=== PATIENT | male | born 1950 | race Caucasian/White ===

== ENCOUNTER → 2016-08-18 | Outpatient (CLI) | payer BC ==
[~2016-08-18] MED LIST: ALFU10TA30 PO; AMLO-110 PO; ASPI-232 PO; ATOR-24 PO; CHOL100027 PO; DILT180C70 PO; EXEN1INJ4 SQ; HMLI SC; HYDR12.524 PO; INSDGI SC; INSPMPNVLG; LINA1TAB PO; MAGN500T15 PO; SPIR25TA PO; TEST5GEL TOP; VENL75CA PO
[2016-08-18 09:36] LABS: BASO % 0.3 %; BASO ABS # 0.02 K/uL (0-0.2); COMPLETE YES; EOS % 4.9 %; IG% 0.1 %; LYMPH % 25.9 %; LYMPH ABS # 1.85 K/uL (1.2-3.4); MEAN CELL VOLUME 86.6 fL (80-100); MEAN CORPUSCULAR HEMOGLOBIN 30.3 pg (25-34); MEAN PLATELET VOLUME 10.4 fL (7.4-10.4); MONO % 7.7 %; NEUT % 61.1 %; PLATELET COUNT 243 K/uL (130-400); RED BLOOD COUNT 4.62 M/uL (4.7-6.1); WHITE BLOOD COUNT 7.13 K/uL (4.8-10.8)
[2016-08-18 09:42] LABS: ALT/SGPT 45 U/L (12-78); AST/SGOT 26 U/L (15-37); BLOOD UREA NITROGEN 22 mg/dl (7-18); BUN/CREATININE RATIO 14.5 (10-20); CALCIUM 8.8 mg/dl (8.5-10.1); CARBON DIOXIDE 27 mmol/L (21-32); CHLORIDE 107 mmol/L (98-107); GLUCOSE 175 mg/dl (70-99); POTASSIUM 4.7 mmol/L (3.5-5.1); SODIUM 140 mmol/L (136-145)
[2016-08-18 09:49] LABS: CHOLESTEROL 121 mg/dl (0-200); HDL CHOLESTEROL 40 mg/dl; LDL CHOLESTEROL CALCULATED 63 mg/dl; TRIGLYCERIDES 92 mg/dl (0-150); VERY LOW DENSITY LIPOPROT CALC 18 mg/dl
[2016-08-18 10:33] LABS: ESTIMATED AVERAGE GLUCOSE 163 mg/dl; HA1C FLAG Normal (Normal)
== END | disposition home or self-care (01) ==
LOC: C.LAB 07:17
DX: E11.9 Type 2 diabetes mellitus without complications (principal); E29.1 Testicular hypofunction; E78.5 Hyperlipidemia, unspecified; I10 Essential (primary) hypertension

== ENCOUNTER → 2016-09-25 | Outpatient (CLI) | payer BC ==
[~2016-09-25] MED LIST changes: +ALFU10TA2 PO; -ALFU10TA30 PO
[2016-09-25 09:35] LABS: BASO % 0.4 %; BASO ABS # 0.03 K/uL (0-0.2); COMPLETE YES; EOS % 4.1 %; HEMATOCRIT 42.9 % (42-52); IG% 0.1 %; LYMPH % 27.5 %; LYMPH ABS # 2.01 K/uL (1.2-3.4); MEAN CELL VOLUME 86.8 fL (80-100); MEAN CORPUSCULAR HEMOGLOBIN 30.4 pg (25-34); MEAN PLATELET VOLUME 10.1 fL (7.4-10.4); MONO % 8.6 %; NEUT % 59.3 %; PLATELET COUNT 269 K/uL (130-400); RED BLOOD COUNT 4.94 M/uL (4.7-6.1)
[2016-09-25 10:00] LABS: BLOOD UREA NITROGEN 24 mg/dl (7-18); CARBON DIOXIDE 25 mmol/L (21-32); CHLORIDE 105 mmol/L (98-107); GLUCOSE 181 mg/dl (70-99); MAGNESIUM 2.1 mg/dl (1.8-2.4); POTASSIUM 4.5 mmol/L (3.5-5.1); SODIUM 138 mmol/L (136-145)
[2016-09-25 10:14] LABS: CALCIUM 9.1 mg/dl (8.5-10.1)
[2016-09-25 10:28] LABS: ESTIMATED AVERAGE GLUCOSE 163 mg/dl; HA1C FLAG Normal (Normal)
== END | disposition home or self-care (01) ==
LOC: C.LAB 07:48
DX: I10 Essential (primary) hypertension (principal)

== ENCOUNTER → 2016-09-28 | Outpatient (CLI) | payer BC ==
--- NOTE | 2016-09-28 15:50 | DIAGNOSTIC IMAGING REPORT ---
MRI OF THE BRAIN WITHOUT CONTRAST CLINICAL HISTORY: Headache, transient ischemic attack, balance difficulty, loss of motor function. Blurred vision. COMPARISON STUDY: MRI the brain dated 04/02/2015 FINDINGS: Sagittal T1, axial diffusion, proton density and T2 weighted axial, coronal FLAIR, and axial T1-weighted images were acquired. No intra or extra-axial mass lesions are visualized Axial diffusion-weighted images reveal no evidence of acute or subacute infarction. There is no evidence of ventricular dilatation. Proton density T2-weighted and FLAIR images reveal scattered foci of increased T2 signal within the white matter, likely on a small vessel basis. The findings remain similar to the preceding examination. There are no abnormal flow voids. IMPRESSION: 1. No acute intracranial findings, and no significant change from the prior March 2015 study 2. No evidence of acute or subacute infarction 3. No evidence of intracranial mass on this noncontrast study 4. Scattered foci of increased T2 signal within the white matter, likely on a small vessel basis Electronically signed by: Jaguar Kwon M.D. 09/28/2016 3:48 PM Dictated Date/Time: 09/28/2016 3:46 PM
== END ==
LOC: C.MRI 15:01
DX: G45.9 Transient cerebral ischemic attack, unspecified (principal); G44.52 New daily persistent headache (NDPH); R26.2 Difficulty in walking, not elsewhere classified

== ENCOUNTER → 2016-10-01 | Outpatient (CLI) | payer BC ==
--- NOTE | 2016-10-01 14:30 | DIAGNOSTIC IMAGING REPORT ---
BILATERAL CAROTID DOPPLER STUDY HISTORY: Headache. Balance difficulty. Loss of motor function. Blurred vision. COMPARISON: None. TECHNIQUE: Real-time, grayscale, and color Doppler sonography of the carotid arteries was performed. Imaging reviewed in the transverse and longitudinal planes. All measurements were calculated based on NASCET criteria. FINDINGS: Antegrade flow is seen in the bilateral vertebral arteries. The brachial pressures are hemodynamically similar. Mild calcified plaque within the bilateral carotid bifurcations. The peak systolic velocity within the right ICA is 64 cm/s. The right systolic ratio is 0.9. The peak systolic velocity within the left ICA is 95 cm/s. The left systolic ratio is 1. IMPRESSION: No hemodynamically significant stenosis seen within the carotid arteries. Electronically signed by: Paxton Cruz M.D. 10/01/2016 2:29 PM Dictated Date/Time: 10/01/2016 2:27 PM
--- NOTE | 2016-10-01 18:24 | ECHOCARDIOGRAM REPORT ---
*NOTICE TO RECEIVING LIBERTARIAN AGENCY This information is strictly Confidential and protected under [place] law. [place] law prohibits you from making any further disclosure of this information unless further disclosure is expressly permitted by the written consent of the person to whom it pertains or is authorized by law. A general authorization for the release of medical or other information is not sufficient for this purpose. Hospital accepts no responsibility if the information is made available to any other person, INCLUDING THE PATIENT. Interpretation Summary * Name: RICK OCHOA Study Date: 10/01/2016 01:13 PM BP: 167/71 mmHg * Patient Location: [facility] HR: 61 * : 1950 (M/d/yyyy) Gender: Male Height: 74 in * Age: 66 yrs Ethnicity: CA Weight: 220 lb * Ordering Physician: ZAINAB ACEVES JR., DO * Performed By: Rae Doty RCS * * Reason For Study: TIA * BSA: 2.3 m2 * -- Conclusions -- * There is mild concentric left ventricular hypertrophy. * Left ventricular systolic function is normal. * Grade I diastolic dysfunction, (abnormal relaxation pattern). * The left atrium is mildly dilated. * Injection of contrast documented no interatrial shunt. * Right ventricular systolic pressure is elevated at 30-40mmHg. * Moderate aortic root dilatation. Procedure Details * A complete two-dimensional transthoracic echocardiogram was performed (2D, M-mode, Doppler and color flow Doppler). * A saline contrast injection was performed to assess for cardiac shunting. * The injection was performed through an intravenous line in the left arm. * The attending nurse who injected the saline contrast was NAEL MERRITT [facility], RN. * A total of 20 cc of agitated saline was given. Left Ventricle * The left ventricle is normal in size. * There is mild concentric left ventricular hypertrophy. * Ejection Fraction = 55-60%. * Left ventricular systolic function is normal. * Grade I diastolic dysfunction, (abnormal relaxation pattern). Right Ventricle * The right ventricle is normal in size and function. Atria * The left atrium is mildly dilated. * Right atrial size is normal. * Injection of contrast documented no interatrial shunt. Mitral Valve * The mitral valve anatomy is normal. * There is trace mitral regurgitation. Tricuspid Valve * The tricuspid valve is not well visualized, but is grossly normal. * Significant tricuspid regurgitation is absent. * Right ventricular systolic pressure is elevated at 30-40mmHg. Aortic Valve * The aortic valve is normal in structure and function. * No hemodynamically significant valvular aortic stenosis. * There is no significant aortic regurgitation. Great Vessels * Moderate aortic root dilatation. Pericardium/Pleural * There is no pericardial effusion. MMode 2D Measurements and Calculations IVSd 1.5 cm IVSs 1.8 cm LVIDd 4.6 cm LVIDs 3.2 cm LVPWd 1.5 cm LVPWs 1.6 cm IVS/LVPW 1.0 FS 30.2 % EDV(Teich) 96.0 ml ESV(Teich) 40.8 ml EF(Teich) 57.5 % EDV(cubed) 95.7 ml ESV(cubed) 32.6 ml EF(cubed) 65.9 % % IVS thick 17.9 % % LVPW thick 5.5 % LV mass(C)d 292.2 grams LV mass(C)dI 129.1 grams/m\S\2 LV mass(C)s 215.1 grams LV mass(C)sI 95.0 grams/m\S\2 SV(Teich) 55.3 ml SI(Teich) 24.4 ml/m\S\2 SV(cubed) 63.1 ml SI(cubed) 27.9 ml/m\S\2 Ao root diam 5.0 cm Ao root area 19.3 cm\S\2 ACS 1.9 cm LA dimension 4.2 cm LA/Ao 0.84 LVOT diam 2.1 cm LVOT area 3.3 cm\S\2 LVAd ap4 44.1 cm\S\2 LVLd ap4 8.9 cm EDV(MOD-sp4) 174.8 ml EDV(sp4-el) 185.2 ml LVAs ap4 23.1 cm\S\2 LVLs ap4 7.4 cm ESV(MOD-sp4) 59.6 ml ESV(sp4-el) 61.5 ml EF(MOD-sp4) 65.9 % EF(sp4-el) 66.8 % LVAd ap2 38.7 cm\S\2 LVLd ap2 8.6 cm EDV(MOD-sp2) 144.2 ml EDV(sp2-el) 148.3 ml LVAs ap2 23.2 cm\S\2 LVLs ap2 7.1 cm ESV(MOD-sp2) 65.8 ml ESV(sp2-el) 64.5 ml EF(MOD-sp2) 54.4 % EF(sp2-el) 56.5 % LVLd %diff -3.50 % EDV(MOD-bp) 160.9 ml LVLs %diff -3.94 % ESV(MOD-bp) 61.9 ml EF(MOD-bp) 61.5 % SV(MOD-sp4) 115.2 ml SI(MOD-sp4) 50.9 ml/m\S\2 SV(MOD-sp2) 78.4 ml SI(MOD-sp2) 34.6 ml/m\S\2 SV(MOD-bp) 99.0 ml SI(MOD-bp) 43.8 ml/m\S\2 SV(sp4-el) 123.7 ml SI(sp4-el) 54.7 ml/m\S\2 SV(sp2-el) 83.8 ml SI(sp2-el) 37.0 ml/m\S\2 Doppler Measurements and Calculations MV E max brittnee 58.8 cm/sec MV A max brittnee 79.3 cm/sec MV E/A 0.74 MV P1/2t max brittnee 78.6 cm/sec MV P1/2t 68.6 msec MVA(P1/2t) 3.2 cm\S\2 MV dec slope 335.4 cm/sec\S\2 MV dec time 0.23 sec Ao V2 max 133.9 cm/sec Ao max PG 7.2 mmHg Ao max PG (full) 5.5 mmHg ABHAY(V,A) 1.6 cm\S\2 ABHAY(V,D) 1.6 cm\S\2 LV V1 max PG 1.7 mmHg LV V1 max 64.8 cm/sec PA V2 max 108.3 cm/sec PA max PG 4.7 mmHg TR max brittnee 250.4 cm/sec
== END | disposition home or self-care (01) ==
LOC: C.CPL 12:32
DX: G45.9 Transient cerebral ischemic attack, unspecified (principal)

== ENCOUNTER → 2016-10-22 | Outpatient (CLI) | payer BC ==
[~2016-10-22] MED LIST changes: -ALFU10TA2 PO; +ALFU10TA30 PO
[2016-10-22 12:27] LABS: MEAN CELL VOLUME 87.2 fL (80-100); MEAN CORPUSCULAR HEMOGLOBIN 30.4 pg (25-34); MEAN CORPUSCULAR HGB CONC 34.9 g/dl (32-36); MEAN PLATELET VOLUME 10.5 fL (7.4-10.4); PLATELET COUNT 284 K/uL (130-400); RED BLOOD COUNT 4.93 M/uL (4.7-6.1); WHITE BLOOD COUNT 7.35 K/uL (4.8-10.8)
[2016-10-22 12:41] LABS: URINE APPEARANCE CLEAR (CLEAR); URINE BILIRUBIN NEG (NEG); URINE COLOR YELLOW; URINE NITRITE NEG (NEG); URINE PH 5.5 (4.5-7.5); URINE SPECIFIC GRAVITY 1.019 (1.000-1.030); UROBILINOGEN NEG (NEG)
[2016-10-22 12:54] LABS: MANUAL MICROSCOPIC REQUIRED? NO; REVIEW REQ? NO
[2016-10-22 12:56] LABS: ALT/SGPT 45 U/L (12-78); AST/SGOT 31 U/L (15-37); BLOOD UREA NITROGEN 27 mg/dl (7-18); CARBON DIOXIDE 23 mmol/L (21-32); CHLORIDE 102 mmol/L (98-107); GLUCOSE 255 mg/dl (70-99); POTASSIUM 4.5 mmol/L (3.5-5.1); SODIUM 135 mmol/L (136-145)
[2016-10-22 12:58] LABS: CALCIUM 9.1 mg/dl (8.5-10.1)
[2016-10-22 13:01] LABS: ALB/GLOB RATIO 1.1 (0.9-2); ALKALINE PHOSPHATASE 80 U/L (45-117)
[2016-10-22 13:17] LABS: URINE PROTIEN/CREAT RATIO 1.2 (0-0.2); URINE TOTAL PROTEIN 211.2 mg/dl (0-11.9)
== END | disposition home or self-care (01) ==
LOC: C.LAB 10:13
PROVIDERS: ATTEND Internal Medicine Nephrology
DX: I12.9 Hypertensive chronic kidney disease with stage 1 through stage 4 chronic kidney disease, or unspecified chronic kidney disease (principal); N18.3 Chronic kidney disease, stage 3 (moderate); E11.22 Type 2 diabetes mellitus with diabetic chronic kidney disease; R80.9 Proteinuria, unspecified; E55.9 Vitamin D deficiency, unspecified

== ENCOUNTER 2016-10-29 20:01 | Emergency (ER) | payer BC ==
[~2016-10-29] VITALS: Ht 188 cm; Wt 98.1 kg
[~2016-10-29 20:01] MED LIST changes: +ALFU10TA2 PO; -ALFU10TA30 PO; -AMLO-110 PO; -HYDR12.524 PO; -INSPMPNVLG; -LINA1TAB PO
[2016-10-29 20:03] VITALS: TEMP 36.9; Ht 188 cm; Wt 98.1 kg
[2016-10-29] MEDS ORDERED: INSPMPNVLG (20:47)
[2016-10-29] MEDS ORDERED: AMLO-110 PO (20:47)
[2016-10-29] MEDS ORDERED: HYDR12.524 PO (20:47)
[2016-10-29] MEDS ORDERED: LINA1TAB PO (20:47)
[2016-10-29] MEDS ORDERED: ASPIRIN 81 MG CHEW PO STA (21:01)
[2016-10-29 21:08] VITALS: O2SAT 96
[2016-10-29 21:10] LABS: BASO % 0.4 %; BASO ABS # 0.04 K/uL (0-0.2); COMPLETE YES; EOS % 3.9 %; HEMATOCRIT 42.2 % (42-52); IG% 0.3 %; LYMPH % 31.2 %; LYMPH ABS # 3.22 K/uL (1.2-3.4); MEAN CELL VOLUME 86.5 fL (80-100); MEAN CORPUSCULAR HEMOGLOBIN 30.3 pg (25-34); MEAN CORPUSCULAR HGB CONC 35.1 g/dl (32-36); MEAN PLATELET VOLUME 10.2 fL (7.4-10.4); MONO % 6.7 %; NEUT % 57.5 %; PLATELET COUNT 270 K/uL (130-400); RED BLOOD COUNT 4.88 M/uL (4.7-6.1); WHITE BLOOD COUNT 10.32 K/uL (4.8-10.8)
[2016-10-29 21:18] LABS: ALT/SGPT 45 U/L (12-78); BLOOD UREA NITROGEN 29 mg/dl (7-18); BUN/CREATININE RATIO 15.3 (10-20); CARBON DIOXIDE 24 mmol/L (21-32); CHLORIDE 105 mmol/L (98-107); GLUCOSE 140 mg/dl (70-99); POTASSIUM 5.3 mmol/L (3.5-5.1); SODIUM 137 mmol/L (136-145)
--- NOTE | 2016-10-29 21:20 | DIAGNOSTIC IMAGING REPORT ---
CHEST ONE VIEW PORTABLE CLINICAL HISTORY: CHEST PAIN dyspnea COMPARISON STUDY: 05/13/2010 FINDINGS: The bones soft tissues and hemidiaphragms are normal. The cardiomediastinal silhouette is normal. The lungs are clear. The pulmonary vasculature is normal. IMPRESSION: Negative chest. Electronically signed by: Sim Rodriguez M.D. 10/29/2016 9:19 PM Dictated Date/Time: 10/29/2016 9:17 PM
[2016-10-29 21:23] LABS: ALKALINE PHOSPHATASE 83 U/L (45-117); AST/SGOT 30 U/L (15-37); CKMB/CK RATIO 1.1 (0-3.0)
[2016-10-29 21:32] LABS: ISTAT CREATININE 1.9 mg/dl (0.6-1.3); ISTAT HEMOGLOBIN 14.3 g/dl (14.0-18.0); ISTAT IONIZED CALCIUM 1.18 mmol/l (1.12-1.32)
[2016-10-29 22:00] LABS: CALCIUM 8.9 mg/dl (8.5-10.1)
[2016-10-29] MEDS ORDERED: OPTIRAY 320 IV PRN (22:00)
--- NOTE | 2016-10-29 22:21 | DIAGNOSTIC IMAGING REPORT ---
Study: CT chest combination angiogram HISTORY: Dissection. Chest pain. FINDINGS: Lungs are clear. Thoracic aorta is normal. Pulmonary vasculature enhances appropriately. IMPRESSION: Normal study Electronically signed by: Sim Rodriguez M.D. 10/29/2016 10:20 PM Dictated Date/Time: 10/29/2016 10:15 PM
[2016-10-29] MEDS ORDERED: SODIUM CHLORIDE 0.9% 1000ML 1,000 ML IV STA (22:50)
[2016-10-29] MEDS ORDERED: NITROGLYCERIN 0.4 MG SL PER TAB CHARGE SL PRN (23:15)
[2016-10-29] MEDS ORDERED: ALUMINUM/MAGNESIUM/SIMETH (MAALOX MAX) 30 ML UDC PO PRN (23:15)
[2016-10-29] MEDS ORDERED: POLYETHYLENE (MIRALAX) 17 GM PACK PO PRN (23:15)
[2016-10-29] MEDS ORDERED: MoRPHine SULFATE 2 MG/ML CARP IV PRN (23:15)
[2016-10-29] MEDS ORDERED: ZOLPIDEM TARTRATE 5 MG TAB PO PRN (23:15)
[2016-10-29] MEDS ORDERED: ACETAMINOPHEN 325 MG TAB PO PRN (23:15)
[2016-10-29] MEDS ORDERED: MAGNESIUM HYDROXIDE SUSP 30 ML UDC PO PRN (23:15)
[2016-10-29] MEDS ORDERED: ONDANSETRON INJ 2 MG/ML 2 ML VIAL IV PRN (23:15)
--- NOTE | 2016-10-29 23:43 | EMERGENCY ROOM VISIT NOTE ---
History Report prepared by Lacey: Francine Carrasco Under the Supervision of: Dr. Huan Molina M.D. First contact with patient: 20:25 Chief Complaint: CHEST PAIN Stated Complaint: CHEST PAIN, PRESSURE, SOB Nursing Triage Summary: see triage note History of Present Illness The patient is a 66 year old male who presents to the Emergency Room with complaints of worsening chest pain starting 5 days ago. He describes his pain as a pressure. He also has a pain in his left chest. The pain worsens with activity. It is relieved by rest. He also reports feeling SOB and tired constantly. His throat feels coarse. He has a history of smoking, but quit 13 years ago. He has a history of diabetes. He had an echo 1 week ago which found he had a dilated aorta. He has an appointment with cardiothoracic surgery next week. He has had a stress test in the past around 10 years ago. He denies any history of cardiac catheterization. He takes 2 baby aspirin a day. He is not on any other blood thinners. Source of History: patient Onset: 5 days ago Position: chest Quality: pressure Timing: worsening Modifying Factors (Worsening): other (activity) Modifying Factors (Relieving): rest Associated Symptoms: + sorethroat, + SOB, + fatigue Review of Systems See HPI for pertinent positives & negatives. A total of 10 systems reviewed and were otherwise negative. Past Medical & Surgical Medical Problems: (1) Chest pain (2) CHRONIC KIDNEY DISEASE, UNSPECIFIED (3) DEPRESSIVE DISORDER NEC (4) DIAB W NEURO MANIFEST, TYPE II OR UNSPEC TYPE, UNCONTROLLED (5) DIAB W RENAL MANIFEST, TYPE II OR UNSPEC TYPE, UNCONTROLLED (6) DYSMETABOLIC SYNDROME X (7) ESOPHAGEAL REFLUX (8) GOUT NOS (9) HYPERTENSION NOS (10) OSTEOARTHROS NOS-ANKLE Family History Cancer Social History Smoking Status: Never Smoker Alcohol Use: occasionally Marital Status: Occupation Status: employed Current/Historical Medications Scheduled Alfuzosin Hcl (Uroxatral), 10 MG PO DAILY Amlodipine (Norvasc), 5 MG PO DAILY Aspirin (Aspir-81), 162 MG PO DAILY Atorvastatin (Lipitor), 40 MG PO DAILY Diltiazem Hcl (Diltiazem Hcl), 180 MG PO QPM Hydrochlorothiazide (Microzide), 25 MG PO DAILY Insulin Aspart (novoLOG INSULIN PUMP ), 1 EA N/A UD Linagliptin (Tradjenta), 1 TAB PO DAILY Magnesium (Magnesium), 500 MG PO DAILY Spironolactone (Aldactone), 37.5 MG PO BID Allergies Coded Allergies: No Known Allergies (Verified , 09/18/14) Physical Exam Vital Signs Date Time Temp Pulse Resp B/P (MAP) Pulse Ox O2 Delivery O2 Flow Rate FiO2 10/30/16 02:20 57 10/30/16 02:05 54 94 10/30/16 02:03 153/63 10/30/16 01:35 56 15 97 10/30/16 01:33 63 16 151/70 97 Room Air 10/30/16 01:13 58 10/30/16 00:33 155/65 10/30/16 00:30 59 96 10/30/16 00:00 65 16 95 10/29/16 23:44 163/69 10/29/16 23:30 61 12 10/29/16 23:26 61 18 143/70 95 Room Air 10/29/16 22:41 62 20 10/29/16 22:38 146/64 10/29/16 21:36 66 14 10/29/16 21:31 72 17 10/29/16 21:26 65 15 10/29/16 21:21 67 25 10/29/16 21:16 70 19 10/29/16 21:11 66 18 10/29/16 21:08 96 Room Air 10/29/16 21:06 67 16 10/29/16 21:01 66 20 10/29/16 20:56 76 24 10/29/16 20:51 68 15 10/29/16 20:46 65 22 10/29/16 20:46 62 10/29/16 20:41 63 24 10/29/16 20:39 96 Room Air 10/29/16 20:03 36.9 80 16 142/80 96 Room Air Physical Exam GENERAL: Patient is a healthy-appearing well-nourished HEAD: Normocephalic atraumatic EYES: Ocular movements intact pupils equal and react to light OROPHARYNX mucous membranes are moist no exudates present no erythema or edema present NECK: Supple no nuchal rigidity CHEST: Good equal expansion LUNGS: Clear and equal to auscultation CARDIAC: Normal S1 and S2 ABDOMEN: Soft nontender no guarding BACK: No CVA tenderness EXTREMITIES: No pain upon palpation normal muscle strength in all groups no clubbing cyanosis or edema NEURO: Patient is following commands is answering questions appropriately. Alert and oriented x3 Cranial Nerves 2-12 grossly intact Medical Decision & Procedures ER Provider Diagnostic Interpretation: X-ray results as stated below per interpretation by me and the radiologist. Radiology results as stated below per my review and radiologist interpretation: CHEST ONE VIEW PORTABLE CLINICAL HISTORY: CHEST PAIN dyspnea COMPARISON STUDY: 05/13/2010 FINDINGS: The bones soft tissues and hemidiaphragms are normal. The cardiomediastinal silhouette is normal. The lungs are clear. The pulmonary vasculature is normal. IMPRESSION: Negative chest. Electronically signed by: Sim Rodriguez M.D. 10/29/2016 9:19 PM Dictated Date/Time: 10/29/2016 9:17 PM Study: CT chest combination angiogram HISTORY: Dissection. Chest pain. FINDINGS: Lungs are clear. Thoracic aorta is normal. Pulmonary vasculature enhances appropriately. IMPRESSION: Normal study Electronically signed by: Sim Rodriguez M.D. 10/29/2016 10:20 PM Dictated Date/Time: 10/29/2016 10:15 PM Laboratory Results 10/29/16 20:30 Red Blood Count 4.88, Mean Corpuscular Volume 86.5, Mean Corpuscular Hemoglobin 30.3, Mean Corpuscular Hemoglobin Concent 35.1, Mean Platelet Volume 10.2, Neutrophils (%) (Auto) 57.5, Lymphocytes (%) (Auto) 31.2, Monocytes (%) (Auto) 6.7, Eosinophils (%) (Auto) 3.9, Basophils (%) (Auto) 0.4, Neutrophils # (Auto) 5.94, Lymphocytes # (Auto) 3.22, Monocytes # (Auto) 0.69, Eosinophils # (Auto) 0.40, Basophils # (Auto) 0.04 10/29/16 20:30 Test 10/29/16 20:30 10/29/16 21:14 10/30/16 00:07 White Blood Count 10.32 K/uL (4.8-10.8) Red Blood Count 4.88 M/uL (4.7-6.1) Hemoglobin 14.8 g/dL (14.0-18.0) Hematocrit 42.2 % (42-52) Mean Corpuscular Volume 86.5 fL (80-100) Mean Corpuscular Hemoglobin 30.3 pg (25-34) Mean Corpuscular Hemoglobin Concent 35.1 g/dl (32-36) Platelet Count 270 K/uL (130-400) Mean Platelet Volume 10.2 fL (7.4-10.4) Neutrophils (%) (Auto) 57.5 % Lymphocytes (%) (Auto) 31.2 % Monocytes (%) (Auto) 6.7 % Eosinophils (%) (Auto) 3.9 % Basophils (%) (Auto) 0.4 % Neutrophils # (Auto) 5.94 K/uL (1.4-6.5) Lymphocytes # (Auto) 3.22 K/uL (1.2-3.4) Monocytes # (Auto) 0.69 K/uL (0.11-0.59) Eosinophils # (Auto) 0.40 K/uL (0-0.5) Basophils # (Auto) 0.04 K/uL (0-0.2) RDW Standard Deviation 40.6 fL (36.4-46.3) RDW Coefficient of Variation 12.7 % (11.5-14.5) Immature Granulocyte % (Auto) 0.3 % Immature Granulocyte # (Auto) 0.03 K/uL (0.00-0.02) Est Creatinine Clear Calc Drug Dose 45.1 ml/min Estimated GFR () 41.9 Estimated GFR (Non- 36.2 BUN/Creatinine Ratio 15.3 (10-20) Calcium Level 8.9 mg/dl (8.5-10.1) Total Bilirubin 0.3 mg/dl (0.2-1) Direct Bilirubin < 0.1 mg/dl (0-0.2) Aspartate Amino Transf (AST/SGOT) 30 U/L (15-37) Alanine Aminotransferase (ALT/SGPT) 45 U/L (12-78) Alkaline Phosphatase 83 U/L (45-117) Total Creatine Kinase 198 U/L (39-308) Creatine Kinase MB 2.2 ng/ml (0.5-3.6) Creatine Kinase MB Ratio 1.1 (0-3.0) Troponin I < 0.015 ng/ml (0-0.045) Total Protein 7.5 gm/dl (6.4-8.2) Albumin 3.8 gm/dl (3.4-5.0) Lipase 295 U/L (73-393) Bedside Hemoglobin 14.3 g/dl (14.0-18.0) Bedside Hematocrit 42 % (42-52) Bedside Sodium 136 mEq/L (135-144) Bedside Potassium 5.4 mEq/L (3.3-5.0) Bedside Chloride 101 mEq/L (101-112) Bedside Total CO2 24 mEq/l (24-31) Anion Gap 17.0 mmol/L (16-25) Bedside Blood Urea Nitrogen 34 mg/dl (7-18) Bedside Creatinine 1.9 mg/dl (0.6-1.3) Bedside Glucose (other) 146 mg/dl (70-99) Bedside Ionized Calcium (Scarlett) 1.18 mmol/l (1.12-1.32) Bedside Glucose 169 mg/dl (70-99) Labs reviewed by ED physician. Medications Administered Medications (Trade) Dose Ordered Sig/Alba Route Start Time Stop Time Status Last Admin Dose Admin Aspirin (Aspirin Chew) 324 mg NOW STAT PO 10/29/16 21:01 10/29/16 21:03 DC 10/29/16 21:13 324 MG Sodium Chloride 1,000 ml @ 999 mls/hr Q1H1M STAT IV 10/29/16 22:50 10/29/16 23:50 DC 10/29/16 22:58 999 MLS/HR Morphine Sulfate (MoRPHine SULFATE INJ) 8 mg NOW STAT IV 10/30/16 01:38 10/30/16 01:39 DC 10/30/16 01:55 8 MG Ondansetron HCl (Zofran Inj) 4 mg NOW STAT IV 10/30/16 01:38 10/30/16 01:39 DC 10/30/16 01:56 4 MG ECG Indication: chest pain Rate (beats per minute): 61 Rhythm: normal sinus Findings: no acute ischemic change, no ectopy ED Course 2048: Past medical records reviewed. The patient was evaluated in room A10. A complete history and physical examination was performed. 2100: Aspirin 324 mg PO. 2250: NSS 1000 ml @ 999 mls/hr IV. 2300: Upon reexamination the patient is resting comfortably. I discussed results and treatment plan with the patient. He verbalizes agreement and understanding. The patient will be evaluated for further management. 2331: I discussed the patient's case with Dr. Paul, [facility] Hospitalist service, he has agreed to evaluate the patient for further management and care. Medical Decision Differential diagnosis: Etiologies such as cardiac ischemia, aortic dissection, pulmonary embolism, pneumonia, pneumothorax, musculoskeletal, infections, pericarditis, myocarditis , esophageal rupture, gastrointestinal, as well as others were entertained. This is a 66-year-old male who presents emergency department complaining of chest pain. I will note that the patient recently had an echo which was concerning for a dilated aortic root. He was given aspirin in the emergency department. His a normal EKG as well as CK-MB troponin fraction. The patient is a smoker and is also a diabetic. I believe based on these findings at the patient should at least be admitted for observation. I did discuss the case with the hospitalist and discussed the case with cardiology felt that the patient needed be transferred to [place]. For this reason I did discuss this with the patient. He'll be transferred via ALS. Patient remained pain-free in the emergency department. Consults Time Called: [id number] Consulting Physician[facility] Returned Call: [phone] I discussed the patient's case with him, he has agreed to evaluate the patient for further management and care. Impression Primary Impression: Chest pain Scribe Attestation The scribe's documentation has been prepared under my direction and personally reviewed by me in its entirety. I confirm that the note above accurately reflects all work, treatment, procedures, and medical decision making performed by me. Departure Information Dispostion Being Evaluated By Hospitalist Referrals Edwin Kohli Jr,D.O. (PCP) Patient Instructions My [facility] Health Problem Qualifiers Primary Impression: Chest pain Chest pain type: unspecified Qualified Codes: R07.9 - Chest pain, unspecified
[2016-10-29] MEDS ORDERED: IV FLUIDS COMPLETED PRN (23:45)
[2016-10-30] MEDS ORDERED: ONDANSETRON INJ 2 MG/ML 2 ML VIAL IV STA (01:38)
[2016-10-30] MEDS ORDERED: MoRPHine SULFATE 10 MG/ML CARP/VIAL IV STA (01:38)
[2016-10-30] MEDS ORDERED: DEXTROSE 50% 50 ML SYR IV PRN (02:30)
[2016-10-30] MEDS ORDERED: GLUCAGON FOR INJ 1 MG VIAL SQ PRN (02:30)
[2016-10-30] MEDS ORDERED: GLUCOSE 10 TABS/TUBE PO PRN (02:30)
[2016-10-30] MEDS ORDERED: GLUCOSE 40% GEL 15 GM TUBE PO PRN (02:30)
[2016-10-30] MEDS ORDERED: INSULIN ASPART 100 UNITS/ML VIAL SC PRN (05:45)
[2016-10-30] MEDS ORDERED: HEPARIN SOD 5000 UNIT/0.5 ML CARP SQ SCH (06:00)
[2016-10-30] MEDS ORDERED: NovoLOG INSULIN PUMP SCH (07:00)
--- NOTE | 2016-10-30 07:26 | EMERGENCY ROOM VISIT NOTE ---
ED Visit Note 07:22 the patient was reevaluated. He has minimal to no pain. He is awaiting transfer to [place].
[2016-10-30 07:35] LABS: PROTHROMBIN TIME (PATIENT) 10.8 SECONDS (9.0-12.0)
[2016-10-30 07:46] VITALS: BP 170/73; PULSE 54; O2SAT 97
[2016-10-30] MEDS ORDERED: ASPIRIN 81 MG ECTAB PO SCH (09:00)
[2016-10-30] MEDS ORDERED: SPIRONOLACTONE 25 MG TAB PO SCH (09:00)
[2016-10-30] MEDS ORDERED: MAGNESIUM OXIDE 400 MG TAB PO SCH (09:00)
[2016-10-30] MEDS ORDERED: HYDROCHLOROTHIAZIDE 25 MG PO SCH (09:00)
[2016-10-30] MEDS ORDERED: ALFUZosin TAB 10 MG TAB PO SCH (09:00)
[2016-10-30] MEDS ORDERED: AMLODIPINE BESYLATE 5 MG TAB PO SCH (09:00)
[2016-10-30] MEDS ORDERED: ATORVASTATIN 40 MG TAB PO SCH (09:00)
[2016-10-30] MEDS ORDERED: DILTIAZEM HCL (TIAzac) 180 MG CAPCR PO SCH (21:00)
== END 2016-10-30 07:48 | disposition short-term general hospital (02) ==
LOC: C.EDB 20:01 → ENRESERV 23:17 → CANRESERV 23:17 → CANBEDREQ 10-30 00:30 → C.EDA 10-30 07:48
DX: R07.9 Chest pain, unspecified (principal); I12.9 Hypertensive chronic kidney disease with stage 1 through stage 4 chronic kidney disease, or unspecified chronic kidney disease; E11.22 Type 2 diabetes mellitus with diabetic chronic kidney disease; N18.9 Chronic kidney disease, unspecified; F32.9 Major depressive disorder, single episode, unspecified; E88.81 Metabolic syndrome and other insulin resistance; K21.9 Gastro-esophageal reflux disease without esophagitis; M10.9 Gout, unspecified; M19.079 Primary osteoarthritis, unspecified ankle and foot; Z79.82 Long term (current) use of aspirin; Z79.4 Long term (current) use of insulin; Z87.891 Personal history of nicotine dependence

== ENCOUNTER → 2017-03-04 | Outpatient (CLI) | payer BC ==
[~2017-03-04] MED LIST changes: -ALFU10TA2 PO; +ALFU10TA30 PO; +AMLO-110 PO; -CHOL100027 PO; -EXEN1INJ4 SQ; -HMLI SC; +HYDR12.524 PO; -INSDGI SC; +INSPMPNVLG; +LINA1TAB PO; -TEST5GEL TOP; -VENL75CA PO
[2017-03-04 10:19] LABS: HEMATOCRIT 44.8 % (42-52); MEAN CELL VOLUME 85.2 fL (80-100); MEAN CORPUSCULAR HEMOGLOBIN 29.5 pg (25-34); MEAN CORPUSCULAR HGB CONC 34.6 g/dl (32-36); MEAN PLATELET VOLUME 10.4 fL (7.4-10.4); PLATELET COUNT 228 K/uL (130-400); RED BLOOD COUNT 5.26 M/uL (4.7-6.1); URINE APPEARANCE CLEAR (CLEAR); URINE BILIRUBIN NEG (NEG); URINE COLOR DK YELLOW; URINE NITRITE NEG (NEG); URINE SPECIFIC GRAVITY 1.023 (1.000-1.030); UROBILINOGEN NEG (NEG); WHITE BLOOD COUNT 6.36 K/uL (4.8-10.8)
[2017-03-04 10:20] LABS: MANUAL MICROSCOPIC REQUIRED? NO; REVIEW REQ? NO
[2017-03-04 10:26] LABS: ALT/SGPT 45 U/L (12-78); AST/SGOT 31 U/L (15-37); BLOOD UREA NITROGEN 24 mg/dl (7-18); BUN/CREATININE RATIO 18.7 (10-20); CALCIUM 9.1 mg/dl (8.5-10.1); CARBON DIOXIDE 28 mmol/L (21-32); CHLORIDE 103 mmol/L (98-107); GLUCOSE 132 mg/dl (70-99); POTASSIUM 4.2 mmol/L (3.5-5.1); SODIUM 138 mmol/L (136-145)
[2017-03-04 10:29] LABS: ALB/GLOB RATIO 0.9 (0.9-2); ALKALINE PHOSPHATASE 99 U/L (45-117)
[2017-03-04 10:41] LABS: URINE PROTIEN/CREAT RATIO 1.8 (0-0.2); URINE TOTAL PROTEIN 273.7 mg/dl (0-11.9)
== END | disposition home or self-care (01) ==
LOC: C.LAB1850 09:13
PROVIDERS: ATTEND Internal Medicine Nephrology
DX: N18.3 Chronic kidney disease, stage 3 (moderate) (principal); I12.9 Hypertensive chronic kidney disease with stage 1 through stage 4 chronic kidney disease, or unspecified chronic kidney disease; R80.9 Proteinuria, unspecified; E55.9 Vitamin D deficiency, unspecified

== ENCOUNTER → 2017-05-05 | Outpatient (CLI) | payer BC ==
[~2017-05-05] MED LIST changes: +ALFU10TA2 PO; -ALFU10TA30 PO
[2017-05-05 09:52] LABS: BLOOD UREA NITROGEN 20 mg/dl (7-18); BUN/CREATININE RATIO 13.2 (10-20); CALCIUM 8.9 mg/dl (8.5-10.1); CARBON DIOXIDE 28 mmol/L (21-32); CHLORIDE 102 mmol/L (98-107); CREATININE 1.49 mg/dl (0.60-1.40); GLUCOSE 199 mg/dl (70-99); MAGNESIUM 2.1 mg/dl (1.8-2.4); POTASSIUM 4.4 mmol/L (3.5-5.1); SODIUM 137 mmol/L (136-145)
[2017-05-05 09:53] LABS: PHOSPHORUS 2.7 mg/dl (2.5-4.9)
== END | disposition home or self-care (01) ==
LOC: C.LAB1850 08:33
PROVIDERS: ATTEND Internal Medicine Nephrology
DX: I12.9 Hypertensive chronic kidney disease with stage 1 through stage 4 chronic kidney disease, or unspecified chronic kidney disease (principal); N18.3 Chronic kidney disease, stage 3 (moderate); R80.9 Proteinuria, unspecified; E55.9 Vitamin D deficiency, unspecified

== ENCOUNTER → 2017-05-11 | Outpatient (CLI) | payer BC | END | disposition home or self-care (01) | LOC: C.MAMM 12:40 | DX: M85.88 Other specified disorders of bone density and structure, other site (principal); M85.852 Other specified disorders of bone density and structure, left thigh; M85.851 Other specified disorders of bone density and structure, right thigh ==

== ENCOUNTER → 2017-05-26 | Outpatient (CLI) | payer BC ==
[~2017-05-26] MED LIST changes: -AMLO-110 PO; +AMLO5TAB3 PO
--- NOTE | 2017-05-26 09:44 | DIAGNOSTIC IMAGING REPORT ---
MRI OF THE RIGHT KNEE CLINICAL HISTORY: Medial right knee pain. COMPARISON STUDY: No priors. TECHNIQUE: MRI of the right knee was performed utilizing proton density, T1, and T2-weighted sequences in the axial, sagittal, coronal planes. IV contrast was not administered for this examination. Note that interpretation is suboptimal without plain film correlate. FINDINGS: Menisci: The medial and lateral menisci are intact. Ligaments: The anterior and posterior cruciate ligaments are intact. The medial and lateral collateral ligaments are within normal limits. Extensor mechanism: The extensor mechanism is intact. Hoffa's fat pad is normal in appearance. Articular cartilage and bone: There is less than 50% thinning of the articular cartilage along the lateral patellar facet. There is also mildly of the articular cartilage in the femoral trochlea with mild reactive marrow edema. The articular cartilage is intact within the medial and lateral compartments. There is no evidence of fracture. Joint effusion: None Soft tissues: The musculature surrounding the knee joint is normal in bulk and signal intensity. IMPRESSION: 1. There is no evidence of meniscal or ligamentous injury in the right knee. 2. Mild arthritic change is present at the patellofemoral articulation as above. Electronically signed by: Alfred Aranda M.D. 05/26/2017 9:43 AM Dictated Date/Time: 05/26/2017 9:30 AM
== END | disposition home or self-care (01) ==
LOC: C.MRIBC 08:46
PROVIDERS: ATTEND Orthopaedic Surgery
DX: M25.561 Pain in right knee (principal)

== ENCOUNTER → 2017-05-27 | Outpatient (CLI) | payer BC ==
--- NOTE | 2017-05-27 15:24 | DIAGNOSTIC IMAGING REPORT ---
CHEST 2 VIEWS ROUTINE CLINICAL HISTORY: COUGH dyspnea COMPARISON STUDY: 10/29/2016 FINDINGS: The bones soft tissues and hemidiaphragms are normal. The cardiomediastinal silhouette is normal. The lungs are clear. The pulmonary vasculature is normal. IMPRESSION: Negative chest. The above report was generated using voice recognition software. It may contain grammatical, syntax or spelling errors. Electronically signed by: Sim Rodriguez M.D. 05/27/2017 3:22 PM Dictated Date/Time: 05/27/2017 3:22 PM
== END | disposition home or self-care (01) ==
LOC: C.RADBC 14:48
DX: R05 Cough (principal); R06.00 Dyspnea, unspecified

== ENCOUNTER → 2017-09-06 | Outpatient (CLI) | payer BC ==
[~2017-09-06] MED LIST changes: +AMLO-110 PO; -AMLO5TAB3 PO
[2017-09-06 10:16] LABS: BASO % 0.5 %; BASO ABS # 0.03 K/uL (0-0.2); EOS % 5.2 %; EOS ABS # 0.34 K/uL (0-0.5); HEMATOCRIT 44.2 % (42-52); HEMOGLOBIN 15.4 g/dL (14.0-18.0); IG# 0.02 K/uL (0.00-0.02); LYMPH % 27.5 %; LYMPH ABS # 1.81 K/uL (1.2-3.4); MEAN CELL VOLUME 84.4 fL (80-100); MEAN CORPUSCULAR HEMOGLOBIN 29.4 pg (25-34); MEAN CORPUSCULAR HGB CONC 34.8 g/dl (32-36); MEAN PLATELET VOLUME 10.4 fL (7.4-10.4); MONO % 7.1 %; MONO ABS # 0.47 K/uL (0.11-0.59); NEUT % 59.4 %; NEUT ABS # 3.92 K/uL (1.4-6.5); PLATELET COUNT 233 K/uL (130-400); RED CELL DISTRIBUTION WIDTH CV 13.3 % (11.5-14.5); RED CELL DISTRIBUTION WIDTH SD 40.4 fL (36.4-46.3); WHITE BLOOD COUNT 6.59 K/uL (4.8-10.8)
== END | disposition home or self-care (01) ==
LOC: C.LAB 09:48
DX: E11.9 Type 2 diabetes mellitus without complications (principal); E78.5 Hyperlipidemia, unspecified; G47.00 Insomnia, unspecified; G62.9 Polyneuropathy, unspecified

== ENCOUNTER 2018-06-10 14:57 | Inpatient (IN) ==
--- NOTE | 2018-06-10 15:36 | Emergency Department Note ---
History of Present Illness General Chief complaint: Infection Stated complaint: L FOOT INFECTION, REFERRED BY DR. KOHLI Time Seen by Provider: 06/10/18 15:26 History of Present Illness Maximum Pain Intensity: 7 This is a 68-year-old male that presents to the emergency department with a history of type 2 diabetes with chronic foot ulcer with complaints of "left foot infection, referred by Dr. Kohli". The patient notes that he has neuropathy and has difficulty feeling pain in the left foot but notes that yesterday and today began with redness on the top of the left foot just proximal to the toes that is now progressing with pain up to the left anterior redmond. He notes that he saw Dr. Kohli and they are concerned about infection therefore recommended referral to the emergency department. Patient presents with a wound culture from the wound which was sent to our lab. He rates the overall pain that is radiating up his leg at this time currently as a 7/10. He does note chills. No fever subjectively. He denies any allergies to antibiotics or being on antibiotics recently. He notes that his sugars have been high for the past few days. He notes he is on an insulin pump. Home Medications Home Medications Medication Instructions Recorded Confirmed Type alfuzosin 10 mg PO DAILY 02/15/18 06/10/18 History aspirin [Aspir-Low] 81 mg PO DAILY 02/15/18 06/10/18 History atorvastatin 80 mg PO DAILY 02/15/18 06/10/18 History chlorthalidone 25 mg PO DAILY 02/15/18 06/10/18 History insulin aspart U-100 See Label Instructions .ROUTE 02/15/18 06/10/18 History .COMPLEX linagliptin 5 mg PO DAILY 02/15/18 06/10/18 History metoprolol succinate 25 mg PO DAILY 02/15/18 06/10/18 History nifedipine 60 mg PO BID 02/15/18 06/10/18 History pantoprazole 40 mg PO DAILY 02/15/18 06/10/18 History venlafaxine 75 mg PO DAILY 02/15/18 06/10/18 History ergocalciferol (vitamin D2) 50,000 unit PO WK 06/10/18 06/10/18 History [Vitamin D2] naproxen sodium [Aleve] 440 mg PO BID PRN 06/10/18 06/10/18 History ranitidine HCl [Zantac] 150 mg PO BID 06/10/18 06/10/18 History Allergies Allergy/AdvReac Type Severity Reaction Status Date / Time lisinopril AdvReac Cough Verified 06/10/18 16:24 losartan AdvReac Cough Verified 06/10/18 16:24 Past Med/Surg History Medical History Chest pain Ascending aorta enlargement Hyperlipidemia Hypertension IDDM (insulin dependent diabetes mellitus) Neuropathy MARIYA on CPAP Osteoporosis Surgical History S/P foot surgery, left Family History Other Cancer Heart disease Social History Current Living Situation: Spouse Other Information That Helps Us Care for You: No Feels Safe at Home: Yes Safety Concerns: Feels Safe At This Time Smoking Status: Former smoker Do You Dip or Chew Tobacco: No Smoking End Date: 2001 Hx Alcohol Use: Yes Alcohol type: beer Alcohol Intake Frequency: holidays/ special occasions only Hx Substance Use: No Beliefs That Will Affect Care: Shinto Shinto Beliefs: Protestant Preferred Language: Slovenian Communication Ability: Effective Structural Manager Required: No Review of Systems A total of 10 systems reviewed and were otherwise negative Physical Exam Vital Signs Vital Signs - 24 hr 06/10/18 15:04 06/10/18 16:39 06/10/18 17:42 Temperature 37 C Temperature Source Oral Sepsis Recent Fever Within 48 Hours Yes Sepsis New/Unexplained Change in Mental Status No Sepsis Action Taken by Nursing No Action Required Pulse Rate 95 H Pulse Rate [Finger] 89 88 Pulse Rhythm Regular Pulse Strength Normal Respiratory Rate 20 17 17 Respiratory Effort / Characteristics Non-Labored Spontaneous Respiratory Depth Normal Respiratory Pattern Regular Blood Pressure 144/81 H Blood Pressure [Right Arm] 145/80 H 165/68 H Blood Pressure Mean 102 Blood Pressure Mean [Right Arm] 101 100 Blood Pressure Position Sitting Pulse Oximetry 98 97 99 Oxygen Delivery Method Room Air Room Air Room Air 06/10/18 19:27 06/10/18 19:52 06/10/18 20:41 Temperature Temperature Source Sepsis Recent Fever Within 48 Hours Sepsis New/Unexplained Change in Mental Status Sepsis Action Taken by Nursing Pulse Rate 85 Pulse Rate [Finger] Pulse Rhythm Pulse Strength Respiratory Rate 17 17 Respiratory Effort / Characteristics Non-Labored Spontaneous Respiratory Depth Normal Respiratory Pattern Blood Pressure 142/70 H Blood Pressure [Right Arm] 157/63 H Blood Pressure Mean Blood Pressure Mean [Right Arm] 94 Blood Pressure Position Pulse Oximetry 97 99 Oxygen Delivery Method Room Air Room Air 06/10/18 21:14 06/10/18 21:33 06/11/18 00:35 Temperature 37.0 C 36.7 C Temperature Source Oral Oral Sepsis Recent Fever Within 48 Hours Sepsis New/Unexplained Change in Mental Status Sepsis Action Taken by Nursing Pulse Rate Pulse Rate [Finger] 74 69 Pulse Rhythm Pulse Strength Respiratory Rate 21 20 Respiratory Effort / Characteristics Respiratory Depth Respiratory Pattern Blood Pressure Blood Pressure [Right Arm] 137/63 122/55 L Blood Pressure Mean Blood Pressure Mean [Right Arm] 87 77 Blood Pressure Position Pulse Oximetry 96 95 Oxygen Delivery Method Room Air Room Air Room Air VITAL SIGNS - Vital signs and nursing notes were reviewed. Hypertensive and slightly tachycardic. GENERAL -68-year-old male appearing his stated age who is in no acute distress. Communicates well with provider and answers questions appropriately. SKIN -the plantar aspect of the patient's left foot between the first and second MTP joint elicits a deep ulceration. On the superior aspect of the foot overlying the MTP joints there is erythema that is progressing up the foot. Patient is tender in the foot up into the anterior redmond region. No lymphangitic streaking at this time. HEAD - NC/AT. EYES - PERRL with EOMI bilaterally. Sclera anicteric. EARS - No deformities of external structures noted on gross examination bilaterally. NOSE - Midline and without cyanosis. No epistaxis or purulent drainage noted. MOUTH/OROPHARYNX - Without perioral cyanosis. NECK - Neck with FROM. No nuchal rigidity. LUNGS - Chest wall symmetric without accessory muscle use, intercostals retractions, or central cyanosis. Normal vesicular breath sounds CTA B/L. No wheezes, rales, or rhonchi appreciated. CARDIAC - RRR with S1/S2. No murmur, rubs, or gallops appreciated. EXTREMITIES - No clubbing or peripheral cyanosis. No pretibial edema present. Skin changes as above. Full range of motion of the left lower extremity noted. +5/5 strength noted in UE/LE bilaterally. NEUROLOGIC - Cranial nerves II through XII grossly intact. PSYCH - A&Ox3 and cooperates fully with examiner. Pt is very pleasant and interacts well with examiner. Course Administered Medications Sodium Chloride (Nss 1000ml) 1,000 mls @ 125 mls/hr IV .Q8H CHELLY Stop: 06/11/18 13:44 Last Admin: 06/10/18 21:51 Dose: 125 mls/hr Insulin Aspart (Novolog Flexpen) 0 units SC ACHS CHELLY Stop: 07/10/18 21:59 Last Admin: 06/10/18 22:35 Dose: Not Given Nifedipine (Procardia Xl) 60 mg PO BID CHELLY Stop: 07/10/18 22:14 Last Admin: 06/10/18 22:40 Dose: Not Given Ranitidine HCl (Zantac) 150 mg PO BID CHELLY Stop: 07/10/18 21:32 Last Admin: 06/10/18 22:35 Dose: Not Given Discontinued Medications Acetaminophen (Tylenol) Confirm Administered Dose 1,000 mg .ROUTE .STK-MED ONE Stop: 06/10/18 20:34 Last Admin: 06/10/18 20:35 Dose: 1,000 mg Ceftriaxone Sodium (Rocephin) 1,000 mg in 50 mls @ 100 mls/hr IV NOW STA Stop: 06/10/18 17:59 Last Infusion: 06/10/18 18:09 Dose: 0 mls/hr Admin: 06/10/18 17:38 Dose: 100 mls/hr Vancomycin HCl 1,750 mg/ (Sodium Chloride) 535 mls @ 200 mls/hr IV NOW ONE Stop: 06/10/18 20:40 Last Infusion: 06/10/18 21:17 Dose: 0 mls/hr Admin: 06/10/18 18:17 Dose: 200 mls/hr Morphine Sulfate (Morphine Sulfate) 4 mg IV NOW STA Stop: 06/10/18 17:21 Last Admin: 06/10/18 17:38 Dose: 4 mg Ondansetron HCl (Zofran) 4 mg IV NOW STA Stop: 06/10/18 17:21 Last Admin: 06/10/18 17:37 Dose: 4 mg Medical Decision Making Laboratory Data Result diagrams: 06/10/18 16:10 06/10/18 16:10 Lab Results 06/10/18 06/10/18 06/10/18 Range/Units 16:10 16:10 16:10 WBC 14.61 H (4.8-10.8) K/uL RBC 4.77 (4.7-6.1) M/uL Hgb 14.1 (14.0-18.0) g/dL Hct 40.9 L (42-52) % MCV 85.7 (80-100) fL MCH 29.6 (25-34) pg MCHC 34.5 (32-36) g/dL RDW Std Deviation 41.4 (36.4-46.3) fL RDW Coeff of Kyle 13.1 (11.5-14.5) % Plt Count 268 (130-400) K/uL MPV 9.8 (7.4-10.4) fL Immature Gran % (Auto) 0.3 % Neut % (Auto) 79.8 % Lymph % (Auto) 11.6 % [place] % (Auto) 7.6 % Eos % (Auto) 0.6 % Baso % (Auto) 0.1 % Immature Gran # (Auto) 0.04 H (0.00-0.02) K/uL Neut # (Auto) 11.66 H (1.4-6.5) K/uL Lymph # (Auto) 1.69 (1.2-3.4) K/uL [place] # (Auto) 1.11 H (0.11-0.59) K/uL Eos # (Auto) 0.09 (0-0.5) K/uL Baso # (Auto) 0.02 (0-0.2) K/uL PT (9.0-12.0) Seconds INR (0.9-1.1) Sodium 131 L (136-145) mmol/L Potassium 3.6 (3.5-5.1) mmol/L Chloride 101 (98-107) mmol/L Carbon Dioxide 25 (21-32) mmol/L Anion Gap 5.0 (3-11) BUN 26 H (7-18) mg/dl Creatinine 1.82 H (0.6-1.4) mg/dl Est Cr Clr Drug Dosing 44.7 ml/min Est GFR ( Amer) 43.6 Est GFR (Non-Af Amer) 37.6 BUN/Creatinine Ratio 14.2 (10-20) Glucose 102 H (70-99) mg/dl POC Glucose (70-99) Calcium 8.6 (8.5-10.1) mg/dl Total Bilirubin 1.0 (0.2-1) mg/dl AST 20 (15-37) U/L ALT 26 (12-78) U/L Alkaline Phosphatase 77 (45-117) U/L Total Protein 8.3 H (6.4-8.2) gm/dl Albumin 3.5 (3.4-5.0) gm/dl Globulin 4.8 H (2.5-4.0) gm/dl Albumin/Globulin Ratio 0.7 L (0.9-2) Hepatitis C Ab Screen Neg (Neg) 06/10/18 06/10/18 06/10/18 Range/Units 16:10 16:14 21:56 WBC (4.8-10.8) K/uL RBC (4.7-6.1) M/uL Hgb (14.0-18.0) g/dL Hct (42-52) % MCV (80-100) fL MCH (25-34) pg MCHC (32-36) g/dL RDW Std Deviation (36.4-46.3) fL RDW Coeff of Kyle (11.5-14.5) % Plt Count (130-400) K/uL MPV (7.4-10.4) fL Immature Gran % (Auto) % Neut % (Auto) % Lymph % (Auto) % [place] % (Auto) % Eos % (Auto) % Baso % (Auto) % Immature Gran # (Auto) (0.00-0.02) K/uL Neut # (Auto) (1.4-6.5) K/uL Lymph # (Auto) (1.2-3.4) K/uL [place] # (Auto) (0.11-0.59) K/uL Eos # (Auto) (0-0.5) K/uL Baso # (Auto) (0-0.2) K/uL PT 10.7 (9.0-12.0) Seconds INR 1.1 (0.9-1.1) Sodium (136-145) mmol/L Potassium (3.5-5.1) mmol/L Chloride (98-107) mmol/L Carbon Dioxide (21-32) mmol/L Anion Gap (3-11) BUN (7-18) mg/dl Creatinine (0.6-1.4) mg/dl Est Cr Clr Drug Dosing ml/min Est GFR ( Amer) Est GFR (Non-Af Amer) BUN/Creatinine Ratio (10-20) Glucose (70-99) mg/dl POC Glucose 102 H 144 H (70-99) Calcium (8.5-10.1) mg/dl Total Bilirubin (0.2-1) mg/dl AST (15-37) U/L ALT (12-78) U/L Alkaline Phosphatase (45-117) U/L Total Protein (6.4-8.2) gm/dl Albumin (3.4-5.0) gm/dl Globulin (2.5-4.0) gm/dl Albumin/Globulin Ratio (0.9-2) Hepatitis C Ab Screen (Neg) Imaging Data Radiologist's Impression: LEFT FOOT 3 VIEWS CLINICAL HISTORY: Left foot wound. Cellulitis. FINDINGS: 3 views of the left foot are compared to study dated 04/09/2015. The skeletal structures are osteopenic. No fracture is identified. There is chronic posttraumatic deformity of the distal second metatarsal with a small screw in the metatarsal head. There has been fusion at the first metatarsophalangeal joint. The orthopedic hardware appears intact. There is no bony erosion or periostitis. An os naviculari is incidentally noted. Mild degenerative change is noted in the midfoot. There are large dorsal and plantar calcaneal enthesophyte. Degenerative spurring is noted along the dorsal aspect of the tarsal bones. Soft tissue edema is present throughout the foot. There is atherosclerotic calcification of the regional arteries. No radiodense foreign body is identified. IMPRESSION: 1. Soft tissue edema with no acute bony abnormality identified. 2. Osteopenia with postoperative and degenerative change as above. 3. Large heel spurs. Electronically signed by: Alfred Aranda M.D. 06/10/2018 4:10 PM [facility] Narrative Patient was seen and evaluated as above in room B12. Review was performed of nursing notes and vital signs. After obtaining a thorough history and physical examination the above work up was performed. He presents to us today referred by family doctor over concern for cellulitis of a foot ulcer on the left foot. Patient is nontoxic on examination and yield stable vital signs. X-ray was obtained. Results as above. There is erythema on the top of the patient's left foot that is extending towards the ankle. Given his diabetic state, as well as rapid progression of the erythema do believe that inpatient management is warranted for the cellulitis. I did discuss the patient's GFR as well as comorbid disease with the pharmacist team, and at this time vancomycin and Rocephin will be provided. The first dose of vancomycin will be 20 mg/kg. 1 g of Rocephin will be provided. I did discuss this with the hospitalist, Dr. Paul. He will evaluate the patient for further evaluation and management. Patient CBC does reveal leukocytosis of 14.61, no significant anemia. No evidence of liver failure. Sodium 131. Creatinine 1.82 with BUN at 26 with a drug dosing creatinine clearance of 44.7. Blood and wound culture pending. Case was discussed with the attending physician. In the evaluation and treatment of this patient the following differential diagnoses were entertained: Cellulitis, sepsis, abscess, chronic wound, among others. Impression & Plan Cellulitis, Foot ulcer, left Discharge Plan Visit Data *Final* Discharge Date/Time: 06/10/18 20:41 Chief Complaint: Infection Stated Complaint: L FOOT INFECTION, REFERRED BY DR. KOHLI ED Provider: Dustin Washington ED Midlevel Provider: Behzad Sommer Discharge Problem: Cellulitis, Foot ulcer, left Patient Disposition: Admitted As Inpatient Condition: Good Discharge Instructions Interventions: ED Discharge Assessment Last Done: 06/10/18 20:41
--- NOTE | 2018-06-10 16:12 | XRay Report ---
LEFT FOOT 3 VIEWS CLINICAL HISTORY: Left foot wound. Cellulitis. FINDINGS: 3 views of the left foot are compared to study dated 04/09/2015. The skeletal structures ar e osteopenic. No fracture is identified. There is chronic posttraumatic deformity of the distal secon d metatarsal with a small screw in the metatarsal head. There has been fusion at the first metatarsop halangeal joint. The orthopedic hardware appears intact. There is no bony erosion or periostitis. An os naviculari is incidentally noted. Mild degenerative change is noted in the midfoot. There are larg e dorsal and plantar calcaneal enthesophyte. Degenerative spurring is noted along the dorsal aspect o f the tarsal bones. Soft tissue edema is present throughout the foot. There is atherosclerotic calcif ication of the regional arteries. No radiodense foreign body is identified. IMPRESSION: 1. Soft tissue edema with no acute bony abnormality identified. 2. Osteopenia with postoperative and degenerative change as above. 3. Large heel spurs. Electronically signed by: Alfred Aranda M.D. 06/10/2018 4:10 PM
[2018-06-10 16:34] LABS: Basophils # (auto) 0.02 K/uL (0-0.2); Basophils % (auto) 0.1 %; Eosinophils # (auto) 0.09 K/uL (0-0.5); Eosinophils % (auto) 0.6 %; Hematocrit (blood only) 40.9 % (42-52); Hemoglobin 14.1 g/dL (14.0-18.0); Immature Granulocytes # (auto) 0.04 K/uL (0.00-0.02); Immature Granulocytes % (auto) 0.3 %; Lymphocytes # (auto) 1.69 K/uL (1.2-3.4); Lymphocytes % (auto) 11.6 %; Mean Corpuscular Hgb Conc 34.5 g/dL (32-36); Mean Corpuscular Volume 85.7 fL (80-100); Mean Platelet Volume 9.8 fL (7.4-10.4); Monocytes # (auto) 1.11 K/uL (0.11-0.59); Monocytes % (auto) 7.6 %; Neutrophils # (auto) 11.66 K/uL (1.4-6.5); Neutrophils % (auto) 79.8 %; Platelet Count 268 K/uL (130-400); RDW Coefficient of Variation 13.1 % (11.5-14.5); RDW Standard Deviation 41.4 fL (36.4-46.3); Red Blood Count 4.77 M/uL (4.7-6.1); White Blood Count 14.61 K/uL (4.8-10.8)
[2018-06-10 16:52] LABS: Albumin Level 3.5 gm/dl (3.4-5.0); BUN Creatinine Ratio 14.2 (10-20); Calcium 8.6 mg/dl (8.5-10.1); Creatinine Clr Calc Pharmacy 44.7 ml/min; Est GFR (African American) 43.6; Est GFR (Non-African American) 37.6; Potassium 3.6 mmol/L (3.5-5.1)
[2018-06-10 16:55] LABS: Albumin Globulin Ratio 0.7 (0.9-2); Globulin 4.8 gm/dl (2.5-4.0); Total Protein 8.3 gm/dl (6.4-8.2)
[2018-06-10] MEDS ORDERED: ONDANSETRON INJ 2 MG/ML 2 ML VIAL IV STA (17:20)
[2018-06-10] MEDS ORDERED: MoRPHine SULFATE 4 MG/ML 1 ML CARP\\VIAL IV STA (17:20)
[2018-06-10] MEDS ORDERED: VANCOMYCIN HCL 1,600 MG in SODIUM CHLORIDE 0.9% 500 ML IV ONE (17:30)
[2018-06-10] MEDS ORDERED: VANCOMYCIN CONSULT ACTIVE PRN ×2 (17:30→21:33)
[2018-06-10] MEDS ORDERED: cefTRIAXone SODIUM 1,000 MG/50 ML BAG IV STA (17:30)
[2018-06-10] MEDS ORDERED: VANCOMYCIN HCL 1,500 MG in SODIUM CHLORIDE 0.9% 500 ML IV ONE (17:45)
[2018-06-10] MEDS ORDERED: VANCOMYCIN HCL 1,750 MG in SODIUM CHLORIDE 0.9% 500 ML IV ONE (18:00)
--- NOTE | 2018-06-10 20:20 | History & Physical Report ---
Date of Service June 10, 2018 History of Present Illness Chief Complaint: Cellulitis Primary Care Provider: Edwin Kohli Jr, DO Allergies Allergy/AdvReac Type Severity Reaction Status Date / Time lisinopril AdvReac Cough Verified 06/10/18 16:24 losartan AdvReac Cough Verified 06/10/18 16:24 Home Medications Home Medications Medication Instructions Recorded Confirmed Type alfuzosin 10 mg PO DAILY 02/15/18 06/10/18 History aspirin [Aspir-Low] 81 mg PO DAILY 02/15/18 06/10/18 History atorvastatin 80 mg PO DAILY 02/15/18 06/10/18 History chlorthalidone 25 mg PO DAILY 02/15/18 06/10/18 History insulin aspart U-100 See Label Instructions .ROUTE 02/15/18 06/10/18 History .COMPLEX linagliptin 5 mg PO DAILY 02/15/18 06/10/18 History metoprolol succinate 25 mg PO DAILY 02/15/18 06/10/18 History nifedipine 60 mg PO BID 02/15/18 06/10/18 History pantoprazole 40 mg PO DAILY 02/15/18 06/10/18 History venlafaxine 75 mg PO DAILY 02/15/18 06/10/18 History ergocalciferol (vitamin D2) 50,000 unit PO WK 06/10/18 06/10/18 History [Vitamin D2] naproxen sodium [Aleve] 440 mg PO BID PRN 06/10/18 06/10/18 History ranitidine HCl [Zantac] 150 mg PO BID 06/10/18 06/10/18 History Past Med/Surg History Medical History Chest pain Ascending aorta enlargement Hyperlipidemia Hypertension IDDM (insulin dependent diabetes mellitus) Neuropathy MARIYA on CPAP Osteoporosis Surgical History S/P foot surgery, left Family History Other Cancer Heart disease Social History Current Living Situation: Alone Feels Safe at Home: Yes Smoking Status: Former smoker Hx Alcohol Use: Yes Alcohol type: beer Alcohol Intake Frequency: holidays/ special occasions only Hx Substance Use: No Beliefs That Will Affect Care: None Preferred Language: Palestinian Physical Exam 2 Vital Signs (Past 24 Hours): Last Vital Signs Temp 37 C 06/10/18 15:04 Pulse 88 06/10/18 17:42 Resp 17 06/10/18 19:27 BP 157/63 H 06/10/18 19:52 Pulse Ox 97 06/10/18 19:27
[2018-06-10] MEDS ORDERED: ACETAMINOPHEN 500 MG TAB ONE (20:33)
[2018-06-10] MEDS ORDERED: POLYETHYLENE (MIRALAX) 17 GM PACK PO PRN (21:33)
[2018-06-10] MEDS ORDERED: MAGNESIUM HYDROXIDE SUSP 30 ML UDC PO PRN (21:33)
[2018-06-10] MEDS ORDERED: VANCOMYCIN HCL 1,000 MG in SODIUM CHLORIDE 0.9% 250 ML IV SCH (21:33)
[2018-06-10] MEDS: SODIUM CHLORIDE 0.9% 1000ML 1,000 ML IV SCH (21:51)
[2018-06-10] MEDS: NIFEdipine EXTENDED REL 30 MG TABCR PO SCH ×2 (22:30→22:40)
[2018-06-10] MEDS: INSULIN ASPART 100 UNITS/ML 3 ML PEN SC SCH (22:35)
[2018-06-10 23:31] LABS: INR 1.1 (0.9-1.1); Prothrombin Time 10.7 Seconds (9.0-12.0)
--- NOTE | 2018-06-11 03:28 | History & Physical Report ---
Date of Service June 11, 2018 Assessment & Plan (1) Cellulitis: Pt is a 68yo M who presents from PCPs office for evaluation of acute changes to chronic diabetic ulcer. Increased redness, tenderness in past two days. Some chills, afebrile. Cellulitis/Diabetic foot ulcer -Ceftriaxone -IVF NS @125 -Awaiting blood cx -Foot xray did not indicate osteomyelitis -wound care consulted -Monitor CBC. WBC mildly elevated at 14 on admission T2DM -pt may use own insulin pump -hold linagliptin -Await HbA1c -Asa 81 daily CKD stage III -Baseline Cr 1.5-1.6 -Cr o/a of 1.82 -IVF as above -avoid nephrotoxins HTN -Hold chlorthalidone -Metoprolol 25 -Nifedipine 60 BID HLD -atorvastatin 80 Hyponatremia -Mild, continue to monitor -IVF as above BPH -continue alfluzosin MARIYA -May need to order CPAP at night Non-Obstructive CAD -Investigated 2016/2017 -ASA 81, statin, BP control GERD -Ranitidine, pantoprazole DVTP: heparin tid Code: full Dispo: inpatient monitoring of wound. (2) Foot ulcer, left: (3) Hypertension: (4) Hyperlipidemia: (5) Diabetes: (6) Obstructive sleep apnea: (7) CKD (chronic kidney disease) stage 3, GFR 30-59 ml/min: (8) BPH (benign prostatic hyperplasia): (9) GERD (gastroesophageal reflux disease): History of Present Illness Chief Complaint: Cellulitis Primary Care Provider: Edwin Kohli Jr, DO Patient is a 68yo M who presents from his PCP's office with concerns of worsening left foot infection. Patient has a known, chronic diabetic foot ulcer on his left foot and notes in the past few days it has been more painful, tender to touch, and is experiencing some redness up his foot into his lower [place]. He has been experiencing some chills without subjective fever, and moderate pain. He has had no recent antibiotic use. Saw PCP today who recommended he present to hospital for evaluation. 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 Allergies Allergy/AdvReac Type Severity Reaction Status Date / Time lisinopril AdvReac Cough Verified 06/10/18 16:24 losartan AdvReac Cough Verified 06/10/18 16:24 Home Medications Home Medications Medication Instructions Recorded Confirmed Type alfuzosin 10 mg PO DAILY 02/15/18 06/10/18 History aspirin [Aspir-Low] 81 mg PO DAILY 02/15/18 06/10/18 History atorvastatin 80 mg PO DAILY 02/15/18 06/10/18 History chlorthalidone 25 mg PO DAILY 02/15/18 06/10/18 History insulin aspart U-100 See Label Instructions .ROUTE 02/15/18 06/10/18 History .COMPLEX linagliptin 5 mg PO DAILY 02/15/18 06/10/18 History metoprolol succinate 25 mg PO DAILY 02/15/18 06/10/18 History nifedipine 60 mg PO BID 02/15/18 06/10/18 History pantoprazole 40 mg PO DAILY 02/15/18 06/10/18 History venlafaxine 75 mg PO DAILY 02/15/18 06/10/18 History ergocalciferol (vitamin D2) 50,000 unit PO WK 06/10/18 06/10/18 History [Vitamin D2] naproxen sodium [Aleve] 440 mg PO BID PRN 06/10/18 06/10/18 History ranitidine HCl [Zantac] 150 mg PO BID 06/10/18 06/10/18 History ceftriaxone 2 gm IV DAILY 40 Days #40 ea 06/19/18 Rx hydrocodone-acetaminophen [[place]] 1 tab PO Q6 PRN #30 tab 06/19/18 Rx metronidazole [Flagyl] 500 mg PO Q8H 40 Days #120 tab 06/19/18 Rx Past Med/Surg History Medical History Chest pain Ascending aorta enlargement CAD (coronary artery disease) non-obstructive Difficult intubation Grade 3 view with Mac 4 blade GERD (gastroesophageal reflux disease) Controlled with medication Hyperlipidemia Hypertension IDDM (insulin dependent diabetes mellitus) Neuropathy MARIYA on CPAP Osteoporosis Surgical History History of laparoscopic cholecystectomy 06/12/18 S/P excision of lipoma S/P foot surgery, left with LMA #5 S/P inguinal hernia repair R at age 6 years of age Family History Other Cancer Heart disease Social History Current Living Situation: Spouse Other Information That Helps Us Care for You: No Feels Safe at Home: Yes Safety Concerns: Feels Safe At This Time Smoking Status: Former smoker (Quit 16-17 years ago) Do You Dip or Chew Tobacco : No Smoking End Date: 2001 Hx Alcohol Use: Yes Alcohol type: beer Alcohol Intake Frequency: holidays/ special occasions only Hx Substance Use: No Beliefs That Will Affect Care: Mormonism Mormonism Beliefs: Zoroastrian Preferred Language: [place] Review of Systems All systems reviewed & are unremarkable except as noted in HPI & below Constitutional: + chills; no fever and no sweats Respiratory: no cough and no dyspnea Cardiovascular: no chest pain and no radiating jaw, neck or arm pain Musculoskeletal: as per Subjective / HPI and + joint pain Integumentary: + skin ulcer and + change in skin color Neurologic: + numbness (peripheral neuropathy) Physical Exam 2 Vital Signs (Past 24 Hours): Last Vital Signs Temp 36.7 C 06/11/18 00:35 Pulse 69 06/11/18 00:35 Resp 20 06/11/18 00:35 BP 122/55 L 06/11/18 00:35 Pulse Ox 95 06/11/18 00:35 Constitutional: WD/WN, vitals as above average body habitus Eyes: PERRL, conjunctivae normal, anicteric sclerae ENMT: external ear and nose normal, oropharynx normal Neck: normal visual inspection Respiratory: normal respiratory effort, lungs clear to auscultation Cardiovascular: Rate/Rhythm: regular rate and regular rhythm Heart Sounds: normal S1 and normal S2; no murmur Gastrointestinal (Abdomen): normal bowel sounds, soft, nontender, no hepatosplenomegaly Musculoskeletal: no cyanosis or clubbing, extremities motor strength 5/5 Skin: + ulcer L foot: deep ulceration on base of foot between 1/2nd MTP joints. Dorsal erythema which creeps close to ankle. +tenderness to palpation. Neurologic: PERRL, EOMI, accommodation nl, no face palsy, no dysarthria Psychiatric: A+Ox3, euthymic affect Results & Data Laboratory Results 06/10/18 06/10/18 06/10/18 Range/Units 21:56 16:14 16:10 WBC (4.8-10.8) K/uL RBC (4.7-6.1) M/uL Hgb (14.0-18.0) g/dL Hct (42-52) % MCV (80-100) fL MCH (25-34) pg MCHC (32-36) g/dL RDW Std Deviation (36.4-46.3) fL RDW Coeff of Kyle (11.5-14.5) % Plt Count (130-400) K/uL MPV (7.4-10.4) fL Immature Gran % (Auto) % Neut % (Auto) % Lymph % (Auto) % [place] % (Auto) % Eos % (Auto) % Baso % (Auto) % Immature Gran # (Auto) (0.00-0.02) K/uL Neut # (Auto) (1.4-6.5) K/uL Lymph # (Auto) (1.2-3.4) K/uL [place] # (Auto) (0.11-0.59) K/uL Eos # (Auto) (0-0.5) K/uL Baso # (Auto) (0-0.2) K/uL PT 10.7 (9.0-12.0) Seconds INR 1.1 (0.9-1.1) Sodium (136-145) mmol/L Potassium (3.5-5.1) mmol/L Chloride (98-107) mmol/L Carbon Dioxide (21-32) mmol/L Anion Gap (3-11) BUN (7-18) mg/dl Creatinine (0.6-1.4) mg/dl Est Cr Clr Drug Dosing ml/min Est GFR ( Amer) Est GFR (Non-Af Amer) BUN/Creatinine Ratio (10-20) Glucose (70-99) mg/dl POC Glucose 144 H 102 H (70-99) Calcium (8.5-10.1) mg/dl Total Bilirubin (0.2-1) mg/dl AST (15-37) U/L ALT (12-78) U/L Alkaline Phosphatase (45-117) U/L Total Protein (6.4-8.2) gm/dl Albumin (3.4-5.0) gm/dl Globulin (2.5-4.0) gm/dl Albumin/Globulin Ratio (0.9-2) Hepatitis C Ab Screen (Neg) 06/10/18 06/10/18 06/10/18 Range/Units 16:10 16:10 16:10 WBC 14.61 H (4.8-10.8) K/uL RBC 4.77 (4.7-6.1) M/uL Hgb 14.1 (14.0-18.0) g/dL Hct 40.9 L (42-52) % MCV 85.7 (80-100) fL MCH 29.6 (25-34) pg MCHC 34.5 (32-36) g/dL RDW Std Deviation 41.4 (36.4-46.3) fL RDW Coeff of Kyle 13.1 (11.5-14.5) % Plt Count 268 (130-400) K/uL MPV 9.8 (7.4-10.4) fL Immature Gran % (Auto) 0.3 % Neut % (Auto) 79.8 % Lymph % (Auto) 11.6 % [place] % (Auto) 7.6 % Eos % (Auto) 0.6 % Baso % (Auto) 0.1 % Immature Gran # (Auto) 0.04 H (0.00-0.02) K/uL Neut # (Auto) 11.66 H (1.4-6.5) K/uL Lymph # (Auto) 1.69 (1.2-3.4) K/uL [place] # (Auto) 1.11 H (0.11-0.59) K/uL Eos # (Auto) 0.09 (0-0.5) K/uL Baso # (Auto) 0.02 (0-0.2) K/uL PT (9.0-12.0) Seconds INR (0.9-1.1) Sodium 131 L (136-145) mmol/L Potassium 3.6 (3.5-5.1) mmol/L Chloride 101 (98-107) mmol/L Carbon Dioxide 25 (21-32) mmol/L Anion Gap 5.0 (3-11) BUN 26 H (7-18) mg/dl Creatinine 1.82 H (0.6-1.4) mg/dl Est Cr Clr Drug Dosing 44.7 ml/min Est GFR ( Amer) 43.6 Est GFR (Non-Af Amer) 37.6 BUN/Creatinine Ratio 14.2 (10-20) Glucose 102 H (70-99) mg/dl POC Glucose (70-99) Calcium 8.6 (8.5-10.1) mg/dl Total Bilirubin 1.0 (0.2-1) mg/dl AST 20 (15-37) U/L ALT 26 (12-78) U/L Alkaline Phosphatase 77 (45-117) U/L Total Protein 8.3 H (6.4-8.2) gm/dl Albumin 3.5 (3.4-5.0) gm/dl Globulin 4.8 H (2.5-4.0) gm/dl Albumin/Globulin Ratio 0.7 L (0.9-2) Hepatitis C Ab Screen Neg (Neg) Diagnostic Findings LEFT FOOT 3 VIEWS CLINICAL HISTORY: Left foot wound. Cellulitis. FINDINGS: 3 views of the left foot are compared to study dated 04/09/2015. The skeletal structures are osteopenic. No fracture is identified. There is chronic posttraumatic deformity of the distal second metatarsal with a small screw in the metatarsal head. There has been fusion at the first metatarsophalangeal joint. The orthopedic hardware appears intact. There is no bony erosion or periostitis. An os naviculari is incidentally noted. Mild degenerative change is noted in the midfoot. There are large dorsal and plantar calcaneal enthesophyte. Degenerative spurring is noted along the dorsal aspect of the tarsal bones. Soft tissue edema is present throughout the foot. There is atherosclerotic calcification of the regional arteries. No radiodense foreign body is identified. IMPRESSION: 1. Soft tissue edema with no acute bony abnormality identified. 2. Osteopenia with postoperative and degenerative change as above. 3. Large heel spurs. Medications Administered Current Inpatient Medications Acetaminophen (Tylenol) 650 mg PO Q4H PRN PRN Reason: pain/fever Stop: 07/10/18 21:32 Al Hydrox/Mg Hydrox/Simethicone (Maalox) 30 ml PO Q6H PRN PRN Reason: Dyspepsia Stop: 07/10/18 21:32 Alfuzosin HCl (Uroxatral) 10 mg PO DAILY [facility] Stop: 07/11/18 08:59 Aspirin (Ecotrin Ectab) 81 mg PO DAILY [facility] Stop: 07/11/18 08:59 Atorvastatin Calcium (Lipitor) 80 mg PO DAILY [facility] Stop: 07/11/18 08:59 Heparin Sodium (Porcine) (Heparin Sodium (Porcine)) 5,000 units SQ Q8 [facility] Stop: 07/11/18 05:59 Ceftriaxone Sodium 1,000 mg/ (Dextrose) 50 mls @ 100 mls/hr IV Q24H [facility] Stop: 06/21/18 17:59 Sodium Chloride (Nss 1000ml) 1,000 mls @ 125 mls/hr IV .Q8H [facility] Stop: 06/11/18 13:44 Last Admin: 06/10/18 21:51 Dose: 125 mls/hr Insulin Aspart (Novolog Flexpen) 0 units SC ACHS [facility] Stop: 07/10/18 21:59 Last Admin: 06/10/18 22:35 Dose: Not Given Magnesium Hydroxide (Milk Of Magnesia) 30 ml PO Q6H PRN PRN Reason: Constipation Stop: 07/10/18 21:32 Metoprolol Succinate (Toprol Xl) 25 mg PO DAILY [facility] Stop: 07/11/18 08:59 Miscellaneous Information (Consult) 1 ea N/A UD PRN PRN Reason: Consult Stop: 07/10/18 21:32 Nifedipine (Procardia Xl) 60 mg PO BID [facility] Stop: 07/10/18 22:14 Last Admin: 06/10/18 22:40 Dose: Not Given Ondansetron HCl (Zofran) 4 mg IV Q6H PRN PRN Reason: Nausea Stop: 07/10/18 21:32 Pantoprazole Sodium (Protonix) 40 mg PO DAILY [facility] Stop: 07/11/18 08:59 Polyethylene Glycol (Miralax Powder Packet) 17 gm PO DAILY PRN PRN Reason: Constipation Stop: 07/10/18 21:32 Ranitidine HCl (Zantac) 150 mg PO BID [facility] Stop: 07/10/18 21:32 Last Admin: 06/10/18 22:35 Dose: Not Given Venlafaxine HCl (Effexor Extended Release) 75 mg PO DAILY [facility] Stop: 07/11/18 08:59 Zolpidem Tartrate (Ambien) 5 mg PO HS PRN PRN Reason: Sleep Stop: 07/10/18 21:32 Code Status & VTE Plan Code Status Full VTE Prophylaxis Plan VTE Prophylaxis will be ordered: Yes Supervising Physician Co-Signing Physician Notes patient seen and examined, chart reviewed, case discussed with Dr Curtis and I agree with her assessment and plan as above. Resident Activity Tracking Resident Involvement: Resident Care Provided Care Provided: Adult [facility] Medicine _ (1) Diabetes Chronic kidney disease stage: Diabetes mellitus complication detail: with unspecified neuropathy Diabetes mellitus complication status: with neurologic complications Diabetes mellitus mcc insulin use: with shipping hand use Diabetes mellitus macular edema: Diabetes mellitus type: type 2 Diabetic retinopathy severity: Laterality: Proliferative retinopathy type: Qualified Code(s): E11.40 - Type 2 diabetes mellitus with diabetic neuropathy, unspecified; Z79.4 - steamfitter (current) use of insulin (2) Cellulitis Laterality: Site of cellulitis: Site of cellulitis of extremity: Site of cellulitis of trunk: (3) Hyperlipidemia Hyperlipidemia type: unspecified Qualified Code(s): E78.5 - Hyperlipidemia, unspecified (4) Foot ulcer, left Non-pressure ulcer stage: (5) Hypertension Hypertension type: essential hypertension Qualified Code(s): I10 - Essential (primary) hypertension
[2018-06-11] MEDS: SODIUM CHLORIDE 0.9% 1000ML 1,000 ML IV SCH (06:04)
[2018-06-11] MEDS: HEPARIN SOD 5,000 UNIT/0.5 ML VIAL SQ SCH ×3 (06:06→20:36)
[2018-06-11 07:50] LABS: Basophils # (auto) 0.02 K/uL (0-0.2); Basophils % (auto) 0.2 %; Eosinophils # (auto) 0.22 K/uL (0-0.5); Eosinophils % (auto) 1.7 %; Hematocrit (blood only) 39.9 % (42-52); Hemoglobin 13.1 g/dL (14.0-18.0); Immature Granulocytes # (auto) 0.04 K/uL (0.00-0.02); Immature Granulocytes % (auto) 0.3 %; Lymphocytes # (auto) 1.35 K/uL (1.2-3.4); Lymphocytes % (auto) 10.2 %; Mean Corpuscular Hgb Conc 32.8 g/dL (32-36); Mean Corpuscular Volume 86.9 fL (80-100); Mean Platelet Volume 9.8 fL (7.4-10.4); Monocytes % (auto) 9.9 %; Neutrophils # (auto) 10.25 K/uL (1.4-6.5); Neutrophils % (auto) 77.7 %; Platelet Count 248 K/uL (130-400); RDW Coefficient of Variation 13.2 % (11.5-14.5); RDW Standard Deviation 42.3 fL (36.4-46.3); Red Blood Count 4.59 M/uL (4.7-6.1); White Blood Count 13.18 K/uL (4.8-10.8)
[2018-06-11 08:16] LABS: BUN Creatinine Ratio 12.4 (10-20); Calcium 7.9 mg/dl (8.5-10.1); Creatinine Clr Calc Pharmacy 50.2 ml/min; Est GFR (African American) 50.2; Est GFR (Non-African American) 43.3; Magnesium 2.1 mg/dl (1.8-2.4); Potassium 3.6 mmol/L (3.5-5.1)
[2018-06-11 08:41] LABS: Estimated Average Glucose 169 mg/dl
[2018-06-11] MEDS: INSULIN ASPART 100 UNITS/ML 3 ML PEN SC SCH ×4 (09:09→20:33)
[2018-06-11] MEDS: ASPIRIN 81 MG ECTAB PO SCH (09:10)
[2018-06-11] MEDS: VENLAFAXINE HCL XR 75 MG CAPXR PO SCH (09:11)
[2018-06-11] MEDS: ATORVASTATIN 40 MG TAB PO SCH (09:11)
[2018-06-11] MEDS: NIFEdipine EXTENDED REL 30 MG TABCR PO SCH ×2 (09:11→19:23)
[2018-06-11] MEDS: METOPROLOL SUCC 25MG EXT REL TAB PO SCH (09:12)
[2018-06-11] MEDS: ALFUZOSIN HCL 10 MG TAB PO SCH (09:12)
[2018-06-11] MEDS: PANTOprazole 40 MG TAB PO SCH (09:12)
[2018-06-11] MEDS: ONDANSETRON INJ 2 MG/ML 2 ML VIAL IV PRN ×3 (10:22→23:55)
[2018-06-11] MEDS: VANCOMYCIN HCL 1,250 MG in SODIUM CHLORIDE 0.9% 250 ML IV SCH (11:08)
[2018-06-11] MEDS: ACETAMINOPHEN 325 MG TAB PO PRN ×2 (11:17→19:25)
--- NOTE | 2018-06-11 15:53 | Pharmacy Report ---
Pharmacy Abx Initial Consult - Date of Service June 11, 2018 - Pharmacy Dosing Scope Date of Consult: 06/11/18 Consultation requested by: Dr. Paul Pharmacy is consulted to initiate Vancomycin IV dosing therapy, order appropriate labs and adjust drug dose/frequency. - Subjective The patient is a 68 year old M admitted on 06/10/18 20:14. - Objective Height: 6 ft 2 in Weight: 80.2 kg Vital Signs (Past 12hrs): Vital Signs Temp Pulse Resp BP BP Pulse Ox 06/11/18 15:02 36.8 C 67 18 114/57 L 95 06/11/18 12:46 37.0 C 06/11/18 11:15 39.7 C H 06/11/18 07:20 37.1 C 75 20 120/65 98 Lab Results (24hrs): Laboratory Tests (24 Hours) 06/11/18 06/11/18 06/11/18 14:17 14:17 07:26 WBC Neut # (Auto) ESR 69 H Creatinine 1.62 H Est Cr Clr Drug Dosing 50.2 C-Reactive Protein 15.40 H 06/11/18 06/10/18 06/10/18 07:26 16:10 16:10 WBC 13.18 H 14.61 H Neut # (Auto) 10.25 H 11.66 H ESR Creatinine 1.82 H Est Cr Clr Drug Dosing 44.7 C-Reactive Protein Micro Results: 06/10/18 14:00 Gram Stain - Final Foot,Left 06/10/18 16:20 Blood Culture - Pending Blood 06/10/18 16:10 Blood Culture - Pending Blood - Assessment & Plan Assessment * 68 year old M with chronic diabetic foot ulcer which has now worsened. Patient with Cellulitis of L foot. * Patient has history of CKD - baseline Scr 1.5-1.6 Plan Vancomycin for treatment of Cellulitis Vancomycin IV * Estimated PK Parameters: Vd 0.7 L/kg, Yordan 0.046 hr-1, t1/2 15 hr * Loading dose: 1750 mg (22 mg/kg) given last evening. * Maintenance dose: 1250 mg IV (15 mg/kg) every 18 hours * Goal trough level for Cellulitis: 12 to 20 mcg/mL * Trough Vanco level ordered for 06/12 before dose at 23:00. * Currently Scr = 1.62, Crcl = 50.2 * Trough level ordered before the 3rd maintenance dose due to possibility of drug accumulation in this patient with chronic kidney disease. Pharmacy will continue to follow and will adjust dose/frequency as necessary. Thank you.
[2018-06-11] MEDS ORDERED: NITROGLYCERIN SL 0.4 MG/TAB TAB SL STA (16:08)
[2018-06-11] MEDS ORDERED: MoRPHine SULFATE 2 MG/ML CARP IV STA (16:22)
[2018-06-11] MEDS ORDERED: MoRPHine SULFATE 2 MG/ML CARP ONE (16:25)
[2018-06-11] MEDS: ALUMINUM/MAGNESIUM SUSP 30 ML UDC PO PRN ×2 (16:27→22:15)
--- NOTE | 2018-06-11 16:33 | XRay Report ---
KUB CLINICAL HISTORY: abdominal pain/ distended COMPARISON STUDY: CT of the abdomen and pelvis April 08, 2009. FINDINGS: The bowel gas pattern is within normal limits. No dilated loops of bowel are identified. IMPRESSION: No evidence for a bowel obstruction. Electronically signed by: Amol Grossman M.D. 06/11/2018 4:31 PM
[2018-06-11 16:50] LABS: Troponin I < 0.015 ng/ml (0-0.045)
[2018-06-11] MEDS ORDERED: PANTOprazole 40 MG TAB PO ONE (17:00)
[2018-06-11] MEDS ORDERED: MoRPHine SULFATE 4 MG/ML 1 ML CARP\\VIAL IV STA ×2 (17:23→22:20)
[2018-06-11] MEDS ORDERED: NITROGLYCERIN 2% OINTMENT 30GM TUBE EXT ONE (17:45)
[2018-06-11] MEDS: cefTRIAXone SODIUM 1,000 MG in DEXTROSE 5% 50 ML IV SCH (17:54)
[2018-06-11] MEDS ORDERED: SODIUM CHLORIDE 0.9% 1000ML 1,000 ML IV SCH (18:00)
[2018-06-11] MEDS: ZOLPIDEM TARTRATE 5 MG TAB PO PRN (19:25)
[2018-06-11] MEDS ORDERED: LORazepam 0.5 MG TAB PO ONE (21:00)
[2018-06-12] MEDS ORDERED: OPTIRAY 320 125ml IV PRN (00:05)
[2018-06-12] MEDS ORDERED: ALUMINUM/MAGNESIUM SUSP 18 ML, LIDOCAINE HCL VISCOUS 2% 6 ML, BARCODE IDENTIFIER 1 EA PO ONE (02:54)
[2018-06-12] MEDS ORDERED: GI Cocktail Single dose PO ONE (03:00)
--- NOTE | 2018-06-12 03:06 | Family Medicine Progress Note ---
Date of Service June 12, 2018 Subjective Sylvester Trinidad has been complaining of chest discomfort/pain during the evening of 06/11/2018. He has nitroglycerin patch on left arm but this did not provide relief. He was also given Morphine 2mg x 1 which slightly improved discomfort but experienced one episode of vomiting. EKG and tele showing normal rhythm with ocassional PVC. No ST changes identified. Troponin of 0.005. Called at 0230 by RN as the patient had continued chest discomfort. Patient seen by Dr. Delma Mccann and Dr. Lianna Canales Patient reported history of GERD and described discomfort as dull and aching. States that he can't sleep. Exam: Afebrile. mild acute distress. Cardio: RRR, no murmur, normal S1 and S2 Abdomen: soft, nttp, bowel sounds present. CTA completed showing cholelithiasis with stranding suggesting cholecystitis. Plan: History and physical more consistent with GI discomfort Will order RUQ US to eval for cholecystitis GI cocktail LFT in AM Vistaril to assist with sleep. Physical Exam 2 Vital Signs (Past 24 Hours): Last Vital Signs Temp 36.9 C 06/11/18 23:15 Pulse 83 06/11/18 23:15 Resp 20 06/11/18 23:15 BP 143/65 H 06/11/18 23:15 Pulse Ox 94 06/11/18 23:15
[2018-06-12] MEDS: VANCOMYCIN HCL 1,250 MG in SODIUM CHLORIDE 0.9% 250 ML IV SCH (04:25)
[2018-06-12 05:56] LABS: Basophils # (auto) 0.01 K/uL (0-0.2); Basophils % (auto) 0.1 %; Eosinophils # (auto) 0.01 K/uL (0-0.5); Eosinophils % (auto) 0.1 %; Hemoglobin 13.4 g/dL (14.0-18.0); Immature Granulocytes # (auto) 0.07 K/uL (0.00-0.02); Immature Granulocytes % (auto) 0.4 %; Lymphocytes # (auto) 0.86 K/uL (1.2-3.4); Lymphocytes % (auto) 4.3 %; Mean Corpuscular Hgb Conc 34.4 g/dL (32-36); Mean Corpuscular Volume 85.5 fL (80-100); Mean Platelet Volume 9.9 fL (7.4-10.4); Monocytes # (auto) 1.43 K/uL (0.11-0.59); Monocytes % (auto) 7.2 %; Neutrophils # (auto) 17.44 K/uL (1.4-6.5); Neutrophils % (auto) 87.9 %; Platelet Count 246 K/uL (130-400); RDW Coefficient of Variation 12.7 % (11.5-14.5); RDW Standard Deviation 40.1 fL (36.4-46.3); Red Blood Count 4.56 M/uL (4.7-6.1); White Blood Count 19.82 K/uL (4.8-10.8)
[2018-06-12] MEDS: HEPARIN SOD 5,000 UNIT/0.5 ML VIAL SQ SCH ×3 (05:57→21:08)
[2018-06-12] MEDS: ACETAMINOPHEN 325 MG TAB PO PRN ×2 (06:21→21:13)
[2018-06-12 06:28] LABS: Blood Urea Nitrogen 20 mg/dl (7-18); Carbon Dioxide 24 mmol/L (21-32); Chloride 101 mmol/L (98-107); Est GFR (African American) 54.6; Est GFR (Non-African American) 47.1; Potassium 3.8 mmol/L (3.5-5.1); Sodium 133 mmol/L (136-145)
[2018-06-12 06:29] LABS: Alanine Aminotransferase 22 U/L (12-78); Aspartate Aminotransferase 22 U/L (15-37); Calcium 8.2 mg/dl (8.5-10.1); Creatinine Clr Calc Pharmacy 55.2 ml/min; Glucose 257 mg/dl (70-99)
[2018-06-12 06:34] LABS: Alkaline Phosphatase 77 U/L (45-117); Bilirubin Direct 0.2 mg/dl (0-0.2); Bilirubin,Total 0.7 mg/dl (0.2-1); Total Protein 7.9 gm/dl (6.4-8.2); Troponin I < 0.015 ng/ml (0-0.045)
--- NOTE | 2018-06-12 07:41 | CT Scan Report ---
CHEST CTA for AORTIC DISSECTION CT DOSE: 553.77 mGy.cm HISTORY: Atypical chest pain, evaluate ascending thoracic enlargement TECHNIQUE: Multiaxial CT images of the chest were performed both before and after the intravenous adm inistration of contrast to evaluate the aorta. Maximal intensity projection images were also obtained . A dose lowering technique was utilized adhering to the principles of ALARA. COMPARISON STUDY: Chest CTA 02/15/2018. FINDINGS: Motion artifact results in suboptimal evaluation of the ascending thoracic aorta. However, the aorta appears to be normal in caliber measuring 3.6 cm in diameter at the level of the main pulmo nary artery. No evidence for dissection within the thoracic aorta. The heart is top normal in size. T he central pulmonary arteries appear patent. The esophagus demonstrates mild wall thickening. No medi astinal or hilar lymphadenopathy. No pleural or pericardial effusions. There is an 11 mm cystic focus within the body of the pancreas. The visualized spleen and right adrenal gland are unremarkable. Nor mal liver. The gallbladder is distended and there is mild pericholecystic inflammatory change. Small gallstone at the neck of the gallbladder measuring 9 mm. These findings are concerning for a cholecys titis. However, this is similar to the prior study and therefore may represent a chronic rather than acute process. Small fat-containing lesion within the left adrenal gland. No fractures within the vis ualized osseous structures. The central airways are patent. The lungs are clear. IMPRESSION: 1. The aorta is normal in caliber measuring 3.6 cm in diameter. No evidence for an aortic dissection. 2. The central pulmonary arteries are patent. 3. Distended gallbladder with mild adjacent inflammatory change and a small gallstone. This could rep resent cholecystitis. However, this is similar to the prior study and therefore may represent a chron ic rather than acute process. Clinical correlation recommended. 4. Mild diffuse esophageal wall thickening. This likely represents a mild esophagitis. 5. These findings were called/faxed to the emergency Department following dictation. Electronically signed by: Paxton Cruz M.D. 06/12/2018 7:40 AM
--- NOTE | 2018-06-12 07:46 | Ultrasound Report ---
ABDOMINAL ULTRASOUND, RIGHT UPPER QUADRANT HISTORY: distended gallbladder noted on CTA chest. COMPARISON: Chest CTA 06/12/2017. Abdominal ultrasound 02/15/2018. FINDINGS: Pancreas: The pancreatic head and tail are obscured by overlying bowel gas. The remaining portions of the pancreas are within normal limits. Liver: Unremarkable. Gallbladder: The gallbladder is distended. Small amount of sludge and a few small stones at the neck of the gallbladder area mild gallbladder wall thickening measuring up to 4 mm. There may be trace spencer ma within the gallbladder wall. Patient was administered pain medication prior to examination. Theref ore, a sonographic Zavala's sign was unable to be evaluated. CBD: 7 mm in diameter. This is likely within the range normal limits given the patient's age. Right kidney: No hydronephrosis. Subcentimeter cyst within the lower pole. IMPRESSION: Distended gallbladder with a small of sludge and small stones at the neck. There is mild gallbladder wall thickening. Therefore, clinical correlation recommended to assess for acute cholecystitis. Electronically signed by: Paxton Cruz M.D. 06/12/2018 7:44 AM
--- NOTE | 2018-06-12 08:02 | Hospitalist Progress Note ---
Date of Service June 11, 2018 Assessment & Plan (1) Cellulitis: Pt is a 68yo M who presents from PCPs office for evaluation of acute changes to chronic diabetic ulcer. Increased redness, tenderness in past two days. Some chills, afebrile. Abdominal pain/chest pain transfer to unit. EKG and trop are negative. Doubt cardiac cause as pain is constant. Inflammatory markers are positive. May consider abd. ultrasound. IVF ordered for renal protection, patient will receive CTA of chest to check for Thoracic aorta aneurysm. Cellulitis/Diabetic foot ulcer -Ceftriaxone -IVF NS @125 -Awaiting blood cx -Foot xray did not indicate osteomyelitis -wound care consulted -Monitor CBC. WBC mildly elevated at 14 on admission T2DM -pt may use own insulin pump -hold linagliptin -Await HbA1c -Asa 81 daily CKD stage III -Baseline Cr 1.5-1.6 -Creatinine is at 1.8 -IVF are resumed. -avoid nephrotoxins HTN -Hold chlorthalidone -Metoprolol 25 -Nifedipine 60 BID HLD -atorvastatin 80 Hyponatremia -Mild, continue to monitor -IVF as above BPH -continue alfluzosin MARIYA -May need to order CPAP at night Non-Obstructive CAD -Investigated 2016/2017 -ASA 81, statin, BP control GERD -Ranitidine, pantoprazole DVTP: heparin tid Code: full Dispo: inpatient monitoring of wound. Spent 80 minutes in management of patient. 14:00 to 14:25 16:00:16:15 16:28: 16:43 17:10:17:25 18:10to 18:20 (2) Foot ulcer, left: (3) Hypertension: (4) Hyperlipidemia: (5) Diabetes: (6) Obstructive sleep apnea: (7) CKD (chronic kidney disease) stage 3, GFR 30-59 ml/min: (8) BPH (benign prostatic hyperplasia): (9) GERD (gastroesophageal reflux disease): Subjective Patient was seen for his left foot cellulitis. However in the afternoon, patient began having abdominal pain which was generalized.It began about 14:00. He did have a benign exam. Given that patient patient had history of GERD, ordered zantac IV. 2 hours later patient did not feel improvement and began having chest pain. It was pressure like in nature. Patient states that this pain is chronic. Ordered morphine, nitro, EKG and trop. Patient reported mild improvement from morphine. Given that patient has not improved from PPI, zantac, doubt esophageal spasm. Ordered CTA of chest due to his Thoracic aorta aneurysm. Signed out to the night team. Upgraded patient to tele. Ordered IVF for renal protection. Physical Exam 2 Vital Signs (Past 24 Hours): Last Vital Signs Temp 36.8 C 06/11/18 15:02 Pulse 67 06/11/18 15:02 Resp 18 06/11/18 15:02 BP 114/57 06/11/18 15:02 Pulse Ox 95 06/11/18 15:02 Physical Exam: Constitutional: WD/WN, vitals as above average body habitus, patient appears to be in moderate distress Eyes: PERRL, conjunctivae normal, anicteric sclerae ENMT: external ear and nose normal, oropharynx normal Neck: normal visual inspection Respiratory: normal respiratory effort, lungs clear to auscultation Cardiovascular: Rate/Rhythm: regular rate and regular rhythm Heart Sounds: normal S1 and normal S2; no murmur Gastrointestinal (Abdomen): normal bowel sounds, soft, nontender to deep and superficial palpation, no hepatosplenomegaly Musculoskeletal: no cyanosis or clubbing, extremities motor strength 5/5 Skin: + ulcer L foot: deep ulceration on base of foot between 1/2nd MTP joints. Dorsal erythema which creeps close to ankle. +tenderness to palpation. Neurologic: PERRL, EOMI, accommodation nl, no face palsy, no dysarthria Psychiatric: A+Ox3, euthymic affect _ (1) Cellulitis Laterality: Site of cellulitis: Site of cellulitis of extremity: Site of cellulitis of trunk: (2) Foot ulcer, left Non-pressure ulcer stage: (3) Hypertension Hypertension type: essential hypertension Qualified Code(s): I10 - Essential (primary) hypertension (4) Hyperlipidemia Hyperlipidemia type: unspecified Qualified Code(s): E78.5 - Hyperlipidemia, unspecified (5) Diabetes Diabetes mellitus type: type 2 Diabetes mellitus mcfp insulin use: with mcfp use Diabetes mellitus complication status: with neurologic complications Diabetes mellitus complication detail: with unspecified neuropathy Diabetic retinopathy severity: Proliferative retinopathy type: Diabetes mellitus macular edema: Laterality: Chronic kidney disease stage: Qualified Code(s): E11.40 - Type 2 diabetes mellitus with diabetic neuropathy , unspecified; Z79.4 - care home (current) use of insulin
[2018-06-12] MEDS ORDERED: MoRPHine SULFATE 4 MG/ML 1 ML CARP\\VIAL IV PRN ×2 (08:27)
[2018-06-12] MEDS ORDERED: MoRPHine SULFATE 2 MG/ML CARP IV PRN (08:27)
--- NOTE | 2018-06-12 08:36 | Hospitalist Progress Note ---
Date of Service June 12, 2018 Assessment & Plan (1) Cellulitis: Pt is a 68yo M who presents from PCPs office for evaluation of acute changes to chronic diabetic ulcer. Increased redness, tenderness in past two days. Some chills, afebrile. Acute Necrotic cholecystitis CTA of chest showed possible cholecystsis. RUQ U/S confirmed this. Surgery consulted and found to have necrosis of gallbladder Patient had cholecystectomy. Pain is now resolved. Cellulitis/Diabetic foot ulcer -Ceftriaxone -IVF NS @125 -Awaiting blood cx -Foot xray did not indicate osteomyelitis -wound care consulted -Awaiting MRI T2DM -pt may use own insulin pump -hold linagliptin -Await HbA1c -Asa 81 daily Due to surgery, patient had 16 units of lantus subq which is half of his requirements. will monitor CKD stage III -Baseline Cr 1.5-1.6 -Creatinine is at 1.52 -avoid nephrotoxins HTN -Hold chlorthalidone -Metoprolol 25 -Nifedipine 60 BID HLD -atorvastatin 80 Hyponatremia -Mild, continue to monitor level at 133 BPH -continue alfluzosin MARIYA -May need to order CPAP at night Non-Obstructive CAD -Investigated 2016/2017 -ASA 81, statin, BP control GERD -Ranitidine, pantoprazole DVTP: heparin tid Code: full Dispo: inpatient monitoring of wound. Spent 45 minutes in management of patient. (2) Foot ulcer, left: (3) Hypertension: (4) Hyperlipidemia: (5) Diabetes: (6) Obstructive sleep apnea: (7) CKD (chronic kidney disease) stage 3, GFR 30-59 ml/min: (8) BPH (benign prostatic hyperplasia): (9) GERD (gastroesophageal reflux disease): Subjective This morning I received signout by the night provider. CTA was negative but abdominal ultrasound showed possible cholecystitis. I discussed case with Dr. Bray, patient will be seen. 68 yo male reports stating that his abdominal pain has not changed, but today, he is having difficulty breathing. Patient was then seen after the surgery, and patient reports having no abdominal pain. And is breathing well. Physical Exam 2 Vital Signs (Past 24 Hours): Last Vital Signs Temp 36.5 C 06/12/18 04:08 Pulse 85 06/12/18 04:08 Resp 18 06/12/18 04:08 BP 147/68 H 06/12/18 04:08 Pulse Ox 95 01/20/19 04:08 Physical Exam: After surgery Constitutional: WD/WN, vitals as above average body habitus, patient in NAD, Eyes: PERRL, conjunctivae normal, anicteric sclerae ENMT: external ear and nose normal, oropharynx normal Neck: normal visual inspection Respiratory: normal respiratory effort, lungs clear to auscultation Cardiovascular: Rate/Rhythm: regular rate and regular rhythm Heart Sounds: normal S1 and normal S2; no murmur Gastrointestinal (Abdomen): normal bowel sounds, soft, nontender to deep and superficial palpation, no hepatosplenomegaly Musculoskeletal: no cyanosis or clubbing, extremities motor strength 5/5 Skin: + ulcer L foot: deep ulceration on base of foot between 05/25 MTP joints. Dorsal erythema which creeps close to ankle. +tenderness to palpation. Neurologic: PERRL, EOMI, accommodation nl, no face palsy, no dysarthria Psychiatric: A+Ox3, euthymic affect _ (1) Diabetes Chronic kidney disease stage: Diabetes mellitus complication detail: with unspecified neuropathy Diabetes mellitus complication status: with neurologic complications Diabetes mellitus senior living insulin use: with senior living use Diabetes mellitus macular edema: Diabetes mellitus type: type 2 Diabetic retinopathy severity: Laterality: Proliferative retinopathy type: Qualified Code(s): E11.40 - Type 2 diabetes mellitus with diabetic neuropathy, unspecified; Z79.4 - halfway (current) use of insulin (2) Cellulitis Laterality: Site of cellulitis: Site of cellulitis of extremity: Site of cellulitis of trunk: (3) Hyperlipidemia Hyperlipidemia type: unspecified Qualified Code(s): E78.5 - Hyperlipidemia, unspecified (4) Foot ulcer, left Non-pressure ulcer stage: (5) Hypertension Hypertension type: essential hypertension Qualified Code(s): I10 - Essential (primary) hypertension
[2018-06-12] MEDS ORDERED: DEXTROSE 50% 50 ML SYRINGE IV PRN (08:41)
[2018-06-12] MEDS ORDERED: GLUCAGON FOR INJ 1 MG VIAL SQ PRN (08:41)
[2018-06-12] MEDS ORDERED: GLUCOSE 40% GEL 15 GM TUBE PO PRN (08:41)
[2018-06-12] MEDS ORDERED: CARBOHYDRATES FOR HYPOGLYCEMIA PO PRN (08:41)
[2018-06-12] MEDS ORDERED: GLUCOSE 10 TABS/TUBE PO PRN (08:41)
[2018-06-12] MEDS ORDERED: INSULIN GLARGINE SOLOSTAR 100 UNITS/ML 3 ML PEN SC ONE (08:45)
--- NOTE | 2018-06-12 08:50 | Anesthesiology Consultation ---
Date of Service June 12, 2018 Assessment & Plan (1) Encounter for pre-operative examination: Chart Review Chart Review: Acceptable Risk for Surgery and Patient NOT seen in Pre Admission Testing Consults Requested none ASA [id number] Proposed Anesthesia Anesthesia Type: General Risk / Benefits Reviewed With: PT / POA / Parent / Guardian, Accepts Plan and Informed Consent Obtained NPO Date Last Intake of Fluids: 06/12/09 Time Last Intake of Fluids: 04:00 Date Last Intake of Solids: 06/11/18 Time Last Intake of Solids: 08:00 History Surgery Operation Date: 06/12/18 09:30 Proposed Procedures p Laparoscopic Cholecystectomy - Edwin Bray MD, FACS Height/Weight Height: 1.88 m Weight: 98.5 kg Allergies Allergy/AdvReac Type Severity Reaction Status Date / Time lisinopril AdvReac Cough Verified 06/10/18 16:24 losartan AdvReac Cough Verified 06/10/18 16:24 Medications Home Medications Medication Instructions Recorded Confirmed Last Taken alfuzosin 10 mg PO DAILY 02/15/18 06/10/18 02/14/18 aspirin [Aspir-Low] 81 mg PO DAILY 02/15/18 06/10/18 02/14/18 atorvastatin 80 mg PO DAILY 02/15/18 06/10/18 02/14/18 chlorthalidone 25 mg PO DAILY 02/15/18 06/10/18 02/14/18 insulin aspart U-100 See Label Instructions .ROUTE 02/15/18 06/10/18 02/15/18 .COMPLEX CURRENT linagliptin 5 mg PO DAILY 02/15/18 06/10/18 02/14/18 metoprolol succinate 25 mg PO DAILY 02/15/18 06/10/18 02/14/18 nifedipine 60 mg PO BID 02/15/18 06/10/18 02/14/18 pantoprazole 40 mg PO DAILY 02/15/18 06/10/18 02/14/18 venlafaxine 75 mg PO DAILY 02/15/18 06/10/18 02/14/18 ergocalciferol (vitamin D2) 50,000 unit PO WK 06/10/18 06/10/18 Unknown [Vitamin D2] naproxen sodium [Aleve] 440 mg PO BID PRN 06/10/18 06/10/18 06/09/18 ranitidine HCl [Zantac] 150 mg PO BID 06/10/18 06/10/18 Unknown Active Medications Generic Name Dose Route Start Last Admin Trade Name Freq PRN Reason Stop Dose Admin Acetaminophen 650 mg 06/10/18 21:33 06/12/18 06:21 Tylenol PO 07/10/18 21:32 650 mg Q4H PRN Administration pain/fever Al Hydrox/Mg Hydrox/Simethicone 30 ml 06/10/18 21:33 06/11/18 22:15 Maalox PO 07/10/18 21:32 30 ml Q6H PRN Administration Dyspepsia Alfuzosin HCl 10 mg 06/11/18 09:00 06/11/18 09:12 Uroxatral PO 07/11/18 08:59 10 mg DAILY CHELLY Administration Aspirin 81 mg 06/11/18 09:00 06/11/18 09:10 Ecotrin Ectab PO 07/11/18 08:59 81 mg DAILY CHELLY Administration Atorvastatin Calcium 80 mg 06/11/18 09:00 06/11/18 09:11 Lipitor PO 07/11/18 08:59 80 mg DAILY CHELLY Administration Heparin Sodium (Porcine) 5,000 units 06/11/18 06:00 06/12/18 05:57 Heparin Sodium (Porcine) SQ 07/11/18 05:59 Not Given Q8 CHELLY Ceftriaxone Sodium 1,000 mg/ 50 mls @ 100 mls/hr 06/11/18 18:00 06/11/18 19: 15 Dextrose IV 06/21/18 17:59 Infused Q24H CHELLY Infusion Vancomycin HCl 1,250 mg/ 275 mls @ 125 mls/hr 06/11/18 11:00 06/12/18 06:20 Sodium Chloride IV 06/18/18 10:59 Infused Q18H CHELLY Infusion Protocol Insulin Aspart 0 units 06/10/18 22:00 06/12/18 09:08 Novolog Flexpen SC 07/10/18 21:59 Not Given ACHS CHELLY Ioversol 119 ml 06/12/18 00:05 06/12/18 00:06 Optiray 320 125ml IV 06/16/18 00:04 119 ml ONCE PRN Administration Interaction Checking Metoprolol Succinate 25 mg 06/11/18 09:00 06/12/18 09:05 Toprol Xl PO 07/11/18 08:59 25 mg DAILY CHELLY Administration Nifedipine 60 mg 06/10/18 22:15 06/11/18 19:23 Procardia Xl PO 07/10/18 22:14 60 mg BID CHELLY Administration Ondansetron HCl 4 mg 06/10/18 21:33 06/11/18 23:55 Zofran IV 07/10/18 21:32 4 mg Q6H PRN Administration Nausea Pantoprazole Sodium 40 mg 06/11/18 09:00 06/11/18 09:12 Protonix PO 07/11/18 08:59 40 mg DAILY CHELLY Administration Ranitidine HCl 150 mg 06/10/18 21:33 06/11/18 19:23 Zantac PO 07/10/18 21:32 150 mg BID CHELLY Administration Venlafaxine HCl 75 mg 06/11/18 09:00 06/11/18 09:11 Effexor Extended Release PO 07/11/18 08:59 75 mg DAILY CHELLY Administration Zolpidem Tartrate 5 mg 06/10/18 21:33 06/11/18 19:25 Ambien PO 07/10/18 21:32 5 mg HS PRN Administration Sleep Beta Daniel Beta Daniel Taken Within 24 Hours: Yes Past Medical History Medical History Chest pain CAD (coronary artery disease) non-obstructive GERD (gastroesophageal reflux disease) Controlled with medication Ascending aorta enlargement Hyperlipidemia Hypertension IDDM (insulin dependent diabetes mellitus) Neuropathy MARIYA on CPAP Osteoporosis Pt c/o CP/RUQ pain. EKG wnl, troponin negative x 2, chest CTA to r/o aortic dissection was done and was negative (aortal was normal in size at 3.6cm). Per hospitalist team, chest pain is not cardiac related. Currently denies having any CP, GERD symptoms. Has some SOB due to inability to take deep breath with RUQ pain. Has had some n/v. Past Family History Family History Other Cancer Heart disease Past Surgical History Surgical History S/P excision of lipoma S/P inguinal hernia repair R at age 6 years of age S/P foot surgery, left 2011-[place] with LMA #5 Past Anesthesia History No Hx of Anesthesia Complications and No Family Hx of Anesthesia Complications History of PONV No Motion Sickness Screening History of Motion Sickness: No Social History Smoking Status: Former smoker (Quit 16-17 years ago) Do You Dip or Chew Tobacco: No Smoking End Date: 2001 Hx Alcohol Use: Yes Alcohol type: beer alcohol intake frequency: holidays/special occasions only Alcohol Intake Frequency Comment: 1 drink Hx Substance Use: No Exercise / Class Metabolic Activity II 4-5 Yardwork/Stairs/Walk up hill Physical Exam Vital Signs Last Vital Signs Temp 36.5 C 06/12/18 08:40 Pulse 90 06/12/18 08:40 Resp 18 06/12/18 08:40 BP 147/65 H 06/12/18 08:40 Pulse Ox 96 06/12/18 08:40 ENMT Mouth: + chipped teeth; no TMJ abnormality and no TMJ clicking Thyromental Distance: > or= 3.5 Finger Breadths Mallampati Class: III Mouth / Teeth: 2 1. Chipped 2. MIssing 3. Cracked Neck normal visual inspection; neck extension not limited Respiratory Auscultation: lungs clear to auscultation bilaterally Cardiovascular Rate/Rhythm: regular rate and regular rhythm Psychiatric Orientation: alert and oriented x 3 Testing Electrocardiogram Date: 06/11/18 Findings: + NSR @ (74) Sinus rhythm with 1st degree A-V block with Blocked Premature atrial complexes Nonspecific T wave abnormality Abnormal ECG When compared with ECG of 11-JUN-2018 16:20, (unconfirmed) Premature atrial complexes are now Present QT has shortened Echocardiogram Date: 10/01/16 EF: 55-60% LV Function: normal Other Findings: + LVH (mild CLVH) and + diastolic dysfunction (gr I) -- Conclusions -- There is mild concentric left ventricular hypertrophy. Left ventricular systolic function is normal. Grade I diastolic dysfunction, (abnormal relaxation pattern). The left atrium is mildly dilated. Injection of contrast documented no interatrial shunt. Right ventricular systolic pressure is elevated at 30-40mmHg. Moderate aortic root dilatation. Laboratory Results 06/12/18 05:32 06/12/18 05:32 PT 10.7 Seconds (9.0-12.0) 06/10/18 16:10 INR 1.1 (0.9-1.1) 06/10/18 16:10 Hemoglobin A1c 7.5 % (4.5-5.6) H 06/11/18 07:26 06/10/18 14:00 Gram Stain - Final Foot,Left Aerobic and Anaerobic Culture - Preliminary Staphylococcus aureus 06/10/18 16:10 Blood Culture - Preliminary Blood No growth to date. 06/10/18 16:20 Blood Culture - Preliminary Blood No growth to date. 06/12/18 07:24 POC Glucose 252 H troponin negative x 2 (<0.015)
--- NOTE | 2018-06-12 08:51 | Surgery Consultation ---
Date of Consultation June 12, 2018 Assessment & Plan (1) Acute cholecystitis: 68-year-old male with RUQ abdominal pain- RUQ U/S distended GB, small sludge, small stones at BG neck. WBC elevated 19.82. LFTs within normal limits. Possible acute cholecystitis Recommend Laparoscopic Cholecystectomy, Possible Open Cholecystectomy with Dr. Bray in OR today. Patient NPO since last evening. SQ Heparin held- refused 6AM dose. Risks of procedure reviewed with patient. OR team notified. pt seen, examined- agree with above note for laparoscopic cholecystectomy, possible open operation Dr Bray History of Present Illness Reason for Consultation: ?Acute Cholecystitis Requesting Physician: Dr. Mcgowan Attending Physician: Braden Mcgowan History of Present Illness Mr. Trinidad is a 68-year-old male with PMH significant for GERD, Type 2 DM who was admitted 2 days ago formanagement of chronic left foot ulcer. Yesterday afternoon patient developed chest pressure and right upper quadrant pain. Cardiac workup included CTA of chest which revealed that the aorta is normal in caliber measuring 3.6 cm in diameter. No evidence for an aortic dissection. The central pulmonary arteries are patent. In addition, the gallbladder was distended with mild adjacent inflammatory change and a small gallstone. This could represent cholecystitis. Mild esophagitis. Patient was also provided with IV Zantac with no relief of pain. Patient reports that he did have similar episode of right upper quadrant abdominal pain back in January. He denies previous issues with abdominal pain. He denies postprandial pain. He reports a previous hernia repair- believes it was an inguinal hernia. Surgery was when he was very young. He follows with Cardiology for mild dilatation of ascending thoracic aorta. Denies pulmonary issues. RUQ Ultrasound shows distended GB, small sludge, small stones at gb neck. mild thickening. WBC elevated at 19.82 Total Bili 0.7; AST 22; ALT 22; Alk Phos 77 Allergies Allergy/AdvReac Type Severity Reaction Status Date / Time lisinopril AdvReac Cough Verified 06/10/18 16:24 losartan AdvReac Cough Verified 06/10/18 16:24 Home Medications Home Medications Medication Instructions Recorded Confirmed Type alfuzosin 10 mg PO DAILY 02/15/18 06/10/18 History aspirin [Aspir-Low] 81 mg PO DAILY 02/15/18 06/10/18 History atorvastatin 80 mg PO DAILY 02/15/18 06/10/18 History chlorthalidone 25 mg PO DAILY 02/15/18 06/10/18 History insulin aspart U-100 See Label Instructions .ROUTE 02/15/18 06/10/18 History .COMPLEX linagliptin 5 mg PO DAILY 02/15/18 06/10/18 History metoprolol succinate 25 mg PO DAILY 02/15/18 06/10/18 History nifedipine 60 mg PO BID 02/15/18 06/10/18 History pantoprazole 40 mg PO DAILY 02/15/18 06/10/18 History venlafaxine 75 mg PO DAILY 02/15/18 06/10/18 History ergocalciferol (vitamin D2) 50,000 unit PO WK 06/10/18 06/10/18 History [Vitamin D2] naproxen sodium [Aleve] 440 mg PO BID PRN 06/10/18 06/10/18 History ranitidine HCl [Zantac] 150 mg PO BID 06/10/18 06/10/18 History Patient History Medical History Chest pain CAD (coronary artery disease) non-obstructive Ascending aorta enlargement Hyperlipidemia Hypertension IDDM (insulin dependent diabetes mellitus) Neuropathy MARIYA on CPAP Osteoporosis Surgical History S/P foot surgery, left 2010- with LMA #5 Family History Other Cancer Heart disease Social History Current Living Situation: Spouse Other Information That Helps Us Care for You: No Feels Safe at Home: Yes Safety Concerns: Feels Safe At This Time Smoking Status: Former smoker Do You Dip or Chew Tobacco: No Smoking End Date: 2001 Hx Alcohol Use: Yes Alcohol type: beer Alcohol Intake Frequency: holidays/ special occasions only Hx Substance Use: No Beliefs That Will Affect Care: Latter-Day Latter-Day Beliefs: Jain Preferred Language: Setswana Communication Ability: Effective Steel Finisher Required: No Physical Exam 2 Vital Signs (Past 24 Hours): Last Vital Signs Temp 36.5 C 06/12/18 08:40 Pulse 90 06/12/18 08:40 Resp 18 06/12/18 08:40 BP 147/65 H 06/12/18 08:40 Pulse Ox 96 06/12/18 08:40 Eyes: + anicteric sclerae Gastrointestinal (Abdomen): Percussion/Palpation: + abdomen tender (right upper quadrant. )
[2018-06-12] MEDS ORDERED: BUPIVACAINE 0.5 % 5 MG/1 ML MPF 30ML VIAL ONE (08:56)
[2018-06-12] MEDS ORDERED: NEOSTIGMINE METHYLSULFATE 5 MG/5 ML SYR ONE (08:57)
[2018-06-12] MEDS ORDERED: MIDAZOLAM HCL 1 MG/ML 2ML VIAL ONE (08:57)
[2018-06-12] MEDS ORDERED: ONDANSETRON INJ 2 MG/ML 2 ML VIAL ONE (08:57)
[2018-06-12] MEDS ORDERED: SUCCINYLCHOLINE CHLORIDE 20 MG/ML 10 ML VIAL ONE (08:57)
[2018-06-12] MEDS ORDERED: PHENYLEPHRINE HCL 10 MG/ML VIAL ONE (08:57)
[2018-06-12] MEDS ORDERED: DEXAMETHASONE SOD INJ 4 MG/ML VIAL ONE (08:57)
[2018-06-12] MEDS ORDERED: PROPOFOL IV EMULSION 10 MG/ML 20 ML VIAL IV ONE (08:57)
[2018-06-12] MEDS ORDERED: LIDOCAINE HCL 2% 2 ML VIAL/AMP(20MG/ML) INFIL ONE (08:57)
[2018-06-12] MEDS ORDERED: fentaNYL citrate 100 MCG/2 ML VIAL ONE (08:57)
[2018-06-12] MEDS ORDERED: ePHEDrine sulfate 50 MG/ML AMP ONE (08:57)
[2018-06-12] MEDS ORDERED: GLYCOPYRROLATE 0.2 MG/ML VIAL ONE (08:57)
[2018-06-12] MEDS ORDERED: ATROPINE SULFATE 0.1 MG/ML 10ML SYR IV PRN (08:59)
[2018-06-12] MEDS ORDERED: ePHEDrine sulfate 50 MG/ML AMP IV PRN (08:59)
[2018-06-12] MEDS ORDERED: ONDANSETRON INJ 2 MG/ML 2 ML VIAL IV PRN ×2 (08:59→11:02)
[2018-06-12] MEDS ORDERED: HYDROmorphone INJ 1 MG/ML SYRINGE IV PRN (08:59)
[2018-06-12] MEDS ORDERED: fentaNYL citrate 100 MCG/2 ML VIAL IV PRN (08:59)
[2018-06-12] MEDS ORDERED: PHENYLEPHRINE 100MCG/ML 5ML SYR IV PRN (08:59)
[2018-06-12] MEDS ORDERED: PROMETHAZINE HCL 12.5 MG in SODIUM CHLORIDE 0.9% 50 ML IV PRN ×2 (08:59→11:02)
[2018-06-12] MEDS ORDERED: ROCURONIUM BROMIDE 10 MG/ML 5 ML VIAL ONE ×2 (09:01)
[2018-06-12] MEDS: METOPROLOL SUCC 25MG EXT REL TAB PO SCH (09:05)
[2018-06-12] MEDS: INSULIN ASPART 100 UNITS/ML 3 ML PEN SC SCH ×4 (09:08→20:36)
[2018-06-12] MEDS ORDERED: cefOXitin 2,000 MG in DEXTROSE 5% 50 ML IV ONE (09:20)
--- NOTE | 2018-06-12 10:34 | Operative Report ---
Post Operative Report Pre & Post Diagnosis Operation Date: 06/12/18 09:30 Pre-Op Diagnosis: Acute Cholecystitis Post-Op Diagnosis: Acute Cholecystitis same w/ adhesions and chronic cholecystitis Procedure Operation Date: 06/12/18 09:30 Actual Procedures p Laparoscopic Cholecystectomy(Not Applicable) - Edwin Bray MD, FACS same w/ lysis of adhesions Surgeon Edwin Bray MD, FACS Calender Wind Up Helper Cira Keith Estimated Blood Loss 30 Findings Consistent with Post-Op Diagnosis Specimens gallbladder Description of Procedure see dictated note I attest to the content of the Intraoperative Record and any orders documented therein. Any exceptions are noted below.
[2018-06-12] MEDS ORDERED: ACETAMINOPHEN 1,000 MG/100 ML VIAL IV ONE (11:00)
[2018-06-12] MEDS ORDERED: HYDROCODONE/ACETAMOPHEN 5/325MG TAB PO PRN ×2 (11:02)
--- NOTE | 2018-06-12 11:27 | Operative Report ---
DATE OF OPERATION: 06/12/2018 NAME OF OPERATION: Laparoscopic cholecystectomy with lysis of adhesions. PREOPERATIVE DIAGNOSIS: Acute cholecystitis. POSTOPERATIVE DIAGNOSIS: Same with chronic cholecystitis and adhesions. STAFF SURGEON: Edwin Bray MD MEDICAL INSTRUMENT TECHNICIAN: Brigette Keith PA-C DESCRIPTION OF PROCEDURE: The patient was brought in the operating room and placed on the operating table in supine position. His abdomen was prepped and draped in the usual fashion. Pneumatic stockings, orogastric tube were placed. As a note, my licensed sales assistant helped throughout the entire case with prepping, draping, removal of the gallbladder, and closure of the wounds. Initially all skin was anesthetized using 0.5% plain Marcaine. Incision was made above the umbilicus, carrying dissection down to the fascia, placing a Veress needle producing pneumoperitoneum. An 11-mm port was placed. Under visualization, three 5-mm ports were placed, 1 cephalad and 2 laterally. The omentum and surrounding tissue were very adherent to the gallbladder indicating chronic adhesions. These were taken down. The gallbladder was extremely distended. It was aspirated of bile which was clear, indicating hydrops. Dissection was carried out at the julieta hepatis indicating severe inflammation. The cystic duct and cystic artery were both identified and clipped and transected. The gallbladder was then dissected away from the liver bed. There was severe inflammation with some bleeding, but this was controlled, mostly just in the liver bed. The gallbladder was placed in an Endobag and then the area irrigated. A 15 round Hira-Concepcion drain placed through the lateral 5 mm port site into the subhepatic space, secured to the skin using 3-0 nylon suture. I had to enlarge the skin and fascial incisions to remove the gallbladder which was very large. It was removed through the umbilical site. The umbilical fascia was then closed using interrupted 0 PDS suture, then the skin at the umbilicus closed using 4-0 nylon sutures, other sites closed using subcuticular 4-0 Monocryl with Dermabond. The patient was transferred to recovery area in stable condition. My licensed sales assistant helped with prepping, draping, removal of the gallbladder, and closure of the wounds. I attest to the content of the Intraoperative Record and any orders documented therein. Any exception s are noted below.
--- NOTE | 2018-06-12 11:36 | Anesthesiology Progress Note ---
Date of Service June 12, 2018 Anesthesia Post Procedure Vital Signs Vital Signs: Temp Pulse Pulse Resp BP BP Pulse Ox 06/12/18 11:30 80 15 153/70 H 93 06/12/18 11:20 81 17 154/72 H 92 06/12/18 11:10 82 18 144/70 H 92 06/12/18 11:00 37.1 C 83 16 153/87 H 91 06/12/18 10:53 37.1 C 83 16 142/71 H 93 06/12/18 08:40 36.5 C 90 18 147/65 H 96 06/12/18 04:08 36.5 C 85 18 147/68 H 95 06/11/18 23:15 36.9 C 83 20 143/65 H 94 06/11/18 18:50 36.9 C 84 22 160/72 H 96 06/11/18 18:03 36.8 C 67 16 161/71 H 95 06/11/18 15:02 36.8 C 67 18 114/57 L 95 06/11/18 12:46 37.0 C Pain Intensity Left Foot: Pain Intensity: 3 Right Upper Abdomen: Pain Intensity: 0 Notes Mental Status: alert / awake / arousable Patient Amnestic to Procedure: Yes Nausea / Vomiting: adequately controlled Pain: adequately controlled Airway Patency, RR, SpO2: stable & adequate BP & HR: stable & adequate Hydration State: stable & adequate Anesthetic Complications: no major complications apparent Notes: Awake, doing well, B. No complaints, VSS. Still requiring O2 to maintain O2 sat >94%. Pt will go back to his room with supplemental O2.
[2018-06-12] MEDS: ATORVASTATIN 40 MG TAB PO SCH (14:56)
[2018-06-12] MEDS: VENLAFAXINE HCL XR 75 MG CAPXR PO SCH (14:57)
[2018-06-12] MEDS: SODIUM CHLORIDE 0.9% 1000ML 1,000 ML IV SCH (14:57)
[2018-06-12] MEDS: NIFEdipine EXTENDED REL 30 MG TABCR PO SCH ×2 (14:57→20:04)
[2018-06-12] MEDS: ASPIRIN 81 MG ECTAB PO SCH (14:57)
[2018-06-12] MEDS: ALFUZOSIN HCL 10 MG TAB PO SCH (14:57)
[2018-06-12] MEDS: PANTOprazole 40 MG TAB PO SCH (14:58)
[2018-06-12] MEDS: cefOXitin 2,000 MG in DEXTROSE 5% 50 ML IV SCH (17:19)
[2018-06-12] MEDS: cefTRIAXone SODIUM 1,000 MG in DEXTROSE 5% 50 ML IV SCH (18:02)
[2018-06-12] MEDS: ZOLPIDEM TARTRATE 5 MG TAB PO PRN (21:13)
[2018-06-12] MEDS ORDERED: VANCOMYCIN TROUGH ONE (22:30)
[2018-06-13] MEDS ORDERED: VANCOMYCIN HCL 1,750 MG in SODIUM CHLORIDE 0.9% 500 ML IV ONE (00:15)
[2018-06-13] MEDS ORDERED: VANCOMYCIN HCL 1,250 MG in SODIUM CHLORIDE 0.9% 250 ML IV SCH (00:15)
[2018-06-13] MEDS: cefOXitin 2,000 MG in DEXTROSE 5% 50 ML IV SCH ×3 (03:02→18:11)
[2018-06-13] MEDS: SODIUM CHLORIDE 0.9% 1000ML 1,000 ML IV SCH ×2 (04:52→18:10)
[2018-06-13] MEDS: HEPARIN SOD 5,000 UNIT/0.5 ML VIAL SQ SCH ×3 (06:17→20:54)
[2018-06-13 06:52] LABS: Basophils # (auto) 0.03 K/uL (0-0.2); Basophils % (auto) 0.2 %; Eosinophils # (auto) 0.31 K/uL (0-0.5); Hematocrit (blood only) 38.5 % (42-52); Immature Granulocytes # (auto) 0.05 K/uL (0.00-0.02); Immature Granulocytes % (auto) 0.3 %; Lymphocytes # (auto) 1.61 K/uL (1.2-3.4); Lymphocytes % (auto) 10.2 %; Mean Corpuscular Hgb Conc 33.8 g/dL (32-36); Mean Corpuscular Volume 86.9 fL (80-100); Mean Platelet Volume 9.6 fL (7.4-10.4); Monocytes # (auto) 1.01 K/uL (0.11-0.59); Monocytes % (auto) 6.4 %; Neutrophils % (auto) 80.9 %; Platelet Count 269 K/uL (130-400); RDW Standard Deviation 41.6 fL (36.4-46.3); Red Blood Count 4.43 M/uL (4.7-6.1); White Blood Count 15.71 K/uL (4.8-10.8)
[2018-06-13 07:29] LABS: Albumin Globulin Ratio 0.5 (0.9-2); Albumin Level 2.5 gm/dl (3.4-5.0); BUN Creatinine Ratio 11.3 (10-20); Bilirubin Direct 0.2 mg/dl (0-0.2); Bilirubin,Total 0.7 mg/dl (0.2-1); Calcium 7.5 mg/dl (8.5-10.1); Creatinine Clr Calc Pharmacy 54.5 ml/min; Est GFR (African American) 48.7; Globulin 4.9 gm/dl (2.5-4.0); Magnesium 2.2 mg/dl (1.8-2.4); Phosphorus 1.9 mg/dl (2.5-4.9); Potassium 3.1 mmol/L (3.5-5.1); Total Protein 7.4 gm/dl (6.4-8.2)
--- NOTE | 2018-06-13 08:33 | Anesthesiology Progress Note ---
Date of Service June 13, 2018 Anesthesia Post Procedure Vital Signs Vital Signs: Temp Pulse Pulse Resp BP BP Pulse Ox 06/13/18 07:26 36.8 C 85 19 139/61 91 06/13/18 04:50 36.7 C 79 22 137/68 90 06/12/18 23:01 37.2 C 85 20 144/72 H 94 06/12/18 19:44 37.4 C 86 16 167/71 H 92 06/12/18 15:27 36.3 C L 89 16 157/70 H 92 06/12/18 13:00 88 16 162/62 H 96 06/12/18 12:00 36.8 C 90 16 154/68 H 93 06/12/18 11:42 36.5 C 90 18 147/65 H 96 06/12/18 11:40 37 C 79 19 152/72 H 93 06/12/18 11:30 36.9 C 82 16 167/64 H 94 06/12/18 11:20 81 17 154/72 H 92 06/12/18 11:10 82 18 144/70 H 92 06/12/18 11:00 37.1 C 83 16 153/87 H 91 06/12/18 10:53 37.1 C 83 16 142/71 H 93 06/12/18 08:40 36.5 C 90 18 147/65 H 96 Pain Intensity Right Upper Abdomen: Pain Intensity: 0 Notes Mental Status: alert / awake / arousable and participated in evaluation Patient Amnestic to Procedure: Yes Nausea / Vomiting: adequately controlled Pain: adequately controlled Airway Patency, RR, SpO2: stable & adequate BP & HR: stable & adequate Hydration State: stable & adequate Anesthetic Complications: no major complications apparent and Pt Satisfied with anesthetic care
--- NOTE | 2018-06-13 08:39 | Magnetic Resonance Report ---
MR foot LT w/o con CLINICAL HISTORY: 68 years-old Male presenting with left cellulitis, ulcer on the plantar aspect of t he left foot between the first and second toes, marker placed, also for 2 1/2 months, history of diab etes, history of foot surgery 4-5 years ago. TECHNIQUE: Multisequence, multiplanar MR imaging of the left foot was performed without the use of in travenous contrast. IV contrast: None. COMPARISON: Plain radiographs from 06/10/2018. FINDINGS: Localizer images: Susceptibility artifact in the region of the first metatarsal head. Extensive susceptibility artifact in the region of the plate and screw fixation for the first metatar lisandro arthrodesis. Additional surgical screw in the head of the second metatarsal results in a signific antly lesser degree of susceptibility artifact. Artifact limits evaluation of these regions. A marker is in place over the plantar aspect of the second metatarsal head. There is a skin defect co nsistent with ulcer. There is significant infiltration of the soft tissues surrounding the second met atarsophalangeal joint. A fluid collection is noted along the dorsal aspect of the joint, which may c ontain a debris. Additional fluid collections noted along the plantar aspect of the second metatarsal head. These collections may either be in continuity with the second MTP joint representing synovial outpouchings or separate periarticular collections. No significant abnormal bone marrow signal intens ity is evident in the second metatarsal head or proximal phalanx of the second toe. The operative site at the first metatarsophalangeal joint is grossly unremarkable allowing for signif icant limitations in evaluation. Nonspecific diffuse subcutaneous edema along the dorsum of the midfo ot and forefoot. Tendinous structures are grossly intact. IMPRESSION: 1. Ulceration along the plantar aspect of the second metatarsal head with significant inflammatory c hange surrounding the second MTP joint. Either periarticular fluid collections versus synovial outpou chings of the second metatarsal joint. These findings raise concern for septic arthritis of the secon d MTP joint. No abnormal bone marrow signal intensity to suggest osteomyelitis at this time. 2. Significant limitations in image quality due to susceptibility artifact arising from hardware iam ry at the first MTP joint arthrodesis. Electronically signed by: Humberto Sainz M.D. 06/13/2018 8:36 AM
[2018-06-13] MEDS: INSULIN ASPART 100 UNITS/ML 3 ML PEN SC SCH ×4 (08:42→20:54)
[2018-06-13] MEDS: NIFEdipine EXTENDED REL 30 MG TABCR PO SCH ×2 (08:42→20:00)
[2018-06-13] MEDS: ATORVASTATIN 40 MG TAB PO SCH (08:43)
[2018-06-13] MEDS: METOPROLOL SUCC 25MG EXT REL TAB PO SCH (08:43)
[2018-06-13] MEDS: PANTOprazole 40 MG TAB PO SCH (08:43)
[2018-06-13] MEDS: ALFUZOSIN HCL 10 MG TAB PO SCH (08:43)
[2018-06-13] MEDS: ASPIRIN 81 MG ECTAB PO SCH (08:43)
[2018-06-13] MEDS: VENLAFAXINE HCL XR 75 MG CAPXR PO SCH (08:43)
[2018-06-13] MEDS: ACETAMINOPHEN 325 MG TAB PO PRN (08:57)
--- NOTE | 2018-06-13 10:27 | Progress Note ---
Date of Service June 13, 2018 Assessment & Plan (1) Acute cholecystitis: cont IV atbx, diet as tolerated, encourage walking reg floor if ok with med team Subjective awake, alert vitals stable Physical Exam 2 Vital Signs (Past 24 Hours): Last Vital Signs Temp 36.8 C 06/13/18 07:26 Pulse 85 06/13/18 07:26 Resp 19 06/13/18 07:26 BP 139/61 06/13/18 07:26 Pulse Ox 91 06/13/18 07:26 tracy castillo
--- NOTE | 2018-06-13 10:48 | Hospitalist Progress Note ---
Date of Service June 13, 2018 Assessment & Plan (1) Acute cholecystitis: CTA of chest showed possible cholecystsis. RUQ U/S confirmed this. s/p cholecystectomy with lysis of adhesions on 06/12 tolerated well, pain is controlled tolerating liquid diet, + flatus transfer to medical floor Dr. Bray following, discussed case with him today no fever, WBC 15k, continue Cefoxotin (2) Cellulitis: -Foot xray did not indicate osteomyelitis wound culture grew MSSA continue Vancomycin foot looks good, less redness, no pain, no warmth MRI today shows possible septic arthrtis of 2nd MTP joint no evidence of osteomyelitis will ask orthopedic surgery to evaluate (3) Foot ulcer, left: see above (4) Hypertension: HTN -Hold chlorthalidone -Metoprolol 25 -Nifedipine 60 BID (5) Hyperlipidemia: HLD -atorvastatin 80 (6) Diabetes: T2DM -pt may use own insulin pump -hold linagliptin -Await HbA1c -Asa 81 daily monitor for hypoglycemia (7) Obstructive sleep apnea: (8) CKD (chronic kidney disease) stage 3, GFR 30-59 ml/min: CKD stage III -Baseline Cr 1.5-1.6 -Creatinine is at baseline (9) BPH (benign prostatic hyperplasia): (10) GERD (gastroesophageal reflux disease): PPI (11) CAD (coronary artery disease): Non-Obstructive CAD -Investigated -ASA 81, statin, BP control (12) Hypokalemia: 3.1 this morning, PO replacement ordered, repeat BMP tomorrow Subjective patient feeling well, abdominal pain is moderate, but much better than prior to surgery no fever, no nausea, tolerating clear liquids + flatus, no BM at this time breathing is stable left foot, redness down considerably, pain is better reviewed labs, K low at 3.1, will replace PO okay with transfer to medical floor Review of Systems All systems reviewed & are unremarkable except as noted in HPI & below Physical Exam 2 Vital Signs (Past 24 Hours): Last Vital Signs Temp 36.8 C 06/13/18 07:26 Pulse 85 06/13/18 07:26 Resp 19 06/13/18 07:26 BP 139/61 06/13/18 07:26 Pulse Ox 91 06/13/18 07:26 Constitutional: WD/WN, vitals as above Eyes: PERRL, conjunctivae normal, anicteric sclerae ENMT: external ear and nose normal, oropharynx normal Neck: trachea midline, no thyromegaly Respiratory: normal respiratory effort, lungs clear to auscultation Cardiovascular: RRR, no murmur, no edema Gastrointestinal (Abdomen): Inspection/Auscultation: abdomen normal to inspection and normal bowel sounds; abdomen not distended Percussion/ Palpation: + abdomen tender (RUQ, mild to moderate) and abdomen soft; no guarding Musculoskeletal: no cyanosis or clubbing, extremities motor strength 5/5 Skin: plantar wound, approximately 1cm, with some clear discharge, minimal surrounding erythema, skin is not hot or tender Neurologic: patellar DTR's 2+ bilat, sensation intact and PERRL, EOMI, accommodation nl, no face palsy, no dysarthria Psychiatric: A+Ox3, euthymic affect Lymphatic: no cervical or axillary lymphadenopathy Results & Data Laboratory Results Laboratory Results - last 24 hr 06/12/18 06/12/18 06/12/18 11:02 16:35 20:24 WBC RBC Hgb Hct MCV MCH MCHC RDW Std Deviation RDW Coeff of Kyle Plt Count MPV Immature Gran % (Auto) Neut % (Auto) Lymph % (Auto) [place] % (Auto) Eos % (Auto) Baso % (Auto) Immature Gran # (Auto) Neut # (Auto) Lymph # (Auto) [place] # (Auto) Eos # (Auto) Baso # (Auto) Sodium Potassium Chloride Carbon Dioxide Anion Gap BUN Creatinine Est Cr Clr Drug Dosing Est GFR ( Amer) Est GFR (Non-Af Amer) BUN/Creatinine Ratio Glucose POC Glucose 162 H 176 H 192 H Calcium Phosphorus Magnesium Total Bilirubin Direct Bilirubin AST ALT Alkaline Phosphatase Total Protein Albumin Globulin Albumin/Globulin Ratio Vancomycin Trough 06/12/18 06/13/18 06/13/18 22:36 06:21 06:21 WBC 15.71 H RBC 4.43 L Hgb 13.0 L Hct 38.5 L MCV 86.9 MCH 29.3 MCHC 33.8 RDW Std Deviation 41.6 RDW Coeff of Kyle 13.0 Plt Count 269 MPV 9.6 Immature Gran % (Auto) 0.3 Neut % (Auto) 80.9 Lymph % (Auto) 10.2 [place] % (Auto) 6.4 Eos % (Auto) 2.0 Baso % (Auto) 0.2 Immature Gran # (Auto) 0.05 H Neut # (Auto) 12.70 H Lymph # (Auto) 1.61 [place] # (Auto) 1.01 H Eos # (Auto) 0.31 Baso # (Auto) 0.03 Sodium 136 Potassium 3.1 L D Chloride 101 Carbon Dioxide 25 Anion Gap 9.0 BUN 19 H Creatinine 1.66 H Est Cr Clr Drug Dosing 54.5 Est GFR ( Amer) 48.7 Est GFR (Non-Af Amer) 42.0 BUN/Creatinine Ratio 11.3 Glucose 103 H POC Glucose Calcium 7.5 L Phosphorus 1.9 L Magnesium 2.2 Total Bilirubin 0.7 Direct Bilirubin 0.2 AST 36 ALT 37 Alkaline Phosphatase 68 Total Protein 7.4 Albumin 2.5 L Globulin 4.9 H Albumin/Globulin Ratio 0.5 L Vancomycin Trough 6.2 06/13/18 07:18 WBC RBC Hgb Hct MCV MCH MCHC RDW Std Deviation RDW Coeff of Kyle Plt Count MPV Immature Gran % (Auto) Neut % (Auto) Lymph % (Auto) [place] % (Auto) Eos % (Auto) Baso % (Auto) Immature Gran # (Auto) Neut # (Auto) Lymph # (Auto) [place] # (Auto) Eos # (Auto) Baso # (Auto) Sodium Potassium Chloride Carbon Dioxide Anion Gap BUN Creatinine Est Cr Clr Drug Dosing Est GFR ( Amer) Est GFR (Non-Af Amer) BUN/Creatinine Ratio Glucose POC Glucose 120 H Calcium Phosphorus Magnesium Total Bilirubin Direct Bilirubin AST ALT Alkaline Phosphatase Total Protein Albumin Globulin Albumin/Globulin Ratio Vancomycin Trough Medications Administered Current Inpatient Medications Acetaminophen (Tylenol) 650 mg PO Q4H PRN PRN Reason: pain/fever Stop: 07/10/18 21:32 Last Admin: 06/13/18 08:57 Dose: 650 mg Hydrocodone Bitart/Acetaminophen ([place] 5/325) 1 tab PO 3XDQ4 PRN PRN Reason: Pain Stop: 06/26/18 11:01 Hydrocodone Bitart/Acetaminophen ([place] 5/325) 2 tab PO 3XDQ4 PRN PRN Reason: Pain Stop: 06/26/18 11:01 Last Admin: 06/12/18 17:20 Dose: 2 tab Al Hydrox/Mg Hydrox/Simethicone (Maalox) 30 ml PO Q6H PRN PRN Reason: Dyspepsia Stop: 07/10/18 21:32 Last Admin: 06/11/18 22:15 Dose: 30 ml Alfuzosin HCl (Uroxatral) 10 mg PO DAILY [facility] Stop: 07/11/18 08:59 Last Admin: 06/13/18 08:43 Dose: 10 mg Aspirin (Ecotrin Ectab) 81 mg PO DAILY [facility] Stop: 07/11/18 08:59 Last Admin: 06/13/18 08:43 Dose: 81 mg Atorvastatin Calcium (Lipitor) 80 mg PO DAILY [facility] Stop: 07/11/18 08:59 Last Admin: 06/13/18 08:43 Dose: 80 mg Dextrose (Dextrose 50%) 25 - 50 ml IV UD PRN; Protocol PRN Reason: Hypoglycemia Protocol Stop: 07/12/18 08:40 Glucagon (Glucagen) 1 mg SQ UD PRN; Protocol PRN Reason: Hypoglycemia Protocol Stop: 07/12/18 08:40 Glucose (Glucose 40%) 15 - 30 gm PO UD PRN; Protocol PRN Reason: Hypoglycemia Protocol Stop: 07/12/18 08:40 Glucose (Dex4 Glucose) 4 - 8 tabs PO UD PRN; Protocol PRN Reason: Hypoglycemia Protocol Stop: 07/12/18 08:40 Heparin Sodium (Porcine) (Heparin Sodium (Porcine)) 5,000 units SQ Q8 [facility] Stop: 07/11/18 05:59 Last Admin: 06/13/18 06:17 Dose: 5,000 units Ceftriaxone Sodium 1,000 mg/ (Dextrose) 50 mls @ 100 mls/hr IV Q24H [facility] Stop: 06/21/18 17:59 Last Infusion: 06/12/18 19:10 Dose: Infused Cefoxitin Sodium 2,000 mg/ (Dextrose) 60 mls @ 100 mls/hr IV Q8H [facility] Stop: 06/22/18 17:59 Last Infusion: 06/13/18 03:38 Dose: Infused Sodium Chloride (Nss 1000ml) 1,000 mls @ 80 mls/hr IV .[id number] [facility] Stop: 07/12/18 11:59 Last Infusion: 06/13/18 06:29 Dose: 80 mls/hr Promethazine HCl 12.5 mg/ (Sodium Chloride) 50.5 mls @ 204 mls/hr IV Q6H PRN PRN Reason: Nausea And Vomiting Stop: 07/12/18 11:01 Vancomycin HCl 1,500 mg/ (Sodium Chloride) 530 mls @ 200 mls/hr IV Q12H [facility]; Protocol Stop: 06/20/18 17:59 Insulin Aspart (Novolog Flexpen) 0 units SC ACHS [facility] Stop: 07/10/18 21:59 Last Admin: 06/13/18 08:42 Dose: Not Given Magnesium Hydroxide (Milk Of Magnesia) 30 ml PO Q6H PRN PRN Reason: Constipation Stop: 07/10/18 21:32 Metoprolol Succinate (Toprol Xl) 25 mg PO DAILY [facility] Stop: 07/11/18 08:59 Last Admin: 06/13/18 08:43 Dose: 25 mg Miscellaneous (Carbohydrates For Hypoglycemia) 15 - 30 gm PO UD PRN PRN Reason: Hypoglycemia Treatment Stop: 07/12/18 08:40 Miscellaneous Information (Consult) 1 ea N/A UD PRN PRN Reason: Consult Stop: 07/10/18 21:32 Morphine Sulfate (Morphine Sulfate) 2 mg IV Q3H PRN PRN Reason: MODERATE Pain (Scale 4,5,6) Stop: 06/26/18 08:26 Morphine Sulfate (Morphine Sulfate) 3 mg IV Q3H PRN PRN Reason: SEVERE Pain (Scale 7,8,9,10) Stop: 06/26/18 08:26 Morphine Sulfate (Morphine Sulfate) 1 mg IV Q3H PRN PRN Reason: MILD Pain (Scale 1,2,3) Stop: 06/26/18 08:26 Nifedipine (Procardia Xl) 60 mg PO BID [facility] Stop: 07/10/18 22:14 Last Admin: 06/13/18 08:42 Dose: 60 mg Ondansetron HCl (Zofran) 4 mg IV 4XDQ4H PRN PRN Reason: Nausea Stop: 07/12/18 11:01 Pantoprazole Sodium (Protonix) 40 mg PO DAILY [facility] Stop: 07/11/18 08:59 Last Admin: 06/13/18 08:43 Dose: 40 mg Polyethylene Glycol (Miralax Powder Packet) 17 gm PO DAILY PRN PRN Reason: Constipation Stop: 07/10/18 21:32 Potassium Chloride (Klor-Con M20) 20 meq PO BID [facility] Stop: 07/13/18 10:44 Ranitidine HCl (Zantac) 150 mg PO BID [facility] Stop: 07/10/18 21:32 Last Admin: 06/13/18 08:43 Dose: 150 mg Venlafaxine HCl (Effexor Extended Release) 75 mg PO DAILY [facility] Stop: 07/11/18 08:59 Last Admin: 06/13/18 08:43 Dose: 75 mg Zolpidem Tartrate (Ambien) 5 mg PO HS PRN PRN Reason: Sleep Stop: 07/10/18 21:32 Last Admin: 06/12/18 21:13 Dose: 5 mg _ (1) Diabetes Chronic kidney disease stage: Diabetes mellitus complication detail: with unspecified neuropathy Diabetes mellitus complication status: with neurologic complications Diabetes mellitus salvage determiner insulin use: with fpc use Diabetes mellitus macular edema: Diabetes mellitus type: type 2 Diabetic retinopathy severity: Laterality: Proliferative retinopathy type: Qualified Code(s): E11.40 - Type 2 diabetes mellitus with diabetic neuropathy, unspecified; Z79.4 - [facility] (current) use of insulin (2) Cellulitis Laterality: Site of cellulitis: Site of cellulitis of extremity: Site of cellulitis of trunk: (3) Hyperlipidemia Hyperlipidemia type: unspecified Qualified Code(s): E78.5 - Hyperlipidemia, unspecified (4) Foot ulcer, left Non-pressure ulcer stage: (5) Hypertension Hypertension type: essential hypertension Qualified Code(s): I10 - Essential (primary) hypertension
[2018-06-13] MEDS: VANCOMYCIN HCL 1,500 MG in SODIUM CHLORIDE 0.9% 500 ML IV SCH (12:19)
[2018-06-13] MEDS: POTASSIUM CHLORIDE 20 MEQ TABCR PO SCH ×2 (13:12→20:01)
--- NOTE | 2018-06-13 14:15 | Pharmacy Report ---
Pharmacy Abx Dose Short Note - Date of Service June 13, 2018 - Assessment & Plan Assessment * 68 yo M with diabetic foot ulcer, question of septic joint (osteomyelitis ruled out by MRI), and acute necrotic cholecystitis s/p cholecystectomy, POD 1 * Patient was on ceftriaxone and vancomycin for foot/joint infection. Cefoxitin added yesterday by surgery for cholecystitis. * SCr stable and at/near baseline * Foot culture with MSSA Vancomycin * Goal trough 15-20 mcg/mL * Level of 6.2 mcg/mL is significantly subtherapeutic. This was obtained prior to the 4th dose of 1250 mg IV q18h * Will increase vancomycin dose and shorten interval between doses * Will obtain early trough to ensure the increase in dose was not too aggressive Plan * Increase vancomycin to 1500 mg IV q12h * Trough 06/13 @ 2330 Pharmacy will continue to follow and will adjust dose/frequency as necessary. Thank you.
[2018-06-13] MEDS ORDERED: VANCOMYCIN TROUGH ONE (23:30)
[2018-06-14] MEDS: VANCOMYCIN HCL 1,500 MG in SODIUM CHLORIDE 0.9% 500 ML IV SCH ×2 (00:39→11:39)
[2018-06-14] MEDS: cefOXitin 2,000 MG in DEXTROSE 5% 50 ML IV SCH ×2 (03:21→10:50)
[2018-06-14] MEDS: HEPARIN SOD 5,000 UNIT/0.5 ML VIAL SQ SCH ×3 (05:13→21:00)
[2018-06-14] MEDS: SODIUM CHLORIDE 0.9% 1000ML 1,000 ML IV SCH ×2 (05:38→20:00)
[2018-06-14 08:38] LABS: Basophils # (auto) 0.03 K/uL (0-0.2); Basophils % (auto) 0.3 %; Eosinophils # (auto) 0.37 K/uL (0-0.5); Eosinophils % (auto) 3.2 %; Hematocrit (blood only) 38.3 % (42-52); Hemoglobin 13.1 g/dL (14.0-18.0); Immature Granulocytes # (auto) 0.03 K/uL (0.00-0.02); Immature Granulocytes % (auto) 0.3 %; Lymphocytes # (auto) 1.58 K/uL (1.2-3.4); Lymphocytes % (auto) 13.7 %; Mean Corpuscular Hgb Conc 34.2 g/dL (32-36); Mean Corpuscular Volume 85.3 fL (80-100); Mean Platelet Volume 8.9 fL (7.4-10.4); Monocytes # (auto) 0.83 K/uL (0.11-0.59); Monocytes % (auto) 7.2 %; Neutrophils # (auto) 8.68 K/uL (1.4-6.5); Neutrophils % (auto) 75.3 %; Platelet Count 282 K/uL (130-400); RDW Coefficient of Variation 12.8 % (11.5-14.5); RDW Standard Deviation 40.1 fL (36.4-46.3); Red Blood Count 4.49 M/uL (4.7-6.1); White Blood Count 11.52 K/uL (4.8-10.8)
[2018-06-14 08:57] LABS: BUN Creatinine Ratio 11.3 (10-20); Calcium 7.9 mg/dl (8.5-10.1); Creatinine Clr Calc Pharmacy 60.8 ml/min; Est GFR (African American) 55.5; Est GFR (Non-African American) 47.9; Potassium 3.4 mmol/L (3.5-5.1)
[2018-06-14] MEDS: ASPIRIN 81 MG ECTAB PO SCH (09:06)
[2018-06-14] MEDS: ALFUZOSIN HCL 10 MG TAB PO SCH (09:06)
[2018-06-14] MEDS: METOPROLOL SUCC 25MG EXT REL TAB PO SCH (09:07)
[2018-06-14] MEDS: ATORVASTATIN 40 MG TAB PO SCH (09:07)
[2018-06-14] MEDS: VENLAFAXINE HCL XR 75 MG CAPXR PO SCH (09:07)
[2018-06-14] MEDS: POTASSIUM CHLORIDE 20 MEQ TABCR PO SCH ×2 (09:07→21:00)
[2018-06-14] MEDS: NIFEdipine EXTENDED REL 30 MG TABCR PO SCH ×2 (09:08→21:00)
[2018-06-14] MEDS: PANTOprazole 40 MG TAB PO SCH (09:08)
[2018-06-14] MEDS: INSULIN ASPART 100 UNITS/ML 3 ML PEN SC SCH ×4 (09:09→21:07)
[2018-06-14] MEDS ORDERED: BISACODYL 10 MG SUPP PR ONE (10:00)
--- NOTE | 2018-06-14 14:25 | Progress Note ---
Date of Service June 14, 2018 Assessment & Plan (1) Acute cholecystitis: mild ileus not unexpected- cont Iv atbx to cover gb 2-3 days then just for Foot, leave drain for now Subjective overall stable- no emesis Physical Exam 2 Vital Signs (Past 24 Hours): Last Vital Signs Temp 36.2 C L 06/14/18 08:00 Pulse 83 06/14/18 07:02 Resp 17 06/14/18 07:02 BP 138/66 06/14/18 07:02 Pulse Ox 91 06/14/18 08:00 abd- mild distention
[2018-06-14] MEDS ORDERED: INSULIN ASPART 100 UNITS/ML VIAL SC PRN (14:48)
--- NOTE | 2018-06-14 15:01 | Hospitalist Progress Note ---
Date of Service June 14, 2018 Assessment & Plan (1) Acute cholecystitis: CTA of chest showed possible cholecystsis. RUQ U/S confirmed this. s/p cholecystectomy with lysis of adhesions on 06/12 tolerated well, pain is controlled tolerating regular diet, + flatus, feels like he could have a BM soon Dr. Bray following, discussed case with him today no fever, WBC 11k, change antibiotics to Rocephin and Flagyl (2) Cellulitis: -Foot xray did not indicate osteomyelitis wound culture grew MSSA change Vanco to Rocephin foot looks good, less redness, no pain, no warmth MRI 06/13 shows possible septic arthrtis of 2nd MTP joint no evidence of osteomyelitis will ask orthopedic surgery to evaluate, he request Dr. Alfaro who has operated on him before (3) Foot ulcer, left: see above (4) Hypertension: HTN -Metoprolol 25 -Nifedipine 60 BID (5) Hyperlipidemia: HLD -atorvastatin 80 (6) Diabetes: T2DM -pt may use own insulin pump -hold linagliptin -Asa 81 daily monitor for hypoglycemia (7) Obstructive sleep apnea: (8) CKD (chronic kidney disease) stage 3, GFR 30-59 ml/min: CKD stage III -Baseline Cr 1.5-1.6 -Creatinine is at baseline, 1.49 today (9) BPH (benign prostatic hyperplasia): (10) GERD (gastroesophageal reflux disease): PPI (11) CAD (coronary artery disease): Non-Obstructive CAD -Investigated -ASA 81, statin, BP control (12) Hypokalemia: 3.4 this morning, continue PO replacement, repeat BMP tomorrow Subjective patient doing well from surgical perspective tolerating diet, + flatus, pain well controlled still with redness over right foot, specifically over 2nd MTP joint, 2nd digit swollen minimal tenderness but he has neuropathy reviewed labs, WBC 11k, Hb stable at 13 BMP normal updated at the bedside discussed results of MRI foot, that we will ask Dr. Alfaro to evaluate Review of Systems All systems reviewed & are unremarkable except as noted in HPI & below Gastrointestinal: + abdominal pain (mild, RUQ) and + constipation (+ flatus); no nausea and no vomiting Musculoskeletal: + swelling (left 2nd toe) Physical Exam 2 Vital Signs (Past 24 Hours): Last Vital Signs Temp 36.2 C L 06/14/18 08:00 Pulse 83 06/14/18 07:02 Resp 17 06/14/18 07:02 BP 138/66 06/14/18 07:02 Pulse Ox 91 06/14/18 08:00 Constitutional: WD/WN, vitals as above Eyes: PERRL, conjunctivae normal, anicteric sclerae ENMT: external ear and nose normal, oropharynx normal Neck: trachea midline, no thyromegaly Respiratory: normal respiratory effort, lungs clear to auscultation Cardiovascular: RRR, no murmur, no edema Gastrointestinal (Abdomen): Inspection/Auscultation: abdomen normal to inspection and normal bowel sounds; abdomen not distended Percussion/ Palpation: + abdomen tender (RUQ, mild) and abdomen soft; no guarding Musculoskeletal: no cyanosis or clubbing, extremities motor strength 5/5 Skin: + rash (erythema around left 2nd toe and plantar surface, open wound) Neurologic: patellar DTR's 2+ bilat, sensation intact and PERRL, EOMI, accommodation nl, no face palsy, no dysarthria Psychiatric: A+Ox3, euthymic affect Lymphatic: no cervical or axillary lymphadenopathy Results & Data Laboratory Results Laboratory Results - last 24 hr 06/13/18 06/13/18 06/13/18 17:04 20:52 23:35 WBC RBC Hgb Hct MCV MCH MCHC RDW Std Deviation RDW Coeff of Kyle Plt Count MPV Immature Gran % (Auto) Neut % (Auto) Lymph % (Auto) [place] % (Auto) Eos % (Auto) Baso % (Auto) Immature Gran # (Auto) Neut # (Auto) Lymph # (Auto) [place] # (Auto) Eos # (Auto) Baso # (Auto) Sodium Potassium Chloride Carbon Dioxide Anion Gap BUN Creatinine Est Cr Clr Drug Dosing Est GFR ( Amer) Est GFR (Non-Af Amer) BUN/Creatinine Ratio Glucose POC Glucose 113 H 136 H Calcium Vancomycin Trough 14.0 06/14/18 06/14/18 06/14/18 08:11 08:26 08:26 WBC 11.52 H RBC 4.49 L Hgb 13.1 L Hct 38.3 L MCV 85.3 MCH 29.2 MCHC 34.2 RDW Std Deviation 40.1 RDW Coeff of Kyle 12.8 Plt Count 282 MPV 8.9 Immature Gran % (Auto) 0.3 Neut % (Auto) 75.3 Lymph % (Auto) 13.7 [place] % (Auto) 7.2 Eos % (Auto) 3.2 Baso % (Auto) 0.3 Immature Gran # (Auto) 0.03 H Neut # (Auto) 8.68 H Lymph # (Auto) 1.58 [place] # (Auto) 0.83 H Eos # (Auto) 0.37 Baso # (Auto) 0.03 Sodium 137 Potassium 3.4 L Chloride 103 Carbon Dioxide 23 Anion Gap 10.0 BUN 17 Creatinine 1.49 H Est Cr Clr Drug Dosing 60.8 Est GFR ( Amer) 55.5 Est GFR (Non-Af Amer) 47.9 BUN/Creatinine Ratio 11.3 Glucose 104 H POC Glucose 97 Calcium 7.9 L Vancomycin Trough 06/14/18 12:21 WBC RBC Hgb Hct MCV MCH MCHC RDW Std Deviation RDW Coeff of Kyle Plt Count MPV Immature Gran % (Auto) Neut % (Auto) Lymph % (Auto) [place] % (Auto) Eos % (Auto) Baso % (Auto) Immature Gran # (Auto) Neut # (Auto) Lymph # (Auto) [place] # (Auto) Eos # (Auto) Baso # (Auto) Sodium Potassium Chloride Carbon Dioxide Anion Gap BUN Creatinine Est Cr Clr Drug Dosing Est GFR ( Amer) Est GFR (Non-Af Amer) BUN/Creatinine Ratio Glucose POC Glucose 207 H Calcium Vancomycin Trough Medications Administered Current Inpatient Medications Acetaminophen (Tylenol) 650 mg PO Q4H PRN PRN Reason: pain/fever Stop: 07/10/18 21:32 Last Admin: 06/13/18 08:57 Dose: 650 mg Hydrocodone Bitart/Acetaminophen ([place] 5/325) 1 tab PO 3XDQ4 PRN PRN Reason: Pain Stop: 06/26/18 11:01 Last Admin: 06/13/18 15:39 Dose: 1 tab Hydrocodone Bitart/Acetaminophen ([place] 5/325) 2 tab PO 3XDQ4 PRN PRN Reason: Pain Stop: 06/26/18 11:01 Last Admin: 06/12/18 17:20 Dose: 2 tab Al Hydrox/Mg Hydrox/Simethicone (Maalox) 30 ml PO Q6H PRN PRN Reason: Dyspepsia Stop: 07/10/18 21:32 Last Admin: 06/11/18 22:15 Dose: 30 ml Alfuzosin HCl (Uroxatral) 10 mg PO DAILY [facility] Stop: 07/11/18 08:59 Last Admin: 06/14/18 09:06 Dose: 10 mg Aspirin (Ecotrin Ectab) 81 mg PO DAILY [facility] Stop: 07/11/18 08:59 Last Admin: 06/14/18 09:06 Dose: 81 mg Atorvastatin Calcium (Lipitor) 80 mg PO DAILY [facility] Stop: 07/11/18 08:59 Last Admin: 06/14/18 09:07 Dose: 80 mg Dextrose (Dextrose 50%) 25 - 50 ml IV UD PRN; Protocol PRN Reason: Hypoglycemia Protocol Stop: 07/12/18 08:40 Glucagon (Glucagen) 1 mg SQ UD PRN; Protocol PRN Reason: Hypoglycemia Protocol Stop: 07/12/18 08:40 Glucose (Glucose 40%) 15 - 30 gm PO UD PRN; Protocol PRN Reason: Hypoglycemia Protocol Stop: 07/12/18 08:40 Glucose (Dex4 Glucose) 4 - 8 tabs PO UD PRN; Protocol PRN Reason: Hypoglycemia Protocol Stop: 07/12/18 08:40 Heparin Sodium (Porcine) (Heparin Sodium (Porcine)) 5,000 units SQ Q8 [facility] Stop: 07/11/18 05:59 Last Admin: 06/14/18 13:29 Dose: 5,000 units Sodium Chloride (Nss 1000ml) 1,000 mls @ 80 mls/hr IV .[id number] [facility] Stop: 07/12/18 11:59 Last Infusion: 06/14/18 13:35 Dose: 80 mls/hr Promethazine HCl 12.5 mg/ (Sodium Chloride) 50.5 mls @ 204 mls/hr IV Q6H PRN PRN Reason: Nausea And Vomiting Stop: 07/12/18 11:01 Ceftriaxone Sodium 2,000 mg/ (Dextrose) 70 mls @ 140 mls/hr IV Q24H [facility] Stop: 06/24/18 17:59 Metronidazole (Flagyl) 500 mg in 100 mls @ 100 mls/hr IV Q8H [facility] Stop: 06/24/18 15:59 Insulin Aspart (Novolog Flexpen) 0 units SC ACHS [facility] Stop: 07/10/18 21:59 Last Admin: 06/14/18 13:27 Dose: Not Given Insulin Aspart (Novolog Insulin Pump) 1 ea N/A ACHS [facility]; Protocol Stop: 07/14/18 16:29 Insulin Aspart (Novolog Aspart) 0 units SC PRN PRN PRN Reason: REFILL Stop: 07/14/18 14:47 Magnesium Hydroxide (Milk Of Magnesia) 30 ml PO Q6H PRN PRN Reason: Constipation Stop: 07/10/18 21:32 Last Admin: 06/13/18 18:34 Dose: 30 ml Metoprolol Succinate (Toprol Xl) 25 mg PO DAILY [facility] Stop: 07/11/18 08:59 Last Admin: 06/14/18 09:07 Dose: 25 mg Miscellaneous (Carbohydrates For Hypoglycemia) 15 - 30 gm PO UD PRN PRN Reason: Hypoglycemia Treatment Stop: 07/12/18 08:40 Morphine Sulfate (Morphine Sulfate) 2 mg IV Q3H PRN PRN Reason: MODERATE Pain (Scale 4,5,6) Stop: 06/26/18 08:26 Morphine Sulfate (Morphine Sulfate) 3 mg IV Q3H PRN PRN Reason: SEVERE Pain (Scale 7,8,9,10) Stop: 06/26/18 08:26 Morphine Sulfate (Morphine Sulfate) 1 mg IV Q3H PRN PRN Reason: MILD Pain (Scale 1,2,3) Stop: 06/26/18 08:26 Nifedipine (Procardia Xl) 60 mg PO BID [facility] Stop: 07/10/18 22:14 Last Admin: 06/14/18 09:08 Dose: 60 mg Ondansetron HCl (Zofran) 4 mg IV 4XDQ4H PRN PRN Reason: Nausea Stop: 07/12/18 11:01 Pantoprazole Sodium (Protonix) 40 mg PO DAILY [facility] Stop: 07/11/18 08:59 Last Admin: 06/14/18 09:08 Dose: 40 mg Polyethylene Glycol (Miralax Powder Packet) 17 gm PO DAILY PRN PRN Reason: Constipation Stop: 07/10/18 21:32 Last Admin: 06/14/18 13:42 Dose: 17 gm Potassium Chloride (Klor-Con M20) 20 meq PO BID [facility] Stop: 07/13/18 10:44 Last Admin: 06/14/18 09:07 Dose: 20 meq Ranitidine HCl (Zantac) 150 mg PO BID [facility] Stop: 07/10/18 21:32 Last Admin: 06/14/18 09:07 Dose: 150 mg Venlafaxine HCl (Effexor Extended Release) 75 mg PO DAILY [facility] Stop: 07/11/18 08:59 Last Admin: 06/14/18 09:07 Dose: 75 mg Zolpidem Tartrate (Ambien) 5 mg PO HS PRN PRN Reason: Sleep Stop: 07/10/18 21:32 Last Admin: 06/12/18 21:13 Dose: 5 mg _ (1) Diabetes Chronic kidney disease stage: Diabetes mellitus complication detail: with unspecified neuropathy Diabetes mellitus complication status: with neurologic complications Diabetes mellitus terminal press operator insulin use: with terminal press operator use Diabetes mellitus macular edema: Diabetes mellitus type: type 2 Diabetic retinopathy severity: Laterality: Proliferative retinopathy type: Qualified Code(s): E11.40 - Type 2 diabetes mellitus with diabetic neuropathy, unspecified; Z79.4 - halfway (current) use of insulin (2) Cellulitis Laterality: Site of cellulitis: Site of cellulitis of extremity: Site of cellulitis of trunk: (3) Hyperlipidemia Hyperlipidemia type: unspecified Qualified Code(s): E78.5 - Hyperlipidemia, unspecified (4) Foot ulcer, left Non-pressure ulcer stage: (5) Hypertension Hypertension type: essential hypertension Qualified Code(s): I10 - Essential (primary) hypertension
[2018-06-14] MEDS: metroNIDAZOLE 500 MG/100 ML BAG IV SCH (16:30)
[2018-06-14] MEDS: cefTRIAXone SODIUM 2,000 MG in DEXTROSE 5% 50 ML IV SCH (18:09)
[2018-06-14] MEDS: NovoLOG INSULIN PUMP SCH ×2 (18:51→21:07)
--- NOTE | 2018-06-14 20:32 | History & Physical Report ---
Date of Service June 14, 2018 History of Present Illness Chief Complaint: left foot cellulitis/septic arthritis Primary Care Provider: Edwin Kohli Jr, DO Allergies Allergy/AdvReac Type Severity Reaction Status Date / Time lisinopril AdvReac Cough Verified 06/10/18 16:24 losartan AdvReac Cough Verified 06/10/18 16:24 Home Medications Home Medications Medication Instructions Recorded Confirmed Type alfuzosin 10 mg PO DAILY 02/15/18 06/10/18 History aspirin [Aspir-Low] 81 mg PO DAILY 02/15/18 06/10/18 History atorvastatin 80 mg PO DAILY 02/15/18 06/10/18 History chlorthalidone 25 mg PO DAILY 02/15/18 06/10/18 History insulin aspart U-100 See Label Instructions .ROUTE 02/15/18 06/10/18 History .COMPLEX linagliptin 5 mg PO DAILY 02/15/18 06/10/18 History metoprolol succinate 25 mg PO DAILY 02/15/18 06/10/18 History nifedipine 60 mg PO BID 02/15/18 06/10/18 History pantoprazole 40 mg PO DAILY 02/15/18 06/10/18 History venlafaxine 75 mg PO DAILY 02/15/18 06/10/18 History ergocalciferol (vitamin D2) 50,000 unit PO WK 06/10/18 06/10/18 History [Vitamin D2] naproxen sodium [Aleve] 440 mg PO BID PRN 06/10/18 06/10/18 History ranitidine HCl [Zantac] 150 mg PO BID 06/10/18 06/10/18 History Past Med/Surg History Medical History Chest pain CAD (coronary artery disease) non-obstructive GERD (gastroesophageal reflux disease) Controlled with medication Ascending aorta enlargement Hyperlipidemia Hypertension IDDM (insulin dependent diabetes mellitus) Neuropathy MARIYA on CPAP Osteoporosis Surgical History S/P excision of lipoma S/P inguinal hernia repair R at age 6 years of age S/P foot surgery, left with LMA #5 Family History Other Cancer Heart disease Social History Current Living Situation: Spouse Other Information That Helps Us Care for You: No Feels Safe at Home: Yes Safety Concerns: Feels Safe At This Time Smoking Status: Former smoker (Quit 16-17 years ago) Do You Dip or Chew Tobacco : No Smoking End Date: 2001 Hx Alcohol Use: Yes Alcohol type: beer Alcohol Intake Frequency: holidays/ special occasions only Hx Substance Use: No Beliefs That Will Affect Care: Tenriism Tenriism Beliefs: Episcopalian Preferred Language: Romansh Communication Ability: Effective Curriculum Counselor Required: No Physical Exam 2 Vital Signs (Past 24 Hours): Last Vital Signs Temp 37.2 C 06/14/18 15:13 Pulse 84 06/14/18 15:13 Resp 16 06/14/18 15:13 BP 138/53 L 06/14/18 15:13 Pulse Ox 92 06/14/18 15:13 Code Status & VTE Plan VTE Prophylaxis Plan VTE Prophylaxis will be ordered: Yes
--- NOTE | 2018-06-14 20:36 | Orthopedic Consultation ---
Date of Consultation June 14, 2018 Assessment & Plan (1) Cellulitis of foot: The patient will likely require GER and I+D of 2nd MT, will discuss case with Dr Alfaro team for further recommendations/treatments/definitive care. Continue IV abx per medical team, NWB LLE, ICE/elevation, NPO after midnight, hold anticoagulation. Thank you for the consultation. History of Present Illness Reason for Consultation: Left foot cellulites/septic arthritis. Attending Physician: Sean Jernigan DO History of Present Illness The patient is a 68 year old male with PMH DM type 2, diabetic foot ulcer, neuropathy, CKD III, HTN, BPH, MARIYA, HLD, CAD, GERD with c/o worsening left foot cellulites. Patient reports ongoing redness to his left foot x 2 months with increased redness and swelling this past week which prompted visit to [facility] ED. He was admitted for further inpatient evaluation/treatment. 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 Denies pain, admits to fevers and chills intermittantly. Denies N/V/CP/SOB. Has history of prior left foot surgery with Dr. Alfaro in July 2010, procedures listed below. 1. Left first MTP fusion. 2. Second DuVriesarthroplasty. 3. Second Alyssa osteotomy of the second metatarsal. 4. Secondcapsulotomy of the MTP. 5. Second flexor tenotomy Allergies Allergy/AdvReac Type Severity Reaction Status Date / Time lisinopril AdvReac Cough Verified 06/10/18 16:24 losartan AdvReac Cough Verified 06/10/18 16:24 Home Medications Home Medications Medication Instructions Recorded Confirmed Type alfuzosin 10 mg PO DAILY 02/15/18 06/10/18 History aspirin [Aspir-Low] 81 mg PO DAILY 02/15/18 06/10/18 History atorvastatin 80 mg PO DAILY 02/15/18 06/10/18 History chlorthalidone 25 mg PO DAILY 02/15/18 06/10/18 History insulin aspart U-100 See Label Instructions .ROUTE 02/15/18 06/10/18 History .COMPLEX linagliptin 5 mg PO DAILY 02/15/18 06/10/18 History metoprolol succinate 25 mg PO DAILY 02/15/18 06/10/18 History nifedipine 60 mg PO BID 02/15/18 06/10/18 History pantoprazole 40 mg PO DAILY 02/15/18 06/10/18 History venlafaxine 75 mg PO DAILY 02/15/18 06/10/18 History ergocalciferol (vitamin D2) 50,000 unit PO WK 06/10/18 06/10/18 History [Vitamin D2] naproxen sodium [Aleve] 440 mg PO BID PRN 06/10/18 06/10/18 History ranitidine HCl [Zantac] 150 mg PO BID 06/10/18 06/10/18 History Patient History Medical History Chest pain CAD (coronary artery disease) non-obstructive GERD (gastroesophageal reflux disease) Controlled with medication Ascending aorta enlargement Hyperlipidemia Hypertension IDDM (insulin dependent diabetes mellitus) Neuropathy MARIYA on CPAP Osteoporosis Surgical History S/P excision of lipoma S/P inguinal hernia repair R at age 6 years of age S/P foot surgery, left with LMA #5 Family History Other Cancer Heart disease Social History Current Living Situation: Spouse Other Information That Helps Us Care for You: No Feels Safe at Home: Yes Safety Concerns: Feels Safe At This Time Smoking Status: Former smoker (Quit 16-17 years ago) Do You Dip or Chew Tobacco : No Smoking End Date: 2001 Hx Alcohol Use: Yes Alcohol type: beer Alcohol Intake Frequency: holidays/ special occasions only Hx Substance Use: No Beliefs That Will Affect Care: Hinduism Hinduism Beliefs: Restorationism Preferred Language: Telugu Communication Ability: Effective Lumber Bearer Required: No Review of Systems Constitutional: as per Subjective / HPI Physical Exam 2 Vital Signs (Past 24 Hours): Last Vital Signs Temp 37.2 C 06/14/18 15:13 Pulse 84 06/14/18 15:13 Resp 16 06/14/18 15:13 BP 138/53 L 06/14/18 15:13 Pulse Ox 92 06/14/18 15:13 Physical Exam: LLE NVSI +EHL/FHL/TA/GS Sensation decreased grossly, baseline, +2 DP pulse, compartments soft NT, 1x2cm planter ucler overlying 2nd MTP without drainage. dorsal foot +edema and errythema 10x7.5cm. Skin is CDI. Erythema and edema extends into the 2nd digit. surgical scars CDI. Results & Data Diagnostic Findings MR foot LT w/o con CLINICAL HISTORY: 68 years-old Male presenting with left cellulitis, ulcer on the plantar aspect of the left foot between the first and second toes, marker placed, also for 2 1/2 months, history of diabetes, history of foot surgery 4-5 years ago. TECHNIQUE: Multisequence, multiplanar MR imaging of the left foot was performed without the use of intravenous contrast. IV contrast: None. COMPARISON: Plain radiographs from 06/10/2018. FINDINGS: Localizer images: Susceptibility artifact in the region of the first metatarsal head. Extensive susceptibility artifact in the region of the plate and screw fixation for the first metatarsal arthrodesis. Additional surgical screw in the head of the second metatarsal results in a significantly lesser degree of susceptibility artifact. Artifact limits evaluation of these regions. A marker is in place over the plantar aspect of the second metatarsal head. There is a skin defect consistent with ulcer. There is significant infiltration of the soft tissues surrounding the second metatarsophalangeal joint. A fluid collection is noted along the dorsal aspect of the joint, which may contain a debris. Additional fluid collections noted along the plantar aspect of the second metatarsal head. These collections may either be in continuity with the second MTP joint representing synovial outpouchings or separate periarticular collections. No significant abnormal bone marrow signal intensity is evident in the second metatarsal head or proximal phalanx of the second toe. The operative site at the first metatarsophalangeal joint is grossly unremarkable allowing for significant limitations in evaluation. Nonspecific diffuse subcutaneous edema along the dorsum of the midfoot and forefoot. Tendinous structures are grossly intact. IMPRESSION: 1. Ulceration along the plantar aspect of the second metatarsal head with significant inflammatory change surrounding the second MTP joint. Either periarticular fluid collections versus synovial outpouchings of the second metatarsal joint. These findings raise concern for septic arthritis of the second MTP joint. No abnormal bone marrow signal intensity to suggest osteomyelitis at this time. 2. Significant limitations in image quality due to susceptibility artifact arising from hardware primarily at the first MTP joint arthrodesis. LEFT FOOT 3 VIEWS CLINICAL HISTORY: Left foot wound. Cellulitis. FINDINGS: 3 views of the left foot are compared to study dated 04/09/2015. The skeletal structures are osteopenic. No fracture is identified. There is chronic posttraumatic deformity of the distal second metatarsal with a small screw in the metatarsal head. There has been fusion at the first metatarsophalangeal joint. The orthopedic hardware appears intact. There is no bony erosion or periostitis. An os naviculari is incidentally noted. Mild degenerative change is noted in the midfoot. There are large dorsal and plantar calcaneal enthesophyte. Degenerative spurring is noted along the dorsal aspect of the tarsal bones. Soft tissue edema is present throughout the foot. There is atherosclerotic calcification of the regional arteries. No radiodense foreign body is identified. IMPRESSION: 1. Soft tissue edema with no acute bony abnormality identified. 2. Osteopenia with postoperative and degenerative change as above. 3. Large heel spurs.
[2018-06-15] MEDS: metroNIDAZOLE 500 MG/100 ML BAG IV SCH ×3 (00:39→15:42)
[2018-06-15] MEDS: HEPARIN SOD 5,000 UNIT/0.5 ML VIAL SQ SCH ×4 (03:25→21:55)
--- NOTE | 2018-06-15 06:39 | Progress Note ---
Date of Service June 15, 2018 Assessment & Plan (1) Acute cholecystitis: will d/c drain tomorrow am if same output follow while here office next week Subjective vitals stable serous drainage/ sl sang for foot sx today Physical Exam 2 Vital Signs (Past 24 Hours): Last Vital Signs Temp 37.5 C 06/14/18 22:57 Pulse 78 06/14/18 22:57 Resp 16 06/14/18 22:57 BP 144/64 H 06/14/18 22:57 Pulse Ox 91 06/14/18 22:57 no acute chgs
[2018-06-15 07:25] LABS: Basophils # (auto) 0.04 K/uL (0-0.2); Basophils % (auto) 0.4 %; Eosinophils # (auto) 0.45 K/uL (0-0.5); Eosinophils % (auto) 4.2 %; Hematocrit (blood only) 36.1 % (42-52); Hemoglobin 12.5 g/dL (14.0-18.0); Immature Granulocytes # (auto) 0.03 K/uL (0.00-0.02); Immature Granulocytes % (auto) 0.3 %; Lymphocytes # (auto) 1.69 K/uL (1.2-3.4); Lymphocytes % (auto) 15.8 %; Mean Corpuscular Hgb Conc 34.6 g/dL (32-36); Mean Corpuscular Volume 84.7 fL (80-100); Mean Platelet Volume 8.8 fL (7.4-10.4); Monocytes # (auto) 0.74 K/uL (0.11-0.59); Monocytes % (auto) 6.9 %; Neutrophils # (auto) 7.76 K/uL (1.4-6.5); Neutrophils % (auto) 72.4 %; Platelet Count 286 K/uL (130-400); RDW Coefficient of Variation 12.8 % (11.5-14.5); Red Blood Count 4.26 M/uL (4.7-6.1); White Blood Count 10.71 K/uL (4.8-10.8)
[2018-06-15 07:56] LABS: BUN Creatinine Ratio 11.2 (10-20); Calcium 8.1 mg/dl (8.5-10.1); Creatinine Clr Calc Pharmacy 65.1 ml/min; Est GFR (African American) 60.4; Est GFR (Non-African American) 52.1; Potassium 3.3 mmol/L (3.5-5.1)
[2018-06-15] MEDS: INSULIN ASPART 100 UNITS/ML 3 ML PEN SC SCH ×4 (08:40→20:59)
[2018-06-15] MEDS: NovoLOG INSULIN PUMP SCH ×4 (08:40→21:00)
[2018-06-15] MEDS: ALFUZOSIN HCL 10 MG TAB PO SCH (08:45)
[2018-06-15] MEDS: ATORVASTATIN 40 MG TAB PO SCH (08:45)
[2018-06-15] MEDS: PANTOprazole 40 MG TAB PO SCH (08:45)
[2018-06-15] MEDS: POTASSIUM CHLORIDE 20 MEQ TABCR PO SCH ×2 (08:45→20:56)
[2018-06-15] MEDS: VENLAFAXINE HCL XR 75 MG CAPXR PO SCH (08:45)
[2018-06-15] MEDS: ASPIRIN 81 MG ECTAB PO SCH (08:45)
[2018-06-15] MEDS: NIFEdipine EXTENDED REL 30 MG TABCR PO SCH ×2 (08:45→20:57)
[2018-06-15] MEDS: METOPROLOL SUCC 25MG EXT REL TAB PO SCH (08:45)
[2018-06-15] MEDS: SODIUM CHLORIDE 0.9% 1000ML 1,000 ML IV SCH ×2 (09:10→15:41)
--- NOTE | 2018-06-15 15:07 | Hospitalist Progress Note ---
Date of Service June 15, 2018 Assessment & Plan (1) Acute cholecystitis: acute cholecystitis with chronic cholecystitis, POA CTA of chest showed possible cholecystsis. RUQ U/S confirmed this. s/p cholecystectomy with lysis of adhesions on 06/12 tolerated well, pain is controlled tolerating regular diet, + flatus Dr. Bray following, discussed case with him today, stable for discharge for general surgery perspective no fever, WBC 7k, change antibiotics to Rocephin and Flagyl (2) Cellulitis: -Foot xray did not indicate osteomyelitis wound culture grew MSSA change Vanco to Rocephin foot looks good, less redness, no pain, no warmth MRI 06/13 shows possible septic arthrtis of 2nd MTP joint no evidence of osteomyelitis ortho to take to OR today for washout of joint (3) Foot ulcer, left: see above (4) Hypertension: HTN -Metoprolol 25 -Nifedipine 60 BID (5) Hyperlipidemia: HLD -atorvastatin 80 (6) Diabetes: T2DM -pt may use own insulin pump -hold linagliptin -Asa 81 daily monitor for hypoglycemia with being NPO today (7) Obstructive sleep apnea: stable on CPAP (8) CKD (chronic kidney disease) stage 3, GFR 30-59 ml/min: CKD stage III -Baseline Cr 1.5-1.6 -Creatinine stable (9) BPH (benign prostatic hyperplasia): (10) GERD (gastroesophageal reflux disease): PPI (11) CAD (coronary artery disease): Non-Obstructive CAD -Investigated -ASA 81, statin, BP control (12) Hypokalemia: 3.3 this morning, continue PO replacement, repeat BMP tomorrow Subjective patient feeling well, no abdominal pain today, no nausea says he is hungry but understands he cannot eat due to OR this afternoon + flatus no pain in left foot appreciate orthopedic consultation and plan reviewed labs, stable discussed with Dr. Bray, from his perspective he could be discharged Review of Systems All systems reviewed & are unremarkable except as noted in HPI & below Physical Exam 2 Vital Signs (Past 24 Hours): Last Vital Signs Temp 36.8 C 06/15/18 07:24 Pulse 76 06/15/18 07:24 Resp 18 06/15/18 07:24 BP 151/68 H 06/15/18 07:24 Pulse Ox 92 06/15/18 07:24 Constitutional: WD/WN, vitals as above Eyes: PERRL, conjunctivae normal, anicteric sclerae ENMT: external ear and nose normal, oropharynx normal Neck: trachea midline, no thyromegaly Respiratory: normal respiratory effort, lungs clear to auscultation Cardiovascular: RRR, no murmur, no edema Gastrointestinal (Abdomen): Inspection/Auscultation: abdomen normal to inspection and normal bowel sounds; abdomen not distended Percussion/ Palpation: abdomen soft; no guarding Musculoskeletal: no cyanosis or clubbing, extremities motor strength 5/5 Skin: + rash (erythema around left 2nd toe and plantar surface, open wound) Neurologic: patellar DTR's 2+ bilat, sensation intact and PERRL, EOMI, accommodation nl, no face palsy, no dysarthria Psychiatric: A+Ox3, euthymic affect Lymphatic: no cervical or axillary lymphadenopathy Results & Data Laboratory Results Laboratory Results - last 24 hr 06/14/18 06/14/18 06/15/18 16:57 20:34 07:10 WBC 10.71 RBC 4.26 L Hgb 12.5 L Hct 36.1 L MCV 84.7 MCH 29.3 MCHC 34.6 RDW Std Deviation 39.0 RDW Coeff of Kyle 12.8 Plt Count 286 MPV 8.8 Immature Gran % (Auto) 0.3 Neut % (Auto) 72.4 Lymph % (Auto) 15.8 Donley % (Auto) 6.9 Eos % (Auto) 4.2 Baso % (Auto) 0.4 Immature Gran # (Auto) 0.03 H Neut # (Auto) 7.76 H Lymph # (Auto) 1.69 Donley # (Auto) 0.74 H Eos # (Auto) 0.45 Baso # (Auto) 0.04 Sodium Potassium Chloride Carbon Dioxide Anion Gap BUN Creatinine Est Cr Clr Drug Dosing Est GFR ( Amer) Est GFR (Non-Af Amer) BUN/Creatinine Ratio Glucose POC Glucose 132 H 112 H Calcium 06/15/18 06/15/18 06/15/18 07:10 08:11 12:20 WBC RBC Hgb Hct MCV MCH MCHC RDW Std Deviation RDW Coeff of Kyle Plt Count MPV Immature Gran % (Auto) Neut % (Auto) Lymph % (Auto) Donley % (Auto) Eos % (Auto) Baso % (Auto) Immature Gran # (Auto) Neut # (Auto) Lymph # (Auto) Donley # (Auto) Eos # (Auto) Baso # (Auto) Sodium 137 Potassium 3.3 L Chloride 106 Carbon Dioxide 21 Anion Gap 10.0 BUN 16 Creatinine 1.39 Est Cr Clr Drug Dosing 65.1 Est GFR ( Amer) 60.4 Est GFR (Non-Af Amer) 52.1 BUN/Creatinine Ratio 11.2 Glucose 102 H POC Glucose 108 H 121 H Calcium 8.1 L Medications Administered Current Inpatient Medications Acetaminophen (Tylenol) 650 mg PO Q4H PRN PRN Reason: pain/fever Stop: 07/10/18 21:32 Last Admin: 06/13/18 08:57 Dose: 650 mg Hydrocodone Bitart/Acetaminophen ([place] 5/325) 1 tab PO 3XDQ4 PRN PRN Reason: Pain Stop: 06/26/18 11:01 Last Admin: 06/13/18 15:39 Dose: 1 tab Hydrocodone Bitart/Acetaminophen ([place] 5/325) 2 tab PO 3XDQ4 PRN PRN Reason: Pain Stop: 06/26/18 11:01 Last Admin: 06/12/18 17:20 Dose: 2 tab Al Hydrox/Mg Hydrox/Simethicone (Maalox) 30 ml PO Q6H PRN PRN Reason: Dyspepsia Stop: 07/10/18 21:32 Last Admin: 06/11/18 22:15 Dose: 30 ml Alfuzosin HCl (Uroxatral) 10 mg PO DAILY [facility] Stop: 07/11/18 08:59 Last Admin: 06/15/18 08:45 Dose: 10 mg Aspirin (Ecotrin Ectab) 81 mg PO DAILY [facility] Stop: 07/11/18 08:59 Last Admin: 06/15/18 08:45 Dose: 81 mg Atorvastatin Calcium (Lipitor) 80 mg PO DAILY [facility] Stop: 07/11/18 08:59 Last Admin: 06/15/18 08:45 Dose: 80 mg Dextrose (Dextrose 50%) 25 - 50 ml IV UD PRN; Protocol PRN Reason: Hypoglycemia Protocol Stop: 07/12/18 08:40 Glucagon (Glucagen) 1 mg SQ UD PRN; Protocol PRN Reason: Hypoglycemia Protocol Stop: 07/12/18 08:40 Glucose (Glucose 40%) 15 - 30 gm PO UD PRN; Protocol PRN Reason: Hypoglycemia Protocol Stop: 07/12/18 08:40 Glucose (Dex4 Glucose) 4 - 8 tabs PO UD PRN; Protocol PRN Reason: Hypoglycemia Protocol Stop: 07/12/18 08:40 Heparin Sodium (Porcine) (Heparin Sodium (Porcine)) 5,000 units SQ Q8 [facility] Stop: 07/11/18 05:59 Last Admin: 06/15/18 13:54 Dose: 5,000 units Sodium Chloride (Nss 1000ml) 1,000 mls @ 80 mls/hr IV .[id number] [facility] Stop: 07/12/18 11:59 Last Admin: 06/15/18 09:10 Dose: 80 mls/hr Promethazine HCl 12.5 mg/ (Sodium Chloride) 50.5 mls @ 204 mls/hr IV Q6H PRN PRN Reason: Nausea And Vomiting Stop: 07/12/18 11:01 Ceftriaxone Sodium 2,000 mg/ (Dextrose) 70 mls @ 140 mls/hr IV Q24H [facility] Stop: 06/24/18 17:59 Last Infusion: 06/14/18 18:50 Dose: Infused Metronidazole (Flagyl) 500 mg in 100 mls @ 100 mls/hr IV Q8H [facility] Stop: 06/24/18 15:59 Last Infusion: 06/15/18 08:41 Dose: 100 mls/hr Insulin Aspart (Novolog Flexpen) 0 units SC [facility] Stop: 07/10/18 21:59 Last Admin: 06/15/18 13:01 Dose: Not Given Insulin Aspart (Novolog Insulin Pump) 1 ea N/A [facility]; Protocol Stop: 07/14/18 16:29 Last Admin: 06/15/18 13:02 Dose: 1 ea Insulin Aspart (Novolog Aspart) 0 units SC PRN PRN PRN Reason: REFILL Stop: 07/14/18 14:47 Magnesium Hydroxide (Milk Of Magnesia) 30 ml PO Q6H PRN PRN Reason: Constipation Stop: 07/10/18 21:32 Last Admin: 06/13/18 18:34 Dose: 30 ml Metoprolol Succinate (Toprol Xl) 25 mg PO DAILY [facility] Stop: 07/11/18 08:59 Last Admin: 06/15/18 08:45 Dose: 25 mg Miscellaneous (Carbohydrates For Hypoglycemia) 15 - 30 gm PO UD PRN PRN Reason: Hypoglycemia Treatment Stop: 07/12/18 08:40 Morphine Sulfate (Morphine Sulfate) 2 mg IV Q3H PRN PRN Reason: MODERATE Pain (Scale 4,5,6) Stop: 06/26/18 08:26 Morphine Sulfate (Morphine Sulfate) 3 mg IV Q3H PRN PRN Reason: SEVERE Pain (Scale 7,8,9,10) Stop: 06/26/18 08:26 Morphine Sulfate (Morphine Sulfate) 1 mg IV Q3H PRN PRN Reason: MILD Pain (Scale 1,2,3) Stop: 06/26/18 08:26 Nifedipine (Procardia Xl) 60 mg PO BID [facility] Stop: 07/10/18 22:14 Last Admin: 06/15/18 08:45 Dose: 60 mg Ondansetron HCl (Zofran) 4 mg IV 4XDQ4H PRN PRN Reason: Nausea Stop: 07/12/18 11:01 Pantoprazole Sodium (Protonix) 40 mg PO DAILY [facility] Stop: 07/11/18 08:59 Last Admin: 06/15/18 08:45 Dose: 40 mg Polyethylene Glycol (Miralax Powder Packet) 17 gm PO DAILY PRN PRN Reason: Constipation Stop: 07/10/18 21:32 Last Admin: 06/14/18 13:42 Dose: 17 gm Potassium Chloride (Klor-Con M20) 20 meq PO BID [facility] Stop: 07/13/18 10:44 Last Admin: 06/15/18 08:45 Dose: 20 meq Ranitidine HCl (Zantac) 150 mg PO BID [facility] Stop: 07/10/18 21:32 Last Admin: 06/15/18 08:45 Dose: 150 mg Venlafaxine HCl (Effexor Extended Release) 75 mg PO DAILY [facility] Stop: 07/11/18 08:59 Last Admin: 06/15/18 08:45 Dose: 75 mg Zolpidem Tartrate (Ambien) 5 mg PO HS PRN PRN Reason: Sleep Stop: 07/10/18 21:32 Last Admin: 06/12/18 21:13 Dose: 5 mg _ (1) Cellulitis Laterality: Site of cellulitis: Site of cellulitis of extremity: Site of cellulitis of trunk: (2) Foot ulcer, left Non-pressure ulcer stage: (3) Hypertension Hypertension type: essential hypertension Qualified Code(s): I10 - Essential (primary) hypertension (4) Hyperlipidemia Hyperlipidemia type: unspecified Qualified Code(s): E78.5 - Hyperlipidemia, unspecified (5) Diabetes Diabetes mellitus type: type 2 Diabetes mellitus senior living insulin use: with manager intermediate use Diabetes mellitus complication status: with neurologic complications Diabetes mellitus complication detail: with unspecified neuropathy Diabetic retinopathy severity: Proliferative retinopathy type: Diabetes mellitus macular edema: Laterality: Chronic kidney disease stage: Qualified Code(s): E11.40 - Type 2 diabetes mellitus with diabetic neuropathy , unspecified; Z79.4 - [facility] (current) use of insulin
--- NOTE | 2018-06-15 16:47 | Orthopedic Progress Note ---
Date of Service June 15, 2018 Assessment & Plan (1) Septic arthritis of interphalangeal joint of toe of left foot: MRI showing likely septic arthritis of the 2nd MTP joint. Plan for irrigation and debridement of the second MTP joint with removal of hardware, possible metatarsal head resection by Dr. Alfaro tomorrow afternoon Subjective Patient is lying in bed awake and alert. His is currently with him. He has no complaints at this time. We discussed the fact that Dr. Alfaro would be performing surgery tomorrow. Patient is agreeable. He has no new complaints. Physical Exam 2 Vital Signs (Past 24 Hours): Last Vital Signs Temp 36.8 C 06/15/18 15:13 Pulse 73 06/15/18 15:13 Resp 17 06/15/18 15:13 BP 146/66 H 06/15/18 15:13 Pulse Ox 97 06/15/18 15:13 Physical Exam: Opteform dressing is temporarily pulled back to look at his second toe. He has a moderate area of darkened erythema over the dorsum of the foot from the first toe to approximately the third toe. There is no overt drainage noted at this time. There is no foul odor.
[2018-06-15] MEDS: cefTRIAXone SODIUM 2,000 MG in DEXTROSE 5% 50 ML IV SCH (17:49)
--- NOTE | 2018-06-15 18:04 | Anesthesiology Consultation ---
Date of Service June 15, 2018 The patient had surgery for a laparoscopic cholecystectomy on 06/12/18. He had a RSI and was noted to be a Grade 3 view with Mac 4 blade. He appears to have tolerated the surgery well. Assessment & Plan (1) Encounter for pre-operative examination: (2) Encounter for pre-operative examination: Chart Review Chart Review: Acceptable Risk for Surgery and Patient NOT seen in Pre Admission Testing Consults Requested none NPO Date Last Intake of Fluids: 06/15/18 Time Last Intake of Fluids: 00:00 Date Last Intake of Solids: 06/15/18 Time Last Intake of Solids: 00:00 Last Intake of Solids Comment: prior to midnight. History Surgery Operation Date: 06/12/18 09:30 Proposed Procedures p Laparoscopic Cholecystectomy - Edwin Bray MD, FACS Operation Date: 06/16/18 08:20 Proposed Procedures p Left 2nd Metatarsophalangeal Incision and Drainage, - Angus Alfaro DO s Removal Hardware, Possible 2nd Metatarsal Head Resection - Angus Alfaro DO Height/Weight Height: 6 ft 2 in Weight: 99.9 kg Allergies Allergy/AdvReac Type Severity Reaction Status Date / Time lisinopril AdvReac Cough Verified 06/10/18 16:24 losartan AdvReac Cough Verified 06/10/18 16:24 Medications Home Medications Medication Instructions Recorded Confirmed Last Taken alfuzosin 10 mg PO DAILY 02/15/18 06/10/18 02/14/18 aspirin [Aspir-Low] 81 mg PO DAILY 02/15/18 06/10/18 02/14/18 atorvastatin 80 mg PO DAILY 02/15/18 06/10/18 02/14/18 chlorthalidone 25 mg PO DAILY 02/15/18 06/10/18 02/14/18 insulin aspart U-100 See Label Instructions .ROUTE 02/15/18 06/10/18 02/15/18 .COMPLEX CURRENT linagliptin 5 mg PO DAILY 02/15/18 06/10/18 02/14/18 metoprolol succinate 25 mg PO DAILY 02/15/18 06/10/18 02/14/18 nifedipine 60 mg PO BID 02/15/18 06/10/18 02/14/18 pantoprazole 40 mg PO DAILY 02/15/18 06/10/18 02/14/18 venlafaxine 75 mg PO DAILY 02/15/18 06/10/18 02/14/18 ergocalciferol (vitamin D2) 50,000 unit PO WK 06/10/18 06/10/18 Unknown [Vitamin D2] naproxen sodium [Aleve] 440 mg PO BID PRN 06/10/18 06/10/18 06/09/18 ranitidine HCl [Zantac] 150 mg PO BID 06/10/18 06/10/18 Unknown Active Medications Generic Name Dose Route Start Last Admin Trade Name Freq PRN Reason Stop Dose Admin Acetaminophen 650 mg 06/10/18 21:33 06/13/18 08:57 Tylenol PO 07/10/18 21:32 650 mg Q4H PRN Administration pain/fever Hydrocodone Bitart/Acetaminophen 1 tab 06/12/18 11:02 06/13/18 15:39 [place] 5/325 PO 06/26/18 11:01 1 tab 3XDQ4 PRN Administration Pain Hydrocodone Bitart/Acetaminophen 2 tab 06/12/18 11:02 06/12/18 17:20 [place] 5/325 PO 06/26/18 11:01 2 tab 3XDQ4 PRN Administration Pain Al Hydrox/Mg Hydrox/Simethicone 30 ml 06/10/18 21:33 06/11/18 22:15 Maalox PO 07/10/18 21:32 30 ml Q6H PRN Administration Dyspepsia Alfuzosin HCl 10 mg 06/11/18 09:00 06/15/18 08:45 Uroxatral PO 07/11/18 08:59 10 mg DAILY [facility] Administration Aspirin 81 mg 06/11/18 09:00 06/15/18 08:45 Ecotrin Ectab PO 07/11/18 08:59 81 mg DAILY [facility] Administration Atorvastatin Calcium 80 mg 06/11/18 09:00 06/15/18 08:45 Lipitor PO 07/11/18 08:59 80 mg DAILY [facility] Administration Heparin Sodium (Porcine) 5,000 units 06/11/18 06:00 06/15/18 13:54 Heparin Sodium (Porcine) SQ 07/11/18 05:59 5,000 units Q8 [facility] Administration Sodium Chloride 1,000 mls @ 80 mls/hr 06/12/18 12:00 06/15/18 15:41 Nss 1000ml IV 07/12/18 11:59 80 mls/hr .[id number] [facility] Administration Ceftriaxone Sodium 2,000 mg/ 70 mls @ 140 mls/hr 06/14/18 18:00 06/15/18 17: 49 Dextrose IV 06/24/18 17:59 140 mls/hr Q24H [facility] Administration Metronidazole 500 mg in 100 mls @ 100 mls/hr 06/14/18 16:00 06/15/18 17:43 Flagyl IV 06/24/18 15:59 Infused Q8H [facility] Infusion Insulin Aspart 0 units 06/10/18 22:00 06/15/18 17:42 Novolog Flexpen SC 07/10/18 21:59 Not Given ACHS [facility] Insulin Aspart 1 ea 06/14/18 16:30 06/15/18 17:44 Novolog Insulin Pump N/A 07/14/18 16:29 Not Given ACHS [facility] Protocol Magnesium Hydroxide 30 ml 06/10/18 21:33 06/13/18 18:34 Milk Of Magnesia PO 07/10/18 21:32 30 ml Q6H PRN Administration Constipation Metoprolol Succinate 25 mg 06/11/18 09:00 06/15/18 08:45 Toprol Xl PO 07/11/18 08:59 25 mg DAILY [facility] Administration Nifedipine 60 mg 06/10/18 22:15 06/15/18 08:45 Procardia Xl PO 07/10/18 22:14 60 mg BID [facility] Administration Pantoprazole Sodium 40 mg 06/11/18 09:00 06/15/18 08:45 Protonix PO 07/11/18 08:59 40 mg DAILY [facility] Administration Polyethylene Glycol 17 gm 06/10/18 21:33 06/14/18 13:42 Miralax Powder Packet PO 07/10/18 21:32 17 gm DAILY PRN Administration Constipation Potassium Chloride 20 meq 06/13/18 10:45 06/15/18 08:45 Klor-Con M20 PO 07/13/18 10:44 20 meq BID [facility] Administration Ranitidine HCl 150 mg 06/10/18 21:33 06/15/18 08:45 Zantac PO 07/10/18 21:32 150 mg BID [facility] Administration Venlafaxine HCl 75 mg 06/11/18 09:00 06/15/18 08:45 Effexor Extended Release PO 07/11/18 08:59 75 mg DAILY [facility] Administration Zolpidem Tartrate 5 mg 06/10/18 21:33 06/12/18 21:13 Ambien PO 07/10/18 21:32 5 mg HS PRN Administration Sleep Past Medical History Medical History Chest pain CAD (coronary artery disease) non-obstructive Difficult intubation Grade 3 view with Mac 4 blade GERD (gastroesophageal reflux disease) Controlled with medication Ascending aorta enlargement Hyperlipidemia Hypertension IDDM (insulin dependent diabetes mellitus) Neuropathy MARIYA on CPAP Osteoporosis Past Family History Family History Other Cancer Heart disease Past Surgical History Surgical History History of laparoscopic cholecystectomy 06/12/18 S/P excision of lipoma S/P inguinal hernia repair R at age 6 years of age S/P foot surgery, left with LMA #5 Social History Smoking Status: Former smoker (Quit 16-17 years ago) Do You Dip or Chew Tobacco: No Smoking End Date: 2001 Hx Alcohol Use: Yes Alcohol type: beer alcohol intake frequency: holidays/special occasions only Alcohol Intake Frequency Comment: 1 drink Hx Substance Use: No Physical Exam Vital Signs Last Vital Signs Temp 36.8 C 06/15/18 15:13 Pulse 73 06/15/18 15:13 Resp 17 06/15/18 15:13 BP 146/66 H 06/15/18 15:13 Pulse Ox 97 06/15/18 15:13 Testing Electrocardiogram Date: 06/11/18 Findings: + NSR @ (74) Sinus rhythm with 1st degree A-V block with Blocked Premature atrial complexes Nonspecific T wave abnormality Abnormal ECG When compared with ECG of 11-JUN-2018 16:20, (unconfirmed) Premature atrial complexes are now Present QT has shortened Echocardiogram Date: 10/01/16 EF: 55-60% LV Function: normal Other Findings: + LVH (mild CLVH) and + diastolic dysfunction (gr I) -- Conclusions -- There is mild concentric left ventricular hypertrophy. Left ventricular systolic function is normal. Grade I diastolic dysfunction, (abnormal relaxation pattern). The left atrium is mildly dilated. Injection of contrast documented no interatrial shunt. Right ventricular systolic pressure is elevated at 30-40mmHg. Moderate aortic root dilatation. Laboratory Results 06/15/18 07:10 06/15/18 07:10 PT 10.7 Seconds (9.0-12.0) 06/10/18 16:10 INR 1.1 (0.9-1.1) 06/10/18 16:10 Hemoglobin A1c 7.5 % (4.5-5.6) H 06/11/18 07:26 06/10/18 14:00 Gram Stain - Final Foot,Left Aerobic and Anaerobic Culture - Preliminary Staphylococcus aureus Prevotella melaninogenica Bacteroides pyogenes 06/10/18 16:10 Blood Culture - Preliminary Blood No growth to date. 06/10/18 16:20 Blood Culture - Preliminary Blood No growth to date. 06/15/18 06/15/18 06/15/18 17:13 12:20 08:11 POC Glucose 154 H 121 H 108 H
[2018-06-16] MEDS: HEPARIN SOD 5,000 UNIT/0.5 ML VIAL SQ SCH ×3 (05:48→21:14)
[2018-06-16 05:56] LABS: Hematocrit (blood only) 37.8 % (42-52); Hemoglobin 12.8 g/dL (14.0-18.0); Mean Corpuscular Hgb Conc 33.9 g/dL (32-36); Mean Corpuscular Volume 85.1 fL (80-100); Mean Platelet Volume 9.1 fL (7.4-10.4); Platelet Count 310 K/uL (130-400); RDW Coefficient of Variation 12.9 % (11.5-14.5); RDW Standard Deviation 39.9 fL (36.4-46.3); Red Blood Count 4.44 M/uL (4.7-6.1); White Blood Count 8.73 K/uL (4.8-10.8)
--- NOTE | 2018-06-16 06:09 | Progress Note ---
Date of Service June 16, 2018 Assessment & Plan (1) Acute cholecystitis: for foot surgery today- will d/c drain tomorrow 06/17 care now dictated by treatment of foot following Subjective awake, alert dr- serous Physical Exam 2 Vital Signs (Past 24 Hours): Last Vital Signs Temp 37.3 C 06/15/18 23:08 Pulse 68 06/15/18 23:08 Resp 18 06/15/18 23:08 BP 149/76 H 06/15/18 23:08 Pulse Ox 94 06/15/18 23:08 abd- soft
[2018-06-16 06:30] LABS: BUN Creatinine Ratio 12.7 (10-20); Calcium 8.2 mg/dl (8.5-10.1); Creatinine Clr Calc Pharmacy 70.2 ml/min; Est GFR (African American) 66.1; Potassium 3.6 mmol/L (3.5-5.1)
[2018-06-16] MEDS: metroNIDAZOLE 500 MG/100 ML BAG IV SCH ×3 (07:47→15:46)
[2018-06-16] MEDS: POTASSIUM CHLORIDE 20 MEQ TABCR PO SCH ×2 (07:48→21:13)
[2018-06-16] MEDS: PANTOprazole 40 MG TAB PO SCH (07:48)
[2018-06-16] MEDS: VENLAFAXINE HCL XR 75 MG CAPXR PO SCH (07:48)
[2018-06-16] MEDS: NIFEdipine EXTENDED REL 30 MG TABCR PO SCH ×2 (07:48→21:13)
[2018-06-16] MEDS: METOPROLOL SUCC 25MG EXT REL TAB PO SCH (07:48)
[2018-06-16] MEDS: ATORVASTATIN 40 MG TAB PO SCH (07:48)
[2018-06-16] MEDS: ALFUZOSIN HCL 10 MG TAB PO SCH (07:48)
[2018-06-16] MEDS: ASPIRIN 81 MG ECTAB PO SCH (07:49)
[2018-06-16] MEDS: INSULIN ASPART 100 UNITS/ML 3 ML PEN SC SCH ×4 (07:49→21:11)
[2018-06-16] MEDS: NovoLOG INSULIN PUMP SCH ×4 (08:58→21:13)
[2018-06-16] MEDS: SODIUM CHLORIDE 0.9% 1000ML 1,000 ML IV SCH ×2 (12:53)
--- NOTE | 2018-06-16 16:15 | Hospitalist Progress Note ---
Date of Service June 16, 2018 Assessment & Plan (1) Acute cholecystitis: acute cholecystitis with chronic cholecystitis, POA CTA of chest showed possible cholecystsis. RUQ U/S confirmed this. s/p cholecystectomy with lysis of adhesions on 06/12 tolerated well, pain is controlled tolerating regular diet, moving bowels continue Rocephin and Flagyl while inpatient, Flagyl can be stopped on discharge (2) Cellulitis: -Foot xray did not indicate osteomyelitis wound culture grew MSSA continue Rocephin foot looks good, less redness, no pain, no warmth MRI 06/13 shows possible septic arthrtis of 2nd MTP joint no evidence of osteomyelitis patient went to OR this evening for I&D of dorsal abscess washout of of 2nd MTP joint, removal of screw, wound packed transfer back to surgical floor further recommendations will be per ortho (3) Foot ulcer, left: see above (4) Hypertension: HTN -Metoprolol 25 -Nifedipine 60 BID (5) Hyperlipidemia: HLD -atorvastatin 80 (6) Diabetes: T2DM -pt may use own insulin pump -hold linagliptin -Asa 81 daily no hypoglycemic episodes, can eat after OR (7) Obstructive sleep apnea: stable on CPAP (8) CKD (chronic kidney disease) stage 3, GFR 30-59 ml/min: CKD stage III -Baseline Cr 1.5-1.6 -Creatinine stable (9) BPH (benign prostatic hyperplasia): (10) GERD (gastroesophageal reflux disease): PPI (11) CAD (coronary artery disease): Non-Obstructive CAD -Investigated 2016/2017 -ASA 81, statin, BP control (12) Hypokalemia: check level tomorrow Subjective patient seen this afternoon prior to going to the OR for I&D no complaints no abdominal pain, no left foot pain resting comfortably, just wanted something to eat reviewed labs, stable reviewed OR note, I&D of dorsal abscess and washout of the 2nd MTP joint, removal of screw wound packed Review of Systems All systems reviewed & are unremarkable except as noted in HPI & below Physical Exam 2 Vital Signs (Past 24 Hours): Last Vital Signs Temp 36.8 C 06/16/18 15:05 Pulse 65 06/16/18 15:05 Resp 18 06/16/18 15:05 BP 148/72 H 06/16/18 15:05 Pulse Ox 96 06/16/18 15:05 Constitutional: WD/WN, vitals as above Eyes: PERRL, conjunctivae normal, anicteric sclerae ENMT: external ear and nose normal, oropharynx normal Neck: trachea midline, no thyromegaly Respiratory: normal respiratory effort, lungs clear to auscultation Cardiovascular: RRR, no murmur, no edema Gastrointestinal (Abdomen): Inspection/Auscultation: abdomen normal to inspection and normal bowel sounds; abdomen not distended Percussion/ Palpation: abdomen soft; abdomen nontender and no guarding Musculoskeletal: no cyanosis or clubbing, extremities motor strength 5/5 Skin: + rash (erythema around left 2nd toe and plantar surface, open wound) Neurologic: patellar DTR's 2+ bilat, sensation intact and PERRL, EOMI, accommodation nl, no face palsy, no dysarthria Psychiatric: A+Ox3, euthymic affect Lymphatic: no cervical or axillary lymphadenopathy Results & Data Laboratory Results Laboratory Results - last 24 hr 06/15/18 06/15/18 06/15/18 17:13 20:36 23:59 WBC RBC Hgb Hct MCV MCH MCHC RDW Std Deviation RDW Coeff of Kyle Plt Count MPV Sodium Potassium Chloride Carbon Dioxide Anion Gap BUN Creatinine Est Cr Clr Drug Dosing Est GFR ( Amer) Est GFR (Non-Af Amer) BUN/Creatinine Ratio Glucose POC Glucose 154 H 99 98 Calcium 06/16/18 06/16/18 06/16/18 05:25 05:25 06:15 WBC 8.73 RBC 4.44 L Hgb 12.8 L Hct 37.8 L MCV 85.1 MCH 28.8 MCHC 33.9 RDW Std Deviation 39.9 RDW Coeff of Kyle 12.9 Plt Count 310 MPV 9.1 Sodium 136 Potassium 3.6 Chloride 108 H Carbon Dioxide 23 Anion Gap 5.0 BUN 16 Creatinine 1.29 Est Cr Clr Drug Dosing 70.2 Est GFR ( Amer) 66.1 Est GFR (Non-Af Amer) 57.0 BUN/Creatinine Ratio 12.7 Glucose 112 H POC Glucose 103 H Calcium 8.2 L 06/16/18 12:03 WBC RBC Hgb Hct MCV MCH MCHC RDW Std Deviation RDW Coeff of Kyle Plt Count MPV Sodium Potassium Chloride Carbon Dioxide Anion Gap BUN Creatinine Est Cr Clr Drug Dosing Est GFR ( Amer) Est GFR (Non-Af Amer) BUN/Creatinine Ratio Glucose POC Glucose 117 H Calcium Medications Administered Current Inpatient Medications Acetaminophen (Tylenol) 650 mg PO Q4H PRN PRN Reason: pain/fever Stop: 07/10/18 21:32 Last Admin: 06/13/18 08:57 Dose: 650 mg Hydrocodone Bitart/Acetaminophen (Wilsey 5/325) 1 tab PO 3XDQ4 PRN PRN Reason: Pain Stop: 06/26/18 11:01 Last Admin: 06/13/18 15:39 Dose: 1 tab Hydrocodone Bitart/Acetaminophen (Wilsey 5/325) 2 tab PO 3XDQ4 PRN PRN Reason: Pain Stop: 06/26/18 11:01 Last Admin: 06/12/18 17:20 Dose: 2 tab Al Hydrox/Mg Hydrox/Simethicone (Maalox) 30 ml PO Q6H PRN PRN Reason: Dyspepsia Stop: 07/10/18 21:32 Last Admin: 06/11/18 22:15 Dose: 30 ml Alfuzosin HCl (Uroxatral) 10 mg PO DAILY [facility] Stop: 07/11/18 08:59 Last Admin: 06/16/18 07:48 Dose: 10 mg Aspirin (Ecotrin Ectab) 81 mg PO DAILY [facility] Stop: 07/11/18 08:59 Last Admin: 06/16/18 07:49 Dose: Not Given Atorvastatin Calcium (Lipitor) 80 mg PO DAILY [facility] Stop: 07/11/18 08:59 Last Admin: 06/16/18 07:48 Dose: 80 mg Dextrose (Dextrose 50%) 25 - 50 ml IV UD PRN; Protocol PRN Reason: Hypoglycemia Protocol Stop: 07/12/18 08:40 Glucagon (Glucagen) 1 mg SQ UD PRN; Protocol PRN Reason: Hypoglycemia Protocol Stop: 07/12/18 08:40 Glucose (Glucose 40%) 15 - 30 gm PO UD PRN; Protocol PRN Reason: Hypoglycemia Protocol Stop: 07/12/18 08:40 Glucose (Dex4 Glucose) 4 - 8 tabs PO UD PRN; Protocol PRN Reason: Hypoglycemia Protocol Stop: 07/12/18 08:40 Heparin Sodium (Porcine) (Heparin Sodium (Porcine)) 5,000 units SQ Q8 [facility] Stop: 07/11/18 05:59 Last Admin: 06/16/18 13:54 Dose: Not Given Sodium Chloride (Nss 1000ml) 1,000 mls @ 80 mls/hr IV .[id number] [facility] Stop: 07/12/18 11:59 Last Infusion: 06/16/18 13:53 Dose: 80 mls/hr Promethazine HCl 12.5 mg/ (Sodium Chloride) 50.5 mls @ 204 mls/hr IV Q6H PRN PRN Reason: Nausea And Vomiting Stop: 07/12/18 11:01 Ceftriaxone Sodium 2,000 mg/ (Dextrose) 70 mls @ 140 mls/hr IV Q24H [facility] Stop: 06/24/18 17:59 Last Infusion: 06/15/18 18:30 Dose: Infused Metronidazole (Flagyl) 500 mg in 100 mls @ 100 mls/hr IV Q8H [facility] Stop: 06/24/18 15:59 Last Admin: 06/16/18 15:46 Dose: 100 mls/hr Insulin Aspart (Novolog Flexpen) 0 units SC [facility] Stop: 07/10/18 21:59 Last Admin: 06/16/18 12:32 Dose: Not Given Insulin Aspart (Novolog Insulin Pump) 1 ea N/A [facility]; Protocol Stop: 07/14/18 16:29 Last Admin: 06/16/18 12:33 Dose: Not Given Insulin Aspart (Novolog Aspart) 0 units SC PRN PRN PRN Reason: REFILL Stop: 07/14/18 14:47 Magnesium Hydroxide (Milk Of Magnesia) 30 ml PO Q6H PRN PRN Reason: Constipation Stop: 07/10/18 21:32 Last Admin: 06/13/18 18:34 Dose: 30 ml Metoprolol Succinate (Toprol Xl) 25 mg PO DAILY [facility] Stop: 07/11/18 08:59 Last Admin: 06/16/18 07:48 Dose: 25 mg Miscellaneous (Carbohydrates For Hypoglycemia) 15 - 30 gm PO UD PRN PRN Reason: Hypoglycemia Treatment Stop: 07/12/18 08:40 Morphine Sulfate (Morphine Sulfate) 2 mg IV Q3H PRN PRN Reason: MODERATE Pain (Scale 4,5,6) Stop: 06/26/18 08:26 Morphine Sulfate (Morphine Sulfate) 3 mg IV Q3H PRN PRN Reason: SEVERE Pain (Scale 7,8,9,10) Stop: 06/26/18 08:26 Morphine Sulfate (Morphine Sulfate) 1 mg IV Q3H PRN PRN Reason: MILD Pain (Scale 1,2,3) Stop: 06/26/18 08:26 Nifedipine (Procardia Xl) 60 mg PO BID [facility] Stop: 07/10/18 22:14 Last Admin: 06/16/18 07:48 Dose: 60 mg Ondansetron HCl (Zofran) 4 mg IV 4XDQ4H PRN PRN Reason: Nausea Stop: 07/12/18 11:01 Pantoprazole Sodium (Protonix) 40 mg PO DAILY [facility] Stop: 07/11/18 08:59 Last Admin: 06/16/18 07:48 Dose: 40 mg Polyethylene Glycol (Miralax Powder Packet) 17 gm PO DAILY PRN PRN Reason: Constipation Stop: 07/10/18 21:32 Last Admin: 06/14/18 13:42 Dose: 17 gm Potassium Chloride (Klor-Con M20) 20 meq PO BID [facility] Stop: 07/13/18 10:44 Last Admin: 06/16/18 07:48 Dose: 20 meq Ranitidine HCl (Zantac) 150 mg PO BID [facility] Stop: 07/10/18 21:32 Last Admin: 06/16/18 07:48 Dose: 150 mg Venlafaxine HCl (Effexor Extended Release) 75 mg PO DAILY [facility] Stop: 07/11/18 08:59 Last Admin: 06/16/18 07:48 Dose: 75 mg Zolpidem Tartrate (Ambien) 5 mg PO HS PRN PRN Reason: Sleep Stop: 07/10/18 21:32 Last Admin: 06/12/18 21:13 Dose: 5 mg _ (1) Diabetes Chronic kidney disease stage: Diabetes mellitus complication detail: with unspecified neuropathy Diabetes mellitus complication status: with neurologic complications Diabetes mellitus manager intermediate insulin use: with manager intermediate use Diabetes mellitus macular edema: Diabetes mellitus type: type 2 Diabetic retinopathy severity: Laterality: Proliferative retinopathy type: Qualified Code(s): E11.40 - Type 2 diabetes mellitus with diabetic neuropathy, unspecified; 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
--- NOTE | 2018-06-16 17:36 | History & Physical Bridge Note ---
Date of Service June 16, 2018 History & Physical Bridge Note I have examined the patient, reviewed the History & Physical and in the interval since the performance of the History & Physical I have noted the following changes of clinical significance: no changes noted
[2018-06-16] MEDS ORDERED: BACITRACIN INJ 50,000 UNIT VIAL ONE (17:44)
[2018-06-16] MEDS ORDERED: fentaNYL citrate 100 MCG/2 ML VIAL ONE (17:45)
[2018-06-16] MEDS ORDERED: MIDAZOLAM HCL 1 MG/ML 2ML VIAL ONE (17:45)
[2018-06-16] MEDS ORDERED: BUPIVACAINE 0.5 % 5 MG/1 ML MPF 30ML VIAL ONE (18:06)
[2018-06-16] MEDS ORDERED: fentaNYL citrate 100 MCG/2 ML VIAL IV PRN (18:17)
[2018-06-16] MEDS ORDERED: NALOXONE HCL 0.4 MG/1 ML VIAL/CARP IV PRN (18:17)
[2018-06-16] MEDS ORDERED: FLUMAZENIL 0.1 MG/1 ML 10 ML VIAL IV PRN (18:17)
[2018-06-16] MEDS ORDERED: ePHEDrine sulfate 50 MG/ML AMP IV PRN (18:17)
[2018-06-16] MEDS ORDERED: ONDANSETRON INJ 2 MG/ML 2 ML VIAL IV PRN (18:17)
[2018-06-16] MEDS ORDERED: ATROPINE SULFATE 0.1 MG/ML 10ML SYR IV PRN (18:17)
[2018-06-16] MEDS ORDERED: PROMETHAZINE HCL 12.5 MG in SODIUM CHLORIDE 0.9% 50 ML IV PRN (18:17)
[2018-06-16] MEDS ORDERED: LABETALOL HCL IV 5 MG/ML 20ML IV PRN (18:17)
[2018-06-16] MEDS ORDERED: PROPOFOL IV EMULSION 10 MG/ML 20 ML VIAL IV ONE (18:22)
[2018-06-16] MEDS ORDERED: ONDANSETRON INJ 2 MG/ML 2 ML VIAL ONE (18:22)
[2018-06-16] MEDS ORDERED: CEFAZOLIN 250 MG/ML 1 GM VIAL ONE (18:22)
[2018-06-16] MEDS ORDERED: DEXAMETHASONE SOD INJ 4 MG/ML VIAL ONE (18:22)
[2018-06-16] MEDS ORDERED: LIDOCAINE HCL 2% 2 ML VIAL/AMP(20MG/ML) INFIL ONE (18:22)
--- NOTE | 2018-06-16 19:32 | Post Operative Brief Note ---
Immediate Post Op Note v1 Date of Surgery June 16, 2018 Pre & Post Diagnosis Operation Date: 06/16/18 08:20 Pre-Op Diagnosis: Left foot second metatarsal phalangeal joint abscess, retained screw second metatarsal head, plantar ulceration deep separate site. Post-Op Diagnosis: Left foot second metatarsal phalangeal joint abscess, retained screw second metatarsal head, plantar ulceration deep separate site. Procedure Operation Date: 06/16/18 08:20 Actual Procedures p Left foot incision and Drainage dorsal abscess, Second metatarsophalangeal joint irrigation and debridement including fascia/ligament/capsule/synovium, removal of deep bone screw second metatarsal head, debridement bone second metatarsal head, excisional debridement plantar foot separate site ulcer including skin/fascia/tendon. (Left) - Angus Alfaro DO Surgeon Angus Alfaro DO Pigment Pusher None Estimated Blood Loss 1 Findings Consistent with Post-Op Diagnosis Drains Other (Iodoform gauze dorsal and iodoform gauze plantar separate sites) Anesthesia Type General Regional Complications none Disposition Accompanied Patient To Recovery: Yes Disposition: Recovery Room
--- NOTE | 2018-06-16 19:40 | Anesthesiology Progress Note ---
Date of Service June 16, 2018 Anesthesia Post Procedure Vital Signs Vital Signs: Temp Pulse Pulse Resp BP BP Pulse Ox 06/16/18 19:35 60 15 149/78 H 96 06/16/18 19:25 60 12 154/77 H 98 06/16/18 19:15 50 L 12 160/68 H 99 06/16/18 19:08 36.5 C 49 L 10 L 154/68 H 99 06/16/18 17:37 36.8 C 54 L 20 161/83 H 98 06/16/18 15:05 36.8 C 65 18 148/72 H 96 06/16/18 07:26 37.2 C 71 16 149/71 H 94 06/15/18 23:08 37.3 C 68 18 149/76 H 94 06/15/18 20:55 74 148/69 H Pain Intensity Left Foot: Pain Intensity: 0 Right Upper Abdomen: Pain Intensity: 2 Notes Mental Status: alert / awake / arousable Patient Amnestic to Procedure: Yes Nausea / Vomiting: adequately controlled Pain: adequately controlled Airway Patency, RR, SpO2: stable & adequate BP & HR: stable & adequate Hydration State: stable & adequate Anesthetic Complications: no major complications apparent
[2018-06-16] MEDS: cefTRIAXone SODIUM 2,000 MG in DEXTROSE 5% 50 ML IV SCH (21:26)
--- NOTE | 2018-06-16 22:54 | Operative Report ---
DATE OF OPERATION: 06/16/2018 PREOPERATIVE DIAGNOSES: 1. Left foot abscess dorsal foot. 2. Second metatarsophalangeal joint abscess. 3. Retained screw second metatarsal head. 4. Plantar ulcer separate site adjacent to the second metatarsal head. POSTOPERATIVE DIAGNOSES: 1. Left foot abscess dorsal foot. 2. Second metatarsophalangeal joint abscess. 3. Retained screw second metatarsal head. 4. Plantar ulcer separate site adjacent to the second metatarsal head. PROCEDURE: 1. Left foot incision and drainage, dorsal abscess adjacent to the second metatarsophalangeal joint. 2. Second metatarsophalangeal joint irrigation and debridement including fascia/ligament/joint capsule/synovium. 3. Removal of deep bone screw, second metatarsal head. 4. Debridement bone, second metatarsal head. 5. Excisional debridement, plantar foot ulcers separate site including skin/fascia/flexor tendon. SURGEON: Angus Alfaro DO BIOLOGICAL TECHNICAL OFFICER: None. ANESTHESIA: General LMA with local. SPECIMENS: Aerobic, anaerobic, Gram stain of abscess foot. DRAINS: [id number] iodoform gauze, one dorsal, 1 plantar, 2 separate sites. COMPLICATIONS: None. BLOOD LOSS: 1 mL PERTINENT HISTORY: This is a 68-year-old gentleman with history of diabetes mellitus and profound neuropathy, bilateral feet. He noticed and ulcerations and redness of his left foot. He went to [place] over the holidays and sensory neglect of this for over several weeks, eventually had a severe redness and swelling of his foot and then presented to the hospital, was placed on IV antibiotics, had other issues which were attended to by multiple medical services and placed on IV antibiotics. The patient then was scheduled for surgery of his left foot after MRI to determine the abscess formation on the dorsum of his left forefoot including abscess occurring around the second metatarsal head with possible involvement of second metatarsal head. The patient was then scheduled for surgery as indicated. All potential risks, benefits, complications, alternatives, rehab, potential for incomplete relief of symptoms, need for further surgery, DVT, PE, , persistent pain, swelling, scarring, weakness, neurovascular injury, wound complications, hardware failure, need for further surgery discussed with the patient, possible need for further amputation. The patient decided to proceed with the procedure as indicated. DESCRIPTION OF PROCEDURE: The patient was taken to the operative suite, placed supine on the operating table. I reviewed consent and identification of proper operative site, the patient was anesthetized, LMA was placed. Tourniquet was placed high in the left thigh over cast padding; however, the pneumatic tourniquet was not used during the case. Left lower extremity was then sterilely prepped and draped in usual fashion, elevated and an Esmarch tourniquet was applied over sterile surgical towel at the level of the ankle. A 15 blade scalpel was used to make an incision on the dorsum of the left foot at the site of prior incision, centered over the second metatarsal head. The incision was deepened through subcutaneous tissue. A dorsal abscess was entered and a large volume of abscess fluid then extruded through the dorsum of the foot and this was then captured for culture for aerobic, anaerobic, and Gram stain analysis. This was sent to the laboratory. Next, a Weitlaner retractors placed in the dorsum of the foot revealing the extensor tendon, which was then retracted and protected. Next, the metatarsophalangeal joint was entered and there was noted to be involvement of the ligaments surrounding the joint capsule as well as the hypertrophic synovium and fascia, which appeared to be somewhat thickened. These were all debrided sharply with a #15 blade scalpel and a rongeur. A dorsal portion of the second metatarsal was then visualized and the screw and the second metatarsal was then identified and then removed with a small screwdriver. The screw was then removed and then passed off. A small curette was then used to curettage the small screw hole and then a rongeur was then used to carefully debride the dorsal portion of the second metatarsal head bone. The bone appeared to be normal consistency and hardness. There were no areas of particular erosions. Next, after further debridement of the surrounding fascia and ligament synovium of the joint and the joint capsule with the rongeur, removing any devitalized or affected tissues. Then attention was then directed toward the plantar aspect of the foot to separate site. A #15 blade scalpel was then used to debride the ulceration, which was noted to be approximately 8 mm in diameter. The #15 blade scalpel was used to debride the skin/fascia and subcutaneous tissue down to the level of the flexor tendon. Flexor tendon appeared to be somewhat eroded and involved to approximately a 20% of the flexor tendon. This was then sharply debrided with a #15 blade scalpel. Next, a rongeur was then used to roughen the adjacent surfaces with all surrounding tissues and the plantar aspect of the foot. Once this was completed and all the devitalized tissue was resected. The pulsatile lavage with bacitracin and 3 L saline was then used to cleanse the dorsal incision. Next, a second bag of 3 L of sterile normal saline with bacitracin with pulsatile lavage was then used to cleanse the plantar aspect of the foot. Next, top gloves and top sheet were changed and then one-half inch iodoform gauze was packed into the dorsal incision one-half inch iodoform gauze was then packed in the plantar incision. Next, the dorsal incision was then partially closed with 4-0 nylon interrupted horizontal mattress sutures and then the plantar incision was then partially closed with 4-0 nylon horizontal mattress sutures to partially close the plantar aspect. Next, a sterile compressive dressing consisting of Xeroform gauze, sterile 4 x 4's, ABD pad, and cast padding was applied overwrapped with a 4-inch Benjamin wrap. The tourniquet was released at the ankle. The proximal tourniquet was removed. The patient was awakened and taken to recovery after local anesthetic injected in the dorsal and plantar aspects of the left foot approximately 10 mL 0.5% Marcaine plain. The patient was awakened and taken to recovery in stable condition. I attest to the content of the Intraoperative Record and any orders documented therein. Any exception s are noted below.
[2018-06-17] MEDS: metroNIDAZOLE 500 MG/100 ML BAG IV SCH ×3 (00:13→15:08)
[2018-06-17] MEDS: SODIUM CHLORIDE 0.9% 1000ML 1,000 ML IV SCH ×2 (02:22→13:19)
[2018-06-17] MEDS: HEPARIN SOD 5,000 UNIT/0.5 ML VIAL SQ SCH ×3 (05:23→21:09)
--- NOTE | 2018-06-17 07:09 | Progress Note ---
Date of Service June 17, 2018 Assessment & Plan (1) Acute cholecystitis: will d/c drain, atbx for foot, doesn't need for gb at this point d/c home when ok with ortho, med team pt will call office for follow up Subjective s/p foot surgery- feels ok this am- alert, awake celia po well Physical Exam 2 Vital Signs (Past 24 Hours): Last Vital Signs Temp 36.8 C 06/17/18 03:13 Pulse 61 06/17/18 03:13 Resp 18 06/17/18 03:13 BP 155/66 H 06/17/18 03:13 Pulse Ox 92 06/17/18 03:13 abd soft- dr serous
[2018-06-17] MEDS: NovoLOG INSULIN PUMP SCH ×4 (07:42→21:14)
[2018-06-17] MEDS: METOPROLOL SUCC 25MG EXT REL TAB PO SCH (07:45)
[2018-06-17] MEDS: NIFEdipine EXTENDED REL 30 MG TABCR PO SCH ×2 (07:45→21:13)
[2018-06-17] MEDS: ATORVASTATIN 40 MG TAB PO SCH (07:45)
[2018-06-17] MEDS: ASPIRIN 81 MG ECTAB PO SCH (07:46)
[2018-06-17] MEDS: PANTOprazole 40 MG TAB PO SCH (07:46)
[2018-06-17] MEDS: VENLAFAXINE HCL XR 75 MG CAPXR PO SCH (07:46)
[2018-06-17] MEDS: POTASSIUM CHLORIDE 20 MEQ TABCR PO SCH ×2 (07:46→21:14)
[2018-06-17] MEDS: ALFUZOSIN HCL 10 MG TAB PO SCH (07:46)
--- NOTE | 2018-06-17 08:29 | Anesthesiology Progress Note ---
Date of Service June 17, 2018 Anesthesia Post Procedure Vital Signs Vital Signs: Temp Pulse Pulse Resp BP BP Pulse Ox 06/17/18 07:35 37.1 C 51 L 15 166/83 H 93 06/17/18 03:13 36.8 C 61 18 155/66 H 92 06/16/18 23:14 36.6 C 78 18 143/74 H 97 06/16/18 22:01 36.9 C 76 18 164/84 H 94 06/16/18 20:33 36.8 C 58 L 16 162/86 H 96 06/16/18 19:45 60 23 151/71 H 96 06/16/18 19:35 36.4 C L 60 15 149/78 H 96 06/16/18 19:25 60 12 154/77 H 98 06/16/18 19:15 50 L 12 160/68 H 99 06/16/18 19:08 36.5 C 49 L 10 L 154/68 H 99 06/16/18 17:37 36.8 C 54 L 20 161/83 H 98 06/16/18 15:05 36.8 C 65 18 148/72 H 96 Pain Intensity Left Foot: Pain Intensity: 0 Right Upper Abdomen: Pain Intensity: 2 Notes Mental Status: alert / awake / arousable and participated in evaluation Patient Amnestic to Procedure: Yes Nausea / Vomiting: adequately controlled Pain: adequately controlled Airway Patency, RR, SpO2: stable & adequate BP & HR: stable & adequate Hydration State: stable & adequate Anesthetic Complications: no major complications apparent and Pt Satisfied with anesthetic care
[2018-06-17 08:47] LABS: BUN Creatinine Ratio 15.2 (10-20); Calcium 8.1 mg/dl (8.5-10.1); Creatinine Clr Calc Pharmacy 68.6 ml/min; Est GFR (African American) 64.2; Est GFR (Non-African American) 55.4; Potassium 4.1 mmol/L (3.5-5.1)
[2018-06-17] MEDS: INSULIN ASPART 100 UNITS/ML 3 ML PEN SC SCH ×4 (08:59→21:14)
--- NOTE | 2018-06-17 13:12 | Orthopedic Progress Note ---
Date of Service June 17, 2018 Assessment & Plan (1) Septic arthritis of interphalangeal joint of toe of left foot: POD #1 s/p 1. Left foot incision and drainage, dorsal abscess adjacent to the second metatarsophalangeal joint. 2. Second metatarsophalangeal joint irrigation and debridement including fascia/ligament/joint capsule/synovium. 3. Removal of deep bone screw, second metatarsal head. 4. Debridement bone, second metatarsal head. 5. Excisional debridement, plantar foot ulcers separate site including skin/fascia/flexor tendon Dressing changed today. The plantar packing was removed today (~6-7 inches). The dorsal packing was removed about 5-6 inches. Still packing in place. Plan for dressing change tomorrow. NWB LLE for best results with healing. Continue IV antibiotics. If antibiotic choice can be made by tomorrow, may be able to d/c home if the packing is completely removed. May require PICC line for ~6 weeks. Subjective Overall, doing well. States he has an off and on stabbing pain at the top of his foot. He has been NWB on the LLE. No complaints. Physical Exam 2 Vital Signs (Past 24 Hours): Last Vital Signs Temp 36.5 C 06/17/18 12:00 Pulse 52 L 06/17/18 12:00 Resp 16 06/17/18 12:00 BP 158/76 H 06/17/18 12:00 Pulse Ox 97 06/17/18 12:00 Constitutional: WD/WN, vitals as above Musculoskeletal: Left foot: Dorsal and plantar incisions are well approximated. No drainage. Iodoform gauze drains in place dorsal and plantar. No erythema at the sites. NV intact LLE with decreased sensation consistent with neuropathy.
--- NOTE | 2018-06-17 16:03 | Hospitalist Progress Note ---
Date of Service June 17, 2018 Assessment & Plan (1) Acute cholecystitis: acute cholecystitis with chronic cholecystitis, POA CTA of chest showed possible cholecystsis. RUQ U/S confirmed this. s/p cholecystectomy with lysis of adhesions on 06/12 tolerated well, pain is controlled tolerating regular diet, moving bowels no further antibiotics needed for gall bladder patient can follow up with Dr. Bray in the office (2) Cellulitis: -Foot xray did not indicate osteomyelitis wound culture grew MSSA continue Rocephin foot looks good, less redness, no pain, no warmth MRI 06/13 shows possible septic arthrtis of 2nd MTP joint no evidence of osteomyelitis patient went to OR 06/16 for I&D of dorsal abscess washout of of 2nd MTP joint, removal of screw, wound packed plan for PICC with Rocphin 2gm IV daily could be ready tomorrow (3) Foot ulcer, left: see above (4) Hypertension: HTN -Metoprolol 25 -Nifedipine 60 BID (5) Hyperlipidemia: HLD -atorvastatin 80 (6) Diabetes: T2DM -pt may use own insulin pump -hold linagliptin -Asa 81 daily no hypoglycemic episodes, can eat after OR (7) Obstructive sleep apnea: stable on CPAP (8) CKD (chronic kidney disease) stage 3, GFR 30-59 ml/min: CKD stage III -Baseline Cr 1.5-1.6 -Creatinine stable, 1.32 today (9) BPH (benign prostatic hyperplasia): (10) GERD (gastroesophageal reflux disease): PPI (11) CAD (coronary artery disease): Non-Obstructive CAD -Investigated -ASA 81, statin, BP control (12) Hypokalemia: 4.1 today, stop supplementation Plan: get PICC, potential d/c tomorro if home IV can be arranged Subjective reviewed note from orthopedics, removed packing plan to utilize IV antibiotics for six weeks, will use Rocephin PICC consent signed discussed home IV antibiotics with CM, patient has full coverage, will use [facility] reviewed labs, BMP normal today patient feeling well, no pain in left foot, no abdominal pain tolerating regular diet, no nausea/vomiting, moving bowels Review of Systems All systems reviewed & are unremarkable except as noted in HPI & below Physical Exam 2 Vital Signs (Past 24 Hours): Last Vital Signs Temp 37 C 06/17/18 15:54 Pulse 49 L 06/17/18 15:54 Resp 18 06/17/18 15:54 BP 160/68 H 06/17/18 15:54 Pulse Ox 97 06/17/18 15:54 Constitutional: WD/WN, vitals as above Eyes: PERRL, conjunctivae normal, anicteric sclerae ENMT: external ear and nose normal, oropharynx normal Neck: trachea midline, no thyromegaly Respiratory: normal respiratory effort, lungs clear to auscultation Cardiovascular: RRR, no murmur, no edema Gastrointestinal (Abdomen): Inspection/Auscultation: abdomen normal to inspection and normal bowel sounds; abdomen not distended Percussion/ Palpation: abdomen soft; abdomen nontender and no guarding Musculoskeletal: no cyanosis or clubbing, extremities motor strength 5/5 Skin: + wound (left foot back and front, wrapped and packed) Neurologic: patellar DTR's 2+ bilat, sensation intact and PERRL, EOMI, accommodation nl, no face palsy, no dysarthria Psychiatric: A+Ox3, euthymic affect Lymphatic: no cervical or axillary lymphadenopathy Results & Data Laboratory Results Laboratory Results - last 24 hr 06/16/18 06/16/18 06/16/18 17:22 17:45 19:13 Sodium Potassium Chloride Carbon Dioxide Anion Gap BUN Creatinine Est Cr Clr Drug Dosing Est GFR ( Amer) Est GFR (Non-Af Amer) BUN/Creatinine Ratio Glucose POC Glucose 94 90 100 H Calcium 06/16/18 06/17/18 06/17/18 20:30 08:05 08:07 Sodium 137 Potassium 4.1 Chloride 107 Carbon Dioxide 22 Anion Gap 8.0 BUN 20 H Creatinine 1.32 Est Cr Clr Drug Dosing 68.6 Est GFR ( Amer) 64.2 Est GFR (Non-Af Amer) 55.4 BUN/Creatinine Ratio 15.2 Glucose 87 POC Glucose 132 H 76 Calcium 8.1 L 06/17/18 11:59 Sodium Potassium Chloride Carbon Dioxide Anion Gap BUN Creatinine Est Cr Clr Drug Dosing Est GFR ( Amer) Est GFR (Non-Af Amer) BUN/Creatinine Ratio Glucose POC Glucose 128 H Calcium Microbiology 06/16/18 Unknown Toe,Left Second Gram Stain - Final 06/16/18 Unknown Toe,Left Second Aerobic and Anaerobic Culture - Preliminary No growth to date. 06/10/18 14:00 Foot,Left Gram Stain - Final 06/10/18 14:00 Foot,Left Aerobic and Anaerobic Culture - Final Staphylococcus aureus Prevotella melaninogenica Bacteroides pyogenes Mobiluncus species 06/10/18 16:10 Blood Blood Culture - Final No growth 06/10/18 16:20 Blood Blood Culture - Final No growth Medications Administered Current Inpatient Medications Acetaminophen (Tylenol) 650 mg PO Q4H PRN PRN Reason: pain/fever Stop: 07/10/18 21:32 Last Admin: 06/13/18 08:57 Dose: 650 mg Hydrocodone Bitart/Acetaminophen ([place] 5/325) 1 tab PO 3XDQ4 PRN PRN Reason: Pain Stop: 06/26/18 11:01 Last Admin: 06/13/18 15:39 Dose: 1 tab Hydrocodone Bitart/Acetaminophen ([place] 5/325) 2 tab PO 3XDQ4 PRN PRN Reason: Pain Stop: 06/26/18 11:01 Last Admin: 06/12/18 17:20 Dose: 2 tab Al Hydrox/Mg Hydrox/Simethicone (Maalox) 30 ml PO Q6H PRN PRN Reason: Dyspepsia Stop: 07/10/18 21:32 Last Admin: 06/11/18 22:15 Dose: 30 ml Alfuzosin HCl (Uroxatral) 10 mg PO DAILY [facility] Stop: 07/11/18 08:59 Last Admin: 06/17/18 07:46 Dose: 10 mg Aspirin (Ecotrin Ectab) 81 mg PO DAILY [facility] Stop: 07/11/18 08:59 Last Admin: 06/17/18 07:46 Dose: 81 mg Atorvastatin Calcium (Lipitor) 80 mg PO DAILY [facility] Stop: 07/11/18 08:59 Last Admin: 06/17/18 07:45 Dose: 80 mg Dextrose (Dextrose 50%) 25 - 50 ml IV UD PRN; Protocol PRN Reason: Hypoglycemia Protocol Stop: 07/12/18 08:40 Glucagon (Glucagen) 1 mg SQ UD PRN; Protocol PRN Reason: Hypoglycemia Protocol Stop: 07/12/18 08:40 Glucose (Glucose 40%) 15 - 30 gm PO UD PRN; Protocol PRN Reason: Hypoglycemia Protocol Stop: 07/12/18 08:40 Glucose (Dex4 Glucose) 4 - 8 tabs PO UD PRN; Protocol PRN Reason: Hypoglycemia Protocol Stop: 07/12/18 08:40 Heparin Sodium (Porcine) (Heparin Sodium (Porcine)) 5,000 units SQ Q8 [facility] Stop: 07/11/18 05:59 Last Admin: 06/17/18 13:19 Dose: 5,000 units Sodium Chloride (Nss 1000ml) 1,000 mls @ 80 mls/hr IV .[id number] [facility] Stop: 07/12/18 11:59 Last Infusion: 06/17/18 13:54 Dose: 80 mls/hr Promethazine HCl 12.5 mg/ (Sodium Chloride) 50.5 mls @ 204 mls/hr IV Q6H PRN PRN Reason: Nausea And Vomiting Stop: 07/12/18 11:01 Ceftriaxone Sodium 2,000 mg/ (Dextrose) 70 mls @ 140 mls/hr IV Q24H [facility] Stop: 06/24/18 17:59 Last Infusion: 06/16/18 22:33 Dose: Infused Metronidazole (Flagyl) 500 mg in 100 mls @ 100 mls/hr IV Q8H [facility] Stop: 06/24/18 15:59 Last Admin: 06/17/18 15:08 Dose: 100 mls/hr Insulin Aspart (Novolog Flexpen) 0 units SC ACHS [facility] Stop: 07/10/18 21:59 Last Admin: 06/17/18 12:43 Dose: 11 units Insulin Aspart (Novolog Insulin Pump) 1 ea N/A ACHS [facility]; Protocol Stop: 07/14/18 16:29 Last Admin: 06/17/18 12:38 Dose: 1 ea Insulin Aspart (Novolog Aspart) 0 units SC PRN PRN PRN Reason: REFILL Stop: 07/14/18 14:47 Magnesium Hydroxide (Milk Of Magnesia) 30 ml PO Q6H PRN PRN Reason: Constipation Stop: 07/10/18 21:32 Last Admin: 06/13/18 18:34 Dose: 30 ml Metoprolol Succinate (Toprol Xl) 25 mg PO DAILY [facility] Stop: 07/11/18 08:59 Last Admin: 06/17/18 07:45 Dose: 25 mg Miscellaneous (Carbohydrates For Hypoglycemia) 15 - 30 gm PO UD PRN PRN Reason: Hypoglycemia Treatment Stop: 07/12/18 08:40 Morphine Sulfate (Morphine Sulfate) 2 mg IV Q3H PRN PRN Reason: MODERATE Pain (Scale 4,5,6) Stop: 06/26/18 08:26 Morphine Sulfate (Morphine Sulfate) 3 mg IV Q3H PRN PRN Reason: SEVERE Pain (Scale 7,8,9,10) Stop: 06/26/18 08:26 Morphine Sulfate (Morphine Sulfate) 1 mg IV Q3H PRN PRN Reason: MILD Pain (Scale 1,2,3) Stop: 06/26/18 08:26 Nifedipine (Procardia Xl) 60 mg PO BID [facility] Stop: 07/10/18 22:14 Last Admin: 06/17/18 07:45 Dose: 60 mg Ondansetron HCl (Zofran) 4 mg IV 4XDQ4H PRN PRN Reason: Nausea Stop: 07/12/18 11:01 Pantoprazole Sodium (Protonix) 40 mg PO DAILY [facility] Stop: 07/11/18 08:59 Last Admin: 06/17/18 07:46 Dose: 40 mg Polyethylene Glycol (Miralax Powder Packet) 17 gm PO DAILY PRN PRN Reason: Constipation Stop: 07/10/18 21:32 Last Admin: 06/14/18 13:42 Dose: 17 gm Potassium Chloride (Klor-Con M20) 20 meq PO BID [facility] Stop: 07/13/18 10:44 Last Admin: 06/17/18 07:46 Dose: 20 meq Ranitidine HCl (Zantac) 150 mg PO BID [facility] Stop: 07/10/18 21:32 Last Admin: 06/17/18 07:45 Dose: 150 mg Venlafaxine HCl (Effexor Extended Release) 75 mg PO DAILY [facility] Stop: 07/11/18 08:59 Last Admin: 06/17/18 07:46 Dose: 75 mg Zolpidem Tartrate (Ambien) 5 mg PO HS PRN PRN Reason: Sleep Stop: 07/10/18 21:32 Last Admin: 06/12/18 21:13 Dose: 5 mg _ (1) Diabetes Chronic kidney disease stage: Diabetes mellitus complication detail: with unspecified neuropathy Diabetes mellitus complication status: with neurologic complications Diabetes mellitus 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 insulin 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: with 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 use Diabetes mellitus macular edema: Diabetes mellitus type: type 2 Diabetic retinopathy severity: Laterality: Proliferative retinopathy type: Qualified Code(s): E11.40 - Type 2 diabetes mellitus with diabetic neuropathy, unspecified; Z79.4 - skilled nursing (current) use of insulin (2) Cellulitis Laterality: Site of cellulitis: Site of cellulitis of extremity: Site of cellulitis of trunk: (3) Hyperlipidemia Hyperlipidemia type: unspecified Qualified Code(s): E78.5 - Hyperlipidemia, unspecified (4) Foot ulcer, left Non-pressure ulcer stage: (5) Hypertension Hypertension type: essential hypertension Qualified Code(s): I10 - Essential (primary) hypertension
[2018-06-17] MEDS: cefTRIAXone SODIUM 2,000 MG in DEXTROSE 5% 50 ML IV SCH (21:16)
[2018-06-18] MEDS: metroNIDAZOLE 500 MG/100 ML BAG IV SCH ×4 (00:20→23:56)
[2018-06-18] MEDS: SODIUM CHLORIDE 0.9% 1000ML 1,000 ML IV SCH ×2 (01:23→15:30)
[2018-06-18] MEDS: HEPARIN SOD 5,000 UNIT/0.5 ML VIAL SQ SCH ×3 (05:39→21:18)
[2018-06-18] MEDS: METOPROLOL SUCC 25MG EXT REL TAB PO SCH (07:16)
[2018-06-18] MEDS: PANTOprazole 40 MG TAB PO SCH (07:16)
[2018-06-18] MEDS: NIFEdipine EXTENDED REL 30 MG TABCR PO SCH ×2 (07:16→20:47)
[2018-06-18] MEDS: ATORVASTATIN 40 MG TAB PO SCH (07:16)
[2018-06-18] MEDS: ALFUZOSIN HCL 10 MG TAB PO SCH (07:17)
[2018-06-18] MEDS: VENLAFAXINE HCL XR 75 MG CAPXR PO SCH (07:17)
[2018-06-18] MEDS: ASPIRIN 81 MG ECTAB PO SCH (07:17)
--- NOTE | 2018-06-18 08:11 | Orthopedic Progress Note ---
Date of Service June 18, 2018 Assessment & Plan (1) Septic arthritis of interphalangeal joint of toe of left foot: POD #1 s/p 1. Left foot incision and drainage, dorsal abscess adjacent to the second metatarsophalangeal joint. 2. Second metatarsophalangeal joint irrigation and debridement including fascia/ligament/joint capsule/synovium. 3. Removal of deep bone screw, second metatarsal head. 4. Debridement bone, second metatarsal head. 5. Excisional debridement, plantar foot ulcers separate site including skin/fascia/flexor tendon Dressing changed today. The dorsal packing was removed about 5-6 inches. Still packing in place. Plan for dressing change tomorrow and removal remaining packing. NWB LLE for best results with healing. Continue IV antibiotics. If antibiotic choice can be made by tomorrow, may be able to d/c home if the packing is completely removed. May require PICC line for ~6 weeks. Subjective Overall, doing well. States he has an off and on stabbing pain at the top of his foot. He has been NWB on the LLE. No complaints. Constitutional: as per Subjective / HPI Physical Exam 2 Vital Signs (Past 24 Hours): Last Vital Signs Temp 37.0 C 06/18/18 07:00 Pulse 69 06/18/18 07:00 Resp 18 06/18/18 07:00 BP 162/66 H 06/18/18 07:00 Pulse Ox 96 06/18/18 07:00 Physical Exam: Dressing c/d/i, Dressing removed. Plantar incision-no erythema or drainage, incision well approximated. Dorsal incision-packing and mild amount of serous drainage with packing removal. No significant erythema
[2018-06-18] MEDS: INSULIN ASPART 100 UNITS/ML 3 ML PEN SC SCH ×4 (08:47→20:45)
[2018-06-18] MEDS: NovoLOG INSULIN PUMP SCH ×4 (08:47→20:45)
--- NOTE | 2018-06-18 10:21 | Hospitalist Progress Note ---
Date of Service June 18, 2018 Assessment & Plan (1) Acute cholecystitis: acute cholecystitis with chronic cholecystitis, POA CTA of chest showed possible cholecystsis. RUQ U/S confirmed this. s/p cholecystectomy with lysis of adhesions on 06/12 tolerated well, pain is controlled tolerating regular diet, moving bowels no further antibiotics needed for gall bladder patient can follow up with Dr. Bray in the office, he plans to call on Wednesday for appointment (2) Cellulitis: -Foot xray did not indicate osteomyelitis wound culture grew MSSA continue Rocephin foot looks good, less redness, no pain, no warmth MRI 06/13 showed septic arthrtis of 2nd MTP joint no evidence of osteomyelitis patient went to OR 06/16 for I&D of dorsal abscess washout of of 2nd MTP joint, removal of screw, wound packed plan for PICC with Rocphin 2gm IV daily will also treat with Flagyl 500mg TID PO plan for 6 weeks of antibiotics set up with home IV with [facility] (3) Foot ulcer, left: wound culture grew MSSA - Rocephin also grew Prevotella, Bacteroides, Mobiluncus - Flagyl (4) Hypertension: BP stable -Metoprolol 25 -Nifedipine 60 BID (5) Hyperlipidemia: HLD -atorvastatin 80 (6) Diabetes: T2DM -pt may use own insulin pump -hold linagliptin -Asa 81 daily no hypoglycemic episodes (7) Obstructive sleep apnea: stable on CPAP (8) CKD (chronic kidney disease) stage 3, GFR 30-59 ml/min: CKD stage III -Baseline Cr 1.5-1.6 -Creatinine stable, 1.32 yesterday, has been stable for days, no need to follow (9) BPH (benign prostatic hyperplasia): (10) GERD (gastroesophageal reflux disease): PPI (11) CAD (coronary artery disease): Non-Obstructive CAD -Investigated -ASA 81, statin, BP control (12) Hypokalemia: 4.1 yesterday, supplementation stopped Plan: PICC today, arrangements made for home IV Rocephin can be d/c tomorrow if okay with ortho Subjective patient doing great, no abdominal or foot pain more packing removed from foot today by orthopedic surgery possible d/c to home tomorrow if all packing removed already arranged with CM to have Rocephin IV daily through [facility] d/w Dr. Shelley today about wound culture, would recommend addition of Flagyl Review of Systems All systems reviewed & are unremarkable except as noted in HPI & below Physical Exam 2 Vital Signs (Past 24 Hours): Last Vital Signs Temp 37.0 C 06/18/18 07:00 Pulse 69 06/18/18 07:00 Resp 18 06/18/18 07:00 BP 162/66 H 06/18/18 07:00 Pulse Ox 96 06/18/18 07:00 Constitutional: WD/WN, vitals as above Eyes: PERRL, conjunctivae normal, anicteric sclerae ENMT: external ear and nose normal, oropharynx normal Neck: trachea midline, no thyromegaly Respiratory: normal respiratory effort, lungs clear to auscultation Cardiovascular: RRR, no murmur, no edema Gastrointestinal (Abdomen): Inspection/Auscultation: abdomen normal to inspection and normal bowel sounds; abdomen not distended Percussion/ Palpation: abdomen soft; abdomen nontender and no guarding Musculoskeletal: no cyanosis or clubbing, extremities motor strength 5/5 Skin: + wound (left foot back and front, wrapped and packed) Neurologic: patellar DTR's 2+ bilat, sensation intact and PERRL, EOMI, accommodation nl, no face palsy, no dysarthria Psychiatric: A+Ox3, euthymic affect Lymphatic: no cervical or axillary lymphadenopathy Results & Data Laboratory Results Laboratory Results - last 24 hr 06/17/18 06/17/18 06/18/18 17:04 20:42 08:17 POC Glucose 128 H 91 118 H Medications Administered Current Inpatient Medications Acetaminophen (Tylenol) 650 mg PO Q4H PRN PRN Reason: pain/fever Stop: 07/10/18 21:32 Last Admin: 06/13/18 08:57 Dose: 650 mg Hydrocodone Bitart/Acetaminophen ([place] 5/325) 1 tab PO 3XDQ4 PRN PRN Reason: Pain Stop: 06/26/18 11:01 Last Admin: 06/13/18 15:39 Dose: 1 tab Hydrocodone Bitart/Acetaminophen ([place] 5/325) 2 tab PO 3XDQ4 PRN PRN Reason: Pain Stop: 06/26/18 11:01 Last Admin: 06/12/18 17:20 Dose: 2 tab Al Hydrox/Mg Hydrox/Simethicone (Maalox) 30 ml PO Q6H PRN PRN Reason: Dyspepsia Stop: 07/10/18 21:32 Last Admin: 06/11/18 22:15 Dose: 30 ml Alfuzosin HCl (Uroxatral) 10 mg PO DAILY [facility] Stop: 07/11/18 08:59 Last Admin: 06/18/18 07:17 Dose: 10 mg Aspirin (Ecotrin Ectab) 81 mg PO DAILY [facility] Stop: 07/11/18 08:59 Last Admin: 06/18/18 07:17 Dose: 81 mg Atorvastatin Calcium (Lipitor) 80 mg PO DAILY [facility] Stop: 07/11/18 08:59 Last Admin: 06/18/18 07:16 Dose: 80 mg Dextrose (Dextrose 50%) 25 - 50 ml IV UD PRN; Protocol PRN Reason: Hypoglycemia Protocol Stop: 07/12/18 08:40 Glucagon (Glucagen) 1 mg SQ UD PRN; Protocol PRN Reason: Hypoglycemia Protocol Stop: 07/12/18 08:40 Glucose (Glucose 40%) 15 - 30 gm PO UD PRN; Protocol PRN Reason: Hypoglycemia Protocol Stop: 07/12/18 08:40 Glucose (Dex4 Glucose) 4 - 8 tabs PO UD PRN; Protocol PRN Reason: Hypoglycemia Protocol Stop: 07/12/18 08:40 Heparin Sodium (Beef Lung) (Heparin Sod 10 Unit/Ml Flush) 5 ml FLUSH PRN PRN PRN Reason: Flush Stop: 07/18/18 12:18 Heparin Sodium (Porcine) (Heparin Sodium (Porcine)) 5,000 units SQ Q8 [facility] Stop: 07/11/18 05:59 Last Admin: 06/18/18 05:39 Dose: 5,000 units Sodium Chloride (Nss 1000ml) 1,000 mls @ 80 mls/hr IV .[id number] [facility] Stop: 07/12/18 11:59 Last Infusion: 06/18/18 12:30 Dose: 80 mls/hr Promethazine HCl 12.5 mg/ (Sodium Chloride) 50.5 mls @ 204 mls/hr IV Q6H PRN PRN Reason: Nausea And Vomiting Stop: 07/12/18 11:01 Ceftriaxone Sodium 2,000 mg/ (Dextrose) 70 mls @ 140 mls/hr IV Q24H [facility] Stop: 06/24/18 17:59 Last Infusion: 06/17/18 21:50 Dose: Infused Metronidazole (Flagyl) 500 mg in 100 mls @ 100 mls/hr IV Q8H [facility] Stop: 06/24/18 15:59 Last Infusion: 06/18/18 08:26 Dose: Infused Insulin Aspart (Novolog Flexpen) 0 units SC [facility] Stop: 07/10/18 21:59 Last Admin: 06/18/18 08:47 Dose: 5.6 units Insulin Aspart (Novolog Insulin Pump) 1 ea N/A ACHS [facility]; Protocol Stop: 07/14/18 16:29 Last Admin: 06/18/18 08:47 Dose: 1 ea Insulin Aspart (Novolog Aspart) 0 units SC PRN PRN PRN Reason: REFILL Stop: 07/14/18 14:47 Magnesium Hydroxide (Milk Of Magnesia) 30 ml PO Q6H PRN PRN Reason: Constipation Stop: 07/10/18 21:32 Last Admin: 06/13/18 18:34 Dose: 30 ml Metoprolol Succinate (Toprol Xl) 25 mg PO DAILY [facility] Stop: 07/11/18 08:59 Last Admin: 06/18/18 07:16 Dose: 25 mg Miscellaneous (Carbohydrates For Hypoglycemia) 15 - 30 gm PO UD PRN PRN Reason: Hypoglycemia Treatment Stop: 07/12/18 08:40 Morphine Sulfate (Morphine Sulfate) 2 mg IV Q3H PRN PRN Reason: MODERATE Pain (Scale 4,5,6) Stop: 06/26/18 08:26 Morphine Sulfate (Morphine Sulfate) 3 mg IV Q3H PRN PRN Reason: SEVERE Pain (Scale 7,8,9,10) Stop: 06/26/18 08:26 Morphine Sulfate (Morphine Sulfate) 1 mg IV Q3H PRN PRN Reason: MILD Pain (Scale 1,2,3) Stop: 06/26/18 08:26 Nifedipine (Procardia Xl) 60 mg PO BID [facility] Stop: 07/10/18 22:14 Last Admin: 06/18/18 07:16 Dose: 60 mg Ondansetron HCl (Zofran) 4 mg IV 4XDQ4H PRN PRN Reason: Nausea Stop: 07/12/18 11:01 Pantoprazole Sodium (Protonix) 40 mg PO DAILY [facility] Stop: 07/11/18 08:59 Last Admin: 06/18/18 07:16 Dose: 40 mg Polyethylene Glycol (Miralax Powder Packet) 17 gm PO DAILY PRN PRN Reason: Constipation Stop: 07/10/18 21:32 Last Admin: 06/14/18 13:42 Dose: 17 gm Ranitidine HCl (Zantac) 150 mg PO BID [facility] Stop: 07/10/18 21:32 Last Admin: 06/18/18 07:16 Dose: 150 mg Venlafaxine HCl (Effexor Extended Release) 75 mg PO DAILY [facility] Stop: 07/11/18 08:59 Last Admin: 06/18/18 07:17 Dose: 75 mg Zolpidem Tartrate (Ambien) 5 mg PO HS PRN PRN Reason: Sleep Stop: 07/10/18 21:32 Last Admin: 06/12/18 21:13 Dose: 5 mg _ (1) Diabetes Chronic kidney disease stage: Diabetes mellitus complication detail: with unspecified neuropathy Diabetes mellitus complication status: with neurologic complications Diabetes mellitus manager long term care insulin use: with care home use Diabetes mellitus macular edema: Diabetes mellitus type: type 2 Diabetic retinopathy severity: Laterality: Proliferative retinopathy type: Qualified Code(s): E11.40 - Type 2 diabetes mellitus with diabetic neuropathy, unspecified; Z79.4 - intermediate card tender (current) use of insulin (2) Cellulitis Laterality: Site of cellulitis: Site of cellulitis of extremity: Site of cellulitis of trunk: (3) Hyperlipidemia Hyperlipidemia type: unspecified Qualified Code(s): E78.5 - Hyperlipidemia, unspecified (4) Foot ulcer, left Non-pressure ulcer stage: (5) Hypertension Hypertension type: essential hypertension Qualified Code(s): I10 - Essential (primary) hypertension
--- NOTE | 2018-06-18 12:47 | XRay Report ---
XR chest 1V portable HISTORY: 68 years-old Male PICC PLACEMENT - PATRICIA status post placement of a right-sided PICC COMPARISON: Chest radiograph 02/15/2018, CTA chest 06/12/2018 TECHNIQUE: Portable AP view of the chest FINDINGS: Cardiac silhouette is mildly enlarged. Status post placement of a right-sided PICC, distal tip termin ating in the expected region of the inferior right atrium. No postprocedural pneumothorax. Mild pulmo nary vascular congestion without overt pulmonary edema. No pleural effusion or focal airspace consoli dation. Bones appear grossly intact. IMPRESSION: 1. Status post placement of a right-sided PICC, distal tip terminating in the region of the inferior right atrium. This could be withdrawn approximately 8 cm with follow-up imaging. 2. No postprocedural pneumothorax. 3. Cardiomegaly. The above report was generated using voice recognition software. It may contain grammatical, syntax o r spelling errors. Electronically signed by: Paul Piedra M.D. 06/18/2018 12:45 PM
--- NOTE | 2018-06-18 14:23 | XRay Report ---
XR chest 1V portable HISTORY: 68 years-old Male PICC ADJUSTMENT PATRICIA status post repositioning of the right-sided PICC COMPARISON: Chest radiograph of same day at 12:08 PM TECHNIQUE: Portable AP view of the chest FINDINGS: Cardiac silhouette is mildly enlarged. Retraction of the right-sided PICC, now terminating within the region of the inferior SVC. No pneumothorax. No pleural effusion or overt pulmonary edema. Bones of the chest appear grossly intact. IMPRESSION: 1. Repositioned right-sided PICC distal tip now terminates in the expected region of the inferior SVC . 2. Cardiomegaly. 3. No pneumothorax. The above report was generated using voice recognition software. It may contain grammatical, syntax o r spelling errors. Electronically signed by: Paul Piedra M.D. 06/18/2018 2:21 PM
[2018-06-18] MEDS: cefTRIAXone SODIUM 2,000 MG in DEXTROSE 5% 50 ML IV SCH (21:17)
[2018-06-19] MEDS: HEPARIN SOD 5,000 UNIT/0.5 ML VIAL SQ SCH (05:27)
[2018-06-19 05:46] LABS: Hematocrit (blood only) 39.5 % (42-52); Hemoglobin 13.2 g/dL (14.0-18.0); Mean Corpuscular Hgb Conc 33.4 g/dL (32-36); Mean Corpuscular Volume 86.2 fL (80-100); Mean Platelet Volume 9.2 fL (7.4-10.4); Platelet Count 390 K/uL (130-400); RDW Coefficient of Variation 13.2 % (11.5-14.5); RDW Standard Deviation 41.7 fL (36.4-46.3); Red Blood Count 4.58 M/uL (4.7-6.1); White Blood Count 10.08 K/uL (4.8-10.8)
[2018-06-19] MEDS: SODIUM CHLORIDE 0.9% 1000ML 1,000 ML IV SCH (05:46)
[2018-06-19] MEDS: metroNIDAZOLE 500 MG/100 ML BAG IV SCH (07:16)
[2018-06-19] MEDS: NIFEdipine EXTENDED REL 30 MG TABCR PO SCH (07:17)
[2018-06-19] MEDS: ALFUZOSIN HCL 10 MG TAB PO SCH (07:17)
[2018-06-19] MEDS: VENLAFAXINE HCL XR 75 MG CAPXR PO SCH (07:17)
[2018-06-19] MEDS: PANTOprazole 40 MG TAB PO SCH (07:17)
[2018-06-19] MEDS: METOPROLOL SUCC 25MG EXT REL TAB PO SCH (07:18)
[2018-06-19] MEDS: ATORVASTATIN 40 MG TAB PO SCH (07:18)
[2018-06-19] MEDS: ASPIRIN 81 MG ECTAB PO SCH (07:18)
[2018-06-19] MEDS: NovoLOG INSULIN PUMP SCH (08:54)
[2018-06-19] MEDS: INSULIN ASPART 100 UNITS/ML 3 ML PEN SC SCH (08:54)
--- NOTE | 2018-06-19 08:58 | Orthopedic Progress Note ---
Date of Service June 19, 2018 Assessment & Plan (1) Septic arthritis of interphalangeal joint of toe of left foot: POD # 3 s/p 1.Left foot incision and drainage, dorsal abscess adjacent to the second metatarsophalangeal joint. 2. Second metatarsophalangeal joint irrigation and debridement including fascia/ligament/joint capsule/synovium. 3. Removal of deep bone screw, second metatarsal head. 4. Debridement bone, second metatarsal head. 5. Excisional debridement, plantar foot ulcers separate site including skin/fascia/flexor tendon Dressing changed today. Remainder of dorsal packing removed. Plan for daily dressing changes NWB LLE for best results with healing. Continue IV antibiotics. F/u with Dr. Alfaro in 10-14 days from surgery. Patient may call [phone] for appointment. Subjective Overall, doing well. States he is not having any pain in his left foot. He has been NWB on the LLE. No complaints. Constitutional: as per Subjective / HPI Physical Exam 2 Vital Signs (Past 24 Hours): Last Vital Signs Temp 36.6 C 06/19/18 06:56 Pulse 53 L 06/19/18 06:56 Resp 16 06/19/18 06:56 BP 151/73 H 06/19/18 06:56 Pulse Ox 97 06/19/18 06:56 Physical Exam: Dressing c/d/i, mild serous drainage. Remainder of packing removed-about 4 inches. Dressing reapplied.
[2018-06-19] MEDS ORDERED: Nursing to Pharmacy Communication ONE (10:27)
[2018-06-19] MEDS: cefTRIAXone SODIUM 2,000 MG in DEXTROSE 5% 50 ML IV SCH (10:55)
--- NOTE | 2018-06-23 17:22 | Discharge Summary ---
Date of Service June 19, 2018 Admission HPI Per Admitting Provider Patient is a 68yo M who presents from his PCP's office with concerns of worsening left foot infection. Patient has a known, chronic diabetic foot ulcer on his left foot and notes in the past few days it has been more painful, tender to touch, and is experiencing some redness up his foot into his lower [place]. He has been experiencing some chills without subjective fever, and moderate pain. He has had no recent antibiotic use. Saw PCP today who recommended he present to hospital for evaluation. 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 Admission Exam Per Admitting Provider Constitutional: WD/WN, vitals as above average body habitus Eyes: PERRL, conjunctivae normal, anicteric sclerae ENMT: external ear and nose normal, oropharynx normal Neck: normal visual inspection Respiratory: normal respiratory effort, lungs clear to auscultation Cardiovascular: Rate/Rhythm: regular rate and regular rhythm Heart Sounds: normal S1 and normal S2; no murmur Gastrointestinal (Abdomen): normal bowel sounds, soft, nontender, no hepatosplenomegaly Musculoskeletal: no cyanosis or clubbing, extremities motor strength 5/5 Skin: + ulcer L foot: deep ulceration on base of foot between 1/2nd MTP joints. Dorsal erythema which creeps close to ankle. +tenderness to palpation. Neurologic: PERRL, EOMI, accommodation nl, no face palsy, no dysarthria Psychiatric: A+Ox3, euthymic affect Principal Diagnosis Acute cholecystitis Discharge Exam Constitutional WD/WN, vitals as above Eyes PERRL, conjunctivae normal, anicteric sclerae ENMT external ear and nose normal, oropharynx normal Neck trachea midline, no thyromegaly Respiratory normal respiratory effort, lungs clear to auscultation Cardiovascular RRR, no murmur, no edema Gastrointestinal (Abdomen) Inspection/Auscultation: abdomen normal to inspection and normal bowel sounds; abdomen not distended Percussion/Palpation: abdomen soft; abdomen nontender and no guarding Musculoskeletal no cyanosis or clubbing, extremities motor strength 5/5 Skin + wound (left foot back and front, wrapped) Neurologic patellar DTR's 2+ bilat, sensation intact and PERRL, EOMI, accommodation nl, no face palsy, no dysarthria Psychiatric A+Ox3, euthymic affect Lymphatic no cervical or axillary lymphadenopathy Discharge Data Allergies Allergy/AdvReac Type Severity Reaction Status Date / Time lisinopril AdvReac Cough Verified 06/10/18 16:24 losartan AdvReac Cough Verified 06/10/18 16:24 Consultations 06/10/18 17:08 ED Decision to Admit Stat 06/12/18 08:15 Consult General Surgery Routine 06/12/18 08:48 Consult General Surgery Stat 06/14/18 09:07 Consult Orthopedic Surgery Routine Procedures Performed Operation Date: 06/12/18 09:30 Actual Procedures p Laparoscopic Cholecystectomy(Not Applicable) - Edwin Bray MD, FACS Operation Date: 06/16/18 08:20 Actual Procedures p Incision and Drainage,left second metatarsophalangeal (Left) - Angus Alfaro DO s left second metatarsophalangeal and removal of hardware (Left) - Angus Alfaro DO Ordered Studies 06/12/18 00:00 CT angio chest w con Urgent 06/12/18 02:54 US liver Urgent 06/13/18 00:38 MR foot LT w/o con Routine Hospital Course (1) Acute cholecystitis: acute cholecystitis with chronic cholecystitis, POA CTA of chest showed possible cholecystsis. RUQ U/S confirmed this. s/p cholecystectomy with lysis of adhesions on 06/12 tolerated well, pain is controlled tolerating regular diet, moving bowels no further antibiotics needed for gall bladder patient can follow up with Dr. Bray in the office, he plans to call on Wednesday for appointment (2) Cellulitis: -Foot xray did not indicate osteomyelitis wound culture grew MSSA continue Rocephin foot looks good, less redness, no pain, no warmth MRI 06/13 showed septic arthrtis of 2nd MTP joint no evidence of osteomyelitis patient went to OR 06/16 for I&D of dorsal abscess washout of of 2nd MTP joint, removal of screw, wound packed plan for PICC with Rocphin 2gm IV daily will also treat with Flagyl 500mg TID PO plan for 6 weeks of antibiotics set up with home IV with [facility] (3) Foot ulcer, left: wound culture grew MSSA - Rocephin also grew Prevotella, Bacteroides, Mobiluncus - Flagyl (4) Hypertension: BP stable -Metoprolol 25 -Nifedipine 60 BID (5) Hyperlipidemia: HLD -atorvastatin 80 (6) Diabetes: T2DM -pt may use own insulin pump -hold linagliptin -Asa 81 daily no hypoglycemic episodes (7) Obstructive sleep apnea: stable on CPAP (8) CKD (chronic kidney disease) stage 3, GFR 30-59 ml/min: CKD stage III -Baseline Cr 1.5-1.6 -Creatinine has been stable for days, no need to follow (9) BPH (benign prostatic hyperplasia): (10) GERD (gastroesophageal reflux disease): PPI (11) CAD (coronary artery disease): Non-Obstructive CAD -Investigated -ASA 81, statin, BP control (12) Hypokalemia: 4.1 yesterday, supplementation stopped Total Time Total Time Spent Total Time Spent (In Minutes): 35 minutes Total Time Includes: Examination of the Patient, Discharge Planning, Medication Reconciliation and Communication With Other Providers Discharge Plan Discharge Items Patient Disposition: Home - Home Health Services Reason For Visit: CELLULITIS Discharge Diagnosis: acute gangrenous cholecystitis left 2nd MTP septic arthritis, s/p I&D, removal of screw Condition: Good Discharge Goals: Decrease discomfort, Improve disease control and Improve function Activity: Per 'Additional Instructions' section Bathing: Keep incision dry Sexual Activity: When tolerated Weightbearing: Left non-weightbearing Weightbearing Comment: until seen by Dr. Alfaro in office Non-emergency contact: Primary Care Provider and Surgeon Call non-emergency contact if: you have any medication questions, your pain is not controlled, your pain is worsening, your temperature is above 101 and your wound has increased drainage Follow-up/Referrals: Edwin Bray MD, FACS [Surgeon] - 06/22/18 8:45 am (Please, follow up at Dr. Bray's office on WednesdayJune 22 at 8:45 am. *This office is located at [address] [place] [address] in [place]. If you need to change this appointment, call the office at [phone].) Angus Alfaro DO [Surgeon] - (F/U 1 week after discharge for wound check.) Edwin Kohli Jr, [Primary Care Provider] - 06/24/18 11:00 am (Please, follow up with Dr. Kohli on WednesdayJune 24 at 11:00 am. *Dr. Kohli's nurse said, if you need to see the physician before the 1st, just call their office and they will arrange it. If you have any questions, call the office at [phone].) Diet: Carb Consistent or DM2 Addtl Provider Instructions: Medications: - ROCEPHIN: iv antibiotic, take daily for 40 more days - FLAGYL: oral antibiotics, take three times a day for 40 days - PERCOCET: take as needed every 6 hours for pain Acute cholecystitis: s/p cholecystectomy tolerated well, follow regular diet follow up with Dr. Bray on 06/22 for suture removal Left 2nd MTP joint septic arthritis, s/p I&D of abscess and joint, screw removal non-weight bearing to left foot until you see Dr. Alfaro call his office for follow up in 10-14 days use Percocet for pain control will treat infection with Rocephin and Flagyl dressings need changed every day call Dr Bray's office [phone] to come in for suture removal ACTIVITY RECOMMENDATIONS: Limitations: Heel weight bearing only if able to tolerate. Nonweightbearing left lower extremity for best healing results. SPECIAL CARE INSTRUCTIONS: * Some drainage onto the dressing is normal and is no cause for alarm. * Some swelling is natural especially after walking. * When resting, keep your foot elevated above the level of your heart. * Call [facility] if you notice: -Increased drainage -Fever over 101.5 degrees F -Severe constant pain BANDAGE: * Leave bandage/cast in place unless otherwise directed. * Keep bandage/cast dry at all times. PIN CARE: * Leave pins alone. * If pins come loose or fall out, notify physician. FOLLOW UP VISIT WITH DR. ALFARO If appointment is not already scheduled: Please call [facility] after you get home today to schedule a follow-up appointment for [address] Alfaro at . Prescriptions: New hydrocodone-acetaminophen [[place]] 5-325 mg Tablet 1 tab PO Q6 PRN (Reason: pain) Qty: 30 RF: 0 metronidazole [Flagyl] 500 mg tablet 500 mg PO Q8H 40 Days Qty: 120 RF: 0 ceftriaxone 2 gram recon soln 2 gm IV DAILY 40 Days Qty: 40 RF: 0 Continue ranitidine HCl [Zantac] 150 mg tablet 150 mg PO BID RF: 0 ergocalciferol (vitamin D2) [Vitamin D2] 50,000 unit capsule 50,000 unit PO WK RF: 0 naproxen sodium [Aleve] 220 mg Capsule 440 mg PO BID PRN (Reason: Pain) RF: 0 atorvastatin 80 mg tablet 80 mg PO DAILY RF: 0 chlorthalidone 25 mg tablet 25 mg PO DAILY RF: 0 venlafaxine 75 mg capsule,extended release 24hr 75 mg PO DAILY RF: 0 aspirin [Aspir-Low] 81 mg Tablet,Delayed Release (Dr/Ec) 81 mg PO DAILY RF: 0 nifedipine 60 mg tablet extended release 24hr 60 mg PO BID RF: 0 pantoprazole 40 mg tablet,delayed release (DR/EC) 40 mg PO DAILY RF: 0 metoprolol succinate 25 mg tablet extended release 24 hr 25 mg PO DAILY RF: 0 alfuzosin 10 mg tablet extended release 24 hr 10 mg PO DAILY RF: 0 linagliptin 5 mg tablet 5 mg PO DAILY RF: 0 insulin aspart U-100 100 unit/mL solution See Label Instructions .ROUTE .COMPLEX RF: 0 Stand-Alone Forms: [facility], [facility] Discharge Orders: Discharge Order (Routine); Ordered 06/19/18 Ordered By: Sean Jernigan Admission Data Admit Date/Time: 06/10/18 20:14 Attending Provider: Sean Jernigan Admit Provider: Isidoro Paul Primary Care Provider: Edwin Kohli Jr Other Providers: Edwin Bray ; Isidoro Paul ; Angus Alfaro ; Home,Nursing Agency Service: Medical Other Interventions: Discharge Summary Assessment (RN) Last Done: 06/19/18 10:59 DC Date/Time DO NOT enter until pt leaves facility: 06/19/18 11:57
== END 2018-06-19 11:57 | disposition home health service (06) | DRG 496 ==
LOC: ED 14:57 → SUATTDRO 20:14 → 4W 20:14 → 2S 06-11 18:49 → 3N 06-13 11:16
DX: N18.3 Chronic kidney disease, stage 3 (moderate); K81.2 Acute cholecystitis with chronic cholecystitis; L97.329 Non-pressure chronic ulcer of left ankle with unspecified severity; M81.0 Age-related osteoporosis without current pathological fracture; Z96.41 Presence of insulin pump (external) (internal); K21.9 Gastro-esophageal reflux disease without esophagitis; M00.872 Arthritis due to other bacteria, left ankle and foot; G47.33 Obstructive sleep apnea (adult) (pediatric); E87.1 Hypo-osmolality and hyponatremia; L03.116 Cellulitis of left lower limb; E11.40 Type 2 diabetes mellitus with diabetic neuropathy, unspecified; I25.10 Atherosclerotic heart disease of native coronary artery without angina pectoris; I71.2 Thoracic aortic aneurysm, without rupture; E11.21 Type 2 diabetes mellitus with diabetic nephropathy; B96.89 Other specified bacterial agents as the cause of diseases classified elsewhere; E11.621 Type 2 diabetes mellitus with foot ulcer; I12.9 Hypertensive chronic kidney disease with stage 1 through stage 4 chronic kidney disease, or unspecified chronic kidney disease; N40.0 Benign prostatic hyperplasia without lower urinary tract symptoms; Z79.4 Long term (current) use of insulin; B95.61 Methicillin susceptible Staphylococcus aureus infection as the cause of diseases classified elsewhere; Z87.891 Personal history of nicotine dependence

== ENCOUNTER 2019-01-13 10:32 | Inpatient (IN) ==
[2019-01-13] MEDS ORDERED: cefTRIAXone SODIUM 2,000 MG/70 ML BAG IV STA (10:57)
[2019-01-13] MEDS ORDERED: SODIUM CHLORIDE 0.9% 1000ML 1,000 ML IV SCH ×2 (11:00→18:44)
[2019-01-13 11:29] LABS: Basophils # (auto) 0.02 K/uL (0-0.2); Basophils % (auto) 0.2 %; Eosinophils # (auto) 0.12 K/uL (0-0.5); Eosinophils % (auto) 1.4 %; Hematocrit (blood only) 45.5 % (42-52); Hemoglobin 15.8 g/dL (14.0-18.0); Immature Granulocytes # (auto) 0.02 K/uL (0.00-0.02); Immature Granulocytes % (auto) 0.2 %; Lymphocytes # (auto) 1.38 K/uL (1.2-3.4); Lymphocytes % (auto) 16.2 %; Mean Corpuscular Hgb Conc 34.7 g/dL (32-36); Mean Corpuscular Volume 85.4 fL (80-100); Monocytes # (auto) 1.09 K/uL (0.11-0.59); Monocytes % (auto) 12.8 %; Neutrophils # (auto) 5.88 K/uL (1.4-6.5); Neutrophils % (auto) 69.2 %; Platelet Count 198 K/uL (130-400); RDW Coefficient of Variation 13.1 % (11.5-14.5); Red Blood Count 5.33 M/uL (4.7-6.1); White Blood Count 8.51 K/uL (4.8-10.8)
--- NOTE | 2019-01-13 11:30 | XRay Report ---
XR chest 1V portable HISTORY: Shortness of breath. COMPARISON: Chest 01/12/2019. FINDINGS: The lungs are clear. The cardiac silhouette is mildly enlarged. No pleural effusions. No pn eumothorax. IMPRESSION: Mild cardiomegaly. Electronically signed by: Paxton Cruz M.D. 01/13/2019 11:29 AM
[2019-01-13 11:51] LABS: Albumin Level 3.5 gm/dl (3.4-5.0); BUN Creatinine Ratio 15.2 (10-20); Calcium 8.6 mg/dl (8.5-10.1); Creatinine Clr Calc Pharmacy 55.1 ml/min; Est GFR (African American) 49.4; Est GFR (Non-African American) 42.6; Potassium 3.8 mmol/L (3.5-5.1)
[2019-01-13 11:54] LABS: Albumin Globulin Ratio 0.8 (0.9-2); Bilirubin,Total 0.9 mg/dl (0.2-1); C Reactive Protein 13.1 mg/dl (0-0.29); Globulin 4.4 gm/dl (2.5-4.0); Total Protein 7.9 gm/dl (6.4-8.2)
[2019-01-13 12:07] LABS: Appearance Urine Clear (Clear); Bacteria Urine Automated Negative (Negative); Bilirubin Urine Negative (Negative); Blood Urine Negative (Negative); Color Urine Yellow; Glucose Urine UA Negative (Negative); Ketones Urine Negative (Negative); Leukocyte Esterase Urine Negative (Negative); Nitrite Urine Negative (Negative); Protein Urine 3+ (Negative); RBC Urine Automated 0-4 /hpf (0-4); Specific Gravity Urine 1.024 (1.000-1.030); Urobilinogen Urine Negative (Negative); pH Urine 5.5 (4.5-7.5)
--- NOTE | 2019-01-13 12:12 | CT Scan Report ---
CT abd pelvis wo con CT DOSE: 972.13 mGy.cm HISTORY: fever TECHNIQUE: Multiaxial CT images of the abdomen and pelvis were performed without contrast. A dose lo wering technique was utilized adhering to the principles of ALARA. COMPARISON STUDY: 04/08/2009 FINDINGS: The lung bases are clear. The unenhanced liver, spleen, and pancreas. The kidneys, and adre nal glands are within normal limits. No bowel wall thickening or obstruction. The pelvic organs are u nremarkable. No suspicious lytic or blastic osseous lesions. Scattered colonic diverticuli. No eviden ce of diverticulitis. IMPRESSION: No acute process. The above report was generated using voice recognition software. It may contain grammatical, syntax or spelling errors. Electronically signed by: Sim Rodriguez M.D. 01/13/2019 12:10 PM
[2019-01-13] MEDS ORDERED: ACETAMINOPHEN 500 MG TAB PO STA (14:08)
--- NOTE | 2019-01-13 16:33 | History & Physical Report ---
Date of Service January 13, 2019 Assessment & Plan (1) Gram-negative bacterial infection: Patient with 2/2 blood cultures positive for aerobic/anaerobic gram bacilli from yesterday 01/12/19. He describes systemic symptoms consistent with infection x 5 days to include fevers, chills, sweats, rigors. Denies URI symptoms, cough, congestion, abdominal pain, nausea/vomiting/diarrhea/constipation, dysuria, difficulty urinating. He has a chronic ulcer on his left great toe, recent skin grafting, hardware/metal plate in place. Concern that patient's foot is the source of infection, however, no overt evidence of infection on physical exam. Patient had a wound culture from his left foot on 06/10/18 which was polymicrobial (MSSA, prevotella, Bacteroides and Mobiluncus) -Admit to medical floor -Repeat blood cultures sent from ER today - will follow results -XR left toe to assess for possible infection -ID consultation - appreciate assistance with this case Present on Admission?: Yes (2) Fever: Most likely secondary to gram negative bacteremia, source of bacteremia unclear. -Tylenol and Advil PRN for fever control (3) Ulcer of left great toe due to diabetes mellitus: As above -Xray left foot to assess for evidence of infection -Zosyn for now -ID consult as above Present on Admission?: Yes (4) Hypertension: Blood pressure stable at present. -Continue home medications, Nifedipine, Metoprolol, Hydralazine with holding parameters -Hold Chlorthalidone for now Present on Admission?: Yes (5) Hyperlipidemia: Chronic. -Continue Atorvastatin Present on Admission?: Yes (6) Diabetes: Blood sugar elevated at present at 216. Patient with insulin pump in place -Continue insulin pump for now. If poor control will place on hold and manage blood sugars with basal/bolus insulin -CC diet as tolerated -Hold Linagliptin Present on Admission?: Yes (7) CKD (chronic kidney disease) stage 3, GFR 30-59 ml/min: Near baseline renal function. -Avoid nephrotoxic agents -Monitor BUN/Cr, electrolytes and UOP Present on Admission?: Yes (8) BPH (benign prostatic hyperplasia): Chronic. Patient denies urinary symptoms or complatins -Continue Alfuzosin Present on Admission?: Yes (9) GERD (gastroesophageal reflux disease): Chronic. Well controlled -Continue Protonix 40mg po daily F/E/N - NSS at 125mL/hr, monitor electroltyes and replete as needed, CC diet as tolerated Ppx - Ambulation Code - Full Dispo - Admit to medical floor Present on Admission?: Yes History of Present Illness Chief Complaint: Gram-negative bacteremia Primary Care Provider: Edwin Kohli Jr, DO Mr. Trinidad is a pleasant 68-year-old male with history of diabetes with neuropathy and ulcers, Charcot joint, hypertension, hyperlipidemia, CAD, CKD, GERD. Patient reports fevers to 102, chills, Reiger's sweats and body aches ongoing for the past 5 days. Also with complaint of dyspnea on exertion. He was seen in clinic yesterday by Dr. Thurston and was instructed to come to the ER. Work-up in the ER was essentially negative to include negative Lyme, UA and CT angiography of the chest. Symptom thought to be secondary to a viral illness and was discharged home with instructions to manage his symptoms with Tylenol as needed. Patient had blood cultures drawn yesterday in the ER which came back positive for gram-negative rods. He was contacted and instructed to return to the ER. ER course: Ceftriaxone, Tylenol Allergies Allergy/AdvReac Type Severity Reaction Status Date / Time lisinopril AdvReac Cough Verified 01/12/19 15:43 losartan AdvReac Cough Verified 01/12/19 15:43 Home Medications Home Medications Medication Instructions Recorded Confirmed Type alfuzosin 10 mg PO DAILY 02/15/18 01/13/19 History aspirin [Aspir-Low] 81 mg PO DAILY 02/15/18 01/13/19 History atorvastatin 80 mg PO DAILY 02/15/18 01/13/19 History chlorthalidone 25 mg PO DAILY 02/15/18 01/13/19 History insulin aspart U-100 See Rx Instructions .ROUTE .COMPLEX 02/15/18 01/13/19 History linagliptin 5 mg PO DAILY 02/15/18 01/13/19 History metoprolol succinate 25 mg PO DAILY 02/15/18 01/13/19 History pantoprazole 40 mg PO DAILY 02/15/18 01/13/19 History venlafaxine 75 mg PO DAILY 02/15/18 01/13/19 History ergocalciferol (vitamin D2) 50,000 unit PO MONTHLY 06/10/18 01/13/19 History [Vitamin D2] naproxen sodium [Aleve] 440 mg PO BID PRN 06/10/18 01/13/19 History ranitidine HCl [Zantac] 150 mg PO BID 06/10/18 01/13/19 History nifedipine ER 60 mg 60 mg PO DAILY 11/09/18 01/13/19 History tablet,extended release 24 hr hydralazine 25 mg PO BID 01/12/19 01/13/19 History Past Med/Surg History Medical History Charcot's joint, left ankle and foot (Acute) Diabetes mellitus with diabetic polyneuropathy (Acute) Callus (Acute) Acquired claw toe of right foot (Acute) Acquired claw toe of left foot (Acute) Chest pain Neuropathic ulcer of left foot (Acute) Ascending aorta enlargement CAD (coronary artery disease) non-obstructive Difficult intubation Grade 3 view with Mac 4 blade GERD (gastroesophageal reflux disease) Controlled with medication Hyperlipidemia Hypertension MARIYA on CPAP Osteoporosis Surgical History H/O skin graft Hx of foot surgery (Acute) left foot surgery x5 last time 06/18/18 History of laparoscopic cholecystectomy 06/12/18 S/P excision of lipoma S/P foot surgery, left with LMA #5 S/P inguinal hernia repair R at age 6 years of age Family History Other Cancer Heart disease Social History Preferred Language: Czech Communication Ability: Effective Visual Impairment: No Limitations Business Database Analyst Required: No Beliefs That Will Affect Care: Gnosticist Gnosticist Beliefs: Bahai Current Living Situation: Spouse Other Information That Helps Us Care for You: No Feels Safe at Home: Yes Safety Concerns: Feels Safe At This Time Smoking Status: Former smoker Tobacco Type: cigarettes ; Do You Dip or Chew Tobacco: No ; Smoking End Date: >/= 16 years ago, ~ 2016 ; Hx Alcohol Use: Yes Alcohol type: beer Hx Substance Use: No Review of Systems Review of Systems: All systems reviewed & are unremarkable except as noted in HPI & below Patient reports poor sleep Physical Exam Physical Exam: General: patient resting comfortably, NAD, non-toxic in appearance, AA&O x 4 Skin: warm, dry, intact, no rashes or lesions HEENT: NC/AT, PERRL, EOMI, anicteric sclera, conjunctiva without injection, external ear normal to inspection and nontender, nares patent, moist mucus membranes, dentition intact, no oropharyngeal lesions, neck supple, trachea midline, no LAD, no thyromegaly, no JVD Heart: +S1/S2, regular, no m/r/g Lungs: equal air entry bilaterally, no rales/rhonchi/wheezes Abd: +BS, soft, NT/ND, no masses/organomegaly/ascites Ext: warm, 2+ pulses in UE/LE bilaterally, no clubbing/cyanosis or edema, small healing ulcer on right great toe. No erythema, edema, drainage or malodor. Nontender to palpation. No fluctuance. Neuro: nonfocal, patient AA&O x 4, speech intact, no facial droop, moving all extremities on command with equal strength 5/5 Results & Data Vital Signs (Past 12 Hours) Vital Signs Temp Pulse Pulse Resp BP BP Pulse Ox 01/13/19 15:15 37.8 C H 86 17 147/65 H 96 01/13/19 14:18 91 H 16 155/64 H 96 01/13/19 14:06 88 28 H 155/64 H 01/13/19 14:00 89 26 H 01/13/19 13:49 39.5 C H 01/13/19 13:30 91 H 27 H 142/58 H 96 01/13/19 13:00 86 24 153/82 H 99 01/13/19 12:53 37.7 C H 88 22 148/59 H 98 01/13/19 11:39 69 24 158/74 H 99 01/13/19 10:37 37.2 C 68 18 147/69 H 97 Laboratory Results Lab Results 01/13/19 01/13/19 01/13/19 Range/Units 10:58 10:58 10:58 WBC 8.51 (4.8-10.8) K/uL RBC 5.33 (4.7-6.1) M/uL Hgb 15.8 (14.0-18.0) g/dL Hct 45.5 (42-52) % MCV 85.4 (80-100) fL MCH 29.6 (25-34) pg MCHC 34.7 (32-36) g/dL RDW Std Deviation 41.0 (36.4-46.3) fL RDW Coeff of Kyle 13.1 (11.5-14.5) % Plt Count 198 (130-400) K/uL MPV 10.0 (7.4-10.4) fL Immature Gran % (Auto) 0.2 % Neut % (Auto) 69.2 % Lymph % (Auto) 16.2 % Nash % (Auto) 12.8 % Eos % (Auto) 1.4 % Baso % (Auto) 0.2 % Immature Gran # (Auto) 0.02 (0.00-0.02) K/uL Neut # (Auto) 5.88 (1.4-6.5) K/uL Lymph # (Auto) 1.38 (1.2-3.4) K/uL Nash # (Auto) 1.09 H (0.11-0.59) K/uL Eos # (Auto) 0.12 (0-0.5) K/uL Baso # (Auto) 0.02 (0-0.2) K/uL ESR 81 H (0-14) mm/hr PT (9.0-12.0) Seconds INR (0.9-1.1) APTT (21.0-31.0) Seconds PTT Ratio Sodium 135 L (136-145) mmol/L Potassium 3.8 (3.5-5.1) mmol/L Chloride 102 (98-107) mmol/L Carbon Dioxide 27 (21-32) mmol/L Anion Gap 6.0 (3-11) BUN 25 H (7-18) mg/dl Creatinine 1.64 H (0.6-1.4) mg/dl Est Cr Clr Drug Dosing 55.1 ml/min Est GFR ( Amer) 49.4 Est GFR (Non-Af Amer) 42.6 BUN/Creatinine Ratio 15.2 (10-20) Glucose 216 H (70-99) mg/dl POC Glucose (70-99) Calcium 8.6 (8.5-10.1) mg/dl Total Bilirubin 0.9 (0.2-1) mg/dl AST 35 (15-37) U/L ALT 48 (12-78) U/L Alkaline Phosphatase 69 (45-117) U/L C-Reactive Protein 13.10 H (0-0.29) mg/dl Total Protein 7.9 (6.4-8.2) gm/dl Albumin 3.5 (3.4-5.0) gm/dl Globulin 4.4 H (2.5-4.0) gm/dl Albumin/Globulin Ratio 0.8 L (0.9-2) Procalcitonin (0-0.5) ng/ml Urine Color Urine Appearance (Clear) Urine pH (4.5-7.5) Ur Specific [place] (1.000-1.030) Urine Protein (Negative) Urine Glucose (UA) (Negative) Urine Ketones (Negative) Urine Blood (Negative) Urine Nitrite (Negative) Urine Bilirubin (Negative) Urine Urobilinogen (Negative) Ur Leukocyte Esterase (Negative) Urine WBC (Auto) (0-5) /hpf Urine RBC (Auto) (0-4) /hpf U Hyaline Cast (Auto) (0-5) /lpf U Epithel Cells (Auto) (0-5) /lpf Urine Bacteria (Auto) (Negative) Acetaminophen (10-30) ug/ml 01/13/19 01/13/19 01/13/19 Range/Units 10:58 11:43 19:49 WBC (4.8-10.8) K/uL RBC (4.7-6.1) M/uL Hgb (14.0-18.0) g/dL Hct (42-52) % MCV (80-100) fL MCH (25-34) pg MCHC (32-36) g/dL RDW Std Deviation (36.4-46.3) fL RDW Coeff of Kyle (11.5-14.5) % Plt Count (130-400) K/uL MPV (7.4-10.4) fL Immature Gran % (Auto) % Neut % (Auto) % Lymph % (Auto) % Nash % (Auto) % Eos % (Auto) % Baso % (Auto) % Immature Gran # (Auto) (0.00-0.02) K/uL Neut # (Auto) (1.4-6.5) K/uL Lymph # (Auto) (1.2-3.4) K/uL Nash # (Auto) (0.11-0.59) K/uL Eos # (Auto) (0-0.5) K/uL Baso # (Auto) (0-0.2) K/uL ESR (0-14) mm/hr PT (9.0-12.0) Seconds INR (0.9-1.1) APTT (21.0-31.0) Seconds PTT Ratio Sodium (136-145) mmol/L Potassium (3.5-5.1) mmol/L Chloride (98-107) mmol/L Carbon Dioxide (21-32) mmol/L Anion Gap (3-11) BUN (7-18) mg/dl Creatinine (0.6-1.4) mg/dl Est Cr Clr Drug Dosing ml/min Est GFR ( Amer) Est GFR (Non-Af Amer) BUN/Creatinine Ratio (10-20) Glucose (70-99) mg/dl POC Glucose (70-99) Calcium (8.5-10.1) mg/dl Total Bilirubin (0.2-1) mg/dl AST (15-37) U/L ALT (12-78) U/L Alkaline Phosphatase (45-117) U/L C-Reactive Protein (0-0.29) mg/dl Total Protein (6.4-8.2) gm/dl Albumin (3.4-5.0) gm/dl Globulin (2.5-4.0) gm/dl Albumin/Globulin Ratio (0.9-2) Procalcitonin 0.42 (0-0.5) ng/ml Urine Color Yellow Urine Appearance Clear (Clear) Urine pH 5.5 (4.5-7.5) Ur Specific [place] 1.024 (1.000-1.030) Urine Protein 3+ H (Negative) Urine Glucose (UA) Negative (Negative) Urine Ketones Negative (Negative) Urine Blood Negative (Negative) Urine Nitrite Negative (Negative) Urine Bilirubin Negative (Negative) Urine Urobilinogen Negative (Negative) Ur Leukocyte Esterase Negative (Negative) Urine WBC (Auto) 1-5 (0-5) /hpf Urine RBC (Auto) 0-4 (0-4) /hpf U Hyaline Cast (Auto) 1-5 (0-5) /lpf U Epithel Cells (Auto) 5-10 H (0-5) /lpf Urine Bacteria (Auto) Negative (Negative) Acetaminophen < 2 L (10-30) ug/ml 01/13/19 01/13/19 Range/Units 20:59 21:19 WBC (4.8-10.8) K/uL RBC (4.7-6.1) M/uL Hgb (14.0-18.0) g/dL Hct (42-52) % MCV (80-100) fL MCH (25-34) pg MCHC (32-36) g/dL RDW Std Deviation (36.4-46.3) fL RDW Coeff of Kyle (11.5-14.5) % Plt Count (130-400) K/uL MPV (7.4-10.4) fL Immature Gran % (Auto) % Neut % (Auto) % Lymph % (Auto) % Nash % (Auto) % Eos % (Auto) % Baso % (Auto) % Immature Gran # (Auto) (0.00-0.02) K/uL Neut # (Auto) (1.4-6.5) K/uL Lymph # (Auto) (1.2-3.4) K/uL Nash # (Auto) (0.11-0.59) K/uL Eos # (Auto) (0-0.5) K/uL Baso # (Auto) (0-0.2) K/uL ESR (0-14) mm/hr PT 11.0 (9.0-12.0) Seconds INR 1.1 (0.9-1.1) APTT 31.3 H (21.0-31.0) Seconds PTT Ratio 1.2 Sodium (136-145) mmol/L Potassium (3.5-5.1) mmol/L Chloride (98-107) mmol/L Carbon Dioxide (21-32) mmol/L Anion Gap (3-11) BUN (7-18) mg/dl Creatinine (0.6-1.4) mg/dl Est Cr Clr Drug Dosing ml/min Est GFR ( Amer) Est GFR (Non-Af Amer) BUN/Creatinine Ratio (10-20) Glucose (70-99) mg/dl POC Glucose 159 H (70-99) Calcium (8.5-10.1) mg/dl Total Bilirubin (0.2-1) mg/dl AST (15-37) U/L ALT (12-78) U/L Alkaline Phosphatase (45-117) U/L C-Reactive Protein (0-0.29) mg/dl Total Protein (6.4-8.2) gm/dl Albumin (3.4-5.0) gm/dl Globulin (2.5-4.0) gm/dl Albumin/Globulin Ratio (0.9-2) Procalcitonin (0-0.5) ng/ml Urine Color Urine Appearance (Clear) Urine pH (4.5-7.5) Ur Specific [place] (1.000-1.030) Urine Protein (Negative) Urine Glucose (UA) (Negative) Urine Ketones (Negative) Urine Blood (Negative) Urine Nitrite (Negative) Urine Bilirubin (Negative) Urine Urobilinogen (Negative) Ur Leukocyte Esterase (Negative) Urine WBC (Auto) (0-5) /hpf Urine RBC (Auto) (0-4) /hpf U Hyaline Cast (Auto) (0-5) /lpf U Epithel Cells (Auto) (0-5) /lpf Urine Bacteria (Auto) (Negative) Acetaminophen (10-30) ug/ml Diagnostic Findings CT abd pelvis wo con CT DOSE: 972.13 mGy.cm HISTORY: fever TECHNIQUE: Multiaxial CT images of the abdomen and pelvis were performed without contrast. A dose lowering technique was utilized adhering to the principles of ALARA. COMPARISON STUDY: 04/08/2009 FINDINGS: The lung bases are clear. The unenhanced liver, spleen, and pancreas. The kidneys, and adrenal glands are within normal limits. No bowel wall thickening or obstruction. The pelvic organs are unremarkable. No suspicious lytic or blastic osseous lesions. Scattered colonic diverticuli. No evidence of diverticulitis. IMPRESSION: No acute process. The above report was generated using voice recognition software. It may contain grammatical, syntax or spelling errors. Electronically signed by: Sim Rodriguez M.D. 01/13/2019 12:10 PM XR chest 1V portable HISTORY: Shortness of breath. COMPARISON: Chest 01/12/2019. FINDINGS: The lungs are clear. The cardiac silhouette is mildly enlarged. No pleural effusions. No pneumothorax. IMPRESSION: Mild cardiomegaly. Electronically signed by: Paxton Cruz M.D. 01/13/2019 11:29 AM Dictated: 01/13/19 1126 Transcribed: 01/13/19 1126 Code Status & VTE Plan Code Status Full code VTE Prophylaxis Plan VTE Prophylaxis will be ordered: Yes PG Care Time/CCT Total # of Minutes Spent Total Time Spent with Patient: Total time spent is greater than 50% in coordination of care (as documented) at patient's floor/unit and/or counseling patient: (1) BPH (benign prostatic hyperplasia) Lower urinary tract symptom presence: symptoms absent Qualified Code(s): N40.0 - Benign prostatic hyperplasia without lower urinary tract symptoms (2) Fever Fever type: unspecified Qualified Code(s): R50.9 - Fever, unspecified (3) Diabetes Diabetes mellitus complication detail: with unspecified neuropathy Diabetes mellitus complication status: with neurologic complications Diabetes mellitus supervisor costuming insulin use: with care home use Diabetes mellitus type: type 2 Qualified Code(s): E11.40 - Type 2 diabetes mellitus with diabetic neuropathy, unspecified; Z79.4 - USP (current) use of insulin (4) Hyperlipidemia Hyperlipidemia type: unspecified Qualified Code(s): E78.5 - Hyperlipidemia, unspecified (5) GERD (gastroesophageal reflux disease) Esophagitis presence: esophagitis presence not specified Qualified Code(s): K21.9 - Gastro-esophageal reflux disease without esophagitis (6) Hypertension Hypertension type: essential hypertension Qualified Code(s): I10 - Essential (primary) hypertension
--- NOTE | 2019-01-13 18:19 | Emergency Department Note ---
Entered by Rajani Ken acting as a scribe for Lincoln Anaya DO History of Present Illness General Chief complaint: Abnormal Labs/Diagnostic Testing Stated complaint: ABNORMAL LABS Time Seen by Provider: 01/13/19 10:40 Source: patient Mode of arrival: ambulatory Limitations: no limitations History of Present Illness Provider complaint: Fever Onset (ago): day(s) (yesterday) Pain Consistency: + other (worsening) Maximum Pain Intensity: 5 Quality: + other (fever) Associated symptoms: + chest pain (intermittent discomfort), + shortness of breath and + other (Denies: melena, hematochezia, back pain, abdominal pain); no cough, no nausea/vomiting and no rash Treatments prior to arrival: none The patient is a 68 year old male with a history of CAD, diabetes, GERD, hypertension, neuropathy in the left foot, 2 skin grafts on the big toe, 5 foot surgeries, a foot ulcer, and a cholecystectomy who presents to the Emergency Room with complaints of a worsening fever starting yesterday. The patient reports that he went to his PCP yesterday for his fever and was subsequently referred to the ED for blood work. He states that he was called back after he left out of concern for a potential pulmonary embolism. He notes that he received a CT, blood culture, and chest x-ray at this time. The patient reports that he received a call this morning informing him that his blood cultures grew overnight. He states that he was instructed to come in. He currently complains of shortness of breath and intermittent chest discomfort, but he denies any cough, nausea, vomiting, rash, melena, hematochezia, abdominal pain, and back pain. He recalls that his last colonoscopy was a few years ago and looked good. He denies any history of colon cancer. Home Medications Home Medications Medication Instructions Recorded Confirmed Type alfuzosin 10 mg PO DAILY 02/15/18 01/13/19 History aspirin [Aspir-Low] 81 mg PO DAILY 02/15/18 01/13/19 History atorvastatin 80 mg PO DAILY 02/15/18 01/13/19 History chlorthalidone 25 mg PO DAILY 02/15/18 01/13/19 History insulin aspart U-100 See Rx Instructions .ROUTE .COMPLEX 02/15/18 01/13/19 History linagliptin 5 mg PO DAILY 02/15/18 01/13/19 History metoprolol succinate 25 mg PO DAILY 02/15/18 01/13/19 History pantoprazole 40 mg PO DAILY 02/15/18 01/13/19 History venlafaxine 75 mg PO DAILY 02/15/18 01/13/19 History ergocalciferol (vitamin D2) 50,000 unit PO MONTHLY 06/10/18 01/13/19 History [Vitamin D2] naproxen sodium [Aleve] 440 mg PO BID PRN 06/10/18 01/13/19 History ranitidine HCl [Zantac] 150 mg PO BID 06/10/18 01/13/19 History nifedipine ER 60 mg 60 mg PO DAILY 11/09/18 01/13/19 History tablet,extended release 24 hr hydralazine 25 mg PO BID 01/12/19 01/13/19 History Allergies Allergy/AdvReac Type Severity Reaction Status Date / Time lisinopril AdvReac Cough Verified 01/12/19 15:43 losartan AdvReac Cough Verified 01/12/19 15:43 Past Med/Surg History Medical History Charcot's joint, left ankle and foot (Acute) Diabetes mellitus with diabetic polyneuropathy (Acute) Callus (Acute) Acquired claw toe of right foot (Acute) Acquired claw toe of left foot (Acute) Chest pain Foot ulcer Neuropathic ulcer of left foot (Acute) Ascending aorta enlargement CAD (coronary artery disease) non-obstructive Difficult intubation Grade 3 view with Mac 4 blade GERD (gastroesophageal reflux disease) Controlled with medication Hyperlipidemia Hypertension IDDM (insulin dependent diabetes mellitus) Neuropathy MARIYA on CPAP Osteoporosis Surgical History H/O skin graft Hx of foot surgery (Acute) left foot surgery x5 last time 06/18/18 History of laparoscopic cholecystectomy 06/12/18 S/P excision of lipoma S/P foot surgery, left with LMA #5 S/P inguinal hernia repair R at age 6 years of age Family History Other Cancer Heart disease Social History Preferred Language: [place] Communication Ability: Effective Visual Impairment: No Limitations Rush Seater Required: No Beliefs That Will Affect Care: Hinduism Hinduism Beliefs: Episcopalian Current Living Situation: Spouse Feels Safe at Home: Yes Smoking Status: Former smoker Hx Alcohol Use: Yes Alcohol type: beer Hx Substance Use: No Review of Systems See HPI for pertinent positives & negatives. and A total of 10 systems reviewed and were otherwise negative Physical Exam Vital Signs Vital Signs - 24 hr 01/13/19 10:37 01/13/19 11:39 01/13/19 12:53 Temperature 37.2 C 37.7 C H Temperature Source Oral Oral Sepsis Recent Fever Within 48 Hours Yes Sepsis New/Unexplained Change in Mental Status No Sepsis Action Taken by Nursing No Action Required Pulse Rate 68 Pulse Rate [Apical] 69 88 Pulse Rate from SpO2 Sensor Pulse Rhythm [Apical] Regular Respiratory Rate 18 24 22 Respiratory Effort / Characteristics Non-Labored Non-Labored Respiratory Depth Normal Normal Respiratory Pattern Regular Regular Blood Pressure 147/69 H Blood Pressure [Left Arm] 158/74 H 148/59 H Blood Pressure Mean 95 Blood Pressure Mean [Left Arm] 102 88 Blood Pressure Position Sitting Blood Pressure Position [Left Arm] Sitting Pulse Oximetry 97 99 98 Oxygen Delivery Method Room Air Room Air Room Air 01/13/19 13:00 01/13/19 13:30 01/13/19 13:49 Temperature 39.5 C H Temperature Source Oral Sepsis Recent Fever Within 48 Hours Sepsis New/Unexplained Change in Mental Status Sepsis Action Taken by Nursing Pulse Rate 86 91 H Pulse Rate [Apical] Pulse Rate from SpO2 Sensor 85 92 H Pulse Rhythm [Apical] Respiratory Rate 24 27 H Respiratory Effort / Characteristics Respiratory Depth Respiratory Pattern Blood Pressure 153/82 H 142/58 H Blood Pressure [Left Arm] Blood Pressure Mean 105 86 Blood Pressure Mean [Left Arm] Blood Pressure Position Blood Pressure Position [Left Arm] Pulse Oximetry 99 96 Oxygen Delivery Method 01/13/19 14:00 01/13/19 14:06 01/13/19 14:18 Temperature Temperature Source Sepsis Recent Fever Within 48 Hours Sepsis New/Unexplained Change in Mental Status Sepsis Action Taken by Nursing Pulse Rate 89 88 Pulse Rate [Apical] 91 H Pulse Rate from SpO2 Sensor Pulse Rhythm [Apical] Regular Respiratory Rate 26 H 28 H 16 Respiratory Effort / Characteristics Non-Labored Respiratory Depth Normal Respiratory Pattern Regular Blood Pressure 155/64 H Blood Pressure [Left Arm] 155/64 H Blood Pressure Mean 94 Blood Pressure Mean [Left Arm] 94 Blood Pressure Position Blood Pressure Position [Left Arm] Sitting Pulse Oximetry 96 Oxygen Delivery Method Room Air 01/13/19 14:30 01/13/19 15:00 01/13/19 15:15 Temperature 37.8 C H Temperature Source Oral Sepsis Recent Fever Within 48 Hours Sepsis New/Unexplained Change in Mental Status Sepsis Action Taken by Nursing Pulse Rate 86 84 Pulse Rate [Apical] 86 Pulse Rate from SpO2 Sensor 85 83 Pulse Rhythm [Apical] Regular Respiratory Rate 27 H 23 17 Respiratory Effort / Characteristics Non-Labored Respiratory Depth Normal Respiratory Pattern Regular Blood Pressure 147/66 H 147/65 H Blood Pressure [Left Arm] 147/65 H Blood Pressure Mean 93 92 Blood Pressure Mean [Left Arm] 92 Blood Pressure Position Blood Pressure Position [Left Arm] Sitting Pulse Oximetry 95 96 96 Oxygen Delivery Method Room Air 01/13/19 15:30 01/13/19 16:00 01/13/19 16:30 Temperature Temperature Source Sepsis Recent Fever Within 48 Hours Sepsis New/Unexplained Change in Mental Status Sepsis Action Taken by Nursing Pulse Rate 83 76 75 Pulse Rate [Apical] Pulse Rate from SpO2 Sensor 83 76 77 Pulse Rhythm [Apical] Respiratory Rate 20 21 18 Respiratory Effort / Characteristics Respiratory Depth Respiratory Pattern Blood Pressure 130/63 137/60 146/61 H Blood Pressure [Left Arm] Blood Pressure Mean 85 85 89 Blood Pressure Mean [Left Arm] Blood Pressure Position Blood Pressure Position [Left Arm] Pulse Oximetry 94 97 96 Oxygen Delivery Method 01/13/19 17:00 01/13/19 17:30 Temperature 37.7 C H Temperature Source Oral Sepsis Recent Fever Within 48 Hours Sepsis New/Unexplained Change in Mental Status Sepsis Action Taken by Nursing Pulse Rate 76 81 Pulse Rate [Apical] Pulse Rate from SpO2 Sensor 76 81 Pulse Rhythm [Apical] Respiratory Rate 24 27 H Respiratory Effort / Characteristics Respiratory Depth Respiratory Pattern Blood Pressure 141/77 H 121/68 Blood Pressure [Left Arm] Blood Pressure Mean 98 85 Blood Pressure Mean [Left Arm] Blood Pressure Position Blood Pressure Position [Left Arm] Pulse Oximetry 96 95 Oxygen Delivery Method GENERAL: Patient is awake, alert, and in no acute distress.Patient is resting comfortably and showing no signs of anxiety EYES: The conjunctivae are clear. The pupils are round and reactive. EARS, NOSE, MOUTH AND THROAT: The nose is without any evidence of any deformity. Mucous membranes are moist.Tongue is midline NECK: The neck is nontender and supple. RESPIRATORY: Normal respiratory effort is noted. There is no evidence of wheezin g rhonchi or rales to auscultation. CARDIOVASCULAR: Regular rate and rhythm noted. There no murmurs rubs or gallops normal S1 normal S2 GASTROINTESTINAL: The abdomen is soft. Bowel sounds are present in all quadrants. Abdomen is nontender. BACK: No midline tenderness or or step-off noted range of motion in flexion extension as well as rotation no signs of muscle spasm noted. MUSCULOSKELETAL/EXTREMITIES: There is no evidence of gross deformity. Full range of motion is noted in the hips and shoulders. SKIN: There are no petechiae, pallor or cyanosis noted. No pedal edema, no rash. Right great toe has a linear ulceration. There is no erythema, streaking, or drainage noted. NEUROLOGIC: Patient is awake alert and oriented x3. Strength is symmetric. Patellar reflexes are 2+ bilaterally. Course 1046: The patient was evaluated in room C3, and a complete history and physical examination were performed. 1415: I checked on the patient and updated him on his results. 1418: I reviewed the patient's case with Dr. Parker Roach, [facility]. Dr. Canales will evaluate the patient for further management. Consultations Consultation #1: I reviewed the patient's case with Dr. Parker Roach, [facility]. Dr. Canales will evaluate the patient for further management. Time: 14:18 Administered Medications Discontinued Medications Acetaminophen (Tylenol) 1,000 mg PO NOW STA Stop: 01/13/19 14:09 Last Admin: 01/13/19 14:17 Dose: 1,000 mg Documented by: [id number] Sodium Chloride (Nss 1000ml) 1,000 mls @ 999 mls/hr IV .Q1H1M CHELLY Stop: 01/13/19 12:00 Last Infusion: 01/13/19 12:52 Dose: 0 mls/hr Documented by: [id number] Admin: 01/13/19 11:41 Dose: 999 mls/hr Documented by: [id number] Ceftriaxone Sodium (Rocephin) 2,000 mg in 70 mls @ 140 mls/hr IV NOW STA Stop: 01/13/19 11:26 Last Infusion: 01/13/19 12:12 Dose: 0 mls/hr Documented by: [id number] Admin: 01/13/19 11:42 Dose: 140 mls/hr Documented by: [id number] Medical Decision Making Differential Diagnosis Differential diagnosis: Etiologies such as viral syndrome, otitis, pharyngitis, pneumonia, influenza, meningitis, urinary tract infection, sepsis, bacteremia, as well as others were entertained. Medical Records Attestation: I reviewed the patient's medical records. Home Medications Current Medication List: was personally reviewed by me Laboratory Data Attestation: I reviewed the patient's lab results. Result diagrams: 01/13/19 10:58 01/13/19 10:58 Lab Results 01/13/19 01/13/19 01/13/19 Range/Units 10:58 10:58 10:58 WBC 8.51 (4.8-10.8) K/uL RBC 5.33 (4.7-6.1) M/uL Hgb 15.8 (14.0-18.0) g/dL Hct 45.5 (42-52) % MCV 85.4 (80-100) fL MCH 29.6 (25-34) pg MCHC 34.7 (32-36) g/dL RDW Std Deviation 41.0 (36.4-46.3) fL RDW Coeff of Kyle 13.1 (11.5-14.5) % Plt Count 198 (130-400) K/uL MPV 10.0 (7.4-10.4) fL Immature Gran % (Auto) 0.2 % Neut % (Auto) 69.2 % Lymph % (Auto) 16.2 % Grand % (Auto) 12.8 % Eos % (Auto) 1.4 % Baso % (Auto) 0.2 % Immature Gran # (Auto) 0.02 (0.00-0.02) K/uL Neut # (Auto) 5.88 (1.4-6.5) K/uL Lymph # (Auto) 1.38 (1.2-3.4) K/uL Grand # (Auto) 1.09 H (0.11-0.59) K/uL Eos # (Auto) 0.12 (0-0.5) K/uL Baso # (Auto) 0.02 (0-0.2) K/uL ESR 81 H (0-14) mm/hr Sodium 135 L (136-145) mmol/L Potassium 3.8 (3.5-5.1) mmol/L Chloride 102 (98-107) mmol/L Carbon Dioxide 27 (21-32) mmol/L Anion Gap 6.0 (3-11) BUN 25 H (7-18) mg/dl Creatinine 1.64 H (0.6-1.4) mg/dl Est Cr Clr Drug Dosing 55.1 ml/min Est GFR ( Amer) 49.4 Est GFR (Non-Af Amer) 42.6 BUN/Creatinine Ratio 15.2 (10-20) Glucose 216 H (70-99) mg/dl Calcium 8.6 (8.5-10.1) mg/dl Total Bilirubin 0.9 (0.2-1) mg/dl AST 35 (15-37) U/L ALT 48 (12-78) U/L Alkaline Phosphatase 69 (45-117) U/L C-Reactive Protein 13.10 H (0-0.29) mg/dl Total Protein 7.9 (6.4-8.2) gm/dl Albumin 3.5 (3.4-5.0) gm/dl Globulin 4.4 H (2.5-4.0) gm/dl Albumin/Globulin Ratio 0.8 L (0.9-2) Procalcitonin (0-0.5) ng/ml Urine Color Urine Appearance (Clear) Urine pH (4.5-7.5) Ur Specific [place] (1.000-1.030) Urine Protein (Negative) Urine Glucose (UA) (Negative) Urine Ketones (Negative) Urine Blood (Negative) Urine Nitrite (Negative) Urine Bilirubin (Negative) Urine Urobilinogen (Negative) Ur Leukocyte Esterase (Negative) Urine WBC (Auto) (0-5) /hpf Urine RBC (Auto) (0-4) /hpf U Hyaline Cast (Auto) (0-5) /lpf U Epithel Cells (Auto) (0-5) /lpf Urine Bacteria (Auto) (Negative) 01/13/19 01/13/19 Range/Units 10:58 11:43 WBC (4.8-10.8) K/uL RBC (4.7-6.1) M/uL Hgb (14.0-18.0) g/dL Hct (42-52) % MCV (80-100) fL MCH (25-34) pg MCHC (32-36) g/dL RDW Std Deviation (36.4-46.3) fL RDW Coeff of Kyle (11.5-14.5) % Plt Count (130-400) K/uL MPV (7.4-10.4) fL Immature Gran % (Auto) % Neut % (Auto) % Lymph % (Auto) % Grand % (Auto) % Eos % (Auto) % Baso % (Auto) % Immature Gran # (Auto) (0.00-0.02) K/uL Neut # (Auto) (1.4-6.5) K/uL Lymph # (Auto) (1.2-3.4) K/uL Grand # (Auto) (0.11-0.59) K/uL Eos # (Auto) (0-0.5) K/uL Baso # (Auto) (0-0.2) K/uL ESR (0-14) mm/hr Sodium (136-145) mmol/L Potassium (3.5-5.1) mmol/L Chloride (98-107) mmol/L Carbon Dioxide (21-32) mmol/L Anion Gap (3-11) BUN (7-18) mg/dl Creatinine (0.6-1.4) mg/dl Est Cr Clr Drug Dosing ml/min Est GFR ( Amer) Est GFR (Non-Af Amer) BUN/Creatinine Ratio (10-20) Glucose (70-99) mg/dl Calcium (8.5-10.1) mg/dl Total Bilirubin (0.2-1) mg/dl AST (15-37) U/L ALT (12-78) U/L Alkaline Phosphatase (45-117) U/L C-Reactive Protein (0-0.29) mg/dl Total Protein (6.4-8.2) gm/dl Albumin (3.4-5.0) gm/dl Globulin (2.5-4.0) gm/dl Albumin/Globulin Ratio (0.9-2) Procalcitonin 0.42 (0-0.5) ng/ml Urine Color Yellow Urine Appearance Clear (Clear) Urine pH 5.5 (4.5-7.5) Ur Specific [place] 1.024 (1.000-1.030) Urine Protein 3+ H (Negative) Urine Glucose (UA) Negative (Negative) Urine Ketones Negative (Negative) Urine Blood Negative (Negative) Urine Nitrite Negative (Negative) Urine Bilirubin Negative (Negative) Urine Urobilinogen Negative (Negative) Ur Leukocyte Esterase Negative (Negative) Urine WBC (Auto) 1-5 (0-5) /hpf Urine RBC (Auto) 0-4 (0-4) /hpf U Hyaline Cast (Auto) 1-5 (0-5) /lpf U Epithel Cells (Auto) 5-10 H (0-5) /lpf Urine Bacteria (Auto) Negative (Negative) Imaging Data Radiologist's Impression: Radiology results as stated below per my review and the radiologist's interpretation: XR chest 1V portable HISTORY: Shortness of breath. COMPARISON: Chest 01/12/2019. FINDINGS: The lungs are clear. The cardiac silhouette is mildly enlarged. No pleural effusions. No pneumothorax. IMPRESSION: Mild cardiomegaly. Electronically signed by: Paxton Cruz M.D. 01/13/2019 11:[address] abd pelvis wo con CT DOSE: 972.13 mGy.cm HISTORY: fever TECHNIQUE: Multiaxial CT images of the abdomen and pelvis were performed without contrast. A dose lowering technique was utilized adhering to the principles of ALARA. COMPARISON STUDY: 04/08/2009 FINDINGS: The lung bases are clear. The unenhanced liver, spleen, and pancreas. The kidneys, and adrenal glands are within normal limits. No bowel wall thickening or obstruction. The pelvic organs are unremarkable. No suspicious lytic or blastic osseous lesions. Scattered colonic diverticuli. No evidence of diverticulitis. IMPRESSION: No acute process. The above report was generated using voice recognition software. It may contain grammatical, syntax or spelling errors. Electronically signed by: Sim Rodriguez M.D. 01/13/2019 12:10 PM Blood Pressure Blood Pressure Findings: Elevated blood pressure Blood Pressure Disposition: further management by hospitalist [facility] Narrative The patient is a 68-year-old male who presented to the emergency department because of a positive blood culture. The patient was seen in our facility yesterday with generalized illness. He had an outpatient d-dimer by his primary care physician and sent to the emergency department for further work-up. While he was in the emergency department he was found to have signs of possible infection so blood cultures were drawn. The patient was found to have gram- negative bacilli in his blood cultures. For this reason he was called by our department and asked to come back to the emergency department. The patient does not have a definite source for this bacteremia. His urinalysis does not show any signs of infection. He does have a chronic wound on his left great toe but this does not appear to be actively infected at this time. There is no erythema or drainage. It is difficult to ascertain the cause of this gentlemen's gram- negative bacteremia so he was started on IV anabiotic's. I discussed his case with the on-call [facility] hospitalist group. They have agreed to evaluate patient in the emergency department for further management disposition. The patient was reevaluated multiple times. I discussed the patient's laboratory and radiographic studies with him. Impression & Plan Gram-negative bacterial infection, Fever Discharge Plan Visit Data Chief Complaint: Abnormal Labs/Diagnostic Testing Stated Complaint: ABNORMAL LABS ED Provider: Lincoln Anaya Discharge Problem: Gram-negative bacterial infection, Fever Patient Disposition: Admitted As Inpatient Forms Stand Alone Forms: My [facility] Prescriptions Prescriptions: No Action nifedipine 60 mg tablet extended release 24hr 60 mg PO DAILY RF: 0 ranitidine HCl [Zantac] 150 mg tablet 150 mg PO BID RF: 0 ergocalciferol (vitamin D2) [Vitamin D2] 50,000 unit capsule 50,000 unit PO MONTHLY RF: 0 naproxen sodium [Aleve] 220 mg Capsule 440 mg PO BID PRN (Reason: Pain) RF: 0 hydralazine 25 mg tablet 25 mg PO BID RF: 0 atorvastatin 80 mg tablet 80 mg PO DAILY RF: 0 chlorthalidone 25 mg tablet 25 mg PO DAILY RF: 0 venlafaxine 75 mg capsule,extended release 24hr 75 mg PO DAILY RF: 0 aspirin [Aspir-Low] 81 mg Tablet,Delayed Release (Dr/Ec) 81 mg PO DAILY RF: 0 pantoprazole 40 mg tablet,delayed release (DR/EC) 40 mg PO DAILY RF: 0 metoprolol succinate 25 mg tablet extended release 24 hr 25 mg PO DAILY RF: 0 alfuzosin 10 mg tablet extended release 24 hr 10 mg PO DAILY RF: 0 linagliptin 5 mg tablet 5 mg PO DAILY RF: 0 insulin aspart U-100 100 unit/mL solution See Rx Instructions .ROUTE .COMPLEX RF: 0 Referrals Referrals: Edwin Kohli Jr, DO [Primary Care Provider] - Discharge Problem: Fever Qualifiers: Fever type: unspecified Qualified Code(s): R50.9 - Fever, unspecified The scribe's documentation has been prepared under my direction and personally reviewed by me in its entirety. I confirm that the note above accurately reflect s all work, treatment, procedures, and medical decision making performed by me.
[2019-01-13] MEDS ORDERED: PIPERACILL/TAZOBAC CONSULT ACTIVE PRN (18:44)
[2019-01-13] MEDS ORDERED: CARBOHYDRATES FOR HYPOGLYCEMIA PO PRN ×2 (18:44→20:30)
[2019-01-13] MEDS ORDERED: DEXTROSE 50% 50 ML SYRINGE IV PRN ×2 (18:44→20:30)
[2019-01-13] MEDS ORDERED: NON-FORMULARY MEDICATION (Insulin Aspart Per Unit 0 UNITS) SCH (18:44)
[2019-01-13] MEDS ORDERED: GLUCOSE 10 TABS/TUBE PO PRN ×2 (18:44→20:30)
[2019-01-13] MEDS ORDERED: GLUCOSE 40% GEL 15 GM TUBE PO PRN ×2 (18:44→20:30)
[2019-01-13] MEDS ORDERED: GLUCAGON FOR INJ 1 MG VIAL SQ PRN ×2 (18:44→20:30)
[2019-01-13] MEDS ORDERED: ACETAMINOPHEN 325 MG TAB PO PRN (18:44)
[2019-01-13] MEDS ORDERED: IBUPROFEN 600 MG TAB PO PRN (18:44)
[2019-01-13] MEDS ORDERED: PIPERACILLIN/TAZOBACTAM 4.5 GM in DEXTROSE 5% 100 ML IV SCH (20:00)
[2019-01-13] MEDS ORDERED: INSULIN ASPART 100 UNITS/ML VIAL SC PRN (20:30)
[2019-01-13 21:24] LABS: INR 1.1 (0.9-1.1); Partial Thromboplastin Ratio 1.2; Partial Thromboplastin Time 31.3 Seconds (21.0-31.0)
--- NOTE | 2019-01-13 21:48 | XRay Report ---
XR foot LT min 3V routine CLINICAL HISTORY: Bacteremia, assess hardware, ?infection COMPARISON: Left foot radiographs June 10, 2018 and MRI of the left foot June 13, 2018. FINDINGS: Note is made of a left first metatarsophalangeal joint fusion. The hardware is intact. The re is no radiographic evidence for osteomyelitis. Subtle lucency adjacent to the hardware is unchange d since radiographs of April 09, 2015. No acute fracture is present. There are no unexpected radio paque foreign bodies. Tarsometatarsal joints are intact. IMPRESSION: No acute fracture or radiographic evidence of osteomyelitis within the left foot. Electronically signed by: Amol Grossman M.D. 01/13/2019 9:47 PM
[2019-01-13] MEDS: NovoLOG INSULIN PUMP SCH (22:13)
[2019-01-13] MEDS: ENOXAPARIN INJ 40 MG/0.4 ML SYR SQ SCH (22:37)
[2019-01-14] MEDS: PIPERACILLIN/TAZOBACTAM 3.375 GM in DEXTROSE 5% 100 ML IV SCH ×3 (02:39→17:15)
[2019-01-14] MEDS: VENLAFAXINE HCL XR 75 MG CAPXR PO SCH (08:05)
[2019-01-14] MEDS: ASPIRIN 81 MG ECTAB PO SCH (08:05)
[2019-01-14] MEDS: NIFEdipine EXTENDED REL 30 MG TABCR PO SCH (08:05)
[2019-01-14] MEDS: ATORVASTATIN 40 MG TAB PO SCH (08:05)
[2019-01-14] MEDS: METOPROLOL SUCC 25MG EXT REL TAB PO SCH (08:06)
[2019-01-14] MEDS: PANTOprazole 40 MG TAB PO SCH (08:06)
[2019-01-14] MEDS: ALFUZOSIN HCL 10 MG TAB PO SCH (08:06)
[2019-01-14] MEDS: NovoLOG INSULIN PUMP SCH ×4 (09:12→20:37)
--- NOTE | 2019-01-14 09:49 | Infectious Disease Consult ---
Date of Consultation January 14, 2019 Assessment & Plan (1) Gram negative sepsis: 68-year-old male with acute onset of gram-negative bacteremia, does not appear to have active foot infection to explain positive blood cultures. Isolate is non-lactose fermenting gram-negative gopal, appears non-pseudomonal. Wonder about possibility of Salmonella infection. For now, appears to be clinically responding to Zosyn, so would continue until identification and sensitivities available. This will hopefully help explain source of infection. Will follow. History of Present Illness Reason for Consultation: Gram-negative bacteremia Attending Physician: Lianna Canales DO History of Present Illness 68-year-old male well-known to me from care at the wound care center, with history of diabetes, hypertension, hyperlipidemia, diabetic foot ulcerations, with recent left great toe ulceration, status post skin grafting. He was well until approximately 4 to 5 days ago when he developed acute onset of fever, chills, sweats, and fatigue. Was evaluated by his primary care physician and sent to the hospital for further evaluation. Blood cultures were drawn in the emergency room, and patient was called back when reported positive for gram- negative bacilli. Patient has been started empirically on Zosyn. He states that he feels entirely well now, fever has normalized, no cough, abdominal complaints, urinary complaints, rash, or other systemic complaints. No other significant travel or exposure history. Allergies Allergy/AdvReac Type Severity Reaction Status Date / Time lisinopril AdvReac Cough Verified 01/12/19 15:43 losartan AdvReac Cough Verified 01/12/19 15:43 Home Medications Home Medications Medication Instructions Recorded Confirmed Type alfuzosin 10 mg PO DAILY 02/15/18 01/13/19 History aspirin [Aspir-Low] 81 mg PO DAILY 02/15/18 01/13/19 History atorvastatin 80 mg PO DAILY 02/15/18 01/13/19 History chlorthalidone 25 mg PO DAILY 02/15/18 01/13/19 History insulin aspart U-100 See Rx Instructions .ROUTE .COMPLEX 02/15/18 01/13/19 History linagliptin 5 mg PO DAILY 02/15/18 01/13/19 History metoprolol succinate 25 mg PO DAILY 02/15/18 01/13/19 History pantoprazole 40 mg PO DAILY 02/15/18 01/13/19 History venlafaxine 75 mg PO DAILY 02/15/18 01/13/19 History ergocalciferol (vitamin D2) 50,000 unit PO MONTHLY 06/10/18 01/13/19 History [Vitamin D2] naproxen sodium [Aleve] 440 mg PO BID PRN 06/10/18 01/13/19 History ranitidine HCl [Zantac] 150 mg PO BID 06/10/18 01/13/19 History nifedipine ER 60 mg 60 mg PO DAILY 11/09/18 01/13/19 History tablet,extended release 24 hr hydralazine 25 mg PO BID 01/12/19 01/13/19 History Patient History Medical History Charcot's joint, left ankle and foot (Acute) Diabetes mellitus with diabetic polyneuropathy (Acute) Callus (Acute) Acquired claw toe of right foot (Acute) Acquired claw toe of left foot (Acute) Chest pain Neuropathic ulcer of left foot (Acute) Ascending aorta enlargement CAD (coronary artery disease) non-obstructive Difficult intubation Grade 3 view with Mac 4 blade GERD (gastroesophageal reflux disease) Controlled with medication Hyperlipidemia Hypertension MARIYA on CPAP Osteoporosis Surgical History H/O skin graft Hx of foot surgery (Acute) left foot surgery x5 last time 06/18/18 History of laparoscopic cholecystectomy 06/12/18 S/P excision of lipoma S/P foot surgery, left with LMA #5 S/P inguinal hernia repair R at age 6 years of age Family History Other Cancer Heart disease Social History Preferred Language: [place]i Communication Ability: Effective Visual Impairment: No Limitations Single Ending Machine Operator Required: No Beliefs That Will Affect Care: Holiness Holiness Beliefs: Advent Current Living Situation: Spouse Other Information That Helps Us Care for You: No Feels Safe at Home: Yes Safety Concerns: Feels Safe At This Time Smoking Status: Former smoker Tobacco Type: cigarettes ; Do You Dip or Chew To bacco: No ; Smoking End Date: >/= 16 years ago, ~ 2015 ; Hx Alcohol Use: Yes Alcohol type: beer Hx Substance Use: No Review of Systems Review of Systems: All systems reviewed & are unremarkable except as noted in HPI & below Physical Exam Constitutional: WD/WN, vitals as above comfortable; no acute distress Eyes: PERRL, conjunctivae normal, anicteric sclerae ENMT: external ear and nose normal, oropharynx normal Neck: trachea midline, no thyromegaly neck nontender Respiratory: normal respiratory effort, lungs clear to auscultation normal percussion; does not use accessory muscles Cardiovascular: Rate/Rhythm: regular rate and regular rhythm Heart Sounds: normal S1 and normal S2; no gallop, no murmur and no cardiac rub Vessels: normal peripheral pulses; no JVD Gastrointestinal (Abdomen): normal bowel sounds, soft, nontender, no hepatosplenomegaly Musculoskeletal: no cyanosis or clubbing, extremities motor strength 5/5 Spine: thoracic spine normal to inspection and lumbar spine normal to inspection; no cervical spinal tenderness Skin: no rashes, warm and dry normal turgor and + wound (Left great toe, no evidence of cellulitis or drainage) Neurologic: patellar DTR's 2+ bilat, sensation intact no focal motor deficits Psychiatric: A+Ox3, euthymic affect Orientation: cooperative Lymphatic: no cervical or axillary lymphadenopathy no inguinal lymphadenopathy Results & Data Vital Signs (Past 12 Hours) Vital Signs Temp Pulse Resp BP Pulse Ox 01/14/19 07:11 36.5 C 50 L 16 157/70 H 95 01/14/19 00:00 36.8 C 61 18 145/67 H 97 Laboratory Results Short CBC 01/13/19 Range/Units 10:58 WBC 8.51 (4.8-10.8) K/uL Hgb 15.8 (14.0-18.0) g/dL Hct 45.5 (42-52) % Plt Count 198 (130-400) K/uL BMP 01/13/19 10:58 Sodium 135 L Potassium 3.8 Chloride 102 Carbon Dioxide 27 BUN 25 H Creatinine 1.64 H Glucose 216 H Calcium 8.6 Liver Function 01/13/19 Range/Units 10:58 Total Bilirubin 0.9 (0.2-1) mg/dl AST 35 (15-37) U/L ALT 48 (12-78) U/L Alkaline Phosphatase 69 (45-117) U/L Albumin 3.5 (3.4-5.0) gm/dl Urine 01/13/19 Range/Units 11:43 Urine Color Yellow Urine Appearance Clear (Clear) Urine pH 5.5 (4.5-7.5) Ur Specific [place] 1.024 (1.000-1.030) Urine Protein 3+ H (Negative) Urine Glucose (UA) Negative (Negative) Diagnostic Findings Microbiology 01/13/19 10:58 Blood Aerobic Blood Culture - Preliminary Gram negative bacilli 01/13/19 10:58 Blood Anaerobic Blood Culture - Preliminary Gram negative bacilli 01/13/19 11:19 Blood Aerobic Blood Culture - Preliminary Gram negative bacilli 01/13/19 11:19 Blood Anaerobic Blood Culture - Preliminary Gram negative bacilli XR foot LT min 3V routine CLINICAL HISTORY: Bacteremia, assess hardware, ?infection COMPARISON: Left foot radiographs June 10, 2018 and MRI of the left foot June 13, 2018. FINDINGS: Note is made of a left first metatarsophalangeal joint fusion. The hardware is intact. There is no radiographic evidence for osteomyelitis. Subtle lucency adjacent to the hardware is unchanged since radiographs of April 09, 2015. No acute fracture is present. There are no unexpected radiopaque foreign bodies. Tarsometatarsal joints are intact. IMPRESSION: No acute fracture or radiographic evidence of osteomyelitis within the left foot. Electronically signed by: Amol Grossman M.D. 01/13/2019 9:47 PM Dictated: 01/13/192140 Transcribed: 01/13/192140 PG Care Time/CCT Total # of Minutes Spent Total Time Spent with Patient: Total time spent is greater than 50% in coordination of care (as documented) at patient's floor/unit and/or counseling patient:
--- NOTE | 2019-01-14 14:28 | Hospitalist Progress Note ---
Date of Service January 14, 2019 Assessment & Plan (1) Gram-negative bacterial infection: Continue admit to inpatient . Vital signs every 4 hours blood cultures positive for aerobic/anaerobic gram bacilli from yesterday 01/12/19. Continue Zosyn Followed by infectious diseases Dr. Shelley Repeat blood cultures sent from ER yesterday confirmed positive blood culture for GNR as the previous blood cultures XR left toe to assess for possible infection-no signs of infection DVT prophylaxis with Lovenox 40 mg subcu every 24 Full code (2) Fever: Most likely secondary to gram negative bacteremia, source of bacteremia unclear. -Tylenol and Advil PRN for fever control (3) Ulcer of left great toe due to diabetes mellitus: As above -Xray left foot to assess for evidence of infection -Zosyn for now -ID consult as above (4) Hypertension: Blood pressure stable at present. -Continue home medications, Nifedipine, Metoprolol, Hydralazine with holding parameters -Hold Chlorthalidone for now (5) Hyperlipidemia: Chronic. -Continue Atorvastatin (6) Diabetes: Blood sugar elevated at present at 216. Patient with insulin pump in place -Continue insulin pump for now. If poor control will place on hold and manage blood sugars with basal/bolus insulin -CC diet as tolerated -Hold Linagliptin (7) CKD (chronic kidney disease) stage 3, GFR 30-59 ml/min: Near baseline renal function. -Avoid nephrotoxic agents -Monitor BUN/Cr, electrolytes and UOP (8) BPH (benign prostatic hyperplasia): Chronic. Patient denies urinary symptoms or complatins -Continue Alfuzosin (9) GERD (gastroesophageal reflux disease): Chronic. Well controlled -Continue Protonix 40mg po daily F/E/N - NSS at 125mL/hr, monitor electroltyes and replete as needed, CC diet as tolerated Ppx - Ambulation Code - Full Dispo - Admit to medical floor Subjective Patient seen and examined at the bedside. Afebrile. Resting comfortably in bed.Pleasant and person. Denies fever chills chest pain shortness of breath abdominal pain frequency urgency hematuria hematemesis dysuria. Patient said that only wound that he has was on the left foot big toe and that wound is completely healed. Patient has hardware in his left foot but that does not appear infected and the x-rays now clinically. Blood culture positive for gram-negative bacilli. Procalcitonin is 0.42, CRP is 13, ESR pending and white blood cell count is normal. There is no left shift. Lactate was not checked. Review of Systems Review of Systems: All systems reviewed & are unremarkable except as noted in HPI & below Physical Exam Constitutional: WD/WN, vitals as above Eyes: PERRL, conjunctivae normal, anicteric sclerae ENMT: external ear and nose normal, oropharynx normal Neck: trachea midline, no thyromegaly Respiratory: normal respiratory effort, lungs clear to auscultation Cardiovascular: RRR, no murmur, no edema Chest (Breasts): normal inspection/palpation of breasts Gastrointestinal (Abdomen): normal bowel sounds, soft, nontender, no hepatosplenomegaly Musculoskeletal: Small healed wound on the tip of the left foot big toe no drainage discharge pockets of fluids or anything that would point to infection. Results & Data Vital Signs (Past 12 Hours) Vital Signs Temp Pulse Resp BP Pulse Ox 01/14/19 07:11 36.5 C 50 L 16 157/70 H 95 PG Care Time/CCT Total # of Minutes Spent Total Time Spent with Patient: Total time spent is greater than 50% in coordination of care (as documented) at patient's floor/unit and/or counseling patient: (1) Fever Fever type: unspecified Qualified Code(s): R50.9 - Fever, unspecified (2) Hypertension Hypertension type: essential hypertension Qualified Code(s): I10 - Essential (primary) hypertension (3) Hyperlipidemia Hyperlipidemia type: unspecified Qualified Code(s): E78.5 - Hyperlipidemia, unspecified (4) Diabetes Diabetes mellitus type: type 2 Diabetes mellitus shelter insulin use: with shelter use Diabetes mellitus complication status: with neurologic complications Diabetes mellitus complication detail: with unspecified neuropathy Qualified Code(s): E11.40 - Type 2 diabetes mellitus with diabetic neuropathy, unspecified; Z79.4 - lab[employer] (current) use of insulin (5) BPH (benign prostatic hyperplasia) Lower urinary tract symptom presence: symptoms absent Qualified Code(s): N40.0 - Benign prostatic hyperplasia without lower urinary tract symptoms (6) GERD (gastroesophageal reflux disease) Esophagitis presence: esophagitis presence not specified Qualified Code(s): K21.9 - Gastro-esophageal reflux disease without esophagitis
[2019-01-14] MEDS: ENOXAPARIN INJ 40 MG/0.4 ML SYR SQ SCH (21:38)
[2019-01-15] MEDS: PIPERACILLIN/TAZOBACTAM 3.375 GM in DEXTROSE 5% 100 ML IV SCH (02:28)
[2019-01-15 07:10] LABS: Creatinine Clr Calc Pharmacy 59.7 ml/min; Est GFR (African American) 54.2; Est GFR (Non-African American) 46.7
[2019-01-15] MEDS: ATORVASTATIN 40 MG TAB PO SCH (08:13)
[2019-01-15] MEDS: ALFUZOSIN HCL 10 MG TAB PO SCH (08:13)
[2019-01-15] MEDS: ASPIRIN 81 MG ECTAB PO SCH (08:13)
[2019-01-15] MEDS: PANTOprazole 40 MG TAB PO SCH (08:14)
[2019-01-15] MEDS: NIFEdipine EXTENDED REL 30 MG TABCR PO SCH (08:14)
[2019-01-15] MEDS: METOPROLOL SUCC 25MG EXT REL TAB PO SCH (08:14)
[2019-01-15] MEDS: VENLAFAXINE HCL XR 75 MG CAPXR PO SCH (08:14)
[2019-01-15] MEDS: NovoLOG INSULIN PUMP SCH ×3 (09:18→17:28)
[2019-01-15] MEDS ORDERED: cefTRIAXone SODIUM 2,000 MG in DEXTROSE 5% 50 ML IV SCH (09:20)
--- NOTE | 2019-01-15 15:26 | Infectious Disease Progress Nt ---
Date of Service January 15, 2019 Assessment & Plan (1) Serratia sepsis: Patient with Serratia bacteremia of unclear source, appears to have responded well to IV Zosyn. Given isolate is quinolone sensitive, would feel that patient could be treated with oral ciprofloxacin 500 mg twice daily to complete 14 days of therapy. Will follow. Subjective Patient seen in follow-up for gram-negative bacteremia. Blood cultures identified as Serratia, appears fully sensitive. Feels entirely well today, offers no complaints. No pain in his toe not, no increase in redness or swelling. No cough or shortness of breath. No abdominal or urinary complaints. Review of Systems Review of Systems: All systems reviewed & are unremarkable except as noted in HPI & below Physical Exam Constitutional: WD/WN, vitals as above comfortable; no acute distress Eyes: PERRL, conjunctivae normal, anicteric sclerae ENMT: external ear and nose normal, oropharynx normal Neck: trachea midline, no thyromegaly neck nontender Respiratory: normal respiratory effort, lungs clear to auscultation normal percussion; does not use accessory muscles Cardiovascular: Rate/Rhythm: regular rate and regular rhythm Heart Sounds: normal S1 and normal S2; no gallop, no murmur and no cardiac rub Vessels: normal peripheral pulses; no JVD Gastrointestinal (Abdomen): normal bowel sounds, soft, nontender, no hepat osplenomegaly Musculoskeletal: no cyanosis or clubbing, extremities motor strength 5/5 Spine: thoracic spine normal to inspection and lumbar spine normal to inspection; no cervical spinal tenderness Skin: no rashes, warm and dry normal turgor; no lesions Neurologic: patellar DTR's 2+ bilat, sensation intact no focal motor deficits Psychiatric: A+Ox3, euthymic affect Orientation: cooperative Lymphatic: no cervical or axillary lymphadenopathy no inguinal lymphadenopathy Results & Data Vital Signs (Past 12 Hours) Vital Signs Temp Pulse Resp BP BP Pulse Ox 01/15/19 07:38 36.7 C 58 L 19 154/77 H 94 01/15/19 05:29 36.9 C 67 19 150/73 H 94 Laboratory Results [facility] 01/15/19 05:40 Creatinine 1.52 H Diagnostic Findings Microbiology 01/13/19 11:19 Blood Aerobic Blood Culture - Final Serratia marcescens 01/13/19 11:19 Blood Anaerobic Blood Culture - Final Serratia marcescens 01/13/19 10:58 Blood Aerobic Blood Culture - Final Serratia marcescens 01/13/19 10:58 Blood Anaerobic Blood Culture - Final Serratia marcescens PG Care Time/CCT Total # of Minutes Spent Total Time Spent with Patient: Total time spent is greater than 50% in coordination of care (as documented) at patient's floor/unit and/or counseling patient:
--- NOTE | 2019-01-15 16:28 | Hospitalist Progress Note ---
Date of Service January 15, 2019 Assessment & Plan (1) Gram-negative bacterial infection: Continue admit to inpatient . Vital signs every 4 hours blood cultures positive for Serratia marcescens sensitive to quinolones. Discontinue Zosyn and started Cipro 500 twice daily for [address] Shelley ID recommendations. DVT prophylaxis with Lovenox 40 mg subcu every 24 Full code (2) Fever: Most likely secondary to gram negative bacteremia, source of bacteremia unclear. -Tylenol and Advil PRN for fever control (3) Ulcer of left great toe due to diabetes mellitus: As above -Xray left foot to assess for evidence of infection -Zosyn for now -ID consult as above (4) Hypertension: Blood pressure stable at present. -Continue home medications, Nifedipine, Metoprolol, Hydralazine with holding parameters -Hold Chlorthalidone for now (5) Hyperlipidemia: Chronic. -Continue Atorvastatin (6) Diabetes: Blood sugar elevated at present at 216. Patient with insulin pump in place -Continue insulin pump for now. If poor control will place on hold and manage blood sugars with basal/bolus insulin -CC diet as tolerated -Hold Linagliptin (7) CKD (chronic kidney disease) stage 3, GFR 30-59 ml/min: Near baseline renal function. -Avoid nephrotoxic agents -Monitor BUN/Cr, electrolytes and UOP (8) BPH (benign prostatic hyperplasia): Chronic. Patient denies urinary symptoms or complatins -Continue Alfuzosin (9) GERD (gastroesophageal reflux disease): Chronic. Well controlled -Continue Protonix 40mg po daily F/E/N - NSS at 125mL/hr, monitor electroltyes and replete as needed, CC diet as tolerated Ppx - Ambulation Code - Full Dispo - Admit to medical floor Subjective Pt Seen and examined at the bedside. Blood cultures identified as Serratia Marcescens sensitive to quinolones. Appreciate ID recommendation and patient started to Cipro 500 twice a day for 14 days. P.o. intake good. Patient denies fever chills chest pain shortness of breath abdominal pain frequency urgency nausea vomiting any sign of sepsis. There is no pain in his toe nor increased redness or swelling. Patient denies cough, no urinary symptoms. Review of Systems Review of Systems: All systems reviewed & are unremarkable except as noted in HPI & below Physical Exam Constitutional: WD/WN, vitals as above Eyes: PERRL, conjunctivae normal, anicteric sclerae ENMT: external ear and nose normal, oropharynx normal Neck: trachea midline, no thyromegaly Respiratory: normal respiratory effort, lungs clear to auscultation Cardiovascular: RRR, no murmur, no edema Chest (Breasts): normal inspection/palpation of breasts Gastrointestinal (Abdomen): normal bowel sounds, soft, nontender, no hepatosplenomegaly Results & Data Vital Signs (Past 12 Hours) Vital Signs Temp Pulse Resp BP BP Pulse Ox 01/15/19 15:33 36.6 C 59 L 18 143/76 H 95 01/15/19 07:38 36.7 C 58 L 19 154/77 H 94 01/15/19 05:29 36.9 C 67 19 150/73 H 94 PG Care Time/CCT Total # of Minutes Spent Total Time Spent with Patient: Total time spent is greater than 50% in coordination of care (as documented) at patient's floor/unit and/or counseling patient: (1) Fever Fever type: unspecified Qualified Code(s): R50.9 - Fever, unspecified (2) Hypertension Hypertension type: essential hypertension Qualified Code(s): I10 - Essential (primary) hypertension (3) Hyperlipidemia Hyperlipidemia type: unspecified Qualified Code(s): E78.5 - Hyperlipidemia, unspecified (4) Diabetes Diabetes mellitus type: type 2 Diabetes mellitus meterman insulin use: with retirement use Diabetes mellitus complication status: with neurologic complications Diabetes mellitus complication detail: with unspecified neuropathy Qualified Code(s): E11.40 - Type 2 diabetes mellitus with diabetic neuropathy, unspecified; Z79.4 - shelter (current) use of insulin (5) BPH (benign prostatic hyperplasia) Lower urinary tract symptom presence: symptoms absent Qualified Code(s): N40.0 - Benign prostatic hyperplasia without lower urinary tract symptoms (6) GERD (gastroesophageal reflux disease) Esophagitis presence: esophagitis presence not specified Qualified Code(s): K21.9 - Gastro-esophageal reflux disease without esophagitis
[2019-01-15] MEDS ORDERED: INSULIN GLARGINE SOLOSTAR 100 UNITS/ML 3 ML PEN SC ONE (21:00)
[2019-01-15] MEDS: CIPROFLOXACIN 500 MG TAB PO SCH (21:22)
[2019-01-15] MEDS: ENOXAPARIN INJ 40 MG/0.4 ML SYR SQ SCH (21:23)
[2019-01-15] MEDS: INSULIN ASPART 100 UNITS/ML 3 ML PEN SC SCH (21:25)
[2019-01-16 07:32] LABS: Creatinine Clr Calc Pharmacy 54.6 ml/min; Est GFR (African American) 48.7
[2019-01-16] MEDS: METOPROLOL SUCC 25MG EXT REL TAB PO SCH (08:01)
[2019-01-16] MEDS: NIFEdipine EXTENDED REL 30 MG TABCR PO SCH (08:01)
[2019-01-16] MEDS: PANTOprazole 40 MG TAB PO SCH (08:01)
[2019-01-16] MEDS: VENLAFAXINE HCL XR 75 MG CAPXR PO SCH (08:02)
[2019-01-16] MEDS: ATORVASTATIN 40 MG TAB PO SCH (08:02)
[2019-01-16] MEDS: ALFUZOSIN HCL 10 MG TAB PO SCH (08:02)
[2019-01-16] MEDS: CIPROFLOXACIN 500 MG TAB PO SCH (08:02)
[2019-01-16] MEDS: ASPIRIN 81 MG ECTAB PO SCH (08:02)
[2019-01-16] MEDS: INSULIN ASPART 100 UNITS/ML 3 ML PEN SC SCH (08:29)
--- NOTE | 2019-01-16 10:17 | Hospitalist Progress Note ---
Date of Service January 16, 2019 Assessment & Plan (1) Gram-negative bacterial infection: Continue admit to inpatient . Vital signs every 4 hours blood cultures positive for Serratia marcescens sensitive to quinolones. Discontinue Zosyn and started Cipro 500 twice daily for [address] Shelley ID recommendations. DVT prophylaxis with Lovenox 40 mg subcu every 24 Full code (2) Fever: Most likely secondary to gram negative bacteremia, source of bacteremia unclear. -Tylenol and Advil PRN for fever control (3) Ulcer of left great toe due to diabetes mellitus: As above -Xray left foot to assess for evidence of infection -ID consult as above (4) Hypertension: Blood pressure stable at present. -Continue home medications, Nifedipine, Metoprolol, Hydralazine with holding parameters -Hold Chlorthalidone for now (5) Hyperlipidemia: Chronic. -Continue Atorvastatin (6) Diabetes: Blood sugar elevated at present at 216. Patient with insulin pump in place -Continue insulin pump for now. If poor control will place on hold and manage blood sugars with basal/bolus insulin -CC diet as tolerated -Hold Linagliptin (7) CKD (chronic kidney disease) stage 3, GFR 30-59 ml/min: Near baseline renal function. -Avoid nephrotoxic agents -Monitor BUN/Cr, electrolytes and UOP (8) BPH (benign prostatic hyperplasia): Chronic. Patient denies urinary symptoms or complains -Continue Alfuzosin (9) GERD (gastroesophageal reflux disease): Chronic. Well controlled -Continue Protonix 40mg po daily F/E/N - NSS at 125mL/hr, monitor electroltyes and replete as needed, CC diet as tolerated Ppx - Ambulation Code - Full Dispo - home today Subjective Pt seen and examined at the bedside. Blood cultures identified as Serratia Marcescens sensitive to quinolones. Appreciate ID recommendation and patient started to Cipro 500 twice a day for 14 days. P.o. intake good. Patient denies fever chills chest pain shortness of breath abdominal pain frequency urgency nausea vomiting any sign of sepsis. There is no pain in his toe nor increased redness or swelling. Patient denies cough, no urinary symptoms.Eager to go home. Will follow up with PCP in 7 days. Review of Systems Review of Systems: All systems reviewed & are unremarkable except as noted in HPI & below Physical Exam Constitutional: WD/WN, vitals as above Eyes: PERRL, conjunctivae normal, anicteric sclerae ENMT: external ear and nose normal, oropharynx normal Neck: trachea midline, no thyromegaly Respiratory: normal respiratory effort, lungs clear to auscultation Cardiovascular: RRR, no murmur, no edema Chest (Breasts): normal inspection/palpation of breasts Gastrointestinal (Abdomen): normal bowel sounds, soft, nontender, no hepatosplenomegaly Musculoskeletal: no cyanosis or clubbing, extremities motor strength 5/5 Results & Data Vital Signs (Past 12 Hours) Vital Signs Temp Pulse Resp BP Pulse Ox 01/16/19 07:23 36.2 C L 59 L 18 154/74 H 94 01/15/19 23:19 36.6 C 62 18 146/64 H 96 PG Care Time/CCT Total # of Minutes Spent Total Time Spent with Patient: Total time spent is greater than 50% in coordination of care (as documented) at patient's floor/unit and/or counseling patient: (1) Fever Fever type: unspecified Qualified Code(s): R50.9 - Fever, unspecified (2) Hypertension Hypertension type: essential hypertension Qualified Code(s): I10 - Essential (primary) hypertension (3) Hyperlipidemia Hyperlipidemia type: unspecified Qualified Code(s): E78.5 - Hyperlipidemia, unspecified (4) Diabetes Diabetes mellitus type: type 2 Diabetes mellitus [employer] insulin use: with [employer] use Diabetes mellitus complication status: with neurologic complications Diabetes mellitus complication detail: with unspecified neuropathy Qualified Code(s): E11.40 - Type 2 diabetes mellitus with diabetic neuropathy, unspecified; Z79.4 - halfway (current) use of insulin (5) BPH (benign prostatic hyperplasia) Lower urinary tract symptom presence: symptoms absent Qualified Code(s): N40.0 - Benign prostatic hyperplasia without lower urinary tract symptoms (6) GERD (gastroesophageal reflux disease) Esophagitis presence: esophagitis presence not specified Qualified Code(s): K21.9 - Gastro-esophageal reflux disease without esophagitis
--- NOTE | 2019-01-16 10:28 | Discharge Summary ---
Date of Service January 16, 2019 Admission HPI Per Admitting Provider Mr. Trinidad is a pleasant 68-year-old male with history of diabetes with neuropathy and ulcers, Charcot joint, hypertension, hyperlipidemia, CAD, CKD, GERD. Patient reports fevers to 102, chills, Reiger's sweats and body aches ongoing for the past 5 days. Also with complaint of dyspnea on exertion. He was seen in clinic yesterday by Dr. Thurston and was instructed to come to the ER. Work-up in the ER was essentially negative to include negative Lyme, UA and CT angiography of the chest. Symptom thought to be secondary to a viral illness and was discharged home with instructions to manage his symptoms with Tylenol as needed. Patient had blood cultures drawn yesterday in the ER which came back positive for gram-negative rods. He was contacted and instructed to return to the ER. ER course: Ceftriaxone, Tylenol Principal Diagnosis Gram negative bacteremia Discharge Exam Constitutional WD/WN, vitals as above Eyes PERRL, conjunctivae normal, anicteric sclerae ENMT external ear and nose normal, oropharynx normal Neck trachea midline, no thyromegaly Respiratory normal respiratory effort, lungs clear to auscultation Cardiovascular RRR, no murmur, no edema Chest (Breasts) normal inspection/palpation of breasts Gastrointestinal (Abdomen) normal bowel sounds, soft, nontender, no hepatosplenomegaly Musculoskeletal no cyanosis or clubbing, extremities motor strength 5/5 Discharge Data Allergies Allergy/AdvReac Type Severity Reaction Status Date / Time lisinopril AdvReac Cough Verified 01/12/19 15:43 losartan AdvReac Cough Verified 01/12/19 15:43 Consultations 01/13/19 14:22 ED Decision to Admit Stat 01/13/19 18:44 Consult Infectious Diseases Routine Ordered Studies 01/13/19 10:51 CT abd pelvis wo con Stat Hospital Course (1) Gram-negative bacterial infection: Continue admit to inpatient . Vital signs every 4 hours blood cultures positive for Serratia marcescens sensitive to quinolones. Discontinue Zosyn and started Cipro 500 twice daily for [address] Shelley ID recommendations. DVT prophylaxis with Lovenox 40 mg subcu every 24 Full code (2) Fever: Most likely secondary to gram negative bacteremia, source of bacteremia unclear. -Tylenol and Advil PRN for fever control (3) Ulcer of left great toe due to diabetes mellitus: As above -Xray left foot to assess for evidence of infection -ID consult as above (4) Hypertension: Blood pressure stable at present. -Continue home medications, Nifedipine, Metoprolol, Hydralazine with holding parameters -Hold Chlorthalidone for now (5) Hyperlipidemia: Chronic. -Continue Atorvastatin (6) Diabetes: Blood sugar elevated at present at 216. Patient with insulin pump in place -Continue insulin pump for now. If poor control will place on hold and manage blood sugars with basal/bolus insulin -CC diet as tolerated -Hold Linagliptin (7) CKD (chronic kidney disease) stage 3, GFR 30-59 ml/min: Near baseline renal function. -Avoid nephrotoxic agents -Monitor BUN/Cr, electrolytes and UOP (8) BPH (benign prostatic hyperplasia): Chronic. Patient denies urinary symptoms or complains -Continue Alfuzosin (9) GERD (gastroesophageal reflux disease): Chronic. Well controlled -Continue Protonix 40mg po daily F/E/N - NSS at 125mL/hr, monitor electroltyes and replete as needed, CC diet as tolerated Ppx - Ambulation Code - Full Dispo - home today Total Time Total Time Spent Total Time Spent (In Minutes): over 35 min Discharge Plan Discharge Items Patient Disposition: Home - Self-Care Reason For Visit: Serratia Marcescens bacteremia Discharge Diagnosis: Serratia Marcescens bacteremia Discharge Goals: Diagnostic testing and Improve disease control Activity: Resume your previous activity Non-emergency contact: Primary Care Provider Call non-emergency contact if: you have any medication questions, your symptoms worsen, your pain is not controlled, your pain is worsening, you have a fever and your temperature is above 100.5 Follow-up/Referrals: Edwin Kohli Jr, DO [Primary Care Provider] - Diet: Carb Consistent or DM2 and Heart Healthy Addtl Provider Instructions: Please follow up with your PCP in 7 days. did not recommend to repeat blood culture. Continue Ciprofloxacin 500 mg twice daily for 13 days, then stop. Prescriptions: New ciprofloxacin HCl 500 mg Tablet 500 mg PO BID Qty: 26 RF: 0 Continued nifedipine 60 mg tablet extended release 24hr 60 mg PO DAILY RF: 0 ranitidine HCl [Zantac] 150 mg tablet 150 mg PO BID RF: 0 ergocalciferol (vitamin D2) [Vitamin D2] 50,000 unit capsule 50,000 unit PO MONTHLY RF: 0 naproxen sodium [Aleve] 220 mg Capsule 440 mg PO BID PRN (Reason: Pain) RF: 0 hydralazine 25 mg tablet 25 mg PO BID RF: 0 atorvastatin 80 mg tablet 80 mg PO DAILY RF: 0 chlorthalidone 25 mg tablet 25 mg PO DAILY RF: 0 venlafaxine 75 mg capsule,extended release 24hr 75 mg PO DAILY RF: 0 aspirin [Aspir-Low] 81 mg Tablet,Delayed Release (Dr/Ec) 81 mg PO DAILY RF: 0 pantoprazole 40 mg tablet,delayed release (DR/EC) 40 mg PO DAILY RF: 0 metoprolol succinate 25 mg tablet extended release 24 hr 25 mg PO DAILY RF: 0 alfuzosin 10 mg tablet extended release 24 hr 10 mg PO DAILY RF: 0 linagliptin 5 mg tablet 5 mg PO DAILY RF: 0 insulin aspart U-100 100 unit/mL solution See Rx Instructions .ROUTE .COMPLEX RF: 0 Stand-Alone Forms: [facility] Discharge Orders: Discharge Order (Routine); Ordered 01/16/19 Ordered By: Denise Easton Admission Data Admit Date/Time: 01/13/19 16:19 Attending Provider: Denise Easton Admit Provider: Lianna Canales Primary Care Provider: Edwin Kohli Jr Other Providers: Lianna Canales ; Jelani Shelley Service: Medical
== END 2019-01-16 11:20 | disposition home or self-care (01) | DRG 872 ==
LOC: ED 10:32 → 2W 16:19 → SUATTDRO 16:19 → 2W 18:30 → 4W 01-15 05:28
DX: E11.621 Type 2 diabetes mellitus with foot ulcer; A48.8 Other specified bacterial diseases; Z90.49 Acquired absence of other specified parts of digestive tract; A41.89 Other specified sepsis; I25.10 Atherosclerotic heart disease of native coronary artery without angina pectoris; N18.3 Chronic kidney disease, stage 3 (moderate); Z96.41 Presence of insulin pump (external) (internal); Z82.49 Family history of ischemic heart disease and other diseases of the circulatory system; I12.9 Hypertensive chronic kidney disease with stage 1 through stage 4 chronic kidney disease, or unspecified chronic kidney disease; N40.0 Benign prostatic hyperplasia without lower urinary tract symptoms; K21.9 Gastro-esophageal reflux disease without esophagitis; E11.40 Type 2 diabetes mellitus with diabetic neuropathy, unspecified; Z87.891 Personal history of nicotine dependence; G47.33 Obstructive sleep apnea (adult) (pediatric); Z80.9 Family history of malignant neoplasm, unspecified

== ENCOUNTER 2020-12-02 23:01 | Observation (INO) ==
[2020-12-03] MEDS ORDERED: SODIUM CHLORIDE 0.9% 1000ML 1,000 ML IV STA (00:21)
[2020-12-03 01:07] LABS: Basophils # (auto) 0.03 K/uL (0-0.2); Basophils % (auto) 0.4 %; Eosinophils # (auto) 0.29 K/uL (0-0.5); Eosinophils % (auto) 3.8 %; Hematocrit (blood only) 44.6 % (42-52); Hemoglobin 15.4 g/dL (14.0-18.0); Immature Granulocytes # (auto) 0.01 K/uL (0.00-0.02); Immature Granulocytes % (auto) 0.1 %; Lymphocytes # (auto) 1.99 K/uL (1.2-3.4); Lymphocytes % (auto) 26.2 %; Mean Corpuscular Hemoglobin 30.3 pg (25-34); Mean Corpuscular Hgb Conc 34.5 g/dL (32-36); Mean Corpuscular Volume 87.8 fL (80-100); Mean Platelet Volume 9.6 fL (7.4-10.4); Monocytes % (auto) 15.8 %; Neutrophils # (auto) 4.07 K/uL (1.4-6.5); Neutrophils % (auto) 53.7 %; Platelet Count 223 K/uL (130-400); RDW Coefficient of Variation 13.5 % (11.5-14.5); Red Blood Count 5.08 M/uL (4.7-6.1); White Blood Count 7.59 K/uL (4.8-10.8)
[2020-12-03] MEDS ORDERED: PIPERACILLIN/TAZOBACTAM 4.5 GM/120 ML BAG IV ONE (01:15)
[2020-12-03] MEDS ORDERED: PIPERACILL/TAZOBAC CONSULT ACTIVE PRN ×2 (01:15→05:46)
[2020-12-03 01:27] LABS: Albumin Level 3.2 gm/dl (3.4-5.0); BUN Creatinine Ratio 15.9 (10-20); Calcium 8.5 mg/dl (8.5-10.1); Est GFR (African American) 49.8 ml/min; Potassium 3.1 mmol/L (3.5-5.1)
[2020-12-03 01:29] LABS: Albumin Globulin Ratio 0.8 (0.9-2); Bilirubin,Total 0.3 mg/dl (0.2-1); Globulin 3.8 gm/dl (2.5-4.0)
--- NOTE | 2020-12-03 03:07 | Emergency Department Note ---
History of Present Illness General Chief complaint: Abnormal Labs/Diagnostic Testing Stated complaint: IRREGULAR LABS Time Seen by Provider: 12/03/20 00:23 Source: patient, family ( at the bedside) and RN notes reviewed Mode of arrival: ambulatory Limitations: no limitations History of Present Illness Provider complaint: Positive blood culture This patient is a 70-year-old male who presents emergency department with complaints of a positive blood culture. He was seen by his primary care physician for intermittent fevers. He had laboratory work drawn yesterday and was notified today that one of his blood cultures was positive and he should report to the emergency department. The patient was prescribed doxycycline for presumed Lyme. Patient has been feeling generally improved but is diabetic and has a history of bacteremia which they believe started from a foot ulceration. He is denying any chest pain vomiting, diarrhea, abdominal pain at this time. Home Medications Medication Instructions Recorded Confirmed Type alfuzosin 10 mg tablet,extended 10 mg PO DAILY 02/15/18 12/03/20 History release 24 hr chlorthalidone 25 mg tablet 25 mg PO DAILY 02/15/18 12/03/20 History linagliptin 5 mg tablet 5 mg PO DAILY 02/15/18 12/03/20 History metoprolol succinate 25 mg 25 mg PO DAILY 02/15/18 12/03/20 History tablet,extended release 24 hr pantoprazole 40 mg tablet,delayed 40 mg PO DAILY 02/15/18 12/03/20 History release venlafaxine 75 mg capsule,extended 75 mg PO DAILY 02/15/18 12/03/20 History release 24 hr nifedipine 60 mg tablet,extended 60 mg PO DAILY 11/09/18 12/03/20 History release 24 hr insulin aspart U-100 100 unit/mL 0 unit CONTINUOUS SUBCUTANEOUS 03/03/19 12/03/20 History subcutaneous solution (Novolog INFUSION CONTINOUS U-100 Insulin aspart) denosumab 60 mg/mL subcutaneous See Rx Instructions SQ .COMPLEX ml 03/09/19 12/03/20 History syringe (Prolia) nitroglycerin 0.4 mg sublingual 0.4 mg SL Q5M PRN tab 03/09/19 12/03/20 History tablet oxycodone-acetaminophen 5 mg-325 1 tab PO Q4H PRN 09/12/19 12/03/20 History mg tablet rosuvastatin 40 mg tablet (Crestor) 40 mg PO DAILY 01/22/20 12/03/20 History flash glucose scanning reader #1 ea 06/03/20 10/01/20 Rx (FreeStyle Alis 2 [place]) flash glucose sensor (FreeStyle #1 ea 06/03/20 10/01/20 Rx Alis 2 Sensor) hydralazine 25 mg tablet 25 mg PO TID tab 06/03/20 12/03/20 History testosterone cypionate 200 mg/mL 100 mg IM .COMPLEX 10/01/20 12/03/20 History intramuscular oil ergocalciferol (vitamin D2) 1,250 50,000 unit PO MONTHLY #12 caplet 11/21/20 12/03/20 Rx mcg (50,000 unit) capsule (Vitamin D2) aspirin 81 mg tablet,delayed 81 mg PO DAILY 12/03/20 12/03/20 History release amoxicillin 500 mg capsule 500 mg PO TID 7 Days #21 cap 12/04/20 Rx Allergies Allergy/AdvReac Type Severity Reaction Status Date / Time JOÃO Inhibitors Allergy Intermediate Cough Verified 12/03/20 00:57 lisinopril AdvReac Intermediate Cough Verified 12/03/20 00:57 losartan AdvReac Intermediate Cough Verified 12/03/20 00:57 Past Med/Surg History Medical History (Updated 12/10/20 @ 10:12 by Melissa Jimenez MD) Ascending aorta enlargement CAD (coronary artery disease) non-obstructive Callus Charcot's joint, left ankle and foot Diabetes mellitus with diabetic polyneuropathy Difficult intubation Grade 3 view with Mac 4 blade GERD (gastroesophageal reflux disease) Controlled with medication Hyperlipidemia Hypertension Neuropathic ulcer of left foot MARIYA on CPAP Osteoporosis Serratia sepsis Vitamin D deficiency Surgical History H/O skin graft History of laparoscopic cholecystectomy 06/12/18 Hx of foot surgery left foot surgery x5 last time 06/18/18 S/P excision of lipoma S/P foot surgery, left 2010- with LMA #5 S/P inguinal hernia repair R at age 6 years of age Family History Father Cancer Mother Hypertension Diabetes Other Heart disease Social History Smoking Status: Former smoker Tobacco Type: Cigarettes Second Hand Exposure: No; Hx Alcohol Use: Yes Alcohol type: beer and wine Hx Substance Use: No Preferred Language: Greenlandic Communication Ability: Effective Visual Impairment: No Limitations 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 and A total of 10 systems reviewed and were otherwise negative Physical Exam Vital Signs Vital Signs - 24 hr 12/02/20 23:12 12/03/20 00:56 12/03/20 02:00 Temperature 37.1 C Temperature Source Temporal Artery Scan Pulse Rate 62 Pulse Rate [Apical] 52 L Respiratory Rate 14 18 20 Respiratory Effort / Characteristics Non-Labored Spontaneous Respiratory Depth Normal Blood Pressure 163/75 H Blood Pressure [Right Arm] 157/92 H 154/90 H Blood Pressure Mean 104 Blood Pressure Mean [Right Arm] 113 111 Pulse Oximetry 95 95 95 Oxygen Delivery Method Room Air Room Air Room Air Sepsis Recent Fever Within 48 Hours Yes Sepsis New/Unexplained Change in Mental Status Yes Sepsis Action Taken by Nursing No Action Required Vital signs reviewed. General: Well-appearing 70 yo male, in no significant distress. HEENT: No scleral icterus, PERRLA, neck supple. Atraumatic. Cardiovascular: Regular rate and rhythm, no extra sounds. Pulmonary: Clear to auscultation bilaterally, normal work of breathing. Abdomen: Soft, nontender, nondistended, positive bowel sounds. Musculoskeletal: Atraumatic, minimal peripheral edema. Chronic deformity of the bilateral foot and ankle/arthritic Neurologic: Patient awake alert and oriented x 3 Skin: Warm, dry, no rash Course Administered Medications Discontinued Medications Alfuzosin HCl (Alfuzosin Hcl 10 Mg Tab) 10 mg PO DAILY [facility] Stop: 01/02/21 08:59 Last Admin: 12/04/20 08:38 Dose: 10 mg Documented by: [id number] Admin: 12/03/20 08:17 Dose: 10 mg Documented by: [id number] Aspirin (Aspirin 81 Mg Ectab) 81 mg PO DAILY [facility] Stop: 01/02/21 08:59 Last Admin: 12/04/20 08:39 Dose: 81 mg Documented by: [id number] Admin: 12/03/20 08:15 Dose: 81 mg Documented by: [id number] Doxycycline Hyclate (Doxycycline Hyclate 100 Mg Cap) 100 mg PO BID [facility] Stop: 12/13/20 20:59 Last Admin: 12/04/20 08:39 Dose: 100 mg Documented by: [id number] Admin: 12/03/20 21:02 Dose: 100 mg Documented by: [id number] Hydralazine HCl (Hydralazine Hcl 25 Mg Tab) 25 mg PO TID CHELLY Stop: 01/02/21 08:59 Last Admin: 12/04/20 08:40 Dose: 25 mg Documented by: [id number] Admin: 12/03/20 21:03 Dose: 25 mg Documented by: [id number] Admin: 12/03/20 14:06 Dose: 25 mg Documented by: [id number] Admin: 12/03/20 08:16 Dose: 25 mg Documented by: [id number] Sodium Chloride (Nss 1000ml) 1,000 mls @ 999 mls/hr IV .Q1H1M STA Stop: 12/03/20 01:21 Last Infusion: 12/03/20 02:35 Dose: 0 mls/hr Documented by: [id number] Admin: 12/03/20 00:52 Dose: 999 mls/hr Documented by: [id number] Piperacillin Sod/Tazobactam Sod (Zosyn) 4.5 gm in 120 mls @ 240 mls/hr IV NOW ONE Stop: 12/03/20 01:44 Last Infusion: 12/03/20 02:35 Dose: 0 mls/hr Documented by: [id number] Admin: 12/03/20 01:59 Dose: 240 mls/hr Documented by: [id number] Piperacillin Sod/Tazobactam (Sod 3.375 gm/ Dextrose) 115 mls @ 28.75 mls/hr IV Q8H CHELLY; Protocol Stop: 12/10/20 05:59 Last Infusion: 12/03/20 10:34 Dose: 0 mls/hr Documented by: [id number] Admin: 12/03/20 06:29 Dose: 28.8 mls/hr Documented by: [id number] Cefepime HCl 2,000 mg/ Syringe 20 mls @ 5 mls/min IV Q12@0600,1800 CHELLY; Protocol Stop: 12/17/20 17:59 Last Admin: 12/04/20 05:21 Dose: 5 mls/min Documented by: [id number] Admin: 12/03/20 17:24 Dose: 5 mls/min Documented by: [id number] Insulin Aspart (Novolog Insulin Pump) 1 ea N/A ACHS [facility]; Protocol Stop: 01/02/21 07:29 Last Admin: 12/04/20 08:38 Dose: 1 ea Documented by: [id number] Admin: 12/03/20 21:46 Dose: 1 ea Documented by: [id number] Cosigned by: [id number] Admin: 12/03/20 17:21 Dose: 1 ea Documented by: [id number] Admin: 12/03/20 12:37 Dose: 1 ea Documented by: [id number] Admin: 12/03/20 08:29 Dose: 1 ea Documented by: [id number] Metoprolol Succinate (Metoprolol Succ 25mg Ext Rel Tab) 25 mg PO DAILY [facility] Stop: 01/02/21 08:59 Last Admin: 12/04/20 08:39 Dose: 25 mg Documented by: [id number] Admin: 12/03/20 08:16 Dose: Not Given Documented by: [id number] Nifedipine (Nifedipine Extended Rel 30 Mg Tabcr) 60 mg PO DAILY [facility] Stop: 01/02/21 08:59 Last Admin: 12/04/20 08:39 Dose: 60 mg Documented by: [id number] Admin: 12/03/20 08:16 Dose: 60 mg Documented by: [id number] Pantoprazole Sodium (Pantoprazole 40 Mg Tab) 40 mg PO DAILY [facility] Stop: 01/02/21 08:59 Last Admin: 12/04/20 08:39 Dose: 40 mg Documented by: [id number] Admin: 12/03/20 08:16 Dose: 40 mg Documented by: [id number] Potassium Chloride (Potassium Chloride Crtab 20 Meq Tabcr) 40 meq PO NOW STA Stop: 12/03/20 10:58 Last Admin: 12/03/20 11:43 Dose: 40 meq Documented by: [id number] Potassium Chloride (Potassium Chloride Crtab 20 Meq Tabcr) 20 meq PO NOW ONE Stop: 12/04/20 12:01 Last Admin: 12/04/20 11:57 Dose: 20 meq Documented by: [id number] Rosuvastatin Calcium (Rosuvastatin Calcium 20 Mg Tab) 40 mg PO DAILY [facility] Stop: 01/02/21 08:59 Last Admin: 12/04/20 08:39 Dose: 40 mg Documented by: [id number] Admin: 12/03/20 08:16 Dose: 40 mg Documented by: [id number] Venlafaxine HCl (Venlafaxine Hcl Xr 75 Mg Capxr) 75 mg PO DAILY [facility] Stop: 01/02/21 08:59 Last Admin: 12/04/20 08:39 Dose: 75 mg Documented by: [id number] Admin: 12/03/20 08:16 Dose: 75 mg Documented by: [id number] Medical Decision Making Differential Diagnosis Viral syndrome, cellulitis, diabetic foot wound, pneumonia, influenza, meningi tis, urinary tract infection, sepsis, bacteremia, as well as other pathologies. Medical Records Attestation: I reviewed the patient's medical records. Home Medications Current Medication List: was personally reviewed by me Laboratory Data Attestation: I reviewed the patient's lab results. Result diagrams: 12/04/20 05:36 12/04/20 05:36 Lab Results 12/03/20 12/03/20 12/03/20 Range/Units 00:54 00:54 00:54 WBC 7.59 (4.8-10.8) K/uL RBC 5.08 (4.7-6.1) M/uL Hgb 15.4 (14.0-18.0) g/dL Hct 44.6 (42-52) % MCV 87.8 (80-100) fL MCH 30.3 (25-34) pg MCHC 34.5 (32-36) g/dL RDW Std Deviation 44.0 (36.4-46.3) fL RDW Coeff of Kyle 13.5 (11.5-14.5) % Plt Count 223 (130-400) K/uL MPV 9.6 (7.4-10.4) fL Immature Gran % (Auto) 0.1 % Neut % (Auto) 53.7 % Lymph % (Auto) 26.2 % Barron % (Auto) 15.8 % Eos % (Auto) 3.8 % Baso % (Auto) 0.4 % Neut # (Auto) 4.07 (1.4-6.5) K/uL Lymph # (Auto) 1.99 (1.2-3.4) K/uL Barron # (Auto) 1.20 H (0.11-0.59) K/uL Eos # (Auto) 0.29 (0-0.5) K/uL Baso # (Auto) 0.03 (0-0.2) K/uL Immature Gran # (Auto) 0.01 (0.00-0.02) K/uL Sodium 137 (136-145) mmol/L Potassium 3.1 L (3.5-5.1) mmol/L Chloride 105 (98-107) mmol/L Carbon Dioxide 28 (21-32) mmol/L Anion Gap 4.0 (3-11) BUN 26 H (7-18) mg/dl Creatinine 1.61 H (0.6-1.4) mg/dl Est Cr Clr Drug Dosing 55.0 ml/min Est GFR ( Amer) 49.8 ml/min Est GFR (Non-Af Amer) 43.0 ml/min BUN/Creatinine Ratio 15.9 (10-20) Glucose 145 H (70-99) mg/dl Lactate 0.9 (0.4-2.0) mmol/L Calcium 8.5 (8.5-10.1) mg/dl Total Bilirubin 0.3 (0.2-1) mg/dl AST 26 (15-37) U/L ALT 41 (12-78) U/L Alkaline Phosphatase 73 (45-117) U/L Total Protein 7.0 (6.4-8.2) gm/dl Albumin 3.2 L (3.4-5.0) gm/dl Globulin 3.8 (2.5-4.0) gm/dl Albumin/Globulin Ratio 0.8 L (0.9-2) Procalcitonin (0-0.5) ng/ml Anaplasma Smear See Comment A. phagocytophilum DNA (Negative) COVID-19 Eval Order SARS-CoV-2 (PCR) (Negative) 12/03/20 12/03/20 12/03/20 Range/Units 00:54 00:54 02:07 WBC (4.8-10.8) K/uL RBC (4.7-6.1) M/uL Hgb (14.0-18.0) g/dL Hct (42-52) % MCV (80-100) fL MCH (25-34) pg MCHC (32-36) g/dL RDW Std Deviation (36.4-46.3) fL RDW Coeff of Kyle (11.5-14.5) % Plt Count (130-400) K/uL MPV (7.4-10.4) fL Immature Gran % (Auto) % Neut % (Auto) % Lymph % (Auto) % Barron % (Auto) % Eos % (Auto) % Baso % (Auto) % Neut # (Auto) (1.4-6.5) K/uL Lymph # (Auto) (1.2-3.4) K/uL Barron # (Auto) (0.11-0.59) K/uL Eos # (Auto) (0-0.5) K/uL Baso # (Auto) (0-0.2) K/uL Immature Gran # (Auto) (0.00-0.02) K/uL Sodium (136-145) mmol/L Potassium (3.5-5.1) mmol/L Chloride (98-107) mmol/L Carbon Dioxide (21-32) mmol/L Anion Gap (3-11) BUN (7-18) mg/dl Creatinine (0.6-1.4) mg/dl Est Cr Clr Drug Dosing ml/min Est GFR ( Amer) ml/min Est GFR (Non-Af Amer) ml/min BUN/Creatinine Ratio (10-20) Glucose (70-99) mg/dl Lactate (0.4-2.0) mmol/L Calcium (8.5-10.1) mg/dl Total Bilirubin (0.2-1) mg/dl AST (15-37) U/L ALT (12-78) U/L Alkaline Phosphatase (45-117) U/L Total Protein (6.4-8.2) gm/dl Albumin (3.4-5.0) gm/dl Globulin (2.5-4.0) gm/dl Albumin/Globulin Ratio (0.9-2) Procalcitonin 0.13 (0-0.5) ng/ml Anaplasma Smear A. phagocytophilum DNA Negative (Negative) COVID-19 Eval Order Covid19 at [facility] SARS-CoV-2 (PCR) (Negative) 12/03/20 Range/Units 02:07 WBC (4.8-10.8) K/uL RBC (4.7-6.1) M/uL Hgb (14.0-18.0) g/dL Hct (42-52) % MCV (80-100) fL MCH (25-34) pg MCHC (32-36) g/dL RDW Std Deviation (36.4-46.3) fL RDW Coeff of Kyle (11.5-14.5) % Plt Count (130-400) K/uL MPV (7.4-10.4) fL Immature Gran % (Auto) % Neut % (Auto) % Lymph % (Auto) % Barron % (Auto) % Eos % (Auto) % Baso % (Auto) % Neut # (Auto) (1.4-6.5) K/uL Lymph # (Auto) (1.2-3.4) K/uL Barron # (Auto) (0.11-0.59) K/uL Eos # (Auto) (0-0.5) K/uL Baso # (Auto) (0-0.2) K/uL Immature Gran # (Auto) (0.00-0.02) K/uL Sodium (136-145) mmol/L Potassium (3.5-5.1) mmol/L Chloride (98-107) mmol/L Carbon Dioxide (21-32) mmol/L Anion Gap (3-11) BUN (7-18) mg/dl Creatinine (0.6-1.4) mg/dl Est Cr Clr Drug Dosing ml/min Est GFR ( Amer) ml/min Est GFR (Non-Af Amer) ml/min BUN/Creatinine Ratio (10-20) Glucose (70-99) mg/dl Lactate (0.4-2.0) mmol/L Calcium (8.5-10.1) mg/dl Total Bilirubin (0.2-1) mg/dl AST (15-37) U/L ALT (12-78) U/L Alkaline Phosphatase (45-117) U/L Total Protein (6.4-8.2) gm/dl Albumin (3.4-5.0) gm/dl Globulin (2.5-4.0) gm/dl Albumin/Globulin Ratio (0.9-2) Procalcitonin (0-0.5) ng/ml Anaplasma Smear A. phagocytophilum DNA (Negative) COVID-19 Eval Order SARS-CoV-2 (PCR) NEGATIVE (Negative) Imaging Data Radiologist's Impression: Abdomen/Pelvis CT 12/03/20 01:[address] WITHOUT CONTRAST CT DOSE: 752.34 mGy.cm HISTORY: Fever. Chills. + blood cx (gram - bacilli), CRF TECHNIQUE: Multiaxial CT images of the abdomen and pelvis were performed without contrast. A dose lowering technique was utilized adhering to the principles of ALARA. COMPARISON STUDY: Abdomen and pelvis CT 01/25/2020. FINDINGS: The lung bases are clear. No pneumoperitoneum. No pneumatosis. No fractures within the visualized osseous structures. A 4 mm hypodense lesion within the left hepatic lobe. This is technically too small to characterize but statistically benign. Cholecystectomy. The unenhanced spleen, adrenal glands, and pancreas are unremarkable. Mild bilateral perinephric edema, unchanged. This is likely chronic. No renal or ureteral stones. No hydronephrosis. No retroperitoneal lymphadenopathy. Normal caliber abdominal aorta. No pelvic lymphadenopathy. Mild bladder wall thickening, unchanged. The prostate gland is mildly enlarged. There are suboptimal evaluation for bowel pathology due to the lack of intravenous and oral contrast. However, there is no definite bowel wall thickening or obstruction. Moderate well-formed stool within the colon. Colonic diverticulosis. No evidence for acute diverticulitis. Normal appendix. Stable prominent peripancreatic lymph node. IMPRESSION: 1. No definite bowel wall thickening or obstruction. 2. Mild bladder wall thickening, unchanged. This favors chronic outlet obstruction from the enlarged prostate gland. Recommend correlation with urinalysis. 3. Colonic diverticulosis. No evidence for acute diverticulitis. 4. Additional findings as described above. ACT 112: Negative or not required by law. Electronically signed by: Paxton Cruz M.D. 12/03/2020 8:53 AM Blood Pressure Blood Pressure Findings: Elevated blood pressure Blood Pressure Disposition: further management by hospitalist CLARITA Narrative This patient was evaluated and appeared to be in no significant distress. IV access was obtained and laboratory work was drawn. An order for cardiac monitoring was placed and patient is noted to be in sinus bradycardia at 50 bpm. Laboratory work is fairly reassuring with a normal WBC and lactate. Patient did receive IV hydration. Blood cultures were reviewed and 1 of 4 cultures has returned positive preliminarily for a gram-negative organism. Patient was medicated with IV Zosyn. He does have a history of chronic renal insufficiency and prostatitis/obstructive uropathy. CT imaging of the abdomen pelvis was performed and reveals no evidence of acute pathology that may explain the positive blood culture and fever. At this time it is felt to be best for the patient to stay in the hospital until the remaining blood cultures results and identification of the organism is made. Pt was informed of the findings and plan, he agreed. Impression & Plan Positive blood culture, Fever Discharge Plan Visit Data Chief Complaint: Abnormal Labs/Diagnostic Testing Stated Complaint: IRREGULAR LABS ED Provider: Melissa Jimenez Discharge Problem: Positive blood culture, Fever Patient Disposition: Admitted As Inpatient Condition: Good Discharge Instructions Interventions: ED Discharge Assessment Last Done: 12/03/20 05:17 Discharge Problem: Fever Qualifiers: Fever type: unspecified Qualified Code(s): R50.9 - Fever, unspecified
--- NOTE | 2020-12-03 04:54 | History & Physical Report ---
Date of Service December 03, 2020 Assessment & Plan (1) Gram-negative bacteremia: Gram-negative bacteremia- Outpatient culture bottles growing 1 out of 4. History of Serratia marcescens bacteremia/sepsis during admission of 01/12/2019, with no particular source determined, even though there was a left great toe infection at that time. Follow blood culture and sensitivities Empiric broad spectrum coverage with Zosyn IV Present on Admission?: Yes (2) Diabetes mellitus with diabetic polyneuropathy: Placed on Accu-Cheks before meals and at bedtime with NovoLog coverage per scale Check hemoglobin A1c Hold linagliptin Patient does wear diabetic shoes Present on Admission?: Yes (3) Charcot's joint, left ankle and foot: Patient did have a plate and screws placed in and around left great toe and dorsum of foot Order x-ray. May require a CT scan to further assess for possible source of infection if needed Present on Admission?: Yes (4) Hyperlipidemia: Continue rosuvastatin 40 mg daily Present on Admission?: Yes (5) CAD (coronary artery disease): CAD/hypertension- Continue aspirin, hydralazine, metoprolol succinate and nifedipine. Hold chlorthalidone due to hypokalemia Present on Admission?: Yes (6) Hypertension: See above Present on Admission?: Yes (7) CKD (chronic kidney disease) stage 3, GFR 30-59 ml/min: Creatinine 1.61 upon admission, with range 1.4-1.8 Follow serially Present on Admission?: Yes (8) BPH (benign prostatic hyperplasia): Continue alfuzosin Present on Admission?: Yes (9) GERD (gastroesophageal reflux disease): Continue pantoprazole Present on Admission?: Yes History of Present Illness Chief Complaint: The patient is referred to the emergency department by his out patient medical group, due to report of a blood culture recently drawn which is now growing gram-negative bacilli Primary Care Provider: Edwin Kohli Jr, DO The patient is a 70-year-old male with a past medical history including acute cholecystitis, diabetes mellitus with diabetic polyneuropathy, Charcot's joint left ankle and foot status post screws and plate, history of skin graft, Serratia marcescens sepsis, nonproliferative diabetic retinopathy in both eyes, 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 As noted above, the patient was referred to the emergency department by outpatient physicians due to growth of gram-negative bacilli in 1/ blood cultures that were drawn on 12/02/2020. The patient offers no specific symptoms and does not show any particular signs of illness. Of note, he did have a left great toe infection during admission of January 12, 2019 and also grew Serratia marcescens in blood cultures at that time, but the conclusion could not be drawn at that time that the blood cultures were due to his left great toe infection. He continues to have significant peripheral neuropathy due to diabetes. Allergies Allergy/AdvReac Type Severity Reaction Status Date / Time JOÃO Inhibitors Allergy Intermediate Cough Verified 12/03/20 00:57 lisinopril AdvReac Intermediate Cough Verified 12/03/20 00:57 losartan AdvReac Intermediate Cough Verified 12/03/20 00:57 Home Medications Medication Instructions Recorded Confirmed Type alfuzosin 10 mg PO DAILY 02/15/18 12/03/20 History chlorthalidone 25 mg PO DAILY 02/15/18 12/03/20 History linagliptin 5 mg PO DAILY 02/15/18 12/03/20 History metoprolol succinate 25 mg PO DAILY 02/15/18 12/03/20 History pantoprazole 40 mg PO DAILY 02/15/18 12/03/20 History venlafaxine 75 mg PO DAILY 02/15/18 12/03/20 History naproxen sodium [Aleve] 440 mg PO BID PRN 06/10/18 12/03/20 History nifedipine 60 mg tablet,extended 60 mg PO DAILY 11/09/18 12/03/20 History release 24 hr insulin aspart U-100 100 unit/mL 0 unit CONTINUOUS SUBCUTANEOUS 03/03/19 12/03/20 History subcutaneous solution INFUSION CONTINOUS denosumab 60 mg/mL subcutaneous See Rx Instructions SQ .COMPLEX ml 03/09/19 12/03/20 History syringe nitroglycerin 0.4 mg sublingual 0.4 mg SL Q5M PRN tab 03/09/19 12/03/20 History tablet oxycodone-acetaminophen 1 tab PO Q4H PRN 09/12/19 12/03/20 History rosuvastatin 40 mg tablet 40 mg PO DAILY 01/22/20 12/03/20 History flash glucose scanning reader #1 ea 06/03/20 10/01/20 Rx flash glucose sensor #1 ea 06/03/20 10/01/20 Rx hydralazine 25 mg tablet 25 mg PO TID tab 06/03/20 12/03/20 History testosterone cypionate 200 mg/mL 100 mg IM .COMPLEX 10/01/20 12/03/20 History intramuscular oil ergocalciferol (vitamin D2) 1,250 50,000 unit PO MONTHLY #12 caplet 11/21/20 12/03/20 Rx mcg (50,000 unit) capsule aspirin 81 mg PO DAILY 12/03/20 12/03/20 History omeprazole 20 mg PO DAILY 12/03/20 12/03/20 History Past Med/Surg History Medical History (Updated 12/03/20 @ 04:49 by Warren Lauren MD) Ascending aorta enlargement CAD (coronary artery disease) non-obstructive Callus Charcot's joint, left ankle and foot Diabetes mellitus with diabetic polyneuropathy Difficult intubation Grade 3 view with Mac 4 blade GERD (gastroesophageal reflux disease) Controlled with medication Hyperlipidemia Hypertension Neuropathic ulcer of left foot MARIYA on CPAP Osteoporosis Vitamin D deficiency Surgical History H/O skin graft History of laparoscopic cholecystectomy 06/12/18 Hx of foot surgery left foot surgery x5 last time 06/18/18 S/P excision of lipoma S/P foot surgery, left 2010- with LMA #5 S/P inguinal hernia repair R at age 6 years of age Family History Father Cancer Mother Hypertension Diabetes Other Heart disease Social History Smoking Status: Former smoker Tobacco Type: Cigarettes Second Hand Exposure: No; Do You Dip or Chew Tobacco: No; Tobacco Cessation Education Requested by Patient: No Hx Alcohol Use: Yes Alcohol type: beer and wine Hx Substance Use: No Preferred Language: Wolof Communication Ability: Effective Visual Impairment: No Limitations Drafter Civil Required: No Beliefs That Will Affect Care: None Current Living Situation: Spouse Other Information That Helps Us Care for You: No Feels Safe at Home: Yes Safety Concerns: Feels Safe At This Time Assistive Devices: Glasses Review of Systems Review of Systems: The patient denies chest pain, palpitations, shortness of breath, dyspnea on exertion, cough, lower extremity swelling, sore throat, chills, sweats, weight change, fatigue, nausea, vomiting, diarrhea , constipation, abdominal pain, pelvic pain, blood in urine or stool, dysuria, urinary frequency or urgency, lightheadedness, dizziness, headache, memory loss, loss of consciousness, rash, abnormal bruising or bleeding, imbalance, focal or generalized weakness, numbness or tingling in arms, generalized arthralgias or myalgias, back or neck pain, or night sweats. The review of systems is otherwise negative other than for that already noted above, and at least 10 systems have been reviewed. Physical Exam Physical Exam: The patient is awake, alert and oriented 3, well developed and well nourished, normocephalic and atraumatic, lying in bed and in no acute distress. HEENT--PERRL, EOMI, mucous membranes and oropharynx dry. Neck--supple. No JVD. No bruits. Thyroid normal, trachea midline, no adenopathy. Heart--normal S1 and S2. No murmurs, rubs or gallops. Lungs--clear bilaterally, no respiratory distress, no accessory muscle use. Abdomen--normal bowel sounds and soft. Nontender. Nondistended, no hernias or masses, no organomegaly. Extremities--left great toe deformity due to surgical scars. No edema. There are good distal pulses b/l. Dermatologic--normal skin turgor, normal color, no abnormal lymph nodes, no rash. Neurologic--cranial nerves II through XII grossly intact. Rheumatologic--normal range of motion. Psychiatric--normal affect. Results & Data Results & Data ([facility]) Vital Signs (Past 12 Hours) Vital Signs Temp Pulse Pulse Resp BP BP Pulse Ox 12/03/20 04:19 98.8 F 49 L 23 169/72 H 98 12/03/20 02:00 52 L 20 154/90 H 95 12/03/20 00:56 18 157/92 H 95 12/02/20 23:12 98.8 F 62 14 163/75 H 95 Laboratory Results Laboratory Results WBC 7.59 K/uL (4.8-10.8) 12/03/20 00:54 RBC 5.08 M/uL (4.7-6.1) 12/03/20 00:54 Hgb 15.4 g/dL (14.0-18.0) 12/03/20 00:54 Hct 44.6 % (42-52) 12/03/20 00:54 MCV 87.8 fL (80-100) 12/03/20 00:54 MCH 30.3 pg (25-34) 12/03/20 00:54 MCHC 34.5 g/dL (32-36) 12/03/20 00:54 RDW Std Deviation 44.0 fL (36.4-46.3) 12/03/20 00:54 RDW Coeff of Kyle 13.5 % (11.5-14.5) 12/03/20 00:54 Plt Count 223 K/uL (130-400) 12/03/20 00:54 MPV 9.6 fL (7.4-10.4) 12/03/20 00:54 Immature Gran % (Auto) 0.1 % 12/03/20 00:54 Neut % (Auto) 53.7 % 12/03/20 00:54 Lymph % (Auto) 26.2 % 12/03/20 00:54 Peach % (Auto) 15.8 % 12/03/20 00:54 Eos % (Auto) 3.8 % 12/03/20 00:54 Baso % (Auto) 0.4 % 12/03/20 00:54 Neut # (Auto) 4.07 K/uL (1.4-6.5) 12/03/20 00:54 Lymph # (Auto) 1.99 K/uL (1.2-3.4) 12/03/20 00:54 Peach # (Auto) 1.20 K/uL (0.11-0.59) H 12/03/20 00:54 Eos # (Auto) 0.29 K/uL (0-0.5) 12/03/20 00:54 Baso # (Auto) 0.03 K/uL (0-0.2) 12/03/20 00:54 Immature Gran # (Auto) 0.01 K/uL (0.00-0.02) 12/03/20 00:54 Sodium 137 mmol/L (136-145) 12/03/20 00:54 Potassium 3.1 mmol/L (3.5-5.1) L 12/03/20 00:54 Chloride 105 mmol/L (98-107) 12/03/20 00:54 Carbon Dioxide 28 mmol/L (21-32) 12/03/20 00:54 Anion Gap 4.0 (3-11) 12/03/20 00:54 BUN 26 mg/dl (7-18) H 12/03/20 00:54 Creatinine 1.61 mg/dl (0.6-1.4) H 12/03/20 00:54 Est Cr Clr Drug Dosing 55.0 ml/min 12/03/20 00:54 Est GFR ( Amer) 49.8 ml/min 12/03/20 00:54 Est GFR (Non-Af Amer) 43.0 ml/min 12/03/20 00:54 BUN/Creatinine Ratio 15.9 (10-20) 12/03/20 00:54 Glucose 145 mg/dl (70-99) H 12/03/20 00:54 Lactate 0.9 mmol/L (0.4-2.0) 12/03/20 00:54 Calcium 8.5 mg/dl (8.5-10.1) 12/03/20 00:54 Total Bilirubin 0.3 mg/dl (0.2-1) 12/03/20 00:54 AST 26 U/L (15-37) 12/03/20 00:54 ALT 41 U/L (12-78) 12/03/20 00:54 Alkaline Phosphatase 73 U/L (45-117) 12/03/20 00:54 Total Protein 7.0 gm/dl (6.4-8.2) 12/03/20 00:54 Albumin 3.2 gm/dl (3.4-5.0) L 12/03/20 00:54 Globulin 3.8 gm/dl (2.5-4.0) 12/03/20 00:54 Albumin/Globulin Ratio 0.8 (0.9-2) L 12/03/20 00:54 Procalcitonin 0.13 ng/ml (0-0.5) 12/03/20 00:54 Anaplasma Smear See Comment 12/03/20 00:54 COVID-19 Eval Order Covid19 at [facility] 12/03/20 02:07 SARS-CoV-2 (PCR) NEGATIVE (Negative) 12/03/20 02:07 Code Status & VTE Plan Code Status Full code VTE Prophylaxis Plan VTE Prophylaxis will be ordered: Yes PG Care Time/CCT Total # of Minutes Spent Total Time Spent with Patient: Total time spent is greater than 50% in coordination of care (as documented) at patient's floor/unit and/or counseling patient: Coding Level of Care Code INT OBSERVATION CARE 70M LVL 3 Diagnoses Gram-negative bacteremia R78.81 Diabetes mellitus with diabetic polyneuropathy E11.42 Charcot's joint, left ankle and foot M14.672 Hyperlipidemia E78.5 Hyperlipidemia type: unspecified CAD (coronary artery disease) I25.10 Hypertension I10 Hypertension type: essential hypertension CKD (chronic kidney disease) stage 3, GFR 30-59 ml/min N18.3 BPH (benign prostatic hyperplasia) N40.0 Lower urinary tract symptom presence: symptoms absent GERD (gastroesophageal reflux disease) K21.9 Esophagitis presence: esophagitis presence not specified (1) Hyperlipidemia Hyperlipidemia type: unspecified Qualified Code(s): E78.5 - Hyperlipidemia, unspecified (2) Hypertension Hypertension type: essential hypertension Qualified Code(s): I10 - Essential (primary) hypertension (3) BPH (benign prostatic hyperplasia) Lower urinary tract symptom presence: symptoms absent Qualified Code(s): N40.0 - Benign prostatic hyperplasia without lower urinary tract symptoms (4) GERD (gastroesophageal reflux disease) Esophagitis presence: esophagitis presence not specified Qualified Code(s): K21.9 - Gastro-esophageal reflux disease without esophagitis
[2020-12-03] MEDS ORDERED: oxyCODONE/ACETAMINOPHEN 5mg/325mg TAB PO PRN (05:46)
[2020-12-03] MEDS ORDERED: NITROGLYCERIN SL 0.4 MG/TAB TAB SL PRN (05:46)
[2020-12-03] MEDS ORDERED: GLUCAGON FOR INJ 1 MG VIAL SQ PRN (05:46)
[2020-12-03] MEDS ORDERED: CARBOHYDRATES FOR HYPOGLYCEMIA PO PRN (05:46)
[2020-12-03] MEDS ORDERED: GLUCOSE 10 TABS/TUBE PO PRN (05:46)
[2020-12-03] MEDS ORDERED: DEXTROSE 50% 50 ML SYRINGE IV PRN (05:46)
[2020-12-03] MEDS ORDERED: ONDANSETRON INJ 2 MG/ML 2 ML VIAL IV PRN (05:46)
[2020-12-03] MEDS ORDERED: ACETAMINOPHEN 325 MG TAB PO PRN (05:46)
[2020-12-03] MEDS ORDERED: GLUCOSE 40% GEL 15 GM TUBE PO PRN (05:46)
[2020-12-03] MEDS ORDERED: PIPERACILLIN/TAZOBACTAM 3.375 GM in DEXTROSE 5% 100 ML IV SCH (06:00)
[2020-12-03] MEDS ORDERED: INSULIN ASPART 100 UNITS/ML VIAL SC PRN (06:15)
[2020-12-03] MEDS ORDERED: INSULIN ASPART PER UNIT SQ SCH (06:15)
[2020-12-03] MEDS ORDERED: INSULIN ASPART 100 UNITS/ML 3 ML PEN SC SCH (07:30)
--- NOTE | 2020-12-03 08:12 | XRay Report ---
XR foot LT 2V CLINICAL HISTORY: hx Left great toe surgery, gram neg bacteremia COMPARISON STUDY: Left foot 01/13/2019. FINDINGS: Fusion at the first MTP joint with a cortical plate and screws. The hardware appears intact . No abnormal periprosthetic lucency. Deformity within the second third metatarsal heads remains unch anged and is likely chronic. No acute fracture or dislocation within the left foot. The Lisfranc join t is intact. There are plantar and posterior calcaneal spurs. No erosive changes to suggest an osteom yelitis. No significant soft tissue swelling. IMPRESSION: No fracture or evidence for osteomyelitis within the left foot. Postoperative changes as described above. ACT 112: Negative or not required by law. Electronically signed by: Paxton Cruz M.D. 12/03/2020 8:10 AM
[2020-12-03] MEDS: ASPIRIN 81 MG ECTAB PO SCH (08:15)
[2020-12-03] MEDS: PANTOprazole 40 MG TAB PO SCH (08:16)
[2020-12-03] MEDS: NIFEdipine EXTENDED REL 30 MG TABCR PO SCH (08:16)
[2020-12-03] MEDS: VENLAFAXINE HCL XR 75 MG CAPXR PO SCH (08:16)
[2020-12-03] MEDS: METOPROLOL SUCC 25MG EXT REL TAB PO SCH (08:16)
[2020-12-03] MEDS: ROSUVASTATIN CALCIUM 20 MG TAB PO SCH (08:16)
[2020-12-03] MEDS: hydrALAZINE HCL 25 MG TAB PO SCH ×3 (08:16→21:03)
[2020-12-03] MEDS: ALFUZOSIN HCL 10 MG TAB PO SCH (08:17)
[2020-12-03] MEDS: NovoLOG INSULIN PUMP SCH ×4 (08:29→21:46)
--- NOTE | 2020-12-03 08:55 | CT Scan Report ---
ABDOMEN AND PELVIS CT WITHOUT CONTRAST CT DOSE: 752.34 mGy.cm HISTORY: Fever. Chills. + blood cx (gram - bacilli), CRF TECHNIQUE: Multiaxial CT images of the abdomen and pelvis were performed without contrast. A dose lo wering technique was utilized adhering to the principles of ALARA. COMPARISON STUDY: Abdomen and pelvis CT 01/25/2020. FINDINGS: The lung bases are clear. No pneumoperitoneum. No pneumatosis. No fractures within the visu alized osseous structures. A 4 mm hypodense lesion within the left hepatic lobe. This is technically too small to characterize but statistically benign. Cholecystectomy. The unenhanced spleen, adrenal g lands, and pancreas are unremarkable. Mild bilateral perinephric edema, unchanged. This is likely chr onic. No renal or ureteral stones. No hydronephrosis. No retroperitoneal lymphadenopathy. Normal barrington mojgan abdominal aorta. No pelvic lymphadenopathy. Mild bladder wall thickening, unchanged. The prostate gland is mildly enlarged. There are suboptimal evaluation for bowel pathology due to the lack of int ravenous and oral contrast. However, there is no definite bowel wall thickening or obstruction. Moder ate well-formed stool within the colon. Colonic diverticulosis. No evidence for acute diverticulitis. Normal appendix. Stable prominent peripancreatic lymph node. IMPRESSION: 1. No definite bowel wall thickening or obstruction. 2. Mild bladder wall thickening, unchanged. This favors chronic outlet obstruction from the enlarged prostate gland. Recommend correlation with urinalysis. 3. Colonic diverticulosis. No evidence for acute diverticulitis. 4. Additional findings as described above. ACT 112: Negative or not required by law. Electronically signed by: Paxotn Cruz M.D. 12/03/2020 8:53 AM
[2020-12-03] MEDS ORDERED: NON-FORMULARY MEDICATION (Omeprazole 20 mg Capsule,Delayed Release(Dr/Ec)) PO SCH (09:00)
[2020-12-03] MEDS ORDERED: POTASSIUM CHLORIDE CRTAB 20 MEQ TABCR PO STA (10:57)
[2020-12-03 11:58] LABS: BUN Creatinine Ratio 15.1 (10-20); Calcium 8.8 mg/dl (8.5-10.1); Creatinine Clr Calc Pharmacy 56.8 ml/min; Est GFR (African American) 52.2 ml/min; Potassium 3.5 mmol/L (3.5-5.1)
[2020-12-03] MEDS: CEFEPIME 2,000 MG in SYRINGE 0 ML IV SCH (17:24)
[2020-12-03] MEDS: DOXYCYCLINE HYCLATE 100 MG CAP PO SCH (21:02)
--- NOTE | 2020-12-03 21:56 | History & Physical Bridge Note ---
Date of Service December 03, 2020 History & Physical Bridge Note I have examined the patient, reviewed the History & Physical and in the interval since the performance of the History & Physical I have noted the following changes of clinical significance: Patient reports prior to admission, he had fevers to 101 for several days. He did have exposure to his granddaughter with strep throat last week, but has not had a sore throat or headache, no rashes or tick bites that he knows of but he does work in his garden frequently. He did have bilateral hand and knee pains for 1 day when he was having fevers. He denies any abdominal pain or nausea or vomiting, no diarrhea or constipation, no blood in the stool. No urinary symptoms at all. No runny nose, sinus congestion, or coughing. He has not had any pain in the foot that has hardware in it, however he reports he has no feeling in that foot at all. He has not had any cuts or wounds or redness or swelling. No shortness of breath. Patient reports that he had his blood cultures and urine culture collected prior to starting on oral antibiotics on 12/02. Prior to admission to the hospital, he had taken 2 doses of doxycycline empirically in case of tickborne illness, and had taken 1 dose of p.o. levofloxacin 500 mg. In the past, in 2019, he presented this exact same way although he reports he was feeling much sicker at that time and grew out Serratia marcescens in his blood cultures. It was with intermediate resistance to Zosyn in the past, ther efore I changed his antibiotics here today over to cefepime. Vitals reviewed Gen: AAOx3, NAD HEENT: Anicteric sclerae, EOMI, oropharynx clear, no erythema, no cervical or supraclavicular lymphadenopathy CV: RRR no mgr nl S1S2 Pulm: CTAB no wcr Abd: +BS soft NT ND no masses or hernias. He does have his insulin pump inserted in the left lower abdomen Ext: No edema, 2+ DP pulses, scars on left foot and ankle Skin: No rashes, warm/dry, no erythema migrans, no open wounds Neuro: Full strength throughout, decreased sensation to light touch of left foot Laboratory values reviewed Blood [id number] bacilli in 1 out of 2 sets of blood cultures from 12/02 Blood culture 12/03-no growth to date CT abdomen/pelvis with thickened bladder wall and mildly enlarged prostate 70-year-old male here with fevers x3 to 4 days, with gram-negative bacteremia. He does wear his insulin pump when he is out working in the garden-perhaps this is a source of Serratia from exposure to the environment getting into his pump? Versus contamination of the insulin or supplies with his pump? CT abdomen/pelvis without significant evidence of infection and urine culture is negative and was collected prior to administration of antibiotics -Restart doxycycline 100 mg p.o. twice daily empirically in case of tickborne illness although this seems less likely but did have arthralgias and is highly prevalent in this area -Discontinued Zosyn and started cefepime as noted above in case of same Serratia marcescens bacteremia that he had previously -Await final blood culture results -Consult infectious disease
[2020-12-04] MEDS: CEFEPIME 2,000 MG in SYRINGE 0 ML IV SCH (05:21)
[2020-12-04 06:37] LABS: Basophils # (auto) 0.03 K/uL (0-0.2); Basophils % (auto) 0.4 %; Eosinophils # (auto) 0.34 K/uL (0-0.5); Eosinophils % (auto) 4.7 %; Hematocrit (blood only) 45.7 % (42-52); Hemoglobin 15.5 g/dL (14.0-18.0); Immature Granulocytes # (auto) 0.02 K/uL (0.00-0.02); Immature Granulocytes % (auto) 0.3 %; Lymphocytes # (auto) 1.68 K/uL (1.2-3.4); Lymphocytes % (auto) 23.2 %; Mean Corpuscular Hemoglobin 30.3 pg (25-34); Mean Corpuscular Hgb Conc 33.9 g/dL (32-36); Mean Corpuscular Volume 89.4 fL (80-100); Mean Platelet Volume 9.7 fL (7.4-10.4); Monocytes # (auto) 0.65 K/uL (0.11-0.59); Neutrophils # (auto) 4.53 K/uL (1.4-6.5); Neutrophils % (auto) 62.4 %; Platelet Count 243 K/uL (130-400); RDW Coefficient of Variation 13.3 % (11.5-14.5); RDW Standard Deviation 44.1 fL (36.4-46.3); Red Blood Count 5.11 M/uL (4.7-6.1); White Blood Count 7.25 K/uL (4.8-10.8)
[2020-12-04 06:59] LABS: Estimated Average Glucose 143 mg/dl; Hemoglobin A1C 6.6 % (4.5-5.6)
[2020-12-04 07:11] LABS: Albumin Level 2.9 gm/dl (3.4-5.0); Calcium 8.6 mg/dl (8.5-10.1); Creatinine Clr Calc Pharmacy 50.9 ml/min; Est GFR (African American) 45.7 ml/min; Est GFR (Non-African American) 39.4 ml/min; Potassium 3.3 mmol/L (3.5-5.1)
[2020-12-04 07:14] LABS: Albumin Globulin Ratio 0.8 (0.9-2); Bilirubin,Total 0.4 mg/dl (0.2-1); C Reactive Protein 1.35 mg/dl (0-0.29); Globulin 3.8 gm/dl (2.5-4.0); Total Protein 6.7 gm/dl (6.4-8.2)
[2020-12-04] MEDS: ALFUZOSIN HCL 10 MG TAB PO SCH (08:38)
[2020-12-04] MEDS: NovoLOG INSULIN PUMP SCH (08:38)
[2020-12-04] MEDS: PANTOprazole 40 MG TAB PO SCH (08:39)
[2020-12-04] MEDS: ASPIRIN 81 MG ECTAB PO SCH (08:39)
[2020-12-04] MEDS: METOPROLOL SUCC 25MG EXT REL TAB PO SCH (08:39)
[2020-12-04] MEDS: NIFEdipine EXTENDED REL 30 MG TABCR PO SCH (08:39)
[2020-12-04] MEDS: VENLAFAXINE HCL XR 75 MG CAPXR PO SCH (08:39)
[2020-12-04] MEDS: DOXYCYCLINE HYCLATE 100 MG CAP PO SCH (08:39)
[2020-12-04] MEDS: ROSUVASTATIN CALCIUM 20 MG TAB PO SCH (08:39)
[2020-12-04] MEDS: hydrALAZINE HCL 25 MG TAB PO SCH (08:40)
[2020-12-04] MEDS ORDERED: POTASSIUM CHLORIDE CRTAB 20 MEQ TABCR PO ONE (12:00)
--- NOTE | 2020-12-04 12:29 | Discharge Summary ---
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 As noted above, the patient was referred to the emergency department by outpatient physicians due to growth of gram-negative bacilli in 1/ blood cultures that were drawn on 12/02/2020. The patient offers no specific symptoms and does not show any particular signs of illness. Of note, he did have a left great toe infection during admission of January 12, 2019 and also grew Serratia marcescens in blood cultures at that time, but the conclusion could not be drawn at that time that the blood cultures were due to his left great toe infection. He continues to have significant peripheral neuropathy due to diabetes. Principal Diagnosis E. coli bacteremia Discharge Exam Constitutional WD/WN, vitals as above Eyes PERRL, conjunctivae normal, anicteric sclerae ENMT external ear and nose normal, oropharynx normal Neck trachea midline, no thyromegaly Respiratory normal respiratory effort, lungs clear to auscultation Cardiovascular RRR, no murmur, no edema Chest (Breasts) Chest: normal inspection of chest Gastrointestinal (Abdomen) normal bowel sounds, soft, nontender, no hepatosplenomegaly Musculoskeletal Extremities: extremities normal to inspection; no cyanosis and no clubbing Skin no rashes, warm and dry Neurologic moves all extremities and awake; no focal motor deficits Psychiatric A+Ox3, euthymic affect Lymphatic no lymphedema Discharge Data Allergies Allergy/AdvReac Type Severity Reaction Status Date / Time JOÃO Inhibitors Allergy Intermediate Cough Verified 12/03/20 00:57 lisinopril AdvReac Intermediate Cough Verified 12/03/20 00:57 losartan AdvReac Intermediate Cough Verified 12/03/20 00:57 Consultations 12/03/20 02:46 ED Decision to Admit Stat 12/03/20 17:49 Consult Infectious Diseases Routine Ordered Studies 12/03/20 01:37 CT abd pelvis wo con Urgent Laboratory Results WBC 7.25 K/uL (4.8-10.8) 12/04/20 05:36 RBC 5.11 M/uL (4.7-6.1) 12/04/20 05:36 Hgb 15.5 g/dL (14.0-18.0) 12/04/20 05:36 Hct 45.7 % (42-52) 12/04/20 05:36 MCV 89.4 fL (80-100) 12/04/20 05:36 MCH 30.3 pg (25-34) 12/04/20 05:36 MCHC 33.9 g/dL (32-36) 12/04/20 05:36 RDW Std Deviation 44.1 fL (36.4-46.3) 12/04/20 05:36 RDW Coeff of Kyle 13.3 % (11.5-14.5) 12/04/20 05:36 Plt Count 243 K/uL (130-400) 12/04/20 05:36 MPV 9.7 fL (7.4-10.4) 12/04/20 05:36 Immature Gran % (Auto) 0.3 % 12/04/20 05:36 Neut % (Auto) 62.4 % 12/04/20 05:36 Lymph % (Auto) 23.2 % 12/04/20 05:36 [place] % (Auto) 9.0 % 12/04/20 05:36 Eos % (Auto) 4.7 % 12/04/20 05:36 Baso % (Auto) 0.4 % 12/04/20 05:36 Neut # (Auto) 4.53 K/uL (1.4-6.5) 12/04/20 05:36 Lymph # (Auto) 1.68 K/uL (1.2-3.4) 12/04/20 05:36 [place]ell # (Auto) 0.65 K/uL (0.11-0.59) H 12/04/20 05:36 Eos # (Auto) 0.34 K/uL (0-0.5) 12/04/20 05:36 Baso # (Auto) 0.03 K/uL (0-0.2) 12/04/20 05:36 Immature Gran # (Auto) 0.02 K/uL (0.00-0.02) 12/04/20 05:36 ESR 29 mm/hr (0-20) H 12/04/20 05:36 Sodium 139 mmol/L (136-145) 12/04/20 05:36 Potassium 3.3 mmol/L (3.5-5.1) L 12/04/20 05:36 Chloride 107 mmol/L (98-107) 12/04/20 05:36 Carbon Dioxide 30 mmol/L (21-32) 12/04/20 05:36 Anion Gap 2.0 (3-11) L 12/04/20 05:36 BUN 28 mg/dl (7-18) H 12/04/20 05:36 Creatinine 1.73 mg/dl (0.6-1.4) H 12/04/20 05:36 Est Cr Clr Drug Dosing 50.9 ml/min 12/04/20 05:36 Est GFR ( Amer) 45.7 ml/min 12/04/20 05:36 Est GFR (Non-Af Amer) 39.4 ml/min 12/04/20 05:36 BUN/Creatinine Ratio 16.0 (10-20) 12/04/20 05:36 Glucose 218 mg/dl (70-99) H 12/04/20 05:36 POC Glucose 117 mg/dl (70-99) H 12/04/20 12:01 Estimat Average Glucose 143 mg/dl 12/04/20 05:36 Hemoglobin A1c 6.6 % (4.5-5.6) H 12/04/20 05:36 Lactate 0.9 mmol/L (0.4-2.0) 12/03/20 00:54 Calcium 8.6 mg/dl (8.5-10.1) 12/04/20 05:36 Total Bilirubin 0.4 mg/dl (0.2-1) 12/04/20 05:36 AST 28 U/L (15-37) 12/04/20 05:36 ALT 43 U/L (12-78) 12/04/20 05:36 Alkaline Phosphatase 60 U/L (45-117) 12/04/20 05:36 C-Reactive Protein 1.35 mg/dl (0-0.29) H 12/04/20 05:36 Total Protein 6.7 gm/dl (6.4-8.2) 12/04/20 05:36 Albumin 2.9 gm/dl (3.4-5.0) L 12/04/20 05:36 Globulin 3.8 gm/dl (2.5-4.0) 12/04/20 05:36 Albumin/Globulin Ratio 0.8 (0.9-2) L 12/04/20 05:36 Procalcitonin 0.13 ng/ml (0-0.5) 12/03/20 00:54 Anaplasma Smear See Comment 12/03/20 00:54 COVID-19 Eval Order Covid19 at [facility] 12/03/20 02:07 SARS-CoV-2 (PCR) NEGATIVE (Negative) 12/03/20 02:07 Impressions Abdomen/Pelvis CT 12/03/20 01:[address] WITHOUT CONTRAST CT DOSE: 752.34 mGy.cm HISTORY: Fever. Chills. + blood cx (gram - bacilli), CRF TECHNIQUE: Multiaxial CT images of the abdomen and pelvis were performed without contrast. A dose lowering technique was utilized adhering to the principles of ALARA. COMPARISON STUDY: Abdomen and pelvis CT 01/25/2020. FINDINGS: The lung bases are clear. No pneumoperitoneum. No pneumatosis. No fractures within the visualized osseous structures. A 4 mm hypodense lesion within the left hepatic lobe. This is technically too small to characterize but statistically benign. Cholecystectomy. The unenhanced spleen, adrenal glands, and pancreas are unremarkable. Mild bilateral perinephric edema, unchanged. This is likely chronic. No renal or ureteral stones. No hydronephrosis. No ret roperitoneal lymphadenopathy. Normal caliber abdominal aorta. No pelvic lymphadenopathy. Mild bladder wall thickening, unchanged. The prostate gland is mildly enlarged. There are suboptimal evaluation for bowel pathology due to the lack of intravenous and oral contrast. However, there is no definite bowel wall thickening or obstruction. Moderate well-formed stool within the colon. Colonic diverticulosis. No evidence for acute diverticulitis. Normal appendix. Stable prominent peripancreatic lymph node. IMPRESSION: 1. No definite bowel wall thickening or obstruction. 2. Mild bladder wall thickening, unchanged. This favors chronic outlet obstruction from the enlarged prostate gland. Recommend correlation with urinalysis. 3. Colonic diverticulosis. No evidence for acute diverticulitis. 4. Additional findings as described above. ACT 112: Negative or not required by law. Electronically signed by: Paxton Cruz M.D. 12/03/2020 8:53 AM Foot X-Ray 12/03/20 03:47 XR foot LT 2V CLINICAL HISTORY: hx Left great toe surgery, gram neg bacteremia COMPARISON STUDY: Left foot 01/13/2019. FINDINGS: Fusion at the first MTP joint with a cortical plate and screws. The hardware appears intact. No abnormal periprosthetic lucency. Deformity within the second third metatarsal heads remains unchanged and is likely chronic. No acute fracture or dislocation within the left foot. The Lisfranc joint is intact. There are plantar and posterior calcaneal spurs. No erosive changes to suggest an osteomyelitis. No significant soft tissue swelling. IMPRESSION: No fracture or evidence for osteomyelitis within the left foot. Postoperative changes as described above. ACT 112: Negative or not required by law. Electronically signed by: Paxton Cruz M.D. 12/03/2020 8:10 AM Hospital Course (1) Gram-negative bacteremia: Gram-negative bacteremia-growing E. coli in 1/2 sets BCxs, repeat BCxs here no growth so far after taking 1 dose of Levaquin and 2 doses doxy appreciate ID consult-unclear source but I believe most likely source is prostate. UA and Ur cx can be negative even in setting of prostatitis received IV ZOsyn and Cefepime here, now dc to home on amox 500mg po tid x 7 days as per ID recommendation (2) Diabetes mellitus with diabetic polyneuropathy: continue insulin pump and linagliptin A1C well controlled follows with Endo (3) Charcot's joint, left ankle and foot: Patient did have a plate and screws placed in and around left great toe and dorsum of foot Order [id number] for infection no evidence of infection on exam ESR not high (4) Hyperlipidemia: Continue rosuvastatin 40 mg daily (5) CAD (coronary artery disease): CAD/hypertension- Continue aspirin, hydralazine, metoprolol succinate and nifedipine. Hold chlorthalidone due to hypokalemia but K+ replaced and can restart this on discharge normally has normal K+ so tolerates chlorthalidone...likely just hypokalemia from fevers/acute illness (6) Hypertension: See above (7) CKD (chronic kidney disease) stage 3, GFR 30-59 ml/min: Creatinine 1.61 [facility], [facility] dc follows with Nephrology advised to stop NSAID use (8) BPH (benign prostatic hyperplasia): Continue alfuzosin saw enlarged prostate and thickened bladder likely from CANDELARIO on CT scan follow with PCP (9) GERD (gastroesophageal reflux disease): Continue pantoprazole Dispo-stable for dc to home Total Time Total Time Spent Total Time Spent (In Minutes): 35 min Discharge Plan Discharge Items Patient Disposition: Home - Self-Care Reason For Visit: GRAM NEGATIVE BACTEREMIA Discharge Diagnosis: E. coli bacteremia Condition on Discharge: Good Activity: Resume your previous activity Non-emergency contact: Primary Care Provider Call non-emergency contact if: you have any medication questions, your symptoms worsen, you have a fever and your temperature is above 101 Follow-up/Referrals: Edwin Kohli Jr, [Primary Care Provider] - 12/17/20 10:30 am Diet: Carb Consistent or DM2 Addtl Attending Provider Instructions: Please finish out the course of antibiotics for your blood infection with amoxicillin 500mg three times a day through the end of 12/10. The exact source of your infection is unknown, but may have been from your prostate or urinary tract. If you have recurrence of fevers, joint pains, or are feeling worse, please let your doctor know right away. Pending Studies at Discharge: Yes Stand-Alone Forms: My [facility], Smoking Cessation Medications and DC Order Prescriptions: New amoxicillin 500 mg capsule 500 mg PO TID 7 Days Qty: 21 RF: 0 Continued nifedipine 60 mg tablet extended release 24hr 60 mg PO DAILY RF: 0 rosuvastatin [Crestor] 40 mg tablet 40 mg PO DAILY RF: 0 (DME) FreeStyle Alis 2 Sensor Kit See Rx Instructions .ROUTE .MEDSUPPLY Qty: 1 RF: 0 (DME) FreeStyle Alis 2 [place] Misc See Rx Instructions .ROUTE .MEDSUPPLY Qty: 1 RF: 0 ergocalciferol (vitamin D2) [Vitamin D2] 1,250 mcg (50,000 unit) capsule 50,000 unit PO MONTHLY Qty: 12 RF: 0 Prolia 60 mg/mL syringe See Rx Instructions SQ .COMPLEX RF: 0 nitroglycerin 0.4 mg tablet, sublingual 0.4 mg SL Q5M PRN (Reason: Chest Pain) RF: 0 Novolog U-100 Insulin aspart 100 unit/mL solution 0 unit continuous subcutaneous infusion CONTINOUS RF: 0 hydralazine 25 mg tablet 25 mg PO TID RF: 0 chlorthalidone 25 mg tablet 25 mg PO DAILY RF: 0 venlafaxine 75 mg capsule,extended release 24hr 75 mg PO DAILY RF: 0 pantoprazole 40 mg tablet,delayed release (DR/EC) 40 mg PO DAILY RF: 0 metoprolol succinate 25 mg tablet extended release 24 hr 25 mg PO DAILY RF: 0 alfuzosin 10 mg tablet extended release 24 hr 10 mg PO DAILY RF: 0 linagliptin 5 mg tablet 5 mg PO DAILY RF: 0 oxycodone-acetaminophen 5-325 mg tablet 1 tab PO Q4H PRN (Reason: Pain) RF: 0 testosterone cypionate 200 mg/mL oil 100 mg IM .COMPLEX RF: 0 aspirin 81 mg Tablet,Delayed Release (Dr/Ec) 81 mg PO DAILY RF: 0 Discontinued naproxen sodium [Aleve] 220 mg Capsule 440 mg PO BID PRN (Reason: Pain) RF: 0 omeprazole 20 mg Capsule,Delayed Release(Dr/Ec) 20 mg PO DAILY RF: 0 Discharge Orders: Discharge Order (Routine); Ordered 12/04/20 Ordered By: Lori Collier/Other Patient Handouts: A1C, Managing Type 2 Diabetes, Special Foot Care for Diabetes Admission Data Admit Date/Time: 12/03/20 03:45 Attending Provider: Lori Trinidad Admit Provider: Warren Lauren Primary Care Provider: Edwin Kohli Jr Other Providers: Warren Lauren ; Devaughn Roland ; Carla Ponce ; Jose Canales I. ; Jean-Claude Paiz II ; Lili Obregon ; Sim Rdz Coding Level of Care Code 09691 OBS Care - Discharge Diagnoses Gram-negative bacteremia R78.81 Diabetes mellitus with diabetic polyneuropathy E11.42 Charcot's joint, left ankle and foot M14.672 Hyperlipidemia E78.5 Hyperlipidemia type: unspecified CAD (coronary artery disease) I25.10 Hypertension I10 Hypertension type: essential hypertension CKD (chronic kidney disease) stage 3, GFR 30-59 ml/min N18.3 BPH (benign prostatic hyperplasia) N40.0 Lower urinary tract symptom presence: symptoms absent GERD (gastroesophageal reflux disease) K21.9 Esophagitis presence: esophagitis presence not specified
== END 2020-12-04 14:05 | disposition home or self-care (01) ==
LOC: ED 23:01 → 3E 23:01 → SUATTDRO 12-03 03:45 → 3E 12-03 05:17

== ENCOUNTER 2022-03-08 03:18 | Inpatient (IN) ==
[2022-03-08] MEDS ORDERED: HYDROmorphone INJ 0.5 MG/0.5 ML SYR IV STA ×2 (04:11→06:53)
[2022-03-08] MEDS ORDERED: SODIUM CHLORIDE 0.9% 500 ML IV ONE (04:11)
[2022-03-08 04:30] LABS: Basophils # (auto) 0.03 K/uL (0-0.2); Basophils % (auto) 0.2 %; Eosinophils # (auto) 0.01 K/uL (0-0.50); Eosinophils % (auto) 0.1 %; Hematocrit (blood only) 41.2 % (40.1-51.0); Hemoglobin 14.5 g/dl (14.0-18.0); Immature Granulocytes # (auto) 0.22 K/uL (0.00-0.02); Immature Granulocytes % (auto) 1.2 %; Lymphocytes # (auto) 1.31 K/uL (1.2-3.4); Mean Corpuscular Hemoglobin 29.8 pg (25.0-34.0); Mean Corpuscular Hgb Conc 35.2 g/dL (32.0-36.0); Mean Corpuscular Volume 84.8 fL (80.0-100.0); Mean Platelet Volume 9.8 fL (9.4-12.4); Monocytes # (auto) 1.62 K/uL (0.24-0.82); Monocytes % (auto) 8.7 %; Neutrophils # (auto) 15.52 K/uL (1.4-6.5); Neutrophils % (auto) 82.8 %; Platelet Count 268 K/uL (130-400); RDW Coefficient of Variation 13.5 % (11.5-14.5); RDW Standard Deviation 41.8 fL (36.4-46.3); Red Blood Count 4.86 M/uL (4.63-6.08); White Blood Count 18.71 K/ul (4.8-10.8)
[2022-03-08 04:40] LABS: BUN Creatinine Ratio 26.6 (10-20); Bilirubin Direct 0.2 mg/dl (0-0.2); Bilirubin,Total 0.6 mg/dl (0.2-1.0); Calcium 9.7 mg/dl (8.5-10.1); Creatinine Clr Calc Pharmacy 40.7 ml/min; Est GFR (African American) 38.3 ml/min; Magnesium 1.8 mg/dl (1.7-2.4); Potassium 2.8 mmol/L (3.5-5.1); Total Protein 7.3 gm/dl (6.0-8.3)
[2022-03-08 04:46] LABS: Troponin I High Sensitivity 38.7 pg/ml (0-20)
[2022-03-08] MEDS ORDERED: AMPICILLIN/SULBACTAM SOD 3,000 MG in 0.9 % SODIUM CHLORIDE 100 ML IV STA (05:39)
--- NOTE | 2022-03-08 05:44 | Emergency Department Note ---
Impression & Plan Retropharyngeal abscess Admit to the [facility] and consult with Dr. Trejo ED Provider Note NAME: RICK OCHOA AGE: 71 SEX: M ARRIVES VIA: Walk-In INFORMANT: Patient and his ED PROVIDER(S): Dayanara Luz DO CHIEF COMPLAINT: Severe sore throat PLAN: Disposition: Admit to the [facility] on IV antibiotics Condition: Guarded MEDICAL DECISION MAKING: This is a 71-year-old male patient presents to the emergency department with a severe sore throat. The patient was seen here 2 days ago and diagnosed with pharyngeal edema. He was given pain medication, penicillin and steroids. Patient explains that some of the swelling in the posterior oropharynx is decreased but the pain has dramatically increased. CT scan of the soft tissues of the neck revealed a retropharyngeal abscess with some impingement upon the airway. Patient was given IV steroids, IV antibiotics and IV analgesia here in the emergency department. I discussed the case with ENT and the patient will be admitted to medicine Triage Nursing notes reviewed and agree with them. The patient's was at the bedside and gave additional history. Prior medical records reviewed Vital Signs: reviewed and remarkable for hypertension Differential diagnosis: Retropharyngeal abscess, epiglottitis, peritonsillar abscess, Sajan's angina ER treatment provided: IV normal saline IV Dilaudid IV Unasyn IV Decadron Diagnostics interpreted by me: ECG: Normal sinus rhythm at a rate of 89 with first-degree AV block. There is no ST segment elevation or signs of ischemia. There is no ectopy. Cardiac Monitoring: Normal sinus rhythm at a rate of 71 Laboratory studies: See below Imaging studies: As per stat rad CT NECK: IMPRESSION: Heterogeneous/cystic lesion within the left posterior oropharynx extending into the adjacent infrahyoid neck/hypopharynx with cystic components surrounding the adjacent left hyoid bone. Cystic component measures up to at least 3 cm in maximal dimension and is in contact with the adjacent epiglottis. Associated moderate narrowing of the adjacent airway. Mildly prominent of a II lymph nodes on the left. While findings could represent acute infectious process, in a patient of this age, further workup and exclusion of underlying malignant process is recommended. Retropharyngeal fluid/edema seen from C2-6. HPI: 71/M arrives for evaluation of severe sore throat. Patient developed a sore throat approximately 4 days ago and some swelling in the posterior oropharynx. He was seen here in the emergency department and told that he had developed the symptoms because of his snoring. He was prescribed antibiotics, steroids and a pain medication. Patient states that some the swelling went down but he now has more intense pain in his throat, especially with swallowing. ROS: See above HPI for pertinent positives & negatives. A total of 10 systems reviewed and were otherwise negative. PAST MEDICAL HISTORY:See Below PAST SURGICAL HISTORY:See Below FAMILY HISTORY:See Below SOCIAL HISTORY:See Below HOME MEDICATIONS: See list ALLERGIES: See list VITALS:See Below PHYSICAL EXAMINATION: HEENT: Head - normocephalic and atraumatic. Pupils are equal, round, and reactive to light. Extraocular eye muscles are intact, and sclera are anicteric. Nose - moist nasal mucosa without discharge. Mouth - moist buccal mucosa. Oropharynx is moderately erythematous with significant left-sided tonsillar edema Neck: Supple; no nuchal rigidity but there is significantly painful left anterior cervical lymphadenopathy. There is no submental fullness. Heart: Regular rate and rhythm. There is a normal S1 and S2 with no murmurs, clicks, or gallops appreciated. Lungs: Clear to auscultation bilaterally with no wheezes, rales, or rhonchi. Abdomen: Soft, completely nontender, nondistended, with good bowel sounds. There are no palpable pulsatile masses or hepatosplenomegaly. There is no guarding, rigidity, or rebound noted. Extremities: No evidence of cyanosis, clubbing, or edema. There are easily p alpable peripheral pulses. Skin: warm and dry with good turgor and no rashes. ED COURSE: Times/Reassessments: 345: The patient was evaluated in room C4. A complete history and physical was performed. Patient was bolused with a liter of normal saline solution. He was given a dose of IV Dilaudid for his pain. He will go for CT scan of the soft tissues of his neck. He was given a dose of IV Unasyn. I reviewed the results of the CT scan with the patient and labs with the patient and his . he was given a dose of IV Decadron. I discussed the case with Dr. Trejo. The patient will be admitted to the [facility]. Dayanara A Botti, DO Past Med/Surg History Medical History Ascending aorta enlargement CAD (coronary artery disease) non-obstructive Charcot's joint, left ankle and foot Difficult intubation Grade 3 view with Mac 4 blade Dysesthesia GERD (gastroesophageal reflux disease) Controlled with medication Hyperlipidemia Hypertension Hypokalemia MARIYA on CPAP Osteoporosis Postural instability Serratia sepsis Vitamin D deficiency Surgical History H/O skin graft History of laparoscopic cholecystectomy 06/12/18 Hx of foot surgery left foot surgery x5 last time 06/18/18 S/P excision of lipoma S/P inguinal hernia repair R at age 6 years of age Family History Father Cancer Mother Hypertension Diabetes Other Heart disease Social History Smoking Status: Former smoker Tobacco Type: Cigarettes Second Hand Exposure: No; Hx Alcohol Use: Yes Alcohol type: beer Hx Substance Use: No Preferred Language: Chadian Communication Ability: Effective Visual Impairment: No Limitations Top Former Required: No Beliefs That Will Affect Care: Congregation Congregation Beliefs: Orthodoxy marital status: Current Living Situation: Spouse Feels Safe at Home: Yes Assistive Devices: Glasses Allergies Allergies Allergy/AdvReac Type Severity Reaction Status Date / Time JOÃO Inhibitors Allergy Intermediate Cough Verified 03/04/22 12:54 lisinopril AdvReac Intermediate Cough Verified 03/04/22 12:54 losartan AdvReac Intermediate Cough Verified 03/04/22 12:54 Home Meds Home Medications Medication Instructions Recorded Confirmed alfuzosin 10 mg tablet,extended 10 mg PO DAILY 02/15/18 03/04/22 release 24 hr chlorthalidone 25 mg tablet 25 mg PO DAILY 02/15/18 03/04/22 linagliptin 5 mg tablet 5 mg PO DAILY 02/15/18 03/04/22 metoprolol succinate 25 mg 25 mg PO DAILY 02/15/18 03/04/22 tablet,extended release 24 hr pantoprazole 40 mg tablet,delayed 40 mg PO DAILY 02/15/18 03/04/22 release venlafaxine 75 mg capsule,extended 75 mg PO DAILY 02/15/18 03/04/22 release 24 hr insulin aspart U-100 100 unit/mL 0 unit continuous subcutaneous 03/03/1902/21 subcutaneous solution (Novolog infusion CONTINOUS U-100 Insulin aspart) denosumab 60 mg/mL subcutaneous See Rx Instructions subcut .COMPLEX 03/09/19 03/04/22 syringe (Prolia) nitroglycerin 0.4 mg sublingual 0.4 mg sublingual Q5M PRN Chest 03/09/19 03/04/22 tablet Pain oxycodone-acetaminophen 5 mg-325 1 tab PO Q4H PRN Pain 09/12/19 03/04/22 mg tablet rosuvastatin 40 mg tablet (Crestor) 40 mg PO DAILY 01/22/20 03/04/22 testosterone cypionate 200 mg/mL 100 mg IM .COMPLEX 10/01/20 03/04/22 intramuscular oil aspirin 81 mg tablet,delayed 81 mg PO DAILY 12/03/20 03/04/22 release nifedipine 60 mg tablet,extended 90 mg PO DAILY 09/25/21 03/04/22 release 24 hr Previous Rx's Medication Instructions Recorded flash glucose scanning reader #1 ea 06/03/20 (FreeStyle Alis 2 Verbank) flash glucose sensor (FreeStyle #1 ea 06/03/20 Alis 2 Sensor kit) calcitriol 0.25 mcg capsule 0.25 mcg PO DAILY #90 caps 09/25/21 dapagliflozin 10 mg tablet 10 mg PO DAILY #90 tabs 11/21/21 (Farxiga) hydralazine 25 mg tablet 50 mg PO TID #540 tabs 01/30/22 oxycodone-acetaminophen 5 mg-325 1 tab PO Q6H PRN pain #20 tabs 03/06/22 mg tablet (Percocet) oxycodone-acetaminophen 5 mg-325 1 tab PO Q6H PRN pain #20 tabs 03/06/22 mg tablet (Percocet) penicillin V potassium 500 mg 500 mg PO Q6H 10 days #40 tabs 03/06/22 tablet penicillin V potassium 500 mg 500 mg PO Q6H 7 days #28 tabs 03/06/22 tablet prednisone 50 mg tablet 50 mg PO DAILY 5 days #5 tabs 03/06/22 prednisone 50 mg tablet 50 mg PO DAILY 5 days #5 tabs 03/06/22 Results & Data (ED) Vital Signs Vital Signs - 24 hr 03/08/22 03:22 03/08/22 03:52 03/08/22 04:31 Temperature 38.1 C H 37.3 C Temperature Source Temporal Artery Scan Oral Pulse Rate 110 H 86 Pulse Rate [Finger] 96 H Pulse Rate from SpO2 Sensor Respiratory Rate 18 18 18 Respiratory Effort / Characteristics Non-Labored Spontaneous Non-Labored Spontaneous Respiratory Depth Normal Normal Blood Pressure 135/67 Blood Pressure [Right Arm] 130/76 Blood Pressure Mean 89 Blood Pressure Mean [Right Arm] 94 Blood Pressure Position [Right Arm] Sitting Pulse Oximetry 94 95 94 Oxygen Delivery Method Room Air Room Air Room Air Sepsis Recent Fever Within 48 Hours Yes Sepsis New/Unexplained Change in Mental Status No Sepsis Action Taken by Nursing No Action Required 03/08/22 05:01 03/08/22 07:01 03/08/22 07:01 Temperature Temperature Source Pulse Rate 78 Pulse Rate [Finger] 71 Pulse Rate from SpO2 Sensor 79 Respiratory Rate 18 16 Respiratory Effort / Characteristics Non-Labored Spontaneous Respiratory Depth Normal Blood Pressure 152/65 H Blood Pressure [Right Arm] 155/78 H Blood Pressure Mean 94 Blood Pressure Mean [Right Arm] 103 Blood Pressure Position [Right Arm] Sitting Pulse Oximetry 94 94 Oxygen Delivery Method Room Air Sepsis Recent Fever Within 48 Hours Sepsis New/Unexplained Change in Mental Status Sepsis Action Taken by Nursing 03/08/22 07:15 03/08/22 07:30 03/08/22 07:45 Temperature Temperature Source Pulse Rate 75 74 75 Pulse Rate [Finger] Pulse Rate from SpO2 Sensor 75 76 76 Respiratory Rate 20 14 13 Respiratory Effort / Characteristics Respiratory Depth Blood Pressure Blood Pressure [Right Arm] Blood Pressure Mean Blood Pressure Mean [Right Arm] Blood Pressure Position [Right Arm] Pulse Oximetry 95 95 94 Oxygen Delivery Method Room Air Room Air Room Air Sepsis Recent Fever Within 48 Hours Sepsis New/Unexplained Change in Mental Status Sepsis Action Taken by Nursing 03/08/22 08:00 03/08/22 08:00 03/08/22 08:15 Temperature Temperature Source Pulse Rate 76 74 Pulse Rate [Finger] Pulse Rate from SpO2 Sensor 74 74 Respiratory Rate 18 19 Respiratory Effort / Characteristics Respiratory Depth Blood Pressure 143/75 H Blood Pressure [Right Arm] Blood Pressure Mean 97 Blood Pressure Mean [Right Arm] Blood Pressure Position [Right Arm] Pulse Oximetry 96 94 Oxygen Delivery Method Room Air Room Air Sepsis Recent Fever Within 48 Hours Sepsis New/Unexplained Change in Mental Status Sepsis Action Taken by Nursing 03/08/22 08:30 03/08/22 09:13 Temperature Temperature Source Pulse Rate 73 Pulse Rate [Finger] Pulse Rate from SpO2 Sensor 73 74 Respiratory Rate 19 Respiratory Effort / Characteristics Respiratory Depth Blood Pressure Blood Pressure [Right Arm] Blood Pressure Mean Blood Pressure Mean [Right Arm] Blood Pressure Position [Right Arm] Pulse Oximetry 94 96 Oxygen Delivery Method Room Air Sepsis Recent Fever Within 48 Hours Sepsis New/Unexplained Change in Mental Status Sepsis Action Taken by Nursing Laboratory Data Result diagrams: 03/08/22 04:00 03/08/22 04:00 Lab Results 03/08/22 03/08/22 03/08/22 Range/Units 04:00 04:00 04:00 WBC 18.71 H (4.8-10.8) K/ul RBC 4.86 (4.63-6.08) M/uL Hgb 14.5 (14.0-18.0) g/dl Hct 41.2 (40.1-51.0) % MCV 84.8 (80.0-100.0) fL MCH 29.8 (25.0-34.0) pg MCHC 35.2 (32.0-36.0) g/dL RDW Std Deviation 41.8 (36.4-46.3) fL RDW Coeff of Kyle 13.5 (11.5-14.5) % Plt Count 268 (130-400) K/uL MPV 9.8 (9.4-12.4) fL Immature Gran % (Auto) 1.2 % Neut % (Auto) 82.8 % Lymph % (Auto) 7.0 % [place] % (Auto) 8.7 % Eos % (Auto) 0.1 % Baso % (Auto) 0.2 % Neut # (Auto) 15.52 H (1.4-6.5) K/uL Lymph # (Auto) 1.31 (1.2-3.4) K/uL [place] # (Auto) 1.62 H (0.24-0.82) K/uL Eos # (Auto) 0.01 (0-0.50) K/uL Baso # (Auto) 0.03 (0-0.2) K/uL Immature Gran # (Auto) 0.22 H (0.00-0.02) K/uL Sodium 139 (136-145) mmol/L Potassium 2.8 L (3.5-5.1) mmol/L Chloride 103 (98-107) mmol/L Carbon Dioxide 24 (21-32) mmol/L Anion Gap 12 H (3-11) BUN 53 H (6-23) mg/dl Creatinine 1.99 H (0.6-1.4) mg/dl Est Cr Clr Drug Dosing 40.7 ml/min Est GFR ( Amer) 38.3 ml/min Est GFR (Non-Af Amer) 33.0 ml/min BUN/Creatinine Ratio 26.6 H (10-20) Glucose 69 L (70-99(Fasting)) mg/dl Lactate (0.4-2.0) mmol/L Calcium 9.7 (8.5-10.1) mg/dl Magnesium 1.8 (1.7-2.4) mg/dl Total Bilirubin 0.6 (0.2-1.0) mg/dl Direct Bilirubin 0.2 (0-0.2) mg/dl AST 22 (13-39) U/L ALT 21 (7-52) U/L Alkaline Phosphatase 47 (34-104) U/L Troponin I High Sens 38.7 H (0-20) pg/ml Total Protein 7.3 (6.0-8.3) gm/dl Albumin 4.0 (3.4-5.0) gm/dl Procalcitonin 0.32 (0-0.5) ng/ml SARS-CoV-2, RNA, NAAT (NEGATIVE) 03/08/22 03/08/22 Range/Units 05:10 08:14 WBC (4.8-10.8) K/ul RBC (4.63-6.08) M/uL Hgb (14.0-18.0) g/dl Hct (40.1-51.0) % MCV (80.0-100.0) fL MCH (25.0-34.0) pg MCHC (32.0-36.0) g/dL RDW Std Deviation (36.4-46.3) fL RDW Coeff of Kyle (11.5-14.5) % Plt Count (130-400) K/uL MPV (9.4-12.4) fL Immature Gran % (Auto) % Neut % (Auto) % Lymph % (Auto) % [place] % (Auto) % Eos % (Auto) % Baso % (Auto) % Neut # (Auto) (1.4-6.5) K/uL Lymph # (Auto) (1.2-3.4) K/uL [place] # (Auto) (0.24-0.82) K/uL Eos # (Auto) (0-0.50) K/uL Baso # (Auto) (0-0.2) K/uL Immature Gran # (Auto) (0.00-0.02) K/uL Sodium (136-145) mmol/L Potassium (3.5-5.1) mmol/L Chloride (98-107) mmol/L Carbon Dioxide (21-32) mmol/L Anion Gap (3-11) BUN (6-23) mg/dl Creatinine (0.6-1.4) mg/dl Est Cr Clr Drug Dosing ml/min Est GFR ( Amer) ml/min Est GFR (Non-Af Amer) ml/min BUN/Creatinine Ratio (10-20) Glucose (70-99(Fasting)) mg/dl Lactate 0.5 (0.4-2.0) mmol/L Calcium (8.5-10.1) mg/dl Magnesium (1.7-2.4) mg/dl Total Bilirubin (0.2-1.0) mg/dl Direct Bilirubin (0-0.2) mg/dl AST (13-39) U/L ALT (7-52) U/L Alkaline Phosphatase (34-104) U/L Troponin I High Sens (0-20) pg/ml Total Protein (6.0-8.3) gm/dl Albumin (3.4-5.0) gm/dl Procalcitonin (0-0.5) ng/ml SARS-CoV-2, RNA, NAAT NEGATIVE (NEGATIVE) Administered Medications Sodium Chloride (Nss 1000ml) 1,000 mls @ 80 mls/hr IV .[id number] [facility] Stop: 04/07/22 12:28 Last Admin: 03/08/22 13:41 Dose: 80 mls/hr Documented By: MP Acetaminophen (Ofirmev) 1,000 mg in 100 mls @ 400 mls/hr IV Q8H PRN PRN Reason: Mild pain (1-310) or headache Stop: 03/11/22 14:25 Last Infusion: 03/08/22 14:49 Dose: 0 mls/hr Documented By: Admin: 03/08/22 14:34 Dose: 400 mls/hr Documented By: MP Discontinued Medications Dexamethasone (Dexamethasone Sod Inj 4 Mg/Ml Vial) 10 mg IV NOW STA Stop: 03/08/22 06:44 Last Admin: 03/08/22 06:51 Dose: 10 mg Documented By: CC Hydromorphone HCl (Hydromorphone Inj 0.5 Mg/0.5 Ml Syr) 0.5 mg IV NOW STA Stop: 03/08/22 04:12 Last Admin: 03/08/22 04:24 Dose: 0.5 mg Documented By: DANYEL Hydromorphone HCl (Hydromorphone Inj 0.5 Mg/0.5 Ml Syr) 0.5 mg IV NOW STA Stop: 03/08/22 06:54 Last Admin: 03/08/22 07:08 Dose: 0.5 mg Documented By: LYNDA Sodium Chloride (Nss) 500 mls @ 999 mls/hr IV .Q31M ONE Stop: 03/08/22 04:41 Last Infusion: 03/08/22 05:00 Dose: 0 mls/hr Documented By: Admin: 03/08/22 04:21 Dose: 999 mls/hr Documented By: DANYEL Ampicillin Sodium/Sulbactam Sodium 3,000 mg/ Sodium Chloride 108 mls @ 200 mls/hr IV NOW STA; Protocol Stop: 03/08/22 06:11 Last Infusion: 03/08/22 06:32 Dose: 0 mls/hr Documented By: Admin: 03/08/22 05:58 Dose: 200 mls/hr Documented By: CC Potassium Chloride (K Jose / Wtr) 10 meq in 100 mls @ 100 mls/hr IV ONE ONE; Protocol Stop: 03/08/22 07:20 Last Infusion: 03/08/22 07:30 Dose: 0 mls/hr Documented By: Admin: 03/08/22 06:30 Dose: 100 mls/hr Documented By: CC Daptomycin 500 mg/ Syringe 10 mls @ 5 mls/min IV NOW STA; Protocol Stop: 03/08/22 09:37 Last Admin: 03/08/22 09:43 Dose: 5 mls/min Documented By: AM Potassium Chloride (K Jose / Wtr) 10 meq in 100 mls @ 100 mls/hr IV Q1H [facility]LLY Stop: 03/08/22 16:28 Last Admin: 03/08/22 16:22 Dose: 100 mls/hr Documented By: Infusion: 03/08/22 15:49 Dose: 100 mls/hr Documented By: Admin: 03/08/22 14:49 Dose: 100 mls/hr Documented By: Infusion: 03/08/22 14:42 Dose: 100 mls/hr Documented By: Admin: 03/08/22 13:42 Dose: 100 mls/hr Documented By: RAFAELA Piperacillin Sod/Tazobactam (Sod 3.375 gm/ Dextrose) 115 mls @ 230 mls/hr IV NOW ONE; Protocol Stop: 03/08/22 13:14 Last Infusion: 03/08/22 14:16 Dose: 0 mls/hr Documented By: Admin: 03/08/22 12:55 Dose: 230 mls/hr Documented By: RAFAELA Insulin Aspart (Insulin Aspart Per Unit) 0 units SC ACHS [place]LLY Stop: 04/07/22 12:28 Last Admin: 03/08/22 12:55 Dose: 1 units Documented By: RAFAELA Co-signed By: MIQUEL Ioversol (Optiray 350 100ml) 70 ml IV ONCE ONE Stop: 03/08/22 06:00 Last Admin: 03/08/22 07:33 Dose: 70 ml Documented By: DIAN Lidocaine/Epinephrine (Lidocaine 2%/Epinephrine 1:100,000 20ml) Confirm Administered Dose 20 ml .ROUTE .STK-MED ONE Stop: 03/08/22 10:43 Last Admin: 03/08/22 10:59 Dose: 9 ml Documented By: LAM Imaging Data Radiologist's Impression: Soft Tissue Neck CT 03/08/22 04:11 CT soft tissue neck w con HISTORY: Throat pain with difficulty swallowing. eval for RPA vs epiglotitis TECHNIQUE: Multiaxial CT images of the neck are performed following the intravenous administration of contrast and reformatted in the sagittal and coronal plane. COMPARISON STUDY: None. FINDINGS: The visualized brain parenchyma and orbits are unremarkable. The pterygopalatine fossa are well-maintained. Mild mucosal thickening within the left maxillary sinus. The mastoid air cells are clear. No fractures within the visualized osseous structures. The lung apices are clear. The thyroid gland enhances normally. Mild to moderate calcified plaque within the bilateral frontal bifurcations. There is mild prevertebral edema from the C2-C6 levels. There is a multiloculated peripheral enhancing cystic collection within the left parapharyngeal soft tissues which partially surrounds the left hyoid bone. This measures up to 3.5 cm in length and 2.9 cm in diameter. This is best seen image 245. This results in moderate to severe narrowing of the airway at the level of the epiglottis and associated thickening at the base of the epiglottis. There is complete effacement of the left pyriform sinus. The trachea is midline and patent. Mild left cervical lymphadenopathy which may be reactive. IMPRESSION: 1. A 3.5 x 2.9 cm multiloculated cystic collection within left parapharyngeal soft tissues likely representing a peritonsillar abscess. This partially surrounds the hyoid bone and results in moderate to severe effacement of the airway at this level. ENT consultation recommended to exclude the possibility of underlying mass given the patient's age. 2. Mild prevertebral edema and mild thickening of the epiglottis which is likely reactive to the suspected abscess. ACT 112: Negative or not required by law. Electronically signed by: Paxton Cruz M.D. 03/08/2022 8:04 AM Discharge Plan Visit Data Chief Complaint: Facial Injury/Pain Stated Complaint: FACE AND THROAT PAIN,FEVER ED Provider: Dayanara Luz Discharge Problem: Retropharyngeal abscess Patient Disposition: Admitted As Inpatient Discharge Instructions Interventions: ED Discharge Assessment Last Done: 03/08/22 09:47
[2022-03-08] MEDS ORDERED: OPTIRAY 350 100ml IV ONE (05:59)
[2022-03-08] MEDS ORDERED: POTASSIUM CHLORIDE / WTR 10 MEQ/100 ML PLCT IV ONE (06:21)
[2022-03-08] MEDS ORDERED: DEXAMETHASONE SOD INJ 4 MG/ML VIAL IV STA (06:43)
--- NOTE | 2022-03-08 08:06 | CT Scan Report ---
CT soft tissue neck w con HISTORY: Throat pain with difficulty swallowing. eval for RPA vs epiglotitis TECHNIQUE: Multiaxial CT images of the neck are performed following the intravenous administration of contrast and reformatted in the sagittal and coronal plane. COMPARISON STUDY: None. FINDINGS: The visualized brain parenchyma and orbits are unremarkable. The pterygopalatine fossa are well-maintained. Mild mucosal thickening within the left maxillary sinus. The mastoid air cells are c lear. No fractures within the visualized osseous structures. The lung apices are clear. The thyroid g land enhances normally. Mild to moderate calcified plaque within the bilateral frontal bifurcations. There is mild prevertebral edema from the C2-C6 levels. There is a multiloculated peripheral enhancin g cystic collection within the left parapharyngeal soft tissues which partially surrounds the left hy oid bone. This measures up to 3.5 cm in length and 2.9 cm in diameter. This is best seen image 245. T his results in moderate to severe narrowing of the airway at the level of the epiglottis and associat ed thickening at the base of the epiglottis. There is complete effacement of the left pyriform sinus. The trachea is midline and patent. Mild left cervical lymphadenopathy which may be reactive. IMPRESSION: 1. A 3.5 x 2.9 cm multiloculated cystic collection within left parapharyngeal soft tissues likely rep resenting a peritonsillar abscess. This partially surrounds the hyoid bone and results in moderate to severe effacement of the airway at this level. ENT consultation recommended to exclude the possibili ty of underlying mass given the patient's age. 2. Mild prevertebral edema and mild thickening of the epiglottis which is likely reactive to the susp ected abscess. ACT 112: Negative or not required by law. Electronically signed by: Paxton Cruz M.D. 03/08/2022 8:04 AM
--- NOTE | 2022-03-08 08:59 | ENT Consultation ---
Date of Consultation March 08, 2022 Assessment & Plan (1) Abscess of lateral pharyngeal space: Findings consistent with left parapharyngeal space abscess. Lower than the tonsils. At the level of the hyoid. Plan For incision and drainage left neck History of Present Illness Reason for Consultation: Severe sore throat History of Present Illness 71-year-old gentleman, seen here 2 days ago with sore throat, treated with antibiotics, worsening sore throat with dysphagia and severe pain, found on CT scan this a.m. to have 3 cm cystic lesion left parapharyngeal space Allergies Allergy/AdvReac Type Severity Reaction Status Date / Time JOÃO Inhibitors Allergy Intermediate Cough Verified 03/04/22 12:54 lisinopril AdvReac Intermediate Cough Verified 03/04/22 12:54 losartan AdvReac Intermediate Cough Verified 03/04/22 12:54 Home Medications Medication Instructions Recorded Confirmed Type alfuzosin 10 mg tablet,extended 10 mg PO DAILY 02/15/18 03/04/22 History release 24 hr chlorthalidone 25 mg tablet 25 mg PO DAILY 02/15/18 03/04/22 History linagliptin 5 mg tablet 5 mg PO DAILY 02/15/18 03/04/22 History metoprolol succinate 25 mg 25 mg PO DAILY 02/15/18 03/04/22 History tablet,extended release 24 hr pantoprazole 40 mg tablet,delayed 40 mg PO DAILY 02/15/18 03/04/22 History release venlafaxine 75 mg capsule,extended 75 mg PO DAILY 02/15/18 03/04/22 History release 24 hr insulin aspart U-100 100 unit/mL 0 unit continuous subcutaneous 03/03/19 03/04/22 History subcutaneous solution (Novolog infusion CONTINOUS U-100 Insulin aspart) denosumab 60 mg/mL subcutaneous See Rx Instructions subcut .COMPLEX 03/09/19 03/04/22 History syringe (Prolia) nitroglycerin 0.4 mg sublingual 0.4 mg sublingual Q5M PRN Chest 03/09/19 03/04/22 History tablet Pain oxycodone-acetaminophen 5 mg-325 1 tab PO Q4H PRN Pain 09/12/19 03/04/22 History mg tablet rosuvastatin 40 mg tablet (Crestor) 40 mg PO DAILY 01/22/20 03/04/22 History flash glucose scanning reader #1 ea 06/03/20 03/04/22 Rx (FreeStyle Alis 2 [place]) flash glucose sensor (FreeStyle #1 ea 06/03/20 03/04/22 Rx Alis 2 Sensor kit) testosterone cypionate 200 mg/mL 100 mg IM .COMPLEX 10/01/20 03/04/22 History intramuscular oil aspirin 81 mg tablet,delayed 81 mg PO DAILY 12/03/20 03/04/22 History release calcitriol 0.25 mcg capsule 0.25 mcg PO DAILY #90 caps 09/25/21 03/04/22 Rx nifedipine 60 mg tablet,extended 90 mg PO DAILY 09/25/21 03/04/22 History release 24 hr dapagliflozin 10 mg tablet 10 mg PO DAILY #90 tabs 11/21/21 03/04/22 Rx (Farxiga) hydralazine 25 mg tablet 50 mg PO TID #540 tabs 01/30/22 03/04/22 Rx oxycodone-acetaminophen 5 mg-325 1 tab PO Q6H PRN pain #20 tabs 03/06/22 Rx mg tablet (Percocet) oxycodone-acetaminophen 5 mg-325 1 tab PO Q6H PRN pain #20 tabs 03/06/22 Rx mg tablet (Percocet) penicillin V potassium 500 mg 500 mg PO Q6H 10 days #40 tabs 03/06/22 Rx tablet penicillin V potassium 500 mg 500 mg PO Q6H 7 days #28 tabs 03/06/22 Rx tablet prednisone 50 mg tablet 50 mg PO DAILY 5 days #5 tabs 03/06/22 Rx prednisone 50 mg tablet 50 mg PO DAILY 5 days #5 tabs 03/06/22 Rx Patient History Medical History Ascending aorta enlargement CAD (coronary artery disease) non-obstructive Charcot's joint, left ankle and foot Difficult intubation Grade 3 view with Mac 4 blade Dysesthesia GERD (gastroesophageal reflux disease) Controlled with medication Hyperlipidemia Hypertension MARIYA on CPAP Osteoporosis Postural instability Serratia sepsis Vitamin D deficiency Surgical History H/O skin graft History of laparoscopic cholecystectomy 06/12/18 Hx of foot surgery left foot surgery x5 last time 06/18/18 S/P excision of lipoma S/P inguinal hernia repair R at age 6 years of age Family History Father Cancer Mother Hypertension Diabetes Other Heart disease Social History Smoking Status: Former smoker Tobacco Type: Cigarettes Second Hand Exposure: No; Hx Alcohol Use: Yes Alcohol type: beer and wine Hx Substance Use: No Preferred Language: French Communication Ability: Effective Visual Impairment: No Limitations Transmission Mechanic Required: No Beliefs That Will Affect Care: None marital status: Current Living Situation: Spouse Feels Safe at Home: Yes Assistive Devices: None Physical Exam Constitutional: WD/WN, vitals as above Eyes: PERRL, conjunctivae normal, anicteric sclerae ENMT: external ear and nose normal, oropharynx normal Mouth: + oropharynx abnormality (Left tonsillar and soft palate edema) Neck: Tender left neck and swelling Respiratory: normal respiratory effort, lungs clear to auscultation Results & Data ([place]) Vital Signs (Past 12 Hours) Vital Signs Temp Pulse Pulse Resp BP BP Pulse Ox 03/08/22 08:30 73 19 94 03/08/22 08:15 74 19 94 03/08/22 08:00 76 18 96 03/08/22 08:00 143/75 H 03/08/22 07:45 75 13 94 03/08/22 07:30 74 14 95 03/08/22 07:15 75 20 95 03/08/22 07:01 152/65 H 03/08/22 07:01 78 16 94 03/08/22 05:01 71 18 155/78 H 94 03/08/22 04:31 86 18 94 03/08/22 03:52 37.3 C 96 H 18 130/76 95 03/08/22 03:22 38.1 C H 110 H 18 135/67 94 O2 Del Method 03/08/22 08:30 Room Air 03/08/22 08:15 Room Air 03/08/22 08:00 Room Air 03/08/22 08:00 03/08/22 07:45 Room Air 03/08/22 07:30 Room Air 03/08/22 07:15 Room Air 03/08/22 07:01 03/08/22 07:01 03/08/22 05:01 Room Air 03/08/22 04:31 Room Air 03/08/22 03:52 Room Air 03/08/22 03:22 Room Air Diagnostic Findings CT showed loculated partially cystic 3 cm mass at the level of the hyoid left parapharyngeal space lower pole of the tonsil.
--- NOTE | 2022-03-08 09:05 | Electrocardiogram Report ---
Test Reason : Blood Pressure : / mmHG Vent. Rate : 089 BPM Atrial Rate : 089 BPM P-R Int : 222 ms QRS Dur : 090 ms QT Int : 346 ms P-R-T Axes : 031 002 061 degrees QTc Int : 420 ms Sinus rhythm with 1st degree A-V block Nonspecific T wave abnormality Lateral leads Abnormal ECG When compared with ECG of 12-SEP-2019 12:49, Vent. rate has increased BY 35 BPM Nonspecific T wave abnormality now evident in Lateral leads Confirmed by Tylor Malik ([id number]) on 03/08/2022 9:04:55 AM Referred By: Melba Pepper Confirmed By:Tylor Malik
--- NOTE | 2022-03-08 09:08 | Anesthesiology Consultation ---
Date of Service March 08, 2022 Assessment & Plan (1) Encounter for pre-operative examination: Chart Review Chart Review: Acceptable Risk for Surgery (necessary surgery) and Patient NOT seen in Pre Admission Testing Consults Requested none History Height/Weight Height: 6 ft 2.5 in Weight: 94.8 kg Allergies Allergy/AdvReac Type Severity Reaction Status Date / Time JOÃO Inhibitors Allergy Intermediate Cough Verified 03/04/22 12:54 lisinopril AdvReac Intermediate Cough Verified 03/04/22 12:54 losartan AdvReac Intermediate Cough Verified 03/04/22 12:54 Medications Home Medications Medication Instructions Recorded Confirmed Last Taken alfuzosin 10 mg tablet,extended 10 mg PO DAILY 02/15/18 03/04/22 12/02/20 release 24 hr chlorthalidone 25 mg tablet 25 mg PO DAILY 02/15/18 03/04/22 12/02/20 linagliptin 5 mg tablet 5 mg PO DAILY 02/15/18 03/04/22 12/02/20 metoprolol succinate 25 mg 25 mg PO DAILY 02/15/18 03/04/22 12/02/20 tablet,extended release 24 hr pantoprazole 40 mg tablet,delayed 40 mg PO DAILY 02/15/18 03/04/22 12/02/20 release venlafaxine 75 mg capsule,extended 75 mg PO DAILY 02/15/18 03/04/22 12/02/20 release 24 hr insulin aspart U-100 100 unit/mL 0 unit continuous subcutaneous 03/03/19 03/04/22 Unknown subcutaneous solution (Novolog infusion CONTINOUS U-100 Insulin aspart) denosumab 60 mg/mL subcutaneous See Rx Instructions subcut .COMPLEX 03/09/19 03/04/22 Unknown syringe (Prolia) nitroglycerin 0.4 mg sublingual 0.4 mg sublingual Q5M PRN Chest 03/09/19 03/04/22 Unknown tablet Pain oxycodone-acetaminophen 5 mg-325 1 tab PO Q4H PRN Pain 09/12/19 03/04/22 Unknown mg tablet rosuvastatin 40 mg tablet (Crestor) 40 mg PO DAILY 01/22/20 03/04/22 12/02/20 flash glucose scanning reader #1 ea 06/03/20 03/04/22 Unknown (FreeStyle Alis 2 [place]) flash glucose sensor (FreeStyle #1 ea 06/03/20 03/04/22 Unknown Alis 2 Sensor kit) testosterone cypionate 200 mg/mL 100 mg IM .COMPLEX 10/01/20 03/04/22 Unknown intramuscular oil aspirin 81 mg tablet,delayed 81 mg PO DAILY 12/03/20 03/04/22 12/02/20 release calcitriol 0.25 mcg capsule 0.25 mcg PO DAILY #90 caps 09/25/21 03/04/22 Unknown nifedipine 60 mg tablet,extended 90 mg PO DAILY 09/25/21 03/04/22 Unknown release 24 hr dapagliflozin 10 mg tablet 10 mg PO DAILY #90 tabs 11/21/21 03/04/22 Unknown (Farxiga) hydralazine 25 mg tablet 50 mg PO TID #540 tabs 01/30/22 03/04/22 Unknown oxycodone-acetaminophen 5 mg-325 1 tab PO Q6H PRN pain #20 tabs 03/06/22 Unknown mg tablet (Percocet) oxycodone-acetaminophen 5 mg-325 1 tab PO Q6H PRN pain #20 tabs 03/06/22 Unknown mg tablet (Percocet) penicillin V potassium 500 mg 500 mg PO Q6H 10 days #40 tabs 03/06/22 Unknown tablet penicillin V potassium 500 mg 500 mg PO Q6H 7 days #28 tabs 03/06/22 Unknown tablet prednisone 50 mg tablet 50 mg PO DAILY 5 days #5 tabs 03/06/22 Unknown prednisone 50 mg tablet 50 mg PO DAILY 5 days #5 tabs 03/06/22 Unknown Past Medical History Medical History Ascending aorta enlargement CAD (coronary artery disease) non-obstructive Charcot's joint, left ankle and foot Difficult intubation Grade 3 view with Mac 4 blade Dysesthesia GERD (gastroesophageal reflux disease) Controlled with medication Hyperlipidemia Hypertension Hypokalemia MARIYA on CPAP Osteoporosis Postural instability Serratia sepsis Vitamin D deficiency Past Family History Family History Father Cancer Mother Hypertension Diabetes Other Heart disease Past Surgical History Surgical History H/O skin graft History of laparoscopic cholecystectomy 06/12/18 Hx of foot surgery left foot surgery x5 last time 06/18/18 S/P excision of lipoma S/P inguinal hernia repair R at age 6 years of age Social History Smoking Status: Former smoker tobacco type: cigarettes Hx Alcohol Use: Yes Alcohol type: beer and wine alcohol intake frequency: a few times a month Hx Substance Use: No substance use type: does not use Physical Exam Vital Signs Last Vital Signs Temp 37.3 C 03/08/22 03:52 Pulse 73 03/08/22 08:30 Resp 19 03/08/22 08:30 BP 143/75 H 03/08/22 08:00 Pulse Ox 94 03/08/22 08:30 O2 Del Method 03/08/22 08:30 Testing Laboratory Results 03/08/22 04:00 03/08/22 04:00 Electrocardiogram Date: 03/08/22 DICTATED BY:Tylor Malik MD Test Reason : Blood Pressure : / mmHG Vent. Rate : 089 BPM Atrial Rate : 089 BPM P-R Int : 222 ms QRS Dur : 090 ms QT Int : 346 ms P-R-T Axes : 031 002 061 degrees QTc Int : 420 ms Sinus rhythm with 1st degree A-V block Nonspecific T wave abnormality Lateral leads Abnormal ECG When compared with ECG of 12-SEP-2019 12:49, Vent. rate has increased BY 35 BPM Nonspecific T wave abnormality now evident in Lateral leads Confirmed by Tylor Malik ([id number]) on 03/08/2022 9:04:55 AM Referred By: Melba Pepper Confirmed By:Tylor Malik Signed By: Other Testing CT soft tissue neck w con HISTORY: Throat pain with difficulty swallowing. eval for RPA vs epiglotitis TECHNIQUE: Multiaxial CT images of the neck are performed following the intravenous administration of contrast and reformatted in the sagittal and coronal plane. COMPARISON STUDY: None. FINDINGS: The visualized brain parenchyma and orbits are unremarkable. The pter ygopalatine fossa are well-maintained. Mild mucosal thickening within the left maxillary sinus. The mastoid air cells are clear. No fractures within the visualized osseous structures. The lung apices are clear. The thyroid gland enhances normally. Mild to moderate calcified plaque within the bilateral frontal bifurcations. There is mild prevertebral edema from the C2-C6 levels. There is a multiloculated peripheral enhancing cystic collection within the left parapharyngeal soft tissues which partially surrounds the left hyoid bone. This measures up to 3.5 cm in length and 2.9 cm in diameter. This is best seen image 245. This results in moderate to severe narrowing of the airway at the level of the epiglottis and associated thickening at the base of the epiglottis. There is complete effacement of the left pyriform sinus. The trachea is midline and patent. Mild left cervical lymphadenopathy which may be reactive. IMPRESSION: 1. A 3.5 x 2.9 cm multiloculated cystic collection within left parapharyngeal soft tissues likely representing a peritonsillar abscess. This partially surrounds the hyoid bone and results in moderate to severe effacement of the airway at this level. ENT consultation recommended to exclude the possibility of underlying mass given the patient's age. 2. Mild prevertebral edema and mild thickening of the epiglottis which is likely reactive to the suspected abscess. ACT 112: Negative or not required by law. Electronically signed by: Paxton Cruz M.D. 03/08/2022 8:04 AM Dictated:03/08/22 0758 Transcribed: 03/08/22 0758
[2022-03-08] MEDS ORDERED: MEPERIDINE HCL 25 MG/ML CARP/VIAL IV PRN (09:10)
[2022-03-08] MEDS ORDERED: ATROPINE SULFATE 0.1 MG/ML 10ML SYR IV PRN (09:10)
[2022-03-08] MEDS ORDERED: ONDANSETRON INJ 2 MG/ML 2 ML VIAL IV PRN ×2 (09:10→12:29)
[2022-03-08] MEDS ORDERED: ePHEDrine sulfate 50 MG/ML AMP IV PRN (09:10)
[2022-03-08] MEDS ORDERED: fentaNYL citrate 100 MCG/2 ML VIAL IV PRN (09:10)
[2022-03-08] MEDS ORDERED: LABETALOL HCL IV 5 MG/ML 20ML IV PRN (09:10)
[2022-03-08] MEDS ORDERED: MoRPHine SULFATE 10 MG/ML CARP/VIAL IV PRN (09:10)
[2022-03-08] MEDS ORDERED: PHENYLEPHRINE 100MCG/ML 5ML SYR IV PRN (09:10)
[2022-03-08] MEDS ORDERED: MIDAZOLAM HCL 1 MG/ML 2ML VIAL ONE (09:28)
[2022-03-08] MEDS ORDERED: fentaNYL citrate 100 MCG/2 ML VIAL ONE (09:28)
[2022-03-08] MEDS ORDERED: ACETAMINOPHEN 1000 MG/100 ML IV IV ONE (09:34)
[2022-03-08] MEDS ORDERED: SUGAMMADEX SODIUM 200 MG/2 ML VIAL IV ONE (09:34)
[2022-03-08] MEDS ORDERED: FAMOTIDINE/PF 20 MG/2 ML VIAL IV ONE (09:34)
[2022-03-08] MEDS ORDERED: DAPTOmycin 500 MG in SYRINGE 0 ML IV STA (09:36)
[2022-03-08] MEDS ORDERED: ONDANSETRON INJ 2 MG/ML 2 ML VIAL ONE (10:18)
[2022-03-08] MEDS ORDERED: DEXAMETHASONE SOD INJ 4 MG/ML VIAL ONE (10:18)
[2022-03-08] MEDS ORDERED: PROPOFOL IV EMULSION 10 MG/ML 100 ML VIAL IV ONE (10:18)
[2022-03-08] MEDS ORDERED: LIDOCAINE 2% MPF LOCAL 5 ML VIAL INFIL ONE (10:18)
[2022-03-08] MEDS ORDERED: LIDOCAINE 2%/EPINEPHRINE 1:100,000 20ML ONE (10:42)
[2022-03-08] MEDS ORDERED: SUCCINYLCHOLINE CHLORIDE 20 MG/ML 10 ML VIAL IV ONE (10:42)
[2022-03-08] MEDS ORDERED: ROCURONIUM BROMIDE 10 MG/ML 5 ML VIAL IV ONE (10:42)
[2022-03-08] MEDS ORDERED: PHENYLEPHRINE 100MCG/ML 5ML SYR ONE (11:37)
--- NOTE | 2022-03-08 11:40 | Operative Report ---
PG Post Operative Report Pre & Post Diagnosis Operation Date: 03/08/22 10:00 Pre-Op Diagnosis: Abscess of lateral pharyngeal space Post-Op Diagnosis: Abscess of lateral pharyngeal space I identified the patient and participated in the time-out.: Yes Procedure Operation Date: 03/08/22 10:00 Actual Procedures p Aspiration, Incision and Drainage Parapharyngeal Abscess, Direct Laryngoscopy - Rhea Trejo MD Surgeon Rhea Trejo MD Cat Wagon Operator None Estimated Blood Loss 10 Findings Consistent with Post-Op Diagnosis Lateral pharyngeal space abscess Specimens Culture Anesthesia Type General Complications None Description of Procedure He was brought to the operating room, properly identified, prepped and draped in the usual sterile manner after general endotracheal anesthesia. Direct laryngoscopy was performed using the sliding Hira laryngoscope. Swelling left retropharyngeal space with swelling of left arytenoid and left AE fold. Retropharyngeal space swelling aspirated moderately firm. No pus obtained. At this point right neck was prepped with ChloraPrep and draped in the usual sterile manner. Incision was submandibular incision 2 cm below the angle of the mandible. Injected with 2% Xylocaine with 1 20,000 strength epinephrine. Incision made using a 15 blade and carried down through the skin and subcutaneous layer and platysma layer. Hemostasis controlled using the Bovie and also the bipolar cautery. Further dissection was continued underneath the submandibular gland and anterior to the sternocleidomastoid muscle toward the hyoid. Blunt sharp dissection was performed using the Metzenbaum scissors and the hemostat. Thin purulent fluid was expressed. Cultures were taken. Abscess cavity was opened with a tonsil hemostat. Irrigated clean with saline. Large half-inch Jasmina drain placed. Sewn in place. Skin closed with interrupted 4- 0 nylon sutures. Tolerated procedure well and taken recovery area in satisfactory condition. I attest to the content of the Intraoperative Record and any orders documented therein. Any exceptions are noted below.
--- NOTE | 2022-03-08 11:46 | Anesthesiology Progress Note ---
Date of Service March 08, 2022 Anesthesia Post Procedure Vital Signs Vital Signs: Temp Pulse Pulse Pulse Resp BP BP 03/08/22 11:40 36.9 C 83 16 173/73 H 03/08/22 11:30 84 16 176/77 H 03/08/22 11:22 37.0 C 84 16 164/63 H 03/08/22 09:42 163/82 H 03/08/22 09:42 74 16 03/08/22 09:13 03/08/22 08:30 73 19 03/08/22 08:15 74 19 03/08/22 08:00 76 18 03/08/22 08:00 143/75 H 03/08/22 07:45 75 13 03/08/22 07:30 74 14 03/08/22 07:15 75 20 03/08/22 07:01 152/65 H 03/08/22 07:01 78 16 03/08/22 05:01 71 18 155/78 H 03/08/22 04:31 86 18 03/08/22 03:52 37.3 C 96 H 18 130/76 03/08/22 03:22 38.1 C H 110 H 18 135/67 Pulse Ox O2 Del Method O2 Flow Rate 03/08/22 11:40 94 Oxymask 3 03/08/22 11:30 97 Oxymask 5 03/08/22 11:22 96 Oxymask 5 03/08/22 09:42 03/08/22 09:42 94 03/08/22 09:13 96 03/08/22 08:30 94 Room Air 03/08/22 08:15 94 Room Air 03/08/22 08:00 96 Room Air 03/08/22 08:00 03/08/22 07:45 94 Room Air 03/08/22 07:30 95 Room Air 03/08/22 07:15 95 Room Air 03/08/22 07:01 03/08/22 07:01 94 03/08/22 05:01 94 Room Air 03/08/22 04:31 94 Room Air 03/08/22 03:52 95 Room Air 03/08/22 03:22 94 Room Air Pain Intensity Left Throat: Pain Intensity: 2 Transfer of Care Handoff Completed per policy Notes Mental Status: alert / awake / arousable Patient Amnestic to Procedure: Yes Nausea / Vomiting: adequately controlled Pain: adequately controlled Airway Patency, RR, SpO2: stable & adequate BP & HR: stable & adequate Hydration State: stable & adequate Anesthetic Complications: no major complications apparent and Pt Satisfied with anesthetic care Notes: The patient is awake and doing well.
[2022-03-08] MEDS ORDERED: GLUCAGON FOR INJ 1 MG VIAL SQ PRN (12:29)
[2022-03-08] MEDS ORDERED: CARBOHYDRATES FOR HYPOGLYCEMIA PO PRN (12:29)
[2022-03-08] MEDS ORDERED: INSULIN ASPART PER UNIT SC SCH ×2 (12:29→18:00)
[2022-03-08] MEDS ORDERED: GLUCOSE 10 TAB/TUBE PO PRN (12:29)
[2022-03-08] MEDS ORDERED: DEXTROSE 50% 50 ML SYRINGE IV PRN (12:29)
[2022-03-08] MEDS ORDERED: GLUCOSE 40% GEL 15 GM TUBE PO PRN (12:29)
[2022-03-08] MEDS ORDERED: PIPERACILLIN/TAZOBACTAM 3.375 GM in DEXTROSE 5% 100 ML IV ONE (12:45)
[2022-03-08] MEDS: SODIUM CHLORIDE 0.9% 1000ML 1,000 ML IV SCH (13:41)
[2022-03-08] MEDS: POTASSIUM CHLORIDE / WTR 10 MEQ/100 ML PLCT IV SCH ×4 (13:42→17:21)
[2022-03-08] MEDS: ACETAMINOPHEN 1,000 MG/100 ML VIAL IV PRN ×2 (14:34→23:16)
[2022-03-08] MEDS: PIPERACILLIN/TAZOBACTAM 3.375 GM in DEXTROSE 5% 100 ML IV SCH (17:25)
--- NOTE | 2022-03-08 17:26 | History & Physical Report ---
Date of Service March 08, 2022 Assessment & Plan (1) Retropharyngeal abscess: Plan: CT showed lateral pharyngeal space abscess. S/p I&D with Dr. Trejo on 03/08. - [place] drain in place per op report, but presently under dressing - Continue dapto/Zosyn - Follow surgical and blood cultures obtained on 03/08 - Strict NPO. Still with difficulty swallowing secretions post-op. Speaking and breathing more easily. Have reached out to Dr. Trejo for any recs needed; will upd ate note as needed (2) Hypokalemia: Plan: K+ 2.8 on admission. - Repleting with IV only given his NPO status. 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 - Hold all orals - Patient would like to use his insulin pump. Order entered. Pharmacy to follow. (4) Hypertension: Plan: BP is 160/70. - Hold orals for NPO - Hydralazine 10 mg IV Q4h PRN for SBP > 170 or DBP > 110 (5) Ascending aorta enlargement: Plan: Per patient and . - Blood pressure control as above (6) Hyperlipidemia: Plan: - Hold statin for NPO (7) CAD (coronary artery disease): Plan: No chest pain. Troponin elevation reflects demand ischemia. - Hold ASA until not NPO (8) GERD (gastroesophageal reflux disease): Plan: - PPI IV daily until not NPO (9) DVT prophylaxis: Plan: SCDs - Hold heparin until sure he will need no further procedures. FULL CODE - Per patient and in ER Admission and Anticipated Discharge Date Admission Date: March 08, 2022 History of Present Illness Primary Care Provider: Melba Pepper PA-C 71yo M w/ hx of DM1, HTN, HLD who presents with sub-pharyngeal abscess. Patient notes a sore and painful throat on . He came to the ER on 03/06 (Wednesday), but was sent home with penicillin & prednisone. The pain gradually got worse, but really started to get bad on Wednesday. On Wednesday, he also noticed that he was having trouble speaking and swallowing his own saliva. He was not able to eat or drink anything, then was not able to even swallow his own saliva. Overnight on Wednesday, he also reports fevers/chills. He denies any shortness of breath, chest pain, nausea, vomiting. Has not urinated as much or had a BM as he has not had anything to eat or drink since Wednesday. Allergies Allergy/AdvReac Type Severity Reaction Status Date / Time JOÃO Inhibitors Allergy Intermediate Cough Verified 03/04/22 12:54 lisinopril AdvReac Intermediate Cough Verified 03/04/22 12:54 losartan AdvReac Intermediate Cough Verified 03/04/22 12:54 Home Medications Medication Instructions Recorded Confirmed Type alfuzosin 10 mg tablet,extended 10 mg PO DAILY 02/15/18 03/04/22 History release 24 hr chlorthalidone 25 mg tablet 25 mg PO DAILY 02/15/18 03/04/22 History linagliptin 5 mg tablet 5 mg PO DAILY 02/15/18 03/04/22 History metoprolol succinate 25 mg 25 mg PO DAILY 02/15/18 03/04/22 History tablet,extended release 24 hr pantoprazole 40 mg tablet,delayed 40 mg PO DAILY 02/15/18 03/04/22 History release venlafaxine 75 mg capsule,extended 75 mg PO DAILY 02/15/18 03/04/22 History release 24 hr insulin aspart U-100 100 unit/mL 0 unit continuous subcutaneous 03/03/19 03/04/22 History subcutaneous solution (Novolog infusion CONTINOUS U-100 Insulin aspart) denosumab 60 mg/mL subcutaneous See Rx Instructions subcut .COMPLEX 03/09/19 03/04/22 History syringe (Prolia) nitroglycerin 0.4 mg sublingual 0.4 mg sublingual Q5M PRN Chest 03/09/19 03/04/22 History tablet Pain oxycodone-acetaminophen 5 mg-325 1 tab PO Q4H PRN Pain 09/12/19 03/04/22 History mg tablet rosuvastatin 40 mg tablet (Crestor) 40 mg PO DAILY 01/22/20 03/04/22 History flash glucose scanning reader #1 ea 06/03/20 03/04/22 Rx (FreeStyle Alis [address] [place]) flash glucose sensor (FreeStyle #1 ea 06/03/20 03/04/22 Rx Alis 2 Sensor kit) testosterone cypionate 200 mg/mL 100 mg IM .COMPLEX 10/01/20 03/04/22 History intramuscular oil aspirin 81 mg tablet,delayed 81 mg PO DAILY 12/03/20 03/04/22 History release calcitriol 0.25 mcg capsule 0.25 mcg PO DAILY #90 caps 09/25/21 03/04/22 Rx nifedipine 60 mg tablet,extended 90 mg PO DAILY 09/25/21 03/04/22 History release 24 hr dapagliflozin 10 mg tablet 10 mg PO DAILY #90 tabs 11/21/21 03/04/22 Rx (Farxiga) hydralazine 25 mg tablet 50 mg PO TID #540 tabs 01/30/22 03/04/22 Rx oxycodone-acetaminophen 5 mg-325 1 tab PO Q6H PRN pain #20 tabs 03/06/22 Rx mg tablet (Percocet) oxycodone-acetaminophen 5 mg-325 1 tab PO Q6H PRN pain #20 tabs 03/06/22 Rx mg tablet (Percocet) penicillin V potassium 500 mg 500 mg PO Q6H 10 days #40 tabs 03/06/22 Rx tablet penicillin V potassium 500 mg 500 mg PO Q6H 7 days #28 tabs 03/06/22 Rx tablet prednisone 50 mg tablet 50 mg PO DAILY 5 days #5 tabs 03/06/22 Rx prednisone 50 mg tablet 50 mg PO DAILY 5 days #5 tabs 03/06/22 Rx Past Med/Surg History Medical History (Updated 03/08/22 @ 17:21 by Cristi Guadalupe MD) Ascending aorta enlargement CAD (coronary artery disease) non-obstructive Charcot's joint, left ankle and foot Difficult intubation Grade 3 view with Mac 4 blade Dysesthesia GERD (gastroesophageal reflux disease) Controlled with medication Hyperlipidemia Hypertension Hypokalemia MARIYA on CPAP Osteoporosis Postural instability Serratia sepsis Vitamin D deficiency Surgical History H/O skin graft History of laparoscopic cholecystectomy 06/12/18 Hx of foot surgery left foot surgery x5 last time 06/18/18 S/P excision of lipoma S/P inguinal hernia repair R at age 6 years of age Family History Father Cancer Mother Hypertension Diabetes Other Heart disease Social History Smoking Status: Former smoker Tobacco Type: Cigarettes Second Hand Exposure: No; Hx Alcohol Use: Yes Alcohol type: beer Hx Substance Use: No Preferred Language: Swazi Communication Ability: Effective Visual Impairment: No Limitations Set Up Technician Required: No Beliefs That Will Affect Care: Congregation Congregation Beliefs: Alevism marital status: Current Living Situation: Spouse Feels Safe at Home: Yes Assistive Devices: Glasses Review of Systems Review of Systems: All systems reviewed & are unremarkable except as noted in HPI & below Physical Exam Constitutional: WD/WN, vitals as above Eyes: EOM intact bilaterally; no conjunctival abnormality ENMT: external ear and nose normal, oropharynx normal Neck: + tracheal deviation, + anterior neck swelling and + submandibular swelling; + abnormal visual inspection (Large left-sided mass. Tender.) Respiratory: + labored breathing; no respiratory distress and no stridor (No stridor, but can hear fast breath sounds) Cardiovascular: RRR, no murmur, no edema Gastrointestinal (Abdomen): Inspection/Auscultation: abdomen normal to inspection; abdomen not distended Musculoskeletal: no cyanosis or clubbing, extremities motor strength 5/5 Skin: no rashes, warm and dry Neurologic: moves all extremities and awake Psychiatric: Orientation: alert, oriented to person and cooperative Results & Data Results & Data ([facility]) Vital Signs (Past 12 Hours) Vital Signs Temp Pulse Pulse Resp BP BP BP 03/08/22 14:00 82 18 183/76 H 03/08/22 13:45 75 18 181/82 H 03/08/22 13:30 75 18 174/96 H 03/08/22 13:15 77 18 182/83 H 03/08/22 13:00 76 18 178/82 H 03/08/22 12:45 78 18 181/85 H 03/08/22 12:30 83 18 164/90 H 03/08/22 12:15 85 18 170/88 H 03/08/22 12:00 36.5 C 80 18 166/74 H 03/08/22 15:55 36.6 C 68 20 162/67 H 03/08/22 13:50 36.5 C 80 18 166/74 H 03/08/22 11:40 36.9 C 83 16 173/73 H 03/08/22 11:30 84 16 176/77 H 03/08/22 11:22 37.0 C 84 16 164/63 H 03/08/22 09:42 163/82 H 03/08/22 09:42 74 16 03/08/22 09:13 03/08/22 08:30 73 19 03/08/22 08:15 74 19 03/08/22 08:00 76 18 03/08/22 08:00 143/75 H 03/08/22 07:45 75 13 03/08/22 07:30 74 14 03/08/22 07:15 75 20 03/08/22 07:01 152/65 H 03/08/22 07:01 78 16 Pulse Ox O2 Del Method O2 Flow Rate 03/08/22 14:00 95 Oxymask 3 03/08/22 13:45 95 Oxymask 3 03/08/22 13:30 93 Oxymask 3 03/08/22 13:15 93 Oxymask 3 03/08/22 13:00 94 Oxymask 3 03/08/22 12:45 93 Oxymask 3 03/08/22 12:30 92 Oxymask 3 03/08/22 12:15 93 Oxymask 3 03/08/22 12:00 93 Oxymask 3 03/08/22 15:55 95 03/08/22 13:50 93 Oxymask 3 03/08/22 11:40 94 Oxymask 3 03/08/22 11:30 97 Oxymask 5 03/08/22 11:22 96 Oxymask 5 03/08/22 09:42 03/08/22 09:42 94 03/08/22 09:13 96 03/08/22 08:30 94 Room Air 03/08/22 08:15 94 Room Air 03/08/22 08:00 96 Room Air 03/08/22 08:00 03/08/22 07:45 94 Room Air 03/08/22 07:30 95 Room Air 03/08/22 07:15 95 Room Air 03/08/22 07:01 03/08/22 07:01 94 Code Status & VTE Plan VTE Prophylaxis Plan VTE Prophylaxis will be ordered: Yes PG Care Time/CCT Total # of Minutes Spent Total Time Spent with Patient: Total time spent is greater than 50% in coordination of care (as documented) at patient's floor/unit and/or counseling patient: Coding Level of Care Code 81355 Initial In Care Lvl 3 Diagnoses Retropharyngeal abscess J39.0 Hypokalemia E87.6 Type 2 diabetes mellitus with insulin deficiency E11.9 Hypertension I10 Hypertension type: essential hypertension Ascending aorta enlargement I77.89 Hyperlipidemia E78.5 Hyperlipidemia type: unspecified CAD (coronary artery disease) I25.10 GERD (gastroesophageal reflux disease) K21.9 Esophagitis presence: esophagitis presence not specified DVT prophylaxis Z29.9 (1) Hypertension Hypertension type: essential hypertension Qualified Code(s): I10 - Essential (primary) hypertension (2) Hyperlipidemia Hyperlipidemia type: unspecified Qualified Code(s): E78.5 - Hyperlipidemia, unspecified (3) GERD (gastroesophageal reflux disease) Esophagitis presence: esophagitis presence not specified Qualified Code(s): K21.9 - Gastro-esophageal reflux disease without esophagitis
[2022-03-08] MEDS ORDERED: PHARMACY GLYCEMIC MGMT CONSULT PRN (17:37)
[2022-03-08] MEDS: HYDROmorphone INJ 0.5 MG/0.5 ML SYR IV PRN ×3 (17:52→23:15)
[2022-03-08] MEDS ORDERED: INSULIN ASPART 100 UNITS/ML VIAL SC PRN (18:15)
[2022-03-08] MEDS: hydrALAZINE HCL 20 MG/ML VIAL IV PRN ×2 (19:38→23:15)
[2022-03-08] MEDS ORDERED: GLYCOPYRROLATE 0.2 MG/ML VIAL IM ONE (21:13)
[2022-03-08] MEDS ORDERED: GLYCOPYRROLATE 0.2 MG/ML VIAL IV ONE (21:13)
[2022-03-08] MEDS ORDERED: diphenhydrAMINE 50 MG/ML VIAL IV ONE (23:05)
--- NOTE | 2022-03-08 23:06 | Communication Note ---
Date of Service: March 08, 2022 - ordered 0.2mg IV glycopyrrolate x1 for oral secretions complaint - patient requesting water and NPO be removed. states he would drink from sink if not given. Reviewed chart. Will not be removing strict NPO at this time in the context of status post pharyngeal abscess I&D and still having active infection.
[2022-03-09] MEDS: PIPERACILLIN/TAZOBACTAM 3.375 GM in DEXTROSE 5% 100 ML IV SCH ×3 (02:04→17:32)
[2022-03-09] MEDS: SODIUM CHLORIDE 0.9% 1000ML 1,000 ML IV SCH ×2 (02:04→14:24)
[2022-03-09] MEDS: HYDROmorphone INJ 0.5 MG/0.5 ML SYR IV PRN ×2 (04:04→07:18)
[2022-03-09 06:19] LABS: Hematocrit (blood only) 38.5 % (40.1-51.0); Hemoglobin 13.1 g/dl (14.0-18.0); Mean Corpuscular Hemoglobin 29.6 pg (25.0-34.0); Mean Corpuscular Volume 87.1 fL (80.0-100.0); Mean Platelet Volume 9.8 fL (9.4-12.4); Platelet Count 250 K/uL (130-400); RDW Coefficient of Variation 13.6 % (11.5-14.5); RDW Standard Deviation 43.6 fL (36.4-46.3); Red Blood Count 4.42 M/uL (4.63-6.08); White Blood Count 14.97 K/ul (4.8-10.8)
[2022-03-09 06:36] LABS: Calcium 8.7 mg/dl (8.5-10.1); Creatinine Clr Calc Pharmacy 42.2 ml/min; Est GFR (Non-African American) 34.5 ml/min; Magnesium 1.9 mg/dl (1.7-2.4); Potassium 3.2 mmol/L (3.5-5.1)
[2022-03-09] MEDS: DAPTOmycin 500 MG in SYRINGE 0 ML IV SCH (08:48)
[2022-03-09] MEDS: ACETAMINOPHEN 1,000 MG/100 ML VIAL IV PRN (09:20)
[2022-03-09] MEDS: METOPROLOL SUCC 25MG EXT REL TAB PO SCH ×2 (09:35→11:00)
[2022-03-09] MEDS: NIFEdipine EXTENDED REL 30 MG TABCR PO SCH ×2 (09:35→11:00)
[2022-03-09] MEDS: ASPIRIN 81 MG ECTAB PO SCH ×2 (09:35→11:00)
[2022-03-09] MEDS: POTASSIUM CHLORIDE CRTAB 20 MEQ TABCR PO SCH ×3 (09:35→20:53)
[2022-03-09] MEDS: hydrALAZINE HCL 20 MG/ML VIAL IV PRN (09:38)
[2022-03-09] MEDS: POTASSIUM CHLORIDE / WTR 10 MEQ/100 ML PLCT IV SCH ×3 (11:08→13:07)
--- NOTE | 2022-03-09 12:16 | Hospitalist Progress Note ---
Date of Service March 09, 2022 Assessment & Plan (1) Retropharyngeal abscess: Plan: CT showed left lateral pharyngeal space abscess. S/p I&D with Dr. Trejo on 03/08. Postoperative day #1. He remains on intravenous daptomycin and Zosyn.. Diet has been advanced to full liquids. (2) Hypokalemia: Plan: Intravenous replacement ordered due to inability to swallow large potassium tablets. Serial labs. Diuretic is on hold. 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 Oral medications are on hold. Sliding scale coverage. Eventual advancement to ADA diet. (4) Hypertension: Plan: Hold orals until able to swallow effectively. Will use Hydralazine 10 mg IV Q4h PRN for SBP > 170 or DBP > 110 (5) Ascending aorta enlargement: Plan: Per patient and . Blood pressure control as above (6) Hyperlipidemia: Plan: Hold statin until able to take p.o. (7) CAD (coronary artery disease): Plan: No chest pain. Troponin elevation reflects demand ischemia. Resume ASA when taking p.o. (8) GERD (gastroesophageal reflux disease): Plan: - PPI IV daily until he can be switched to oral route (9) DVT prophylaxis: Plan: SCDs -Heparin subcu . FULL CODE - Per patient and in ER Plan Eventual discharge to home. Hopefully within the next 24 to 48 hours Admission and Anticipated Discharge Date Admission Date: March 08, 2022 Subjective Alert and oriented. He was seen by ENT earlier today and diet has been advanced to full liquids. He cannot swallow potassium tablets and will be repleted in travenously. He remains on Zosyn and daptomycin. Hopefully he can go home within the next 24 to 48 hours Review of Systems Review of Systems: Constitutional-no fever or chills ENT-no blurred vision, no double vision, no epistaxis. Difficulty swallowing due to recent incision and drainage of left peritonsillar abscess Respiratory-no cough, no wheezing, no shortness of breath Cardiac-no palpitations, no chest pain, no syncope GI-no nausea, vomiting, diarrhea, melena, hematochezia -no urinary retention, no urinary incontinence, no dysuria, no hematuria Musculoskeletal-no joint pain, no muscle tenderness Skin-no bruising, no rashes, no pruritus Neuro-no isolated weakness, no paresthesia, no weakness Psych-no depression, no anxiety Physical Exam 2 Physical Exam: General-alert and oriented x3, no fevers, no chills HEENT-head atraumatic and normocephalic, pupils equal and reactive to light, extraocular muscles intact Neck-bandage in place left submandibular area. Chest-clear to auscultation percussion. No rales, wheezing , stridor or rhonchi Cardiac-regular rate and rhythm, normal S1 and S2, no murmurs Abdomen-normal bowel sounds, nontender, no hepatosplenomegaly Extremities-no cyanosis, clubbing, or edema Neuro-cranial nerves II through XII intact, motor and sensory function within normal limits, strength symmetrical , no focal deficits Psych-normal affect, normal mood Results & Data Results & Data ([facility]) Vital Signs (Past 12 Hours) Vital Signs Temp Pulse Resp BP BP Pulse Ox O2 Del Method 03/09/22 08:00 Nasal Cannula, Oxymask 03/09/22 10:19 103/74 03/09/22 10:10 36.6 C 69 18 154/64 H 97 03/09/22 09:33 183/96 H 172/69 H 03/09/22 08:20 36.8 C 70 18 172/69 H 94 Nasal Cannula 03/09/22 03:04 36.4 C L 70 18 168/77 H 95 Nasal Cannula O2 Flow Rate 03/09/22 08:00 03/09/22 10:19 03/09/22 10:10 03/09/22 09:33 03/09/22 08:20 03/09/22 03:04 2 Laboratory Results 03/09/22 05:55 03/09/22 05:55 PG Care Time/CCT Total # of Minutes Spent Total Time Spent with Patient: Total time spent is greater than 50% in coordination of care (as documented) at patient's floor/unit and/or counseling patient: Coding Level of Care Code 01190 Subseq Hosp Care Lvl 3 Diagnoses Retropharyngeal abscess J39.0 Hypokalemia E87.6 Type 2 diabetes mellitus with insulin deficiency E11.9 Hypertension I10 Hypertension type: essential hypertension Ascending aorta enlargement I77.89 Hyperlipidemia E78.5 Hyperlipidemia type: unspecified CAD (coronary artery disease) I25.10 GERD (gastroesophageal reflux disease) K21.9 Esophagitis presence: esophagitis presence not specified DVT prophylaxis Z29.9 (1) Hypertension Hypertension type: essential hypertension Qualified Code(s): I10 - Essential (primary) hypertension (2) Hyperlipidemia Hyperlipidemia type: unspecified Qualified Code(s): E78.5 - Hyperlipidemia, unspecified (3) GERD (gastroesophageal reflux disease) Esophagitis presence: esophagitis presence not specified Qualified Code(s): K21.9 - Gastro-esophageal reflux disease without esophagitis
[2022-03-09] MEDS: PANTOprazole 40 MG in SYRINGE 0 ML IV SCH (12:40)
[2022-03-09] MEDS: HEPARIN SOD 5,000 UNIT/0.5 ML VIAL SQ SCH (15:18)
--- NOTE | 2022-03-09 17:05 | Ears,Nose,Throat Progress Note ---
Date of Service March 09, 2022 Assessment & Plan (1) Abscess of lateral pharyngeal space: Plan: Status post I&D, slowly improving. Advance diet. Will need to keep the drain in for at least 72 hours. Admission and Anticipated Discharge Date Admission Date: March 08, 2022 Subjective Less painful. Still difficulty swallowing due to thick phlegm. Physical Exam Neck: Dressings changed, purulent drainage via [place]. Drain in place Results & Data ([facility]) Vital Signs (Past 12 Hours) Vital Signs Temp Pulse Pulse Resp BP BP Pulse Ox 03/09/22 16:04 36.8 C 65 18 161/71 H 165/94 H 96 03/09/22 15:00 69 03/09/22 08:00 03/09/22 08:00 70 03/09/22 08:00 03/09/22 10:19 103/74 03/09/22 10:10 36.6 C 69 18 154/64 H 97 03/09/22 09:33 183/96 H 172/69 H 03/09/22 08:20 36.8 C 70 18 172/69 H 94 O2 Del Method 03/09/22 16:04 Room Air 03/09/22 15:00 03/09/22 08:00 Nasal Cannula 03/09/22 08:00 03/09/22 08:00 Nasal Cannula, Oxymask 03/09/22 10:19 03/09/22 10:10 03/09/22 09:33 03/09/22 08:20 Nasal Cannula
[2022-03-09] MEDS ORDERED: Nursing to Pharmacy Communication SCH (21:30)
[2022-03-10] MEDS: SODIUM CHLORIDE 0.9% 1000ML 1,000 ML IV SCH (01:18)
[2022-03-10] MEDS: HEPARIN SOD 5,000 UNIT/0.5 ML VIAL SQ SCH ×3 (01:18→21:17)
[2022-03-10] MEDS: PIPERACILLIN/TAZOBACTAM 3.375 GM in DEXTROSE 5% 100 ML IV SCH ×3 (01:19→17:28)
--- NOTE | 2022-03-10 04:01 | Communication Note ---
Date of Service: March 10, 2022 notified of sinus gómez since 9pm. Transiently as low as 38. current HR low 50s, but had been 40s earlier. K was low yesterday AM and he had received IV repletion but refused oral repletion. patient states gags when trying to swallow and is refusing all PO intake, liquids as well. ordering labs now. will replete w/ IV kcl if needed. K 2.9. ordering 4 bags IV kcl
[2022-03-10 05:28] LABS: Basophils # (auto) 0.03 K/uL (0-0.2); Basophils % (auto) 0.2 %; Eosinophils # (auto) 0.05 K/uL (0-0.50); Eosinophils % (auto) 0.4 %; Hematocrit (blood only) 37.1 % (40.1-51.0); Hemoglobin 12.7 g/dl (14.0-18.0); Immature Granulocytes # (auto) 0.05 K/uL (0.00-0.02); Immature Granulocytes % (auto) 0.4 %; Lymphocytes # (auto) 1.52 K/uL (1.2-3.4); Lymphocytes % (auto) 12.1 %; Mean Corpuscular Hemoglobin 29.8 pg (25.0-34.0); Mean Corpuscular Hgb Conc 34.2 g/dL (32.0-36.0); Mean Corpuscular Volume 87.1 fL (80.0-100.0); Mean Platelet Volume 9.7 fL (9.4-12.4); Monocytes # (auto) 1.01 K/uL (0.24-0.82); Monocytes % (auto) 8.1 %; Neutrophils # (auto) 9.87 K/uL (1.4-6.5); Neutrophils % (auto) 78.8 %; Platelet Count 231 K/uL (130-400); RDW Coefficient of Variation 13.4 % (11.5-14.5); RDW Standard Deviation 42.5 fL (36.4-46.3); Red Blood Count 4.26 M/uL (4.63-6.08); White Blood Count 12.53 K/ul (4.8-10.8)
[2022-03-10 05:51] LABS: BUN Creatinine Ratio 24.4 (10-20); Calcium 8.7 mg/dl (8.5-10.1); Est GFR (African American) 44.4 ml/min; Est GFR (Non-African American) 38.3 ml/min; Potassium 2.9 mmol/L (3.5-5.1)
[2022-03-10] MEDS: POTASSIUM CHLORIDE / WTR 10 MEQ/100 ML PLCT IV SCH ×4 (06:36→10:01)
[2022-03-10] MEDS: NIFEdipine EXTENDED REL 30 MG TABCR PO SCH (08:49)
[2022-03-10] MEDS: METOPROLOL SUCC 25MG EXT REL TAB PO SCH (08:50)
[2022-03-10] MEDS: ASPIRIN 81 MG ECTAB PO SCH (08:51)
[2022-03-10] MEDS ORDERED: POTASSIUM CHLORIDE / WTR 10 MEQ/100 ML PLCT IV SCH (09:15)
[2022-03-10] MEDS: DAPTOmycin 500 MG in SYRINGE 0 ML IV SCH (10:02)
[2022-03-10] MEDS ORDERED: NSS + 20MEQ KCL 20 MEQ/1,000 ML BAG IV SCH (11:00)
[2022-03-10] MEDS: PANTOprazole 40 MG in SYRINGE 0 ML IV SCH (11:31)
--- NOTE | 2022-03-10 14:18 | Hospitalist Progress Note ---
Date of Service March 10, 2022 Assessment & Plan (1) Retropharyngeal abscess: Plan: CT showed left lateral pharyngeal space abscess. S/p I&D with Dr. Trejo on 03/08. Postoperative day #2. He remains on intravenous daptomycin and Zosyn.. Diet has been advanced . (2) Hypokalemia: Plan: Potassium remains low. Intravenous potassium riders ordered. Serial labs. Diuretic is on hold. 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 Oral medications are on hold. Sliding scale coverage. Eventual advancement to ADA diet. (4) Hypertension: Plan: Hold orals until able to swallow effectively. Will use Hydralazine 10 mg IV Q4h PRN for SBP > 170 or DBP > 110 (5) Ascending aorta enlargement: Plan: Per patient and . Blood pressure control as above (6) Hyperlipidemia: Plan: Hold statin until able to take p.o. (7) CAD (coronary artery disease): Plan: No chest pain. Troponin elevation reflects demand ischemia. Resume ASA when taking p.o. (8) GERD (gastroesophageal reflux disease): Plan: PPI IV daily until he can be switched to oral route (9) DVT prophylaxis: Plan: SCDs -Heparin subcu . FULL CODE - Per patient and in ER Plan Eventual discharge to home. Hopefully within the next 24 to 48 hours Admission and Anticipated Discharge Date Admission Date: March 08, 2022 Subjective The patient looks and feels better today. ENT entry noted. [place] drain in the left anterior cervical neck area will remain in place for 3 days postoperatively. Review of Systems Review of Systems: Constitutional-no fever or chills ENT-no blurred vision, no double vision, no epistaxis. Difficulty swallowing due to recent incision and drainage of left peritonsillar abscess has improved Respiratory-no cough, no wheezing, no shortness of breath Cardiac-no palpitations, no chest pain, no syncope GI-no nausea, vomiting, diarrhea, melena, hematochezia -no urinary retention, no urinary incontinence, no dysuria, no hematuria Musculoskeletal-no joint pain, no muscle tenderness Skin-no bruising, no rashes, no pruritus Neuro-no isolated weakness, no paresthesia, no weakness Psych-no depression, no anxiety Physical Exam Physical Exam: General-alert and oriented x3, no fevers, no chills HEENT-head atraumatic and normocephalic, pupils equal and reactive to light, extraocular muscles intact Neck-bandage in place left submandibular area. Chest-clear to auscultation percussion. No rales, wheezing , stridor or rhonchi Cardiac-regular rate and rhythm, normal S1 and S2, no murmurs Abdomen-normal bowel sounds, nontender, no hepatosplenomegaly Extremities-no cyanosis, clubbing, or edema Neuro-cranial nerves II through XII intact, motor and sensory function within normal limits, strength symmetrical , no focal deficits Psych-normal affect, normal mood Results & Data Results & Data ([facility]) Vital Signs (Past 12 Hours) Vital Signs Temp Pulse Resp BP BP Pulse Ox O2 Del Method 03/10/22 10:33 36.4 C L 53 L 16 171/83 H 98 Room Air 03/10/22 08:00 Room Air 03/10/22 08:17 36.3 C L 61 14 165/71 H 96 Room Air 03/10/22 03:00 36.7 C 48 L 20 188/75 H 94 Room Air Laboratory Results 03/10/22 05:22 03/10/22 05:22 PG Care Time/CCT Total # of Minutes Spent Total Time Spent with Patient: Total time spent is greater than 50% in coordination of care (as documented) at patient's floor/unit and/or counseling patient: Coding Level of Care Code 58985 Subseq Hosp Care Lvl 3 Diagnoses Retropharyngeal abscess J39.0 Hypokalemia E87.6 Type 2 diabetes mellitus with insulin deficiency E11.9 Hypertension I10 Hypertension type: essential hypertension Ascending aorta enlargement I77.89 Hyperlipidemia E78.5 Hyperlipidemia type: unspecified CAD (coronary artery disease) I25.10 GERD (gastroesophageal reflux disease) K21.9 Esophagitis presence: esophagitis presence not specified DVT prophylaxis Z29.9 (1) Hypertension Hypertension type: essential hypertension Qualified Code(s): I10 - Essential (primary) hypertension (2) Hyperlipidemia Hyperlipidemia type: unspecified Qualified Code(s): E78.5 - Hyperlipidemia, unspecified (3) GERD (gastroesophageal reflux disease) Esophagitis presence: esophagitis presence not specified Qualified Code(s): K21.9 - Gastro-esophageal reflux disease without esophagitis
[2022-03-11] MEDS: PIPERACILLIN/TAZOBACTAM 3.375 GM in DEXTROSE 5% 100 ML IV SCH ×2 (03:18→09:53)
[2022-03-11 07:55] LABS: Basophils # (auto) 0.04 K/uL (0-0.2); Basophils % (auto) 0.4 %; Eosinophils # (auto) 0.31 K/uL (0-0.50); Eosinophils % (auto) 2.9 %; Hematocrit (blood only) 40.9 % (40.1-51.0); Immature Granulocytes # (auto) 0.09 K/uL (0.00-0.02); Immature Granulocytes % (auto) 0.9 %; Lymphocytes # (auto) 1.95 K/uL (1.2-3.4); Lymphocytes % (auto) 18.5 %; Mean Corpuscular Hemoglobin 29.6 pg (25.0-34.0); Mean Corpuscular Hgb Conc 34.2 g/dL (32.0-36.0); Mean Corpuscular Volume 86.5 fL (80.0-100.0); Mean Platelet Volume 9.5 fL (9.4-12.4); Monocytes # (auto) 0.83 K/uL (0.24-0.82); Monocytes % (auto) 7.9 %; Neutrophils # (auto) 7.31 K/uL (1.4-6.5); Neutrophils % (auto) 69.4 %; Platelet Count 283 K/uL (130-400); RDW Standard Deviation 40.9 fL (36.4-46.3); Red Blood Count 4.73 M/uL (4.63-6.08); White Blood Count 10.53 K/ul (4.8-10.8)
--- NOTE | 2022-03-11 08:08 | Ears,Nose,Throat Progress Note ---
Date of Service March 11, 2022 Assessment & Plan (1) Abscess of lateral pharyngeal space: Plan: Improving, still has purulent drainage. Will leave drain in. Admission and Anticipated Discharge Date Admission Date: March 08, 2022 Subjective He continues to improve, tolerating a soft diet. Afebrile Physical Exam ENMT: external ear and nose normal, oropharynx normal Mouth: + oropharynx abnormality (Much less swollen, tolerating soft diet) Neck: Still has purulent drainage, drain in place Results & Data ([facility]) Vital Signs (Past 12 Hours) Vital Signs Temp Pulse Pulse Resp BP Pulse Ox O2 Del Method 03/11/22 07:17 36.6 C 69 16 152/68 H 96 Room Air 03/11/22 02:36 36.8 C 68 18 143/63 H 96 Room Air 03/10/22 22:15 62 03/10/22 22:48 37 C 70 18 152/64 H 96 Room Air
[2022-03-11 08:12] LABS: BUN Creatinine Ratio 20.7 (10-20); Calcium 9.1 mg/dl (8.5-10.1); Creatinine Clr Calc Pharmacy 46.6 ml/min; Est GFR (Non-African American) 38.9 ml/min; Potassium 3.2 mmol/L (3.5-5.1)
[2022-03-11] MEDS: NIFEdipine EXTENDED REL 30 MG TABCR PO SCH (09:43)
[2022-03-11] MEDS: HEPARIN SOD 5,000 UNIT/0.5 ML VIAL SQ SCH ×2 (09:43→20:35)
[2022-03-11] MEDS: METOPROLOL SUCC 25MG EXT REL TAB PO SCH (09:44)
[2022-03-11] MEDS: DAPTOmycin 500 MG in SYRINGE 0 ML IV SCH (09:44)
[2022-03-11] MEDS: ASPIRIN 81 MG ECTAB PO SCH (09:44)
[2022-03-11] MEDS: POTASSIUM CHLORIDE CRTAB 20 MEQ TABCR PO SCH ×2 (09:54→20:41)
[2022-03-11] MEDS: PANTOprazole 40 MG in SYRINGE 0 ML IV SCH (11:04)
--- NOTE | 2022-03-11 13:51 | Hospitalist Progress Note ---
Date of Service March 11, 2022 Assessment & Plan (1) Retropharyngeal abscess: Plan: CT showed left lateral pharyngeal space abscess. S/p I&D with Dr. Trejo on 03/08. Postoperative day #3. Antibiotic has been switched to Unasyn. Diet has been advanced . (2) Hypokalemia: Plan: Potassium remains low. He is able to swallow pills now and oral potassium supplement has been ordered. Serial labs. Diuretic is on hold. 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 Oral medications are on hold. Sliding scale coverage. Eventual advancement to ADA diet. (4) Hypertension: Plan: Restart usual oral medication since he is able to swallow tablets now. (5) Ascending aorta enlargement: Plan: Per patient and . Blood pressure control as above (6) Hyperlipidemia: Plan: Statin therapy. (7) CAD (coronary artery disease): Plan: No chest pain. Troponin elevation reflects demand ischemia. Resume ASA today, March 11 (8) GERD (gastroesophageal reflux disease): Plan: PPI therapy (9) DVT prophylaxis: Plan: SCDs -Heparin subcu . FULL CODE - Per patient and in ER Plan Eventual discharge to home. Hopefully tomorrow, March 12 Admission and Anticipated Discharge Date Admission Date: March 08, 2022 Subjective Alert and oriented. ENT entry noted. The neck drain will remain in place another day. Oral intake is improved. Oral potassium supplementation ordered. Pharmacy request Zosyn be switched to Unasyn. Review of Systems Review of Systems: Constitutional-no fever or chills ENT-no blurred vision, no double vision, no epistaxis. Difficulty swallowing due to recent incision and drainage of left peritonsillar abscess has improved Respiratory-no cough, no wheezing, no shortness of breath Cardiac-no palpitations, no chest pain, no syncope GI-no nausea, vomiting, diarrhea, melena, hematochezia -no urinary retention, no urinary incontinence, no dysuria, no hematuria Musculoskeletal-no joint pain, no muscle tenderness Skin-no bruising, no rashes, no pruritus Neuro-no isolated weakness, no paresthesia, no weakness Psych-no depression, no anxiety Physical Exam Physical Exam: General-alert and oriented x3, no fevers, no chills HEENT-head atraumatic and normocephalic, pupils equal and reactive to light, extraocular muscles intact Neck-bandage in place left submandibular area. Chest-clear to auscultation percussion. No rales, wheezing , stridor or rhonchi Cardiac-regular rate and rhythm, normal S1 and S2, no murmurs Abdomen-normal bowel sounds, nontender, no hepatosplenomegaly Extremities-no cyanosis, clubbing, or edema Neuro-cranial nerves II through XII intact, motor and sensory function within normal limits, strength symmetrical , no focal deficits Psych-normal affect, normal mood Results & Data Results & Data ([facility]) Vital Signs (Past 12 Hours) Vital Signs Temp Pulse Pulse Resp BP Pulse Ox O2 Del Method 03/11/22 06:16 68 03/11/22 08:00 Room Air 03/11/22 12:03 36.6 C 72 18 149/73 H 97 Room Air 03/11/22 07:17 36.6 C 69 16 152/68 H 96 Room Air 03/11/22 02:36 36.8 C 68 18 143/63 H 96 Room Air Laboratory Results 03/11/22 07:40 03/11/22 07:40 PG Care Time/CCT Total # of Minutes Spent Total Time Spent with Patient: Total time spent is greater than 50% in coordination of care (as documented) at patient's floor/unit and/or counseling patient: Coding Level of Care Code 01191 Subseq Hosp Care Lvl 3 Diagnoses Retropharyngeal abscess J39.0 Hypokalemia E87.6 Type 2 diabetes mellitus with insulin deficiency E11.9 Hypertension I10 Hypertension type: essential hypertension Ascending aorta enlargement I77.89 Hyperlipidemia E78.5 Hyperlipidemia type: unspecified CAD (coronary artery disease) I25.10 GERD (gastroesophageal reflux disease) K21.9 Esophagitis presence: esophagitis presence not specified DVT prophylaxis Z29.9 (1) Hypertension Hypertension type: essential hypertension Qualified Code(s): I10 - Essential (primary) hypertension (2) Hyperlipidemia Hyperlipidemia type: unspecified Qualified Code(s): E78.5 - Hyperlipidemia, unspecified (3) GERD (gastroesophageal reflux disease) Esophagitis presence: esophagitis presence not specified Qualified Code(s): K21.9 - Gastro-esophageal reflux disease without esophagitis
[2022-03-11] MEDS: AMPICILLIN/SULBACTAM SOD 3,000 MG in 0.9 % SODIUM CHLORIDE 100 ML IV SCH ×2 (18:19→23:39)
[2022-03-12] MEDS: AMPICILLIN/SULBACTAM SOD 3,000 MG in 0.9 % SODIUM CHLORIDE 100 ML IV SCH ×2 (06:21→12:47)
[2022-03-12 07:11] LABS: Basophils # (auto) 0.03 K/uL (0-0.2); Basophils % (auto) 0.3 %; Eosinophils % (auto) 4.6 %; Hematocrit (blood only) 40.2 % (40.1-51.0); Immature Granulocytes # (auto) 0.07 K/uL (0.00-0.02); Immature Granulocytes % (auto) 0.8 %; Lymphocytes # (auto) 1.99 K/uL (1.2-3.4); Mean Corpuscular Hemoglobin 29.6 pg (25.0-34.0); Mean Corpuscular Hgb Conc 34.8 g/dL (32.0-36.0); Mean Platelet Volume 9.4 fL (9.4-12.4); Monocytes # (auto) 0.76 K/uL (0.24-0.82); Monocytes % (auto) 8.8 %; Neutrophils # (auto) 5.39 K/uL (1.4-6.5); Neutrophils % (auto) 62.5 %; Platelet Count 285 K/uL (130-400); RDW Coefficient of Variation 12.8 % (11.5-14.5); RDW Standard Deviation 39.1 fL (36.4-46.3); Red Blood Count 4.73 M/uL (4.63-6.08); White Blood Count 8.64 K/ul (4.8-10.8)
[2022-03-12 07:42] LABS: BUN Creatinine Ratio 17.7 (10-20); Calcium 8.9 mg/dl (8.5-10.1); Creatinine Clr Calc Pharmacy 49.4 ml/min; Est GFR (African American) 48.4 ml/min; Est GFR (Non-African American) 41.7 ml/min; Potassium 3.3 mmol/L (3.5-5.1)
[2022-03-12] MEDS: HEPARIN SOD 5,000 UNIT/0.5 ML VIAL SQ SCH (08:47)
[2022-03-12] MEDS: POTASSIUM CHLORIDE CRTAB 20 MEQ TABCR PO SCH (08:47)
[2022-03-12] MEDS: NIFEdipine EXTENDED REL 30 MG TABCR PO SCH (08:48)
[2022-03-12] MEDS: ASPIRIN 81 MG ECTAB PO SCH (08:48)
[2022-03-12] MEDS: METOPROLOL SUCC 25MG EXT REL TAB PO SCH (08:48)
[2022-03-12] MEDS: DAPTOmycin 500 MG in SYRINGE 0 ML IV SCH (08:53)
[2022-03-12] MEDS ORDERED: PANTOprazole 40 MG TAB PO SCH (09:00)
--- NOTE | 2022-03-12 10:29 | Discharge Summary ---
Date of Service March 12, 2022 Admission HPI Per Admitting Provider 71yo M w/ hx of DM1, HTN, HLD who presents with sub-pharyngeal abscess. Patient notes a sore and painful throat on . He came to the ER on 03/06 (Wednesday), but was sent home with penicillin & prednisone. The pain gradually got worse, but really started to get bad on Wednesday. On Wednesday, he also noticed that he was having trouble speaking and swallowing his own saliva. He was not able to eat or drink anything, then was not able to even swallow his own saliva. Overnight on Wednesday, he also reports fevers/chills. He denies any shortness of breath, chest pain, nausea, vomiting. Has not urinated as much or had a BM as he has not had anything to eat or drink since Wednesday. Principal Diagnosis left peritonsillar abscess, hyp[okalemia Discharge Data Allergies Allergy/AdvReac Type Severity Reaction Status Date / Time JOÃO Inhibitors Allergy Intermediate Cough Verified 03/04/22 12:54 lisinopril AdvReac Intermediate Cough Verified 03/04/22 12:54 losartan AdvReac Intermediate Cough Verified 03/04/22 12:54 Consultations 03/08/22 07:06 Consult Otolaryngology (Head and Neck) Stat ED Decision to Admit Stat Procedures Performed Operation Date: 03/08/22 10:00 Actual Procedures p Aspiration, Incision and Drainage Parapharyngeal Abscess, Direct Laryngoscopy - Rhea Trejo MD Ordered Studies 03/08/22 04:11 CT neck soft tissues [CT soft tissue neck w con] Urgent Hospital Course (1) Retropharyngeal abscess: CT showed left lateral pharyngeal space abscess. S/p I&D with Dr. Trejo on 03/08. Postoperative day #4. Antibiotic has been switched to Unasyn. Home with drain on Augmentin. Diet has been advanced . (2) Hypokalemia: Potassium borderline low. He is able to swallow pills now and oral potassium supplement has been ordered. Serial labs. Diuretic remains on hold. (3) Type 2 diabetes mellitus with insulin deficiency: A1c was 6.8% in 12/2021. Oral medications are on hold. Sliding scale coverage. ADA diet. (4) Hypertension: controlled. Med management. (5) Ascending aorta enlargement: Per patient and . Blood pressure control as above (6) Hyperlipidemia: Statin therapy. (7) CAD (coronary artery disease): No chest pain. Troponin elevation reflects demand ischemia. Resumed ASA on March 11 (8) GERD (gastroesophageal reflux disease): PPI therapy (9) DVT prophylaxis: SCDs -Heparin subcu . FULL CODE - Per patient and in ER Plan discharge to home today, March 12 Total Time Total Time Spent Total Time Spent (In Minutes): 35 minutes Discharge Plan Discharge Items Patient Disposition: Home - Self-Care Reason For Visit: SUB-TONSILAR ABSCESS Discharge Diagnosis: left peritonsillar abscess, hypokalemia Activity: Resume your previous activity Non-emergency contact: Primary Care Provider Call non-emergency contact if: you have any medication questions and your symptoms worsen Follow-up/Referrals: Melba Pepper PA-C [Primary Care Provider] - Diet: Carb Consistent or DM2 and Heart Healthy Addtl Attending Provider Instructions: left neck drain will remain in place until seen by Dr. Trejo ( ENT ) Pending Studies at Discharge: No Stand-Alone Forms: My [facility] [employer], Smoking Cessation Medications and DC Order Prescriptions: New amoxicillin-pot clavulanate 875-125 mg tablet 1 tab PO BID Qty: 28 0RF Continued nifedipine 60 mg tablet extended release 24 hr 90 mg PO DAILY Farxiga 10 mg tablet 10 mg PO DAILY Qty: 90 3RF rosuvastatin [Crestor] 40 mg tablet 40 mg PO DAILY (DME) FreeStyle Alis 2 Sensor Kit See Rx Instructions .ROUTE .MEDSUPPLY Qty: 1 0RF Rx Instructions: As directed (DME) FreeStyle Alis 2 [place] Misc See Rx Instructions .ROUTE .MEDSUPPLY Qty: 1 0RF Rx Instructions: As directed calcitriol 0.25 mcg capsule 0.25 mcg PO DAILY Qty: 90 3RF Prolia 60 mg/mL syringe See Rx Instructions SQ .COMPLEX Label Comments: SQ every six months Rx Instructions: SQ every six months nitroglycerin 0.4 mg tablet, sublingual 0.4 mg SL Q5M PRN (Reason: Chest Pain) Novolog U-100 Insulin aspart 100 unit/mL solution 0 unit continuous subcutaneous infusion CONTINOUS Label Comments: Infuse via insulin pump daily; Rx Instructions: Infuse via insulin pump daily; hydralazine 25 mg tablet 50 mg PO TID Qty: 540 3RF chlorthalidone 25 mg tablet 25 mg PO DAILY venlafaxine 75 mg capsule,extended release 24hr 75 mg PO DAILY pantoprazole 40 mg tablet,delayed release (DR/EC) 40 mg PO DAILY metoprolol succinate 25 mg tablet extended release 24 hr 25 mg PO DAILY alfuzosin 10 mg tablet extended release 24 hr 10 mg PO DAILY linagliptin 5 mg tablet 5 mg PO DAILY oxycodone-acetaminophen 5-325 mg tablet 1 tab PO Q4H PRN (Reason: Pain) testosterone cypionate 200 mg/mL oil 100 mg IM .COMPLEX Rx Instructions: 100mg ; every 10 days aspirin 81 mg Tablet,Delayed Release (Dr/Ec) 81 mg PO DAILY oxycodone-acetaminophen [Percocet] 5-325 mg tablet 1 tab PO Q6H PRN (Reason: pain) Qty: 20 0RF prednisone 50 mg tablet 50 mg PO DAILY 5 Days Qty: 5 0RF penicillin V potassium 500 mg tablet 500 mg PO Q6H 10 Days Qty: 40 0RF penicillin V potassium 500 mg tablet 500 mg PO Q6H 7 Days Qty: 28 0RF oxycodone-acetaminophen [Percocet] 5-325 mg tablet 1 tab PO Q6H PRN (Reason: pain) Qty: 20 0RF prednisone 50 mg tablet 50 mg PO DAILY 5 Days Qty: 5 0RF Discharge Orders: Discharge Order (Routine); Ordered 03/12/22 Ordered By: Edwin Matrínez Admission Data Admit Date/Time: 03/08/22 09:31 Attending Provider: Edwin Martínez Admit Provider: Cristi Guadalupe Primary Care Provider: Melba Pepper Other Providers: Rhea Trejo ; Warren Lauren Coding Level of Care Code D/C DAY MANAGEMENT >30 MINS Diagnoses Retropharyngeal abscess J39.0 Hypokalemia E87.6 Type 2 diabetes mellitus with insulin deficiency E11.9 Hypertension I10 Hypertension type: essential hypertension Ascending aorta enlargement I77.89 Hyperlipidemia E78.5 Hyperlipidemia type: unspecified CAD (coronary artery disease) I25.10 GERD (gastroesophageal reflux disease) K21.9 Esophagitis presence: esophagitis presence not specified DVT prophylaxis Z29.9
== END 2022-03-12 13:15 | disposition home or self-care (01) | DRG 153 ==
LOC: ED 03:18 → 2S 09:31 → SUATTDRO 09:31 → 2S 09:47
DX: M81.0 Age-related osteoporosis without current pathological fracture; E87.6 Hypokalemia; Z79.82 Long term (current) use of aspirin; I25.10 Atherosclerotic heart disease of native coronary artery without angina pectoris; E10.9 Type 1 diabetes mellitus without complications; I77.89 Other specified disorders of arteries and arterioles; Z98.818 Other dental procedure status; I10 Essential (primary) hypertension; J36 Peritonsillar abscess; Z88.8 Allergy status to other drugs, medicaments and biological substances; Z87.891 Personal history of nicotine dependence; I24.8 Other forms of acute ischemic heart disease; K21.9 Gastro-esophageal reflux disease without esophagitis